=== PATIENT | female | born 1935 | race Caucasian/White ===

== ENCOUNTER 2018-11-29 12:59 | Inpatient (IN) | payer MEDICARE ==
[~2018-11-29] VITALS: Ht 162.6 cm; Wt 74.6 kg
[~2018-11-29 12:59] MED LIST: AMIT25TA PO; CEFP100T PO; CLON0.5T11 PO; CYAN-25 PO; GLIM4TAB2 PO; HYDR-2765 PO; LOVA20TA2 PO; METF10007 PO; PIOG45TA40 PO
--- NOTE | 2018-11-29 13:23 | PHYS DOC ---
Adult General Chief Complaint Chief Complaint: CHEST PAIN HPI HPI Patient is a 83 year old female was [facility] for chest pain started yesterday. Patient said the pain is on the left side radiating to her back. Patient recently had osteomyelitis in the toes in her right foot, had amputation last month. She has history of hypertension, neuropathy, diabetic. Patient also has history anemia. She denies any recent rectal bleeding, no vomiting blood. Review of Systems Review of Systems Constitutional: Denies fever or chills Eyes: Denies change in visual acuity, redness, or eye pain [] HENT: Denies nasal congestion or sore throat [] Respiratory: Denies cough or shortness of breath [] Cardiovascular:Positive for chest pain and shortness of air. GI: Denies abdominal pain, nausea, vomiting, bloody stools or diarrhea [] : Denies dysuria or hematuria [] Musculoskeletal: Denies back pain or joint pain [] Integument: Denies rash or skin lesions [] Neurologic: Denies headache, focal weakness or sensory changes. Positive for generalized weakness. Endocrine: Denies polyuria or polydipsia [] All other systems were reviewed and found to be within normal limits, except as documented in this note. Current Medications Current Medications Current Medications Medications (Trade) Dose Ordered Sig/Hever Start Time Stop Time Status Last Admin Dose Admin Albuterol/ Ipratropium (Duoneb) 3 ml RTQID 11/29/18 16:00 11/30/18 15:59 Aspirin (Children'S Aspirin) 324 mg 1X ONCE 11/29/18 13:30 11/29/18 13:31 DC Enoxaparin Sodium (Lovenox 80mg Syringe) 75 mg 1X ONCE 11/29/18 16:00 11/29/18 16:01 UNV Furosemide (Lasix) 60 mg 1X ONCE 11/29/18 15:45 11/29/18 15:46 DC Ketorolac Tromethamine (Toradol 30mg Vial) 30 mg 1X ONCE 11/29/18 15:30 11/29/18 15:31 UNV Morphine Sulfate (Morphine Sulfate) 2 mg PRN Q2HR PRN 11/29/18 15:45 11/30/18 15:44 Nitroglycerin (Nitrostat) 0.4 mg PRN Q5MIN PRN 11/29/18 15:45 11/30/18 15:44 Ondansetron HCl (Zofran) 4 mg PRN Q8HRS PRN 11/29/18 15:45 11/30/18 15:44 Allergies Allergies Allergies Coded Allergies Type Severity Reaction Last Updated Verified amoxicillin Allergy Intermediate Hives 10/15/18 Yes Physical Exam Physical Exam Constitutional: Well developed, well nourished, no acute distress, non-toxic appearance. [] HENT: Normocephalic, atraumatic, bilateral external ears normal, oropharynx moist, no oral exudates, nose normal. [] Eyes: PERRLA, EOMI, conjunctiva normal, no discharge. [] Neck: Normal range of motion, no tenderness, supple, no stridor. [] Cardiovascular:Heart rate regular rhythm, no murmur [] Lungs & Thorax: Bilateral breath sounds clear to auscultation [] Abdomen: Bowel sounds normal, soft, no tenderness, no masses, no pulsatile masses. [] Skin: Warm, dry, no erythema, no rash. [] Back: No tenderness, no CVA tenderness. [] Extremities: No tenderness, no cyanosis, no clubbing, ROM intact, BILATERAL LOWER EXTREMITIES EDEMA, PITTING, 3 PLUS. Neurologic: Alert and oriented X 3, normal motor function, normal sensory function, no focal deficits noted. [] Psychologic: Affect normal, judgement normal, mood normal. [] Current Patient Data Vital Signs Vital Signs Date Time Temp Pulse Resp B/P (MAP) Pulse Ox O2 Delivery O2 Flow Rate FiO2 11/29/18 13:16 97.8 102 20 132/74 (93) 94 Room Air 97.8 Lab Values Laboratory Tests Test 11/29/18 14:05 White Blood Count 10.8 x10^3/uL (4.0-11.0) Red Blood Count 3.39 x10^6/uL (3.50-5.40) L Hemoglobin 8.7 g/dL (12.0-15.5) L Hematocrit 28.5 % (36.0-47.0) L Mean Corpuscular Volume 84 fL (79-100) Mean Corpuscular Hemoglobin 26 pg (25-35) Mean Corpuscular Hemoglobin Concent 31 g/dL (31-37) Red Cell Distribution Width 21.0 % (11.5-14.5) H Platelet Count 285 x10^3/uL (140-400) Neutrophils (%) (Auto) 71 % (31-73) Lymphocytes (%) (Auto) 19 % (24-48) L Monocytes (%) (Auto) 10 % (0-9) H Eosinophils (%) (Auto) 0 % (0-3) Basophils (%) (Auto) 1 % (0-3) Neutrophils # (Auto) 7.6 x10^3uL (1.8-7.7) Lymphocytes # (Auto) 2.1 x10^3/uL (1.0-4.8) Monocytes # (Auto) 1.0 x10^3/uL (0.0-1.1) Eosinophils # (Auto) 0.0 x10^3/uL (0.0-0.7) Basophils # (Auto) 0.1 x10^3/uL (0.0-0.2) Prothrombin Time 17.5 SEC (11.7-14.0) H Prothrombin Time INR 1.5 (0.8-1.1) H PTT 34 SEC (24-38) D-Dimer (Elysia) 3.75 ug/mlFEU (0.00-0.50) H Sodium Level 135 mmol/L (136-145) L Potassium Level 4.0 mmol/L (3.5-5.1) Chloride Level 95 mmol/L (98-107) L Carbon Dioxide Level 27 mmol/L (21-32) Anion Gap 13 (6-14) Blood Urea Nitrogen 38 mg/dL (7-20) H Creatinine 1.6 mg/dL (0.6-1.0) H Estimated GFR (Cockcroft-Gault) 30.7 BUN/Creatinine Ratio 24 (6-20) H Glucose Level 150 mg/dL (70-99) H Calcium Level 9.2 mg/dL (8.5-10.1) Magnesium Level 1.4 mg/dL (1.8-2.4) L Total Bilirubin 0.6 mg/dL (0.2-1.0) Aspartate Amino Transferase (AST) 21 U/L (15-37) Alanine Aminotransferase (ALT) 16 U/L (14-59) Alkaline Phosphatase 73 U/L (46-116) Creatine Kinase 30 U/L (26-192) Creatine Kinase MB (Mass) 0.7 ng/mL (0.0-3.6) Creatine Kinase MB Relative Index % (0-4) Troponin I Quantitative 0.085 ng/mL (0.000-0.055) FU-Wlb-K-Type Natriuretic Peptide > 09060 pg/mL (0-449) H Total Protein 7.2 g/dL (6.4-8.2) Albumin 3.0 g/dL (3.4-5.0) L Albumin/Globulin Ratio 0.7 (1.0-1.7) L Lipase 33 U/L (73-393) L Laboratory Tests 11/29/18 14:05 Laboratory Tests 11/29/18 14:05 EKG EKG EKG was read by this physician at 1312, rate of 103 bpm, no STEMI, SINUS RHYTHM. Q WAVE IN INFERIOR LEADS. Radiology/Procedures Radiology/Procedures [][facility] [address] [place] [address] IMAGING REPORT Signed PATIENT: LORI RYDER ACCOUNT: [id number] : 1935 LOCATION: ER AGE: 83 SEX: F EXAM STATUS: PRE ER ORD. PHYSICIAN: IRWIN OLSON DO REASON: chest pain PROCEDURE: PORTABLE CHEST 1V Chest radiograph 11/29/2018 1:16 PM INDICATION: Chest pain COMPARISON: October 15, 2018 TECHNIQUE: Portable upright frontal view of the chest is provided. FINDINGS: The cardiomediastinal silhouette is similar in appearance. Small to moderate left pleural effusion with adjacent compressive atelectasis versus infiltrate. Small right pleural effusion. No pulmonary vascular congestion or pneumothorax. IMPRESSION: Small moderate left and small right pleural effusions with adjacent compressive atelectasis versus infiltrates. Electronically signed by: Bhargavi Chung MD (11/29/2018 1:48 PM) [id number] DICTATED and SIGNED BY: BHARGAVI CHUNG MD DATE: 11/29/18 1347 [facility] [address] [place] [address] IMAGING REPORT Signed PATIENT: LORI RYDER ACCOUNT: [id number] : 1935 LOCATION: ER AGE: 83 SEX: F EXAM STATUS: PRE ER ORD. PHYSICIAN: IRWIN OLSON DO REASON: legs swelling, recent right foot surgery PROCEDURE: VENOUS LOWER EXT BILATERAL CLINICAL HISTORY: B/L LEG SWELLINGS/P RT FOOT SURGERY COMPARISON: None available. TECHNIQUE: Ultrasound evaluation of both legs was performed from the groin to the upper calf with orozco scale, spectral and color doppler evaluation. FINDINGS: The common femoral vein, and femoral vein, including the saphenous-femoral junction are normal in appearance. Color and spectral Doppler evaluation demonstrates normal spontaneous flow, augmentation and phasicity. The popliteal vein and visualized calf veins also demonstrate normal compressibility and flow. The right greater saphenous vein has been removed. Mild lower extremity edema limits evaluation. IMPRESSION: No evidence of bilateral lower extremity DVT. Electronically signed by: Manuel Rebolledo MD (11/29/2018 2:03 PM) [id number] DICTATED and SIGNED BY: MANUEL REBOLLEDO MD DATE: 11/29/18 1401 Course & Med Decision Making Course & Med Decision Making Pertinent Labs and Imaging studies reviewed. (See chart for details) Patient's d-dimer is elevated, with recent surgery, chest pain, soa, likelihood of PE is high. CREATINE IS ELEVATED, WILL OBTAIN V/Q SCAN TO EVALUATE FOR PE. PATIENT'S TROPONIN IS ELEVATED. WILL ADMIT TO THE HOSPITAL. WILL GIVE HER FIRST DOSE OF LOVENOX IN THE ER. WILL CONSULT CARDIOLOGY WELL. AT THIS TIME, PATIENT DENIED ANY CHEST PAIN. Dragon Disclaimer Dragon Disclaimer This electronic medical record was generated, in whole or in part, using a voice recognition dictation system. Departure Departure Impression: Primary Impression: Chest pain Disposition: ADMITTED INPATIENT Admitting Physician: Alayna Solano Condition: STABLE Referrals: ALAYNA SOLANO MD (PCP) IRWIN OLSON DO Nov 29, 2018 13:23
[2018-11-29] MEDS ORDERED: ASPIRIN CHEWABLE 81 MG TABLET. PO ONE (13:30)
--- NOTE | 2018-11-29 13:53 | RAD ---
Chest radiograph 11/29/2018 1:16 PM INDICATION: Chest pain COMPARISON: October 15, 2018 TECHNIQUE: Portable upright frontal view of the chest is provided. FINDINGS: The cardiomediastinal silhouette is similar in appearance. Small to moderate left pleural effusion with adjacent compressive atelectasis versus infiltrate. Small right pleural effusion. No pulmonary vascular congestion or pneumothorax. IMPRESSION: Small moderate left and small right pleural effusions with adjacent compressive atelectasis versus infiltrates. Electronically signed by: Tess Reed MD (11/29/2018 1:48 PM) [id number]
--- NOTE | 2018-11-29 14:05 | EKG ---
[facility] [address] [place] [address] Test Date: 2018-11-29 Test Time: 13:10:58 Pat Name: LORI RYDER Department: Room: Gender: F Frame Repairer: : 1935 Requested By: IRWIN OLSON Order Number: [id number] Reading MD: Irvin Hernández Measurements Intervals [place] Rate: 103 P: 42 DE: 124 QRS: -5 QRSD: 84 T: 93 QT: 348 QTc: 458 Interpretive Statements SINUS TACHYCARDIA ATRIAL PREMATURE COMPLEX(ES) LEFTWARD AXIS LOW LIMB LEAD VOLTAGE QRS(T) CONTOUR ABNORMALITY CONSISTENT WITH INFERIOR INFARCT PROBABLY OLD ABNORMAL ECG Electronically Signed On 12-02-2018 10:24:37 [employer]END[employer] LET OFF HELPER by Irvin Hernández
--- NOTE | 2018-11-29 14:08 | RAD ---
CLINICAL HISTORY: B/L LEG SWELLINGS/P RT FOOT SURGERY COMPARISON: None available. TECHNIQUE: Ultrasound evaluation of both legs was performed from the groin to the upper calf with orozco scale, spectral and color doppler evaluation. FINDINGS: The common femoral vein, and femoral vein, including the saphenous-femoral junction are normal in appearance. Color and spectral Doppler evaluation demonstrates normal spontaneous flow, augmentation and phasicity. The popliteal vein and visualized calf veins also demonstrate normal compressibility and flow. The right greater saphenous vein has been removed. Mild lower extremity edema limits evaluation. IMPRESSION: No evidence of bilateral lower extremity DVT. Electronically signed by: Manuel Hong MD (11/29/2018 2:03 PM) [id number]
[2018-11-29 14:31] LABS: PROTHROMBIN TIME PATIENT 17.5 SEC (11.7-14.0)
[2018-11-29 14:32] LABS: BASO # 0.1 x10^3/uL (0.0-0.2); BASO % 1 % (0-3); EOS % 0 % (0-3); HEMATOCRIT 28.5 % (36.0-47.0); HEMOGLOBIN 8.7 g/dL (12.0-15.5); LYMPH # 2.1 x10^3/uL (1.0-4.8); LYMPH % 19 % (24-48); MEAN CORPUSCULAR HEMOGLOBIN 26 pg (25-35); MEAN CORPUSCULAR HGB CONC 31 g/dL (31-37); MEAN CORPUSCULAR VOLUME 84 fL (79-100); MONO % 10 % (0-9); NEUT # 7.6 x10^3uL (1.8-7.7); NEUT % 71 % (31-73); PLATELET COUNT 285 x10^3/uL (140-400); RED BLOOD COUNT 3.39 x10^6/uL (3.50-5.40); WHITE BLOOD COUNT 10.8 x10^3/uL (4.0-11.0)
[2018-11-29 14:34] LABS: CALCIUM 9.2 mg/dL (8.5-10.1); CREATININE 1.6 mg/dL (0.6-1.0); GFR 30.7
[2018-11-29 14:41] LABS: ALBUMIN/GLOBULIN RATIO 0.7 (1.0-1.7); MAGNESIUM 1.4 mg/dL (1.8-2.4); TOTAL BILIRUBIN 0.6 mg/dL (0.2-1.0); TOTAL PROTEIN 7.2 g/dL (6.4-8.2)
[2018-11-29 14:42] LABS: D-DIMER 3.75 ug/mlFEU (0.00-0.50)
[2018-11-29 14:43] LABS: CREATINE KINASE 30 U/L (26-192)
[2018-11-29] MEDS ORDERED: KETOROLAC 30 MG/ML VIAL. IV ONE (15:30)
[2018-11-29] MEDS ORDERED: FUROSEMIDE 40 MG/4 ML VIAL. IVP ONE (15:45)
[2018-11-29] MEDS ORDERED: NITROGLYCERIN SUBLINGUAL 0.4 MG BOTTLE OF 25. SL PRN (15:45)
[2018-11-29] MEDS ORDERED: MORPHINE SULFATE 4 MG/ML VIAL. IV PRN (15:45)
[2018-11-29] MEDS ORDERED: ONDANSETRON PF 4 MG/2 ML VIAL. IV PRN (15:45)
[2018-11-29] MEDS: IPRATRPIUM/ALBUTEROL 0.5/2.5MG 3 ML NEBU. NEB SCH ×2 (16:00→20:46)
[2018-11-29 17:12] LABS: ANISOCYTOSIS SLIGHT; OVALOCYTES OCC; PLT ESTIMATE ADEQUATE (ADEQUATE); POLYCHROMASIA SLIGHT
--- NOTE | 2018-11-29 17:39 | RAD ---
Indication: Chest pain for one day. Recent history of right foot amputation. Shortness of breath, chest pain. TECHNIQUE: Nuclear medicine VQ scan with 10.0 mCi of xenon-133 for ventilation scan and 6.0 mCi of technetium 99m MAA for perfusion scan. COMPARISON: Chest x-ray from same day FINDINGS: Appropriate wash-in and washout of xenon is seen in the ventilation phase. Homogeneous distribution is seen of the effusion agent without ventilation/perfusion mismatch. IMPRESSION: Low probability VQ scan. Electronically signed by: Cristobal Redding DO (11/29/2018 5:34 PM) [facility]
[2018-11-29 17:55] VITALS: BP 128/68
[2018-11-29] MEDS ORDERED: ACET500T33 PO (18:56)
[2018-11-29] MEDS ORDERED: LINA5TAB PO (18:56)
[2018-11-29] MEDS ORDERED: FURO-69 PO (18:56)
[2018-11-29 19:25] VITALS: BP 130/72
[2018-11-29] MEDS ORDERED: ACETAMINOPHEN 500 MG TABLET PO PRN (19:30)
[2018-11-29] MEDS: HYDROcodone/APAP 7.5/325MG 1 TAB TABLET PO PRN (20:07)
[2018-11-29] MEDS: clonazePAM 0.5 MG TABLET PO SCH (21:33)
[2018-11-29] MEDS: ATORVASTATIN CALCIUM 10 MG TABLET. PO SCH (21:33)
[2018-11-29 22:50] VITALS: BP 116/60
[2018-11-30 03:30] VITALS: BP 118/63
[2018-11-30 07:20] VITALS: BP 134/75
[2018-11-30] MEDS ORDERED: metFORMIN 500 MG TABLET PO SCH (08:00)
[2018-11-30] MEDS ORDERED: C.DIFF MED SCREEN BY RX. MC ONE (08:15)
[2018-11-30] MEDS: IPRATRPIUM/ALBUTEROL 0.5/2.5MG 3 ML NEBU. NEB SCH ×2 (08:28→12:07)
[2018-11-30 08:32] LABS: CALCIUM 8.8 mg/dL (8.5-10.1); CREATININE 1.6 mg/dL (0.6-1.0); GFR 30.7; MAGNESIUM 1.4 mg/dL (1.8-2.4); POTASSIUM 3.9 mmol/L (3.5-5.1)
[2018-11-30 08:45] LABS: CHOLESTEROL/HDL RATIO 2.1
--- NOTE | 2018-11-30 08:58 | NUR ---
SS following for discharge planning. SS reviewed pt chart. Pt was a resident from [facility] and [facility], ; fax [phone]. SS contacted [facility] to verify pt's previous placement. [facility] verified that pt was a skilled resident from there facility and will need new PT/OT evaluations and [facility] prior to returning.
[2018-11-30] MEDS ORDERED: FUROSEMIDE 20 MG TABLET PO SCH (09:00)
[2018-11-30] MEDS: CYANOCOBALAMIN (VITAMIN B-12) 1,000 MCG TABLET. PO SCH (09:07)
[2018-11-30] MEDS: LINAGLIPTIN 5 MG TABLET PO SCH (09:08)
--- NOTE | 2018-11-30 09:17 | PDOC ---
Provider Note Provider Note [id number] ALAYNA SOLANO MD Nov 30, 2018 09:17
--- NOTE | 2018-11-30 09:30 | PDOC2 ---
APRIL NAVA MH TEACHER 11/30/18 0930: CARDIAC CONSULT DATE OF CONSULT Date of Consult DATE: 11/30/18 TIME: 09:10 REASON FOR CONSULT Reason for Consult: chest pain, elevated troponin REFERRING PHYSICIAN Referring Physician: chuck SOURCE Source: Chart review, Patient HISTORY OF PRESENT ILLNESS HISTORY OF PRESENT ILLNESS This is an 83 yo female admitted for complains of chest pain. This is left chest radiating to back. She is significant for DM2 and PAD/osteomyelitis with recent right metatarsal amputation and open revascularization to RLE on 2017. She does not have hx of CAD or VTE. She started having chest pressure Thursday which lasted about 20 minutes. She has been having [facility] and since Thursday she has been having nausea intermittently but no vomiting. Yesterday again with [facility], feeling tired more than usual and also nausea. Also noted with [facility]. No diaphoresis or palpitations. No recent ischemic workup. No prior hx of VTe. No recent falls. Her legs have been edematous both lately. PAST MEDICAL HISTORY Cardiovascular: HTN, Hyperlipidemia, Other (Severe PAD) CENTRAL NERVOUS SYSTEM: Periperal neuropathy Heme/Onc: Anemia NOS Musculoskeletal: Osteoarthritis, Other (chornic pain) Infectious disease: Other (osteomyelitis) Endocrine: Diabetes (2), Osteoporosis Dermatology: Melanoma (with excision) PAST SURGICAL HISTORY Past Surgical History Right mid superficial femoral artery to proximal anterior tibial artery bypass using nonreversed great saphenous vein graft, Right transmetatarsal amputation. SOCIAL HISTORY Smoke: No ALCOHOL: none Drugs: None Lives: with Family CURRENT MEDICATIONS CURRENT MEDICATIONS Current Medications Medications (Trade) Dose Ordered Sig/Hever Route PRN Reason Start Time Stop Time Status Last Admin Dose Admin Albuterol/ Ipratropium (Duoneb) 3 ml RTQID NEB 11/29/18 16:00 11/30/18 15:59 11/30/18 08:28 Furosemide (Lasix) 60 mg 1X ONCE IVP 11/29/18 15:45 11/29/18 15:46 DC 11/29/18 15:56 Enoxaparin Sodium (Lovenox 80mg Syringe) 75 mg 1X ONCE SQ 11/29/18 16:00 11/29/18 16:01 DC 11/29/18 16:25 Clonazepam (KlonoPIN) 0.5 mg HS PO 11/29/18 21:00 11/29/18 21:33 Cyanocobalamin (Vitamin B-12) 1,000 mcg DAILY PO 11/30/18 09:00 11/30/18 09:07 Furosemide (Lasix) 20 mg DAILY PO 11/30/18 09:00 11/30/18 09:08 Acetaminophen/ Hydrocodone Bitart (Lortab 7.5/325) 1 tab PRN Q6HRS PRN PO PAIN MODERATE TO SEVERE 11/29/18 19:15 11/29/18 20:07 Linagliptin (Tradjenta) 5 mg DAILY PO 11/30/18 09:00 11/30/18 09:08 Atorvastatin Calcium (Lipitor) 5 mg QHS PO 11/29/18 21:00 11/29/18 21:33 Metformin HCl (Glucophage) 1,000 mg BIDWMEALS PO 11/30/18 08:00 11/30/18 09:08 ALLERGIES ALLERGIES: Coded Allergies: amoxicillin (Verified Allergy, Intermediate, Hives, 10/15/18) ROS Review of System 14 point ROS evaluated with pertinent positives noted per HPI PHYSICAL EXAM General: Alert, Oriented X3, Cooperative, No acute distress HEENT: Atraumatic, Mucous membr. moist/pink Lungs: Other (diminished, bibasilar crackles) Heart: Regular rate (Sinus tach mild), Other (2/6 systolic murmur to LLS border ) Abdomen: Soft, No tenderness Extremities: No cyanosis, Other (3-4+ to RLE and 3+ to LLE) Skin: No breakdown, No significant lesion, Other (RLE surgical incision healed ; left foot post recent amputation covered with dry kerlix) Neuro: Normal speech, Sensation intact Psych/Mental Status: Mental status NL, Mood NL MUSCULOSKELETAL: Osteoarthritic changes both hands VITALS VITALS Vital Signs Date Time Temp Pulse Resp B/P (MAP) Pulse Ox O2 Delivery O2 Flow Rate FiO2 11/30/18 08:29 96 Room Air 11/30/18 07:20 98.1 96 16 134/75 (94) 98.1 LABS Lab: Laboratory Tests Test 11/29/18 14:05 11/29/18 17:55 11/30/18 00:25 11/30/18 06:05 White Blood Count 10.8 x10^3/uL (4.0-11.0) Red Blood Count 3.39 x10^6/uL (3.50-5.40) Hemoglobin 8.7 g/dL (12.0-15.5) Hematocrit 28.5 % (36.0-47.0) Mean Corpuscular Volume 84 fL (79-100) Mean Corpuscular Hemoglobin 26 pg (25-35) Mean Corpuscular Hemoglobin Concent 31 g/dL (31-37) Red Cell Distribution Width 21.0 % (11.5-14.5) Platelet Count 285 x10^3/uL (140-400) Neutrophils (%) (Auto) 71 % (31-73) Lymphocytes (%) (Auto) 19 % (24-48) Monocytes (%) (Auto) 10 % (0-9) Eosinophils (%) (Auto) 0 % (0-3) Basophils (%) (Auto) 1 % (0-3) Neutrophils # (Auto) 7.6 x10^3uL (1.8-7.7) Lymphocytes # (Auto) 2.1 x10^3/uL (1.0-4.8) Monocytes # (Auto) 1.0 x10^3/uL (0.0-1.1) Eosinophils # (Auto) 0.0 x10^3/uL (0.0-0.7) Basophils # (Auto) 0.1 x10^3/uL (0.0-0.2) Platelet Estimate Adequate (ADEQUATE) Polychromasia Slight Anisocytosis Slight Ovalocytes Occ Prothrombin Time 17.5 SEC (11.7-14.0) Prothromb Time International Ratio 1.5 (0.8-1.1) Activated Partial Thromboplast Time 34 SEC (24-38) D-Dimer (Elysia) 3.75 ug/mlFEU (0.00-0.50) Sodium Level 135 mmol/L (136-145) 139 mmol/L (136-145) Potassium Level 4.0 mmol/L (3.5-5.1) 3.9 mmol/L (3.5-5.1) Chloride Level 95 mmol/L (98-107) 98 mmol/L (98-107) Carbon Dioxide Level 27 mmol/L (21-32) 29 mmol/L (21-32) Anion Gap 13 (6-14) 12 (6-14) Blood Urea Nitrogen 38 mg/dL (7-20) 40 mg/dL (7-20) Creatinine 1.6 mg/dL (0.6-1.0) 1.6 mg/dL (0.6-1.0) Estimated GFR (Cockcroft-Gault) 30.7 30.7 BUN/Creatinine Ratio 24 (6-20) Glucose Level 150 mg/dL (70-99) 156 mg/dL (70-99) Calcium Level 9.2 mg/dL (8.5-10.1) 8.8 mg/dL (8.5-10.1) Magnesium Level 1.4 mg/dL (1.8-2.4) 1.4 mg/dL (1.8-2.4) Total Bilirubin 0.6 mg/dL (0.2-1.0) Aspartate Amino Transf (AST/SGOT) 21 U/L (15-37) Alanine Aminotransferase (ALT/SGPT) 16 U/L (14-59) Alkaline Phosphatase 73 U/L (46-116) Creatine Kinase 30 U/L (26-192) Creatine Kinase MB (Mass) 0.7 ng/mL (0.0-3.6) Creatine Kinase MB Relative Index % (0-4) Troponin I Quantitative 0.085 ng/mL (0.000-0.055) 0.101 ng/mL (0.000-0.055) 0.084 ng/mL (0.000-0.055) 0.074 ng/mL (0.000-0.055) AL-Vlb-W-Type Natriuretic Peptide > 21404 pg/mL (0-449) Total Protein 7.2 g/dL (6.4-8.2) Albumin 3.0 g/dL (3.4-5.0) Albumin/Globulin Ratio 0.7 (1.0-1.7) Lipase 33 U/L (73-393) Triglycerides Level 65 mg/dL (0-150) Cholesterol Level 90 mg/dL (0-200) LDL Cholesterol, Calculated 34 mg/dL (0-100) VLDL Cholesterol, Calculated 13 mg/dL (0-40) Non-HDL Cholesterol Calculated 47 mg/dL (0-129) HDL Cholesterol 43 mg/dL (40-60) Cholesterol/HDL Ratio 2.1 Thyroid Stimulating Hormone (TSH) 2.142 uIU/mL (0.358-3.74) Test 11/30/18 07:28 Glucose (Fingerstick) 141 mg/dL (70-99) ASSESSMENT/PLAN ASSESSMENT/PLAN 1. NSTEMI; peaked at 0.1. EKG SR with poor QRS amplitude. 2. Acute CHF with possible diastolic/systolic dysfunction: 3. PAflutter: New onset. Could ischemic induced. 4. HTN: controlled 5. Severe PAD/osteomyelitis: recent right metatarsal amputation and fem-tib bypass. 6. HLP: lipids well controlled 7. DM2/DPN 8. KATERIN on CKD. suspect baseline stage 3. Prerenal. Cr at 1.6. Recommendations 1. TTE. TSH and lipids 2. Lasix therapy. 3. Pretest probability for CAD is high. Start on heparin drip. ASA Continue with statin 4. Start on BB if BP trend is adequate pending lasix therapy. 5. Potential LHC tomorrow. CARLOS CONTI MD 12/01/18 1309: CARDIAC CONSULT ASSESSMENT/PLAN ASSESSMENT/PLAN Patient seen and examined 11/30/18 (late entry). Agree with SUPERVISOR FISHING's assessment and plan. Continue diuresis for acute on chronic systolic heart failure 2-D echo showed LVEF 10-15% Plan for cardiac catheterization to rule out ischemic etiology Thank you for your consultation APRIL NAVA APRN Nov 30, 2018 09:30 CARLOS CONTI MD Dec 01, 2018 13:09
[2018-11-30] MEDS ORDERED: HEPARIN for IV BOLUS 10,000 UNIT/10 ML VIAL. IV PRN (09:45)
[2018-11-30] MEDS ORDERED: HEPARIN 25,000UTS/500ML PREMIX 500 ML IV PRN (09:45)
--- NOTE | 2018-11-30 09:57 | HP ---
ADMIT DATE: 11/29/2018 CHIEF COMPLAINT: Chest pain. HISTORY OF PRESENT ILLNESS: An 83-year-old white female with a history of type 2 diabetes and chronic disease anemia, had an amputation of her right distal foot and a vascular bypass to right leg done about one month ago per Dr. Jay. She has been recovering uneventfully at recent local correction without problems, but 2 days prior to admission, she developed some pressure-like pain in the mid chest that lasted 30-60 minutes. She did not get short of breath, sweaty or have any radiation of the pain. There was no heartburn, dysphagia or cough or hemoptysis. Pain resolved spontaneously, and she came to the ER the next day. Doppler studies of her legs were negative. D-dimer was high, but V/Q scan showed low probability of pulmonary embolism. Echocardiogram is pending at this time, and troponins have been only mildly elevated. She has never had coronary artery disease interventions to her knowledge. PAST MEDICAL HISTORY: Well documented in the old record. ALLERGIES: AMOXICILLIN. SOCIAL HISTORY: She is , lives by herself, is currently in a correction. Nondrinker, nonsmoker. FAMILY HISTORY: Unremarkable. REVIEW OF SYSTEMS: No other complaints. OBJECTIVE: ENT: Mild pallor, otherwise all within normal limits. NECK: No bruits, masses or thyroid enlargement. LUNGS: Decreased breath sounds in left chest, otherwise clear. No friction rub is heard. CARDIOVASCULAR: Regular rate. No irregular beat, murmur or rub. ABDOMEN: Soft, benign and nontender. EXTREMITIES: The wounds on the right lower extremity are healing well, as is the mid foot amputation. She has 1+ pretibial edema consistent with low albumin, but otherwise unremarkable. NEUROLOGIC: Physiologic and nonfocal. ASSESSMENT: 1. Nonspecific chest pain, no prior history of coronary artery disease, with high risk given her advanced age and diabetes. EKG unremarkable. Troponins were only minimally elevated. 2. Pleural effusions, left greater than right, perhaps secondary to low albumin and prolonged bed rest. 3. Recovering from vascular surgery and partial amputation of the right foot and right leg. 4. Anemia of chronic disease. 5. Prerenal azotemia, creatinine of 1.6 now and normal baseline 1.0. PLAN: Echo regarding her chest pain and follow clinically. We will hold diuretics given her prerenal azotemia at this point and hold metformin as well. ALAYNA SOLANO MD DR: YOSVANY/kasie JOB#: [id number] / [id number]
[2018-11-30 11:00] VITALS: BP 127/73
[2018-11-30] MEDS ORDERED: MAGNESIUM SULFATE 4GM 100 ML IV ONE (11:00)
--- NOTE | 2018-11-30 11:41 | CARD ---
MR#: [id number] Date of Study: 11/30/2018 Ordering Physician: APRIL NAVA, Referring Physician: Henri TOTH: Allison Hankins RDCS APPROVED REPORT EXAM: Two-dimensional and M-mode echocardiogram with Doppler and color Doppler. Other Information Quality : GoodHR: 107bpm Rhythm : Tachycardia INDICATION Chest Pain 2D DIMENSIONS RVDd2.6 (2.9-3.5cm)Left Atrium(2D)3.8 (1.6-4.0cm) IVSd0.8 (0.7-1.1cm)Aortic Root(2D)2.9 (2.0-3.7cm) LVDd5.0 (3.9-5.9cm)LVOT Diameter1.9 (1.8-2.4cm) PWd0.8 (0.7-1.1cm)LVDs4.8 (2.5-4.0cm) FS (%) 5.2 %SV14.0 ml LVEF(%)11.6 (>50%) Aortic Valve AoV Peak Fausto.152.7cm/sAoV VTI27.1cm AO Peak GR.9.3mmHgLVOT VTI 9.17cm AO Mean GR.6mmHgAVA (VMAX)1.00cm2 KAELYN (VTI)0.94cm2 Mitral Valve MV E Mlbgcuyt401.8cm/sMV E Peak Gr.76mmHg MV DECEL [id number] A Cjwxehmw74.7cm/s E/A Ratio1.2MV A Pelppszt45zk TDI Lateral E' P. V7.08cm/sE/Lateral E'15.6 Tricuspid Valve TR P. Rwzwkrky086ex/sRAP [id number] TR Peak Gr.78zkEmAYJI58khUn LEFT VENTRICLE The left ventricle is normal size. There is normal left ventricular wall thickness. The left ventricu lar systolic function is severely impaired. The Ejection Fraction is 10-15%. There is severe global h ypokinesis of the left ventricle. RIGHT VENTRICLE The right ventricle is mildly dilated. There is normal right ventricular wall thickness. Systolic fun ction is mildly to moderately reduced. ATRIA The left atrium size is normal. The right atrium is mildly dilated. The interatrial septum is intact with no evidence for an atrial septal defect or patent foramen ovale as noted on 2-D or Doppler imagi ng. AORTIC VALVE The aortic valve is calcified and displays decreased opening. The aortic valve is trileaflet. Doppler and Color Flow revealed trace aortic regurgitation. There is mild valvular aortic stenosis. MITRAL VALVE The mitral valve is thickened but opens well. There is no evidence of mitral valve prolapse. There is no mitral valve stenosis. Doppler and Color-flow revealed mild to moderate mitral regurgitation. TRICUSPID VALVE The tricuspid valve leaflets are thickened , but open well. Doppler and Color Flow revealed moderate to severe tricuspid regurgitation. There is moderate pulmonary hypertension. The PA pressure was edyta mated at 45 mmHg. There is no tricuspid valve prolapse or vegetation. There is no tricuspid valve mae nosis. PULMONIC VALVE Pulmonic valve not well visualized. GREAT VESSELS The aortic root is normal in size. The ascending aorta is normal in size. The IVC is dilated and abdoulaye apses <50% with inspiration. PERICARDIAL EFFUSION There is large left pleural effusion. There is no evidence of significant pericardial effusion. Critical Notification Critical Value: No <Conclusion> The left ventricular systolic function is severely impaired. The Ejection Fraction is 10-15%. There is mild valvular aortic stenosis. Mild to moderate mitral regurgitation. Moderate to severe tricuspid regurgitation. There is moderate pulmonary hypertension. The PA pressure was estimated at 45 mmHg. There is no evidence of significant pericardial effusion. Signed by : Irvin Hernández, Electronically Approved : 11/30/2018 11:39:04
[2018-11-30] MEDS: FUROSEMIDE 40 MG/4 ML VIAL. IVP SCH (11:57)
[2018-11-30] MEDS: METOPROLOL TART IMMED RELEASE 25 MG TABLET. PO SCH ×2 (11:58→21:30)
[2018-11-30] MEDS: ASPIRIN ENTERIC COATED 81 MG TABLET.DR. PO SCH (11:58)
[2018-11-30] MEDS: HYDROcodone/APAP 7.5/325MG 1 TAB TABLET PO PRN ×2 (11:59→22:31)
[2018-11-30 15:15] VITALS: BP 116/64
[2018-11-30] MEDS: ANTI-COAG MONITOR BY PHARMACY. MC PRN (16:52)
[2018-11-30 19:25] VITALS: BP 138/71
[2018-11-30] MEDS: clonazePAM 0.5 MG TABLET PO SCH (21:30)
[2018-11-30] MEDS: ATORVASTATIN CALCIUM 10 MG TABLET. PO SCH (21:30)
[2018-11-30 23:35] VITALS: BP 115/65
[2018-12-01 03:30] VITALS: BP 112/69
[2018-12-01 06:25] LABS: CALCIUM 8.9 mg/dL (8.5-10.1); CREATININE 1.7 mg/dL (0.6-1.0); GFR 28.6; MAGNESIUM 2.2 mg/dL (1.8-2.4)
[2018-12-01 07:40] VITALS: BP 118/64
[2018-12-01 07:44] LABS: HEMOGLOBIN 8.5 g/dL (12.0-15.5); RED BLOOD COUNT 3.32 x10^6/uL (3.50-5.40); RED CELL DISTRIBUTION WIDTH 21.2 % (11.5-14.5); WHITE BLOOD COUNT 11.7 x10^3/uL (4.0-11.0)
--- NOTE | 2018-12-01 08:11 | RAD ---
Chest radiograph 12/01/2018 7:38 AM INDICATION: CHF COMPARISON: November 29, 2018 TECHNIQUE: Portable upright frontal view of the chest is provided. FINDINGS: The cardiomediastinal silhouette is similar in appearance. There is a moderate left pleural effusion. There is adjacent compressive atelectasis versus infiltrate. Trace right pleural effusion appears similar. Similar mild pulmonary vascular congestion. No pneumothorax. IMPRESSION: No significant interval change since prior examination. Electronically signed by: Tess Reed MD (12/01/2018 8:06 AM) [facility]
[2018-12-01] MEDS: ANTI-COAG MONITOR BY PHARMACY. MC PRN (08:50)
--- NOTE | 2018-12-01 09:13 | PDOC ---
Provider Note Provider Note echo 10-15% ef, Lpleural effusion likely cardiogenic- will add aldactone qod re renal, diuresis- likely needs cath but renal at risk- will have to stop actos and metformin re renal/cv also, likely lantus now ALAYNA SOLAON MD Dec 01, 2018 09:13
[2018-12-01] MEDS: FUROSEMIDE 40 MG/4 ML VIAL. IVP SCH (11:02)
[2018-12-01 11:26] VITALS: BP 137/74
--- NOTE | 2018-12-01 11:33 | PDOC ---
APRIL NAVA SENIOR TAX MANAGER 12/01/18 1133: CARDIO Progress Notes Date and Time Date of Service 12/01/2018 Time of Evaluation 1115 Subjective Subjective: No Chest Pain, No shortness of breath, No Palpitations, Other ( transfers to [facility] without significan SOA. ) Vitals Vitals Vital Signs Date Time Temp Pulse Resp B/P (MAP) Pulse Ox O2 Delivery O2 Flow Rate FiO2 12/01/18 07:54 Room Air 12/01/18 07:40 97.6 89 18 118/64 (82) 96 97.6 Weight Weight [ ] Input and Output Intake and Output Intake and Output 12/01/18 07:01 Intake Total 1200 ml Output Total 450 ml Balance 750 ml Intake Oral 1100 ml IV Total 100 ml Output Urine Total 450 ml # Bowel Movements 1 Laboratory Labs Laboratory Tests Test 11/30/18 16:50 11/30/18 17:06 11/30/18 21:04 11/30/18 22:20 Heparin Anti-Xa Act, Unfractionated 0.51 IU/mL (0.30-0.70) 0.67 IU/mL (0.30-0.70) Glucose (Fingerstick) 208 mg/dL (70-99) 211 mg/dL (70-99) Test 12/01/18 05:00 12/01/18 07:16 White Blood Count 11.7 x10^3/uL (4.0-11.0) Red Blood Count 3.32 x10^6/uL (3.50-5.40) Hemoglobin 8.5 g/dL (12.0-15.5) Hematocrit 28.0 % (36.0-47.0) Mean Corpuscular Volume 85 fL (79-100) Mean Corpuscular Hemoglobin 26 pg (25-35) Mean Corpuscular Hemoglobin Concent 31 g/dL (31-37) Red Cell Distribution Width 21.2 % (11.5-14.5) Platelet Count 305 x10^3/uL (140-400) Heparin Anti-Xa Act, Unfractionated 0.34 IU/mL (0.30-0.70) Sodium Level 137 mmol/L (136-145) Potassium Level 4.0 mmol/L (3.5-5.1) Chloride Level 97 mmol/L (98-107) Carbon Dioxide Level 26 mmol/L (21-32) Anion Gap 14 (6-14) Blood Urea Nitrogen 43 mg/dL (7-20) Creatinine 1.7 mg/dL (0.6-1.0) Estimated GFR (Cockcroft-Gault) 28.6 Glucose Level 172 mg/dL (70-99) Calcium Level 8.9 mg/dL (8.5-10.1) Magnesium Level 2.2 mg/dL (1.8-2.4) Glucose (Fingerstick) 165 mg/dL (70-99) Physical Exam HEENT: Neck Supple W Full Motion Chest: Symmetric LUNGS: Other (basilar crackles) Heart: S1S2, RRR (SR) Abdomen: Soft N/T Extremities: No Calf Tenderness, Other (2-3+ bilateral LE pitting edema) Neurology: alert, oriented, follow commands Assessment Assessment 1. NSTEMI: peaked troponin at 0.1 2. Acute systolic CHF: compensated 3. Cardiomyopathy: EF at 15% NYHA 2-3 4. PAflutter: New onset. Could ischemic induced. None further overnight 5. HTN: controlled 6. Severe PAD/osteomyelitis: recent right metatarsal amputation and fem-tib bypass. 7. HLP: lipids well controlled 8. DM2/DPN 9. KATERIN on CKD. suspect baseline stage 3. Prerenal. Cr at 1.7. 9. 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 DC heparin. Continue ASA. Cr 1.7 will redraw. Discussed with pt in regards to risk of STEVIE but would like to proceed with LHC as an inpt. Will redraw Cr and if improvement is noted then will consider if not then will need renal optimization and potentially pursue LHC as an outpt. 2. Continue with lasix therapy. Plavix to be started soon 3. Monitor I & O, daily wt. discussed with staff. 4. Continue with metoprolol and statin. May hold of ARB or aldactone pending renal function. 5. MCT as an outpt CARLOS CONTI MD 12/01/18 1631: CARDIO Progress Notes Assessment Assessment Patient seen and examined. Agree with HADOOP JAVA DEVELOPER's assessment and plan. Acute on chronic systolic heart failure better compensated Since she has had recent surgical revascularization on lower extremity for PAD, it is reasonable to pursue left heart catheterization to rule out ischemic etiology for her cardiomyopathy as an outpatient We will also plan for outpatient event monitor to assess arrhythmia burden Continue current medical regimen APRIL NAVA APRN Dec 01, 2018 11:33 CARLOS CONTI MD Dec 01, 2018 16:31
[2018-12-01 12:04] LABS: CALCIUM 9.1 mg/dL (8.5-10.1); CREATININE 1.6 mg/dL (0.6-1.0); GFR 30.7
[2018-12-01] MEDS ORDERED: CLOPIDOGREL BISULFATE 75 MG TABLET PO ONE (13:30)
[2018-12-01] MEDS: SPIRONOLACTONE 25 MG TABLET PO SCH (13:47)
[2018-12-01] MEDS: ASPIRIN ENTERIC COATED 81 MG TABLET.DR. PO SCH (13:47)
[2018-12-01] MEDS: LINAGLIPTIN 5 MG TABLET PO SCH (13:47)
[2018-12-01] MEDS: METOPROLOL TART IMMED RELEASE 25 MG TABLET. PO SCH ×2 (13:48→20:57)
[2018-12-01] MEDS: CYANOCOBALAMIN (VITAMIN B-12) 1,000 MCG TABLET. PO SCH (13:48)
[2018-12-01 15:26] VITALS: BP 110/66
[2018-12-01] MEDS ORDERED: FUROSEMIDE 40 MG/4 ML VIAL. IVP ONE (16:00)
[2018-12-01 19:15] VITALS: BP 125/65
[2018-12-01] MEDS: ATORVASTATIN CALCIUM 10 MG TABLET. PO SCH (20:57)
[2018-12-01] MEDS: clonazePAM 0.5 MG TABLET PO SCH (20:57)
[2018-12-01] MEDS: INSULIN GLARGINE 300 UNITS/3 ML INSULN.PEN. SQ SCH (21:01)
[2018-12-01 22:11] LABS: HEMOGLOBIN A1C 6.4 % (4.8-5.6)
[2018-12-01 23:19] VITALS: BP 118/65
--- NOTE | 2018-12-01 23:22 | NUR ---
AT 2200 PT CALLED AND SAID SHE FEELS SOA. SATS WERE 95%. PLACED ON 2 LITERS NASAL CANNULA. OFFERED EMOTIONAL SUPPORT. STATES SHE IS NERVOUS ABOUT THE CATH TOMORROW. WAITED ALL DAY TODAY TO HAVE IT AND IT ENDED UP GETTING CANCELLED. SHE SAID. SAT WITH PT. AMBROCIO
--- NOTE | 2018-12-01 23:24 | NUR ---
PT FEELS LIKE SHE IS HAVING AN ANXIETY ATTACK SHE SAID. AFRAID SHE WONT WAKE UP IF SHE GOES TO SLEEP. PLACED AN O2 SAT PROBE ON HER FINGER AND TOLD HER WE HAVE MONITORS AT THE DESK AND PAGERS AND WE CAN MONITOR HER. GAVE SOME COMFORT. BUT SHE WANTS SOMETHING FOR ANXIETY. CALLED DR SOLANO AND EXPLAINED WHAT WAS GOING ON WITH HIS PT. AND HE ORDERED XANAX. [facility]
[2018-12-01] MEDS ORDERED: ALPRAZolam 0.5 MG TABLET PO ONE (23:30)
[2018-12-02 03:25] VITALS: BP 128/69
--- NOTE | 2018-12-02 05:00 | NUR ---
PT DESATED TO 59% QUICKLY. CHECKED ON HER SHE WASNT BREATHING. SHE DIDNT ANSWER TO HER NAME. SHOOK PT BY HER SHOULDERS AND SHE WOKE UP AND ANSWERED ME. SATS LORI TO 94% ON 2 LITERS. LAST NIGHT DURING HER ANXIETY EPISODE, PT STATED SHE WAS AFRAID TO GO TO SLEEP THAT SHE WOULDNT WAKE UP. I ASSURED HER THAT WE WATCH THE MONITOR AT THE DESK AND SHE HAS A PROBE ON HER FINGER TO MONITOR HER BREATHING. SAT WITH PT AFTER THIS COMMENT. AND SHE SAID SHE APPRECIATED IT. LCRN
[2018-12-02 07:00] VITALS: BP 118/66
[2018-12-02] MEDS: FUROSEMIDE 40 MG/4 ML VIAL. IVP SCH ×2 (09:00→17:24)
--- NOTE | 2018-12-02 09:08 | PDOC ---
Provider Note Provider Note vss, anxious, no new sxs- still edema and effusions so more diuresis- bmp same, cath later re severely low EF ALAYNA SOLANO MD Dec 02, 2018 09:08
[2018-12-02] MEDS: CYANOCOBALAMIN (VITAMIN B-12) 1,000 MCG TABLET. PO SCH (10:40)
[2018-12-02] MEDS: ASPIRIN ENTERIC COATED 81 MG TABLET.DR. PO SCH (10:40)
[2018-12-02] MEDS: LINAGLIPTIN 5 MG TABLET PO SCH (10:40)
[2018-12-02] MEDS: CLOPIDOGREL BISULFATE 75 MG TABLET PO SCH (10:40)
[2018-12-02] MEDS: METOPROLOL TART IMMED RELEASE 25 MG TABLET. PO SCH ×2 (10:43→22:07)
[2018-12-02 10:52] LABS: CALCIUM 9.5 mg/dL (8.5-10.1); CREATININE 1.9 mg/dL (0.6-1.0); GFR 25.2; MAGNESIUM 2.3 mg/dL (1.8-2.4); POTASSIUM 4.1 mmol/L (3.5-5.1)
[2018-12-02] MEDS ORDERED: LIDOCAINE 1% PF 2 ML VIAL. ONE (10:54)
[2018-12-02] MEDS ORDERED: IODIXANOL 320 MG/ML 100 ML VIAL. ONE (10:54)
[2018-12-02 11:00] VITALS: BP 130/67
--- NOTE | 2018-12-02 11:51 | PDOC ---
APRIL NAVA SERVICE TESTER 12/02/18 1151: CARDIO Progress Notes Date and Time Date of Service 12/02/2018 Time of Evaluation 0940 Subjective Subjective: No Chest Pain, No shortness of breath, No Palpitations Vitals Vitals Vital Signs Date Time Temp Pulse Resp B/P (MAP) Pulse Ox O2 Delivery O2 Flow Rate FiO2 12/02/18 10:43 85 130/67 12/02/18 08:00 Nasal Cannula 2.0 12/02/18 07:00 97.6 18 93 97.6 Weight Weight [ ] Input and Output Intake and Output Intake and Output 12/02/18 07:01 Intake Total 1059 ml Output Total 225 ml Balance 834 ml Intake Oral 660 ml Other 399 ml Output Urine Total 225 ml # Voids 1 # Bowel Movements 3 Laboratory Labs Laboratory Tests Test 12/01/18 16:45 12/01/18 20:49 12/02/18 09:44 12/02/18 10:15 Glucose (Fingerstick) 215 mg/dL (70-99) 201 mg/dL (70-99) 103 mg/dL (70-99) Sodium Level 136 mmol/L (136-145) Potassium Level 4.1 mmol/L (3.5-5.1) Chloride Level 95 mmol/L (98-107) Carbon Dioxide Level 28 mmol/L (21-32) Anion Gap 13 (6-14) Blood Urea Nitrogen 47 mg/dL (7-20) Creatinine 1.9 mg/dL (0.6-1.0) Estimated GFR (Cockcroft-Gault) 25.2 Glucose Level 89 mg/dL (70-99) Calcium Level 9.5 mg/dL (8.5-10.1) Magnesium Level 2.3 mg/dL (1.8-2.4) Physical Exam HEENT: Neck Supple W Full Motion Chest: Symmetric LUNGS: Other (basilar crackles) Heart: S1S2, RRR (SR) Abdomen: Soft N/T Extremities: No Calf Tenderness, Other (3+ bilateral LE pitting edema) Neurology: alert, oriented, follow commands Assessment Assessment 1. NSTEMI: peaked troponin at 0.1 2. Acute systolic CHF: compensated 3. Cardiomyopathy: EF at 15% NYHA 2-3 4. PAflutter: New onset. Could be ischemic induced. Remains in SR. 5. HTN: controlled 6. Severe PAD/osteomyelitis: recent right metatarsal amputation and fem-tib bypass. 7. HLP: lipids well controlled 8. DM2/DPN 9. KATERIN on CKD. suspect baseline stage 3. Prerenal. Cr up to 1.9 9. 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 Anemia: likely on chronic Recommendations 1. ECASA 81 mg, plavix. 2. Continue with lasix therapy. Continue with aldactone. Check UA 3. Monitor I & O no accurate, daily wt., will obtain via standing scale. Discussed with staff. 4. Continue with metoprolol and statin. May need to hold aldactone if Cr continues to trend up. Will consider for inotrope as well. 5. MCT as an outpt not afib/flutter burden. 6. Remains CP free, and respiratory crockett compensated. Given her recent vascular surgery with good tolerance will pursue left heart catheterization to rule out ischemic etiology for her cardiomyopathy as an outpatient. Pt has an appt on Thursday with vascular. 7. follow up in CHF clinic in 1-2 weeks 8. May consider for lifevest. CARLOS CONTI MD 12/03/18 1139: CARDIO Progress Notes Assessment Assessment Patient seen and examined 12/02/18. Agree with INSPECTOR EYEGLASS's assessment and plan. Acute on chronic systolic heart failure better compensated Plan for outpatient event monitor to assess arrhythmia burden and Cardiac catheterization to rule out ischemic etiology for her cardiomyopathy APRIL NAVA APRN Dec 02, 2018 11:51 CARLOS CONTI MD Dec 03, 2018 11:39
[2018-12-02] MEDS: ALPRAZolam 0.5 MG TABLET PO PRN (12:17)
[2018-12-02 15:00] VITALS: BP 116/65
--- NOTE | 2018-12-02 15:31 | NUR ---
Wound Care: Consult to eval amputation incision. Incision appears to be healing as expected and there are no wounds present. Per Kellie FIAR, pt has follow up with surgeon on Thursday. Recommend consulting surgeon if pt has not discharged from hospital by that time. Signing off at this time.
[2018-12-02] MEDS: HYDROcodone/APAP 7.5/325MG 1 TAB TABLET PO PRN (18:44)
[2018-12-02 19:44] VITALS: BP 123/71
[2018-12-02] MEDS: ATORVASTATIN CALCIUM 10 MG TABLET. PO SCH (22:07)
[2018-12-02] MEDS: clonazePAM 0.5 MG TABLET PO SCH (22:07)
[2018-12-02] MEDS: INSULIN GLARGINE 300 UNITS/3 ML INSULN.PEN. SQ SCH (22:14)
[2018-12-02 23:18] VITALS: BP 110/64
[2018-12-03] MEDS: HYDROcodone/APAP 7.5/325MG 1 TAB TABLET PO PRN (03:10)
[2018-12-03 03:17] VITALS: BP 130/64
[2018-12-03 07:25] VITALS: BP 118/65
[2018-12-03] MEDS ORDERED: CLOPIDOGREL BISULFATE 75 MG TABLET PO SCH (08:00)
--- NOTE | 2018-12-03 08:08 | PDOC ---
Provider Note Provider Note vss, exam same, still red bs L chest re effusion- lab pending- cont lasix diuresis re CM, repeat cxr re effusion- ? tap but etiology likely cardiogenic- will follow gfr as slowly worsening w/ diuresis- no acei/arb re same ALAYNA SOLANO MD Dec 03, 2018 08:08
[2018-12-03] MEDS: CLOPIDOGREL BISULFATE 75 MG TABLET PO SCH (09:34)
[2018-12-03] MEDS: LINAGLIPTIN 5 MG TABLET PO SCH (09:34)
[2018-12-03] MEDS: ASPIRIN ENTERIC COATED 81 MG TABLET.DR. PO SCH (09:34)
[2018-12-03] MEDS: CYANOCOBALAMIN (VITAMIN B-12) 1,000 MCG TABLET. PO SCH (09:34)
[2018-12-03] MEDS: SPIRONOLACTONE 25 MG TABLET PO SCH (09:35)
[2018-12-03] MEDS: METOPROLOL TART IMMED RELEASE 25 MG TABLET. PO SCH ×2 (09:35→20:57)
[2018-12-03] MEDS: FUROSEMIDE 40 MG/4 ML VIAL. IVP SCH ×2 (09:36→18:36)
--- NOTE | 2018-12-03 09:45 | RAD ---
EXAM: AP View of the chest DATE: 12/03/2018 8:36 AM INDICATION: pleural effusion bilateral COMPARISON: 12/01/2018, 11/29/2018 FINDINGS/ IMPRESSION: Cardiomediastinal silhouette is stable. Small left and trace right pleural effusions are also stable accounting for differences in technique. Associated left greater than right lung base airspace opacities, favor atelectasis given the associated pleural effusion although associated consolidation is not excluded and grossly stable. No pneumothorax. Electronically signed by: Manuel Hong MD (12/03/2018 9:41 AM) [facility]
[2018-12-03 11:20] VITALS: BP 118/58
[2018-12-03 11:55] LABS: HEMATOCRIT 31.5 % (36.0-47.0); HEMOGLOBIN 9.3 g/dL (12.0-15.5); RED BLOOD COUNT 3.73 x10^6/uL (3.50-5.40); RED CELL DISTRIBUTION WIDTH 21.5 % (11.5-14.5); WHITE BLOOD COUNT 14.2 x10^3/uL (4.0-11.0)
[2018-12-03 11:58] LABS: CALCIUM 9.1 mg/dL (8.5-10.1); CREATININE 2.2 mg/dL (0.6-1.0); GFR 21.3; MAGNESIUM 2.2 mg/dL (1.8-2.4); POTASSIUM 4.1 mmol/L (3.5-5.1)
[2018-12-03] MEDS: ALPRAZolam 0.5 MG TABLET PO PRN (13:18)
--- NOTE | 2018-12-03 13:35 | PDOC ---
APRIL NAVA ARBORER 12/03/18 1335: CARDIO Progress Notes Date and Time Date of Service 12/03/2018 Time of Evaluation 1310 Subjective Subjective: No Chest Pain, No shortness of breath, No Palpitations Vitals Vitals Vital Signs Date Time Temp Pulse Resp B/P (MAP) Pulse Ox O2 Delivery O2 Flow Rate FiO2 12/03/18 11:20 97.7 108 20 118/58 (78) 98 Room Air 97.7 12/03/18 07:35 2.0 Weight Weight [ ] Input and Output Intake and Output Intake and Output 12/03/18 07:01 Intake Total 620 ml Output Total 600 ml Balance 20 ml Intake Oral 620 ml Output Urine Total 600 ml Laboratory Labs Laboratory Tests Test 12/02/18 21:03 12/03/18 07:32 12/03/18 07:53 12/03/18 11:35 Glucose (Fingerstick) 130 mg/dL (70-99) 47 mg/dL (70-99) 63 mg/dL (70-99) White Blood Count 14.2 x10^3/uL (4.0-11.0) Red Blood Count 3.73 x10^6/uL (3.50-5.40) Hemoglobin 9.3 g/dL (12.0-15.5) Hematocrit 31.5 % (36.0-47.0) Mean Corpuscular Volume 84 fL (79-100) Mean Corpuscular Hemoglobin 25 pg (25-35) Mean Corpuscular Hemoglobin Concent 30 g/dL (31-37) Red Cell Distribution Width 21.5 % (11.5-14.5) Platelet Count 287 x10^3/uL (140-400) Sodium Level 133 mmol/L (136-145) Potassium Level 4.1 mmol/L (3.5-5.1) Chloride Level 93 mmol/L (98-107) Carbon Dioxide Level 24 mmol/L (21-32) Anion Gap 16 (6-14) Blood Urea Nitrogen 55 mg/dL (7-20) Creatinine 2.2 mg/dL (0.6-1.0) Estimated GFR (Cockcroft-Gault) 21.3 Glucose Level 109 mg/dL (70-99) Calcium Level 9.1 mg/dL (8.5-10.1) Magnesium Level 2.2 mg/dL (1.8-2.4) Test 12/03/18 11:41 Glucose (Fingerstick) 95 mg/dL (70-99) Physical Exam HEENT: Neck Supple W Full Motion Chest: Symmetric LUNGS: Other (basilar crackles) Heart: S1S2, RRR (SR) Abdomen: Soft N/T Extremities: No Calf Tenderness, Other (3+ bilateral LE pitting edema) Neurology: alert, oriented, follow commands Assessment Assessment 1. NSTEMI: peaked troponin at 0.1 2. Acute systolic CHF: appears compensated 3. Cardiomyopathy: EF at 15% NYHA 2-3 4. PAflutter: New onset. Brief NSVT otherwise maintaining SR. 5. HTN: controlled 6. Severe PAD/osteomyelitis: recent right metatarsal amputation and fem-tib bypass. 7. HLP: lipids well controlled 8. DM2/DPN 9. KATERIN on CKD. suspect baseline stage 3. prerenal Cr worse. 9. 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 Anemia: likely on chronic Recommendations 1. ECASA 81 mg, plavix. Continue metoprolol at higher dose. 2. Poor UOP despite lasix therapy. May need Milrinone. Consult nephrology for optimization. DC aldactone for now. 3. MCT as an outpt not afib/flutter burden. 4. Remains CP free, and respiratory crockett compensated. Given her recent vascular surgery with good tolerance will pursue left heart catheterization to rule out ischemic etiology for her cardiomyopathy as an outpatient. Pt has an appt on Thursday with vascular. 5. May consider for lifevest. CARLOS CONTI MD 12/03/18 1628: CARDIO Progress Notes Assessment Assessment Patient seen and examined. Agree with STEERER's assessment and plan. Agree with holding diuretics and consult nephrology for acute on chronic renal insufficiency Plan for ischemic evaluation and event monitor as an outpatient APRIL NAVA APRN Dec 03, 2018 13:35 CARLOS CONTI MD Dec 03, 2018 16:28
--- NOTE | 2018-12-03 13:59 | PDOC2 ---
CONSULT Date of Consult Date of Consult DATE: 12/03/18 TIME: 13:46 Reason for Consult Reason for Consult: Erinn Source Source: Chart review, Patient History of Present Illness Reason for Visit: Pt is 83 yo female admitted with complains of chest pain Lt, radiating to back. Hx of DM2 and PAD/osteomyelitis with recent right metatarsal amputation and open revascularization to RLE on 10/21/2018. She started having chest pressure Thursday which lasted about 20 minutes. She has been having [facility] and since Thursday she has been having nausea intermittently but no vomiting. Hospitalized on 11/30 with baseline Cr of 1.4-1.6 in October , No prior labs She has been on Aldactone and getting IV Lasix 40 BID as per cardiology . As per RN decrease in UOP She denies any acute complaints currently. Denies any symptoms of UTI. She is not aware of CKD or any Cardiac Hx in the past, she follows with PCP Denies any NSAID's or OTC meds/Supplements Past Medical History Cardiovascular: HTN, Hyperlipidemia, Other (Severe PAD) CENTRAL NERVOUS SYSTEM: Periperal neuropathy Heme/Onc: Anemia NOS Musculoskeletal: Osteoarthritis, Other (chornic pain) Infectious disease: Other (osteomyelitis) Endocrine: Diabetes (2), Osteoporosis Dermatology: Melanoma (with excision) Social History No ALCOHOL: none Drugs: None Lives: with Family Current Problem List Problem List Problems Medical Problems: (1) Chest pain Status: Acute Current Medications Current Medications Current Medications Aspirin (Children'S Aspirin) 324 mg 1X ONCE PO ; Start 11/29/18 at 13:30; Stop 11/29/18 at 13:31; Status DC Enoxaparin Sodium (Lovenox 80mg Syringe) 80 mg 1X ONCE SQ ; Start 11/29/18 at 15:30; Stop 11/29/18 at 15:30; Status DC Ketorolac Tromethamine (Toradol 30mg Vial) 30 mg 1X ONCE IV ; Start 11/29/18 at 15:30; Stop 11/29/18 at 15:31; Status UNV Ondansetron HCl (Zofran) 4 mg PRN Q8HRS PRN IV NAUSEA/VOMITING; Start 11/29/18 at 15:45; Stop 11/30/18 at 15:44; Status DC Morphine Sulfate (Morphine Sulfate) 2 mg PRN Q2HR PRN IV PAIN; Start 11/29/18 at 15:45; Stop 11/30/18 at 15:44; Status DC Nitroglycerin (Nitrostat) 0.4 mg PRN Q5MIN PRN SL CHEST PAIN; Start 11/29/18 at 15:45; Stop 11/30/18 at 15:44; Status DC Albuterol/ Ipratropium (Duoneb) 3 ml RTQID NEB Last administered on 11/30/18at 12:07; Start 11/29/18 at 16:00; Stop 11/30/18 at 15:59; Status DC Furosemide (Lasix) 60 mg 1X ONCE IVP Last administered on 11/29/18at 15:56; Start 11/29/18 at 15:45; Stop 11/29/18 at 15:46; Status DC Enoxaparin Sodium (Lovenox 80mg Syringe) 75 mg 1X ONCE SQ Last administered on 11/29/18at 16:25; Start 11/29/18 at 16:00; Stop 11/29/18 at 16:01; Status DC Clonazepam (KlonoPIN) 0.5 mg HS PO Last administered on 12/02/18at 22:07; Start 11/29/18 at 21:00 Cyanocobalamin (Vitamin B-12) 1,000 mcg DAILY PO Last administered on 12/03/18at 09:34; Start 11/30/18 at 09:00 Furosemide (Lasix) 20 mg DAILY PO Last administered on 11/30/18at 09:08; Start 11/30/18 at 09:00; Stop 11/30/18 at 09:13; Status DC Acetaminophen/ Hydrocodone Bitart (Lortab 7.5/325) 1 tab PRN Q6HRS PRN PO PAIN MODERATE TO SEVERE Last administered on 12/03/18at 03:10; Start 11/29/18 at 19:15 Linagliptin (Tradjenta) 5 mg DAILY PO Last administered on 12/03/18at 09:34; Start 11/30/18 at 09:00 Acetaminophen (Tylenol) 1,000 mg PRN Q8HRS PRN PO MILD PAIN / TEMP; Start 11/29 at 19:30 Atorvastatin Calcium (Lipitor) 5 mg QHS PO Last administered on 12/02/18at 22:07 ; Start 11/29/18 at 21:00 Metformin HCl (Glucophage) 1,000 mg BIDWMEALS PO Last administered on 09:08; Start 11/30/18 at 08:00; Stop 11/30/18 at 09:13; Status DC Pharmacy Consult (C.diff Med Screen By Rx) 1 each 1X ONCE MC ; Start 11/30/18 at 08:15; Stop 11/30/18 at 08:16; Status UNV Furosemide (Lasix) 40 mg DAILY IVP Last administered on 12/01/18at 11:02; Start 11/30/18 at 11:00; Stop 12/02/18 at 09:09; Status DC Metoprolol Tartrate (Lopressor) 12.5 mg BID PO Last administered on 12/02/18at 22:07; Start 11/30/18 at 11:00; Stop 12/03/18 at 08:09; Status DC Aspirin (Ecotrin) 81 mg DAILYWBKFT PO Last administered on 12/03/18 09:34; Start 11/30/18 at 11:00 Heparin Sodium/ Dextrose 500 ml @ 0 mls/hr CONT PRN IV SEE I/O RECORD Last administered on 11/30/18at 10:09; Start 11/30/18 at 09:45; Stop 12/02/18 at 09:31 ; Status DC Heparin Sodium (Porcine) (Heparin Sodium) 1,850 unit PRN Q6HRS PRN IV FOR UFH LEVEL LESS THAN 0.2 Last administered on 11/30/18at 10:13; Start 11/30/18 at 09: 45; Stop 12/02/18 at 09:31; Status DC Magnesium Sulfate/ Dextrose 100 ml @ 25 mls/hr 1X ONCE IV Last administered on 11/30/18at 12:06; Start 11/30/18 at 11:00; Stop 11/30/18 at 14:59; Status DC Info (Anti-Coagulation Monitoring By Pharmacy) 1 each PRN DAILY PRN MC SEE COMMENTS Last administered on 12/01/18at 08:50; Start 11/30/18 at 10:00; Stop at 09:31; Status DC Spironolactone (Aldactone) 25 mg QODAY PO Last administered on 12/03/18 09:35; Start 12/01/18 at 10:00; Stop 12/03/18 at 13:32; Status DC Insulin Glargine (Lantus) 20 units QHS SQ Last administered on 12/02/18at 22:14 ; Start 12/01/18 at 21:00; Stop 12/03/18 at 08:06; Status DC Furosemide (Lasix) 40 mg 1X ONCE IVP Last administered on 12/01/18at 17:42; Start 12/01/18 at 16:00; Stop 12/01/18 at 16:01; Status DC Clopidogrel Bisulfate (Plavix) 75 mg DAILYWBKFT PO Last administered on at 09:34; Start 12/02/18 at 08:00 Clopidogrel Bisulfate (Plavix) 75 mg 1X ONCE PO Last administered on at 13:48; Start 12/01/18 at 13:30; Stop 12/01/18 at 13:31; Status DC Alprazolam (Xanax) 0.5 mg 1X ONCE PO Last administered on 12/01/18at 23:41; Start 12/01/18 at 23:30; Stop 12/01/18 at 23:31; Status DC Alprazolam (Xanax) 0.5 mg PRN TID PRN PO ANXIETY / AGITATION Last administered on 12/03/18at 13:18; Start 12/01/18 at 23:30 Furosemide (Lasix) 40 mg [id number] IVP Last administered on 12/03/18at 09:36; Start 12/02/18 at 18:00 Iodixanol (Visipaque 320) 100 ml STK-MED ONCE .ROUTE ; Start 12/02/18 at 10:54; Stop 12/02/18 at 10:56; Status DC Lidocaine HCl (Xylocaine-Mpf 1% 2ml Vial) 2 ml STK-MED ONCE .ROUTE ; Start 12/02 at 10:54; Stop 12/02/18 at 10:56; Status DC Heparin Sodium/ Sodium Chloride 500 ml @ As Directed STK-MED ONCE .ROUTE ; Start 12/02/18 at 10:54; Stop 12/02/18 at 10:56; Status DC Clopidogrel Bisulfate (Plavix) 75 mg DAILYWBKFT PO ; Start 12/03/18 at 08:00; Status UNV Insulin Glargine (Lantus) 15 units QHS SQ ; Start 12/03/18 at 21:00 Metoprolol Tartrate (Lopressor) 25 mg BID PO Last administered on 12/03/18at 09: 35; Start 12/03/18 at 09:00 Active Scripts Active Reported Tylenol Extra Strength (Acetaminophen) 500 Mg Tablet 1,000 Mg PO PRN Q8HRS PRN Tradjenta (Linagliptin) 5 Mg Tablet 5 Mg PO DAILY Lasix (Furosemide) 20 Mg Tablet 20 Mg PO DAILY Vitamin B-12 (Cyanocobalamin (Vitamin B-12)) 1,000 Mcg Tablet 1 Tab PO DAILY Metformin Hcl 1,000 Mg Tablet 1,000 Mg PO BIDWMEALS Lovastatin 20 Mg Tablet 1 Tab PO DAILYWSUP Clonazepam 0.5 Mg Tablet 1 Tab PO HS Hydrocodone-Apap 7.5-325 (Hydrocodone Bit/Acetaminophen) 1 Tab Tablet 1 Tab PO PRN Q6HRS PRN Allergies Allergies: Coded Allergies: amoxicillin (Verified Allergy, Intermediate, Hives, 10/15/18) ROS Review of System As per HPI Physical Exam Physical Exam General: , No acute distress HEENT: O2 by NC, OM dry Neck Supple Lungs: diminished, bibasilar crackles Heart: Regular rate systolic murmur Abdomen: Soft, No tenderness Extremities:, edema 3-4+ to RLE and 3+ to LLE) Skin: RLE surgical incision healed; left foot post recent amputation Neuro: grossly normal No chen Vital Signs Vital Signs Date Time Temp Pulse Resp B/P (MAP) Pulse Ox O2 Delivery O2 Flow Rate FiO2 12/03/18 11:20 97.7 108 20 118/58 (78) 98 Room Air 97.7 12/03/18 07:35 2.0 Assessment & Plan ERINN - Cardiorenal On Diuretics, Aldactone held Baseline Renal function unknown , may have CKD 3 Check UA, renal US E-Lytes and acid base stable Agree with holding Aldactone, Hold pm dose of Lasix ? CKD 3- baseline in Dec post procedure 1.3-1.6 No Past hx as per patient NSTEMI/ Acute systolic CHF: appears compensated Cardiomyopathy: EF at 15% NYHA 2-3 PA flutter: New onset. HTN: controlled Severe PAD/osteomyelitis: recent right metatarsal amputation and fem-tib bypass. 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 Anemia: likely chronic Discussed A/P with Pt and RN Labs Labs Laboratory Tests Test 12/01/18 16:45 12/01/18 20:49 12/02/18 09:44 12/02/18 10:15 Glucose (Fingerstick) 215 mg/dL (70-99) 201 mg/dL (70-99) 103 mg/dL (70-99) Sodium Level 136 mmol/L (136-145) Potassium Level 4.1 mmol/L (3.5-5.1) Chloride Level 95 mmol/L (98-107) Carbon Dioxide Level 28 mmol/L (21-32) Anion Gap 13 (6-14) Blood Urea Nitrogen 47 mg/dL (7-20) Creatinine 1.9 mg/dL (0.6-1.0) Estimated GFR (Cockcroft-Gault) 25.2 Glucose Level 89 mg/dL (70-99) Calcium Level 9.5 mg/dL (8.5-10.1) Magnesium Level 2.3 mg/dL (1.8-2.4) Test 12/02/18 21:03 12/03/18 07:32 12/03/18 07:53 12/03/18 11:35 Glucose (Fingerstick) 130 mg/dL (70-99) 47 mg/dL (70-99) 63 mg/dL (70-99) White Blood Count 14.2 x10^3/uL (4.0-11.0) Red Blood Count 3.73 x10^6/uL (3.50-5.40) Hemoglobin 9.3 g/dL (12.0-15.5) Hematocrit 31.5 % (36.0-47.0) Mean Corpuscular Volume 84 fL (79-100) Mean Corpuscular Hemoglobin 25 pg (25-35) Mean Corpuscular Hemoglobin Concent 30 g/dL (31-37) Red Cell Distribution Width 21.5 % (11.5-14.5) Platelet Count 287 x10^3/uL (140-400) Sodium Level 133 mmol/L (136-145) Potassium Level 4.1 mmol/L (3.5-5.1) Chloride Level 93 mmol/L (98-107) Carbon Dioxide Level 24 mmol/L (21-32) Anion Gap 16 (6-14) Blood Urea Nitrogen 55 mg/dL (7-20) Creatinine 2.2 mg/dL (0.6-1.0) Estimated GFR (Cockcroft-Gault) 21.3 Glucose Level 109 mg/dL (70-99) Calcium Level 9.1 mg/dL (8.5-10.1) Magnesium Level 2.2 mg/dL (1.8-2.4) Test 12/03/18 11:41 Glucose (Fingerstick) 95 mg/dL (70-99) Laboratory Tests Test 12/02/18 21:03 12/03/18 07:32 12/03/18 07:53 12/03/18 11:35 Glucose (Fingerstick) 130 mg/dL (70-99) 47 mg/dL (70-99) 63 mg/dL (70-99) White Blood Count 14.2 x10^3/uL (4.0-11.0) Red Blood Count 3.73 x10^6/uL (3.50-5.40) Hemoglobin 9.3 g/dL (12.0-15.5) Hematocrit 31.5 % (36.0-47.0) Mean Corpuscular Volume 84 fL (79-100) Mean Corpuscular Hemoglobin 25 pg (25-35) Mean Corpuscular Hemoglobin Concent 30 g/dL (31-37) Red Cell Distribution Width 21.5 % (11.5-14.5) Platelet Count 287 x10^3/uL (140-400) Sodium Level 133 mmol/L (136-145) Potassium Level 4.1 mmol/L (3.5-5.1) Chloride Level 93 mmol/L (98-107) Carbon Dioxide Level 24 mmol/L (21-32) Anion Gap 16 (6-14) Blood Urea Nitrogen 55 mg/dL (7-20) Creatinine 2.2 mg/dL (0.6-1.0) Estimated GFR (Cockcroft-Gault) 21.3 Glucose Level 109 mg/dL (70-99) Calcium Level 9.1 mg/dL (8.5-10.1) Magnesium Level 2.2 mg/dL (1.8-2.4) Test 12/03/18 11:41 Glucose (Fingerstick) 95 mg/dL (70-99) Review All relevant outside records, renal labs, imaging studies, telemetry/EKG's were reviewed. Images Images CxR-- Cardiomediastinal silhouette is stable. Small left and trace right pleural effusions are also stable accounting for differences in technique. Associated left greater than right lung base airspace opacities, favor atelectasis given the associated pleural effusion although associated consolidation is not excluded and grossly stable. No pneumothorax. JEN BENITES MD Dec 03, 2018 13:59
[2018-12-03 15:00] VITALS: BP 118/54
[2018-12-03] MEDS ORDERED: DEXTROSE 50% 25 GM / 50ML DISP.SYRIN. IV ONE (18:30)
--- NOTE | 2018-12-03 19:07 | RAD ---
Indication: Acute kidney injury and chronic kidney disease. TECHNIQUE: Ultrasound renal COMPARISON: None FINDINGS: Right kidney measures 8.5 x 4.7 x 4.3 cm (longitudinal, AP, transverse) without hydronephrosis. Left kidney is suboptimally visualized but grossly measures 8.2 x 5.0 x 5.2 cm without apparent hydronephrosis. Prevoid bladder volume of 52 cc. Bilateral ureteral jets are seen. Post void bladder volume not obtained as patient was unable to void. Impression: Suboptimal exam due to poor is elevation of kidneys. No apparent hydronephrosis. Electronically signed by: Cristobal Redding DO (12/03/2018 7:02 PM) [facility]
[2018-12-03] MEDS ORDERED: DEXTROSE 50% 25 GM / 50ML DISP.SYRIN. IV PRN (19:15)
[2018-12-03 19:17] VITALS: BP 116/61
[2018-12-03] MEDS: ATORVASTATIN CALCIUM 10 MG TABLET. PO SCH (20:57)
[2018-12-03] MEDS: clonazePAM 0.5 MG TABLET PO SCH (20:57)
[2018-12-03] MEDS ORDERED: INSULIN GLARGINE 300 UNITS/3 ML INSULN.PEN. SQ SCH (21:00)
[2018-12-03 22:59] VITALS: BP 121/69
[2018-12-04 03:32] VITALS: BP 109/66
[2018-12-04 04:45] LABS: CALCIUM 8.5 mg/dL (8.5-10.1); CREATININE 2.1 mg/dL (0.6-1.0); GFR 22.4; POTASSIUM 3.9 mmol/L (3.5-5.1)
[2018-12-04] MEDS: FUROSEMIDE 40 MG/4 ML VIAL. IVP SCH ×2 (05:39→17:15)
[2018-12-04 06:50] VITALS: BP 104/60
[2018-12-04] MEDS: METOPROLOL TART IMMED RELEASE 25 MG TABLET. PO SCH ×2 (09:00→21:00)
[2018-12-04] MEDS: ASPIRIN ENTERIC COATED 81 MG TABLET.DR. PO SCH (09:12)
[2018-12-04] MEDS: CLOPIDOGREL BISULFATE 75 MG TABLET PO SCH (09:12)
[2018-12-04] MEDS: CYANOCOBALAMIN (VITAMIN B-12) 1,000 MCG TABLET. PO SCH (09:14)
--- NOTE | 2018-12-04 11:26 | PDOC ---
PROGRESS NOTES Subjective Subjective Patient denied any chest pain or dyspnea. Objective Objective Vital Signs Date Time Temp Pulse Resp B/P (MAP) Pulse Ox O2 Delivery O2 Flow Rate FiO2 12/04/18 09:00 72 104/60 12/04/18 08:00 Room Air 3.5 12/04/18 06:50 97.7 14 96 97.7 Intake and Output 12/04/18 07:01 Intake Total 1080 ml Output Total 300 ml Balance 780 ml Intake Oral 1080 ml Output Urine Total 300 ml # Voids 1 Physical Exam Abdomen: Soft, No tenderness Heart: Regular rate (Sinus tach mild), Other (2/6 systolic murmur to LLS border ) Extremities: No cyanosis, Other (2-3+ pitting) General: Alert, Cooperative, No acute distress HEENT: Atraumatic, Mucous membr. moist/pink Lungs: Other (diminished, bibasilar crackles) Neuro: Normal speech, Sensation intact Psych/Mental Status: Mental status NL, Mood NL Skin: No breakdown, No significant lesion, Other (RLE surgical incision healed ; left foot post recent amputation covered with dry kerlix) Assessment Assessment 1. NSTEMI: Most probably demand ischemia. Plan for cardiac catheterization to rule out ischemic etiology, once active issues resolve. She is presently chest pain-free. 2. Acute on systolic CHF: appears slightly decompensated with 2-3+ pitting edema. Diuretics have been held secondary to acute on chronic renal insufficiency. Patient might benefit from inotropic support and diuresis. We will discuss this with nephrology team. 3. Cardiomyopathy: EF at 15%. We will consider LifeVest upon discharge. 4. PAflutter: Telemetry showed few brief episodes of A. fib/flutter. Plan for event monitor as an outpatient. 5. HTN: controlled 6. Severe PAD/osteomyelitis: recent right metatarsal amputation and fem-tib bypass. 7. HLP: lipids well controlled 8. DM2/DPN: Per IM Plan Plan of Care Problems Medical Problems: (1) Chest pain Status: Acute Comment Review of Relevant I have reviewed the following items charli (where applicable) has been applied. Labs Laboratory Tests Test 12/03/18 11:35 12/03/18 11:41 12/03/18 16:56 12/03/18 17:29 White Blood Count 14.2 x10^3/uL (4.0-11.0) Red Blood Count 3.73 x10^6/uL (3.50-5.40) Hemoglobin 9.3 g/dL (12.0-15.5) Hematocrit 31.5 % (36.0-47.0) Mean Corpuscular Volume 84 fL (79-100) Mean Corpuscular Hemoglobin 25 pg (25-35) Mean Corpuscular Hemoglobin Concent 30 g/dL (31-37) Red Cell Distribution Width 21.5 % (11.5-14.5) Platelet Count 287 x10^3/uL (140-400) Sodium Level 133 mmol/L (136-145) Potassium Level 4.1 mmol/L (3.5-5.1) Chloride Level 93 mmol/L (98-107) Carbon Dioxide Level 24 mmol/L (21-32) Anion Gap 16 (6-14) Blood Urea Nitrogen 55 mg/dL (7-20) Creatinine 2.2 mg/dL (0.6-1.0) Estimated GFR (Cockcroft-Gault) 21.3 Glucose Level 109 mg/dL (70-99) Calcium Level 9.1 mg/dL (8.5-10.1) Magnesium Level 2.2 mg/dL (1.8-2.4) Glucose (Fingerstick) 95 mg/dL (70-99) 62 mg/dL (70-99) 60 mg/dL (70-99) Test 12/03/18 18:14 12/03/18 19:02 12/03/18 21:17 12/04/18 04:00 Glucose (Fingerstick) 58 mg/dL (70-99) 148 mg/dL (70-99) 119 mg/dL (70-99) Sodium Level 132 mmol/L (136-145) Potassium Level 3.9 mmol/L (3.5-5.1) Chloride Level 94 mmol/L (98-107) Carbon Dioxide Level 25 mmol/L (21-32) Anion Gap 13 (6-14) Blood Urea Nitrogen 60 mg/dL (7-20) Creatinine 2.1 mg/dL (0.6-1.0) Estimated GFR (Cockcroft-Gault) 22.4 Glucose Level 104 mg/dL (70-99) Calcium Level 8.5 mg/dL (8.5-10.1) Test 12/04/18 07:26 Glucose (Fingerstick) 108 mg/dL (70-99) Medications Current Medications Dextrose (Dextrose 50%-Water Syringe) 25 gm 1X ONCE IV Last administered on 12/03/18at 18:36; Start 12/03/18 at 18:30; Stop 12/03/18 at 18:31; Status DC Dextrose (Dextrose 50%-Water Syringe) 25 gm PRN AFTMEAL PRN IV SEE COMMENTS; Start 12/03/18 at 19:15 Insulin Glargine (Lantus) 15 units QHS SQ ; Start 12/03/18 at 21:00; Stop at 21:00; Status DC Vitals/I & O Vital Sign - Last 24 Hours 12/03/18 12/03/18 12/03/18 12/03/18 15:00 19:17 20:00 20:57 Temp 96.2 98.4 96.2 98.4 Pulse 76 79 79 Resp 16 16 B/P (MAP) 118/54 (75) 116/61 (79) 116/61 Pulse Ox 100 96 O2 Delivery Nasal Cannula Room Air Room Air O2 Flow Rate 2.0 12/03/18 12/04/18 12/04/18 12/04/18 22:59 03:32 06:50 08:00 Temp 98.0 98.0 97.7 98.0 98.0 97.7 Pulse 75 73 72 Resp 16 16 14 B/P (MAP) 121/69 (86) 109/66 (80) 104/60 (75) Pulse Ox 96 99 96 O2 Delivery Nasal Cannula Nasal Cannula Room Air Room Air O2 Flow Rate 3.0 3.5 3.5 12/04/18 09:00 Pulse 72 B/P (MAP) 104/60 Intake and Output 12/03/18 12/03/18 12/04/18 15:01 23:01 07:01 Intake Total 480 ml 400 ml 200 ml Output Total 100 ml 200 ml Balance 380 ml 400 ml 0 ml CARLOS CONTI MD Dec 04, 2018 11:26
[2018-12-04 11:30] VITALS: BP 110/57
--- NOTE | 2018-12-04 11:38 | PDOC ---
SUBJECTIVE Subjective Doing ok this AM. No concerns. OBJECTIVE Objective Reviewed. Vital Signs Vital Signs Date Time Temp Pulse Resp B/P (MAP) Pulse Ox O2 Delivery O2 Flow Rate FiO2 12/04/18 09:00 72 104/60 12/04/18 08:00 Room Air 3.5 12/04/18 06:50 97.7 72 14 104/60 (75) 96 Room Air 97.7 12/04/18 03:32 98.0 73 16 109/66 (80) 99 Nasal Cannula 3.5 98.0 12/03/18 22:59 98.0 75 16 121/69 (86) 96 Nasal Cannula 3.0 98.0 12/03/18 20:57 79 116/61 12/03/18 20:00 Room Air 12/03/18 19:17 98.4 79 16 116/61 (79) 96 Room Air 98.4 12/03/18 15:00 96.2 76 16 118/54 (75) 100 Nasal Cannula 2.0 96.2 I & O Intake and Output 12/04/18 07:01 Intake Total 1080 ml Output Total 300 ml Balance 780 ml Intake Oral 1080 ml Output Urine Total 300 ml # Voids 1 PHYSICAL EXAM Physical Exam Alert, oriented RRR Few crackles in bases bilaterally Abd soft, NT/ND R foot post op bandage is C/D/I Good pulses in b/l LEs 1+ edema in b/l LEs ASSESSMENT/PLAN Assessment/Plan NSTEMI Acute systolic CHF Cardiomyopathy, EF 15% Paroxysmal A flutter: New onset HTN PAD, s/p recent bypass HLD Type 2 DM KATERIN on CKD, cardiorenal 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 Anemia Cardiology plans outpt cath Nephro consulted for cardiorenal Likely will be able to dc back to [place] on Thursday COMMENT Lab Laboratory Tests Test 12/03/18 11:35 12/03/18 11:41 12/03/18 16:56 12/03/18 17:29 White Blood Count 14.2 x10^3/uL (4.0-11.0) Red Blood Count 3.73 x10^6/uL (3.50-5.40) Hemoglobin 9.3 g/dL (12.0-15.5) Hematocrit 31.5 % (36.0-47.0) Mean Corpuscular Volume 84 fL (79-100) Mean Corpuscular Hemoglobin 25 pg (25-35) Mean Corpuscular Hemoglobin Concent 30 g/dL (31-37) Red Cell Distribution Width 21.5 % (11.5-14.5) Platelet Count 287 x10^3/uL (140-400) Sodium Level 133 mmol/L (136-145) Potassium Level 4.1 mmol/L (3.5-5.1) Chloride Level 93 mmol/L (98-107) Carbon Dioxide Level 24 mmol/L (21-32) Anion Gap 16 (6-14) Blood Urea Nitrogen 55 mg/dL (7-20) Creatinine 2.2 mg/dL (0.6-1.0) Estimated GFR (Cockcroft-Gault) 21.3 Glucose Level 109 mg/dL (70-99) Calcium Level 9.1 mg/dL (8.5-10.1) Magnesium Level 2.2 mg/dL (1.8-2.4) Glucose (Fingerstick) 95 mg/dL (70-99) 62 mg/dL (70-99) 60 mg/dL (70-99) Test 12/03/18 18:14 12/03/18 19:02 12/03/18 21:17 12/04/18 04:00 Glucose (Fingerstick) 58 mg/dL (70-99) 148 mg/dL (70-99) 119 mg/dL (70-99) Sodium Level 132 mmol/L (136-145) Potassium Level 3.9 mmol/L (3.5-5.1) Chloride Level 94 mmol/L (98-107) Carbon Dioxide Level 25 mmol/L (21-32) Anion Gap 13 (6-14) Blood Urea Nitrogen 60 mg/dL (7-20) Creatinine 2.1 mg/dL (0.6-1.0) Estimated GFR (Cockcroft-Gault) 22.4 Glucose Level 104 mg/dL (70-99) Calcium Level 8.5 mg/dL (8.5-10.1) Test 12/04/18 07:26 Glucose (Fingerstick) 108 mg/dL (70-99) RONNIE HER MD Dec 04, 2018 11:38
--- NOTE | 2018-12-04 14:43 | PDOC ---
PROGRESS NOTES Subjective Subjective SEEN IN FOLLOW UP OF CKD4 Objective Objective Vital Signs Date Time Temp Pulse Resp B/P (MAP) Pulse Ox O2 Delivery O2 Flow Rate FiO2 12/04/18 11:30 97.9 72 16 110/57 (74) 96 Room Air 97.9 12/04/18 08:00 3.5 Intake and Output 12/04/18 07:01 Intake Total 1080 ml Output Total 300 ml Balance 780 ml Intake Oral 1080 ml Output Urine Total 300 ml # Voids 1 Physical Exam Abdomen: Normal bowel sounds, Soft, No tenderness, No hepatosplenomegaly, No masses Heart: Regular rate, Normal S1, Normal S2, No murmurs, Gallops Extremities: No clubbing, No cyanosis, No edema (BLE EDEMA), Normal pulses, No tenderness/swelling General: Alert, Oriented X3, Cooperative, No acute distress Lungs: Clear to auscultation, Normal air movement Assessment Assessment Problems Medical Problems: (1) Chest pain Status: Acute Plan Plan of Care SHE IS SOB AND ANXIOUS. CONT DIURESIS. TREND RENAL FUNCTION Comment Review of Relevant I have reviewed the following items charli (where applicable) has been applied. Labs Laboratory Tests Test 12/02/18 21:03 12/03/18 07:32 12/03/18 07:53 12/03/18 11:35 Glucose (Fingerstick) 130 mg/dL (70-99) 47 mg/dL (70-99) 63 mg/dL (70-99) White Blood Count 14.2 x10^3/uL (4.0-11.0) Red Blood Count 3.73 x10^6/uL (3.50-5.40) Hemoglobin 9.3 g/dL (12.0-15.5) Hematocrit 31.5 % (36.0-47.0) Mean Corpuscular Volume 84 fL (79-100) Mean Corpuscular Hemoglobin 25 pg (25-35) Mean Corpuscular Hemoglobin Concent 30 g/dL (31-37) Red Cell Distribution Width 21.5 % (11.5-14.5) Platelet Count 287 x10^3/uL (140-400) Sodium Level 133 mmol/L (136-145) Potassium Level 4.1 mmol/L (3.5-5.1) Chloride Level 93 mmol/L (98-107) Carbon Dioxide Level 24 mmol/L (21-32) Anion Gap 16 (6-14) Blood Urea Nitrogen 55 mg/dL (7-20) Creatinine 2.2 mg/dL (0.6-1.0) Estimated GFR (Cockcroft-Gault) 21.3 Glucose Level 109 mg/dL (70-99) Calcium Level 9.1 mg/dL (8.5-10.1) Magnesium Level 2.2 mg/dL (1.8-2.4) Test 12/03/18 11:41 12/03/18 16:56 12/03/18 17:29 12/03/18 18:14 Glucose (Fingerstick) 95 mg/dL (70-99) 62 mg/dL (70-99) 60 mg/dL (70-99) 58 mg/dL (70-99) Test 12/03/18 19:02 12/03/18 21:17 12/04/18 04:00 12/04/18 07:26 Glucose (Fingerstick) 148 mg/dL (70-99) 119 mg/dL (70-99) 108 mg/dL (70-99) Sodium Level 132 mmol/L (136-145) Potassium Level 3.9 mmol/L (3.5-5.1) Chloride Level 94 mmol/L (98-107) Carbon Dioxide Level 25 mmol/L (21-32) Anion Gap 13 (6-14) Blood Urea Nitrogen 60 mg/dL (7-20) Creatinine 2.1 mg/dL (0.6-1.0) Estimated GFR (Cockcroft-Gault) 22.4 Glucose Level 104 mg/dL (70-99) Calcium Level 8.5 mg/dL (8.5-10.1) Test 12/04/18 11:33 Glucose (Fingerstick) 137 mg/dL (70-99) Laboratory Tests Test 12/03/18 16:56 12/03/18 17:29 12/03/18 18:14 12/03/18 19:02 Glucose (Fingerstick) 62 mg/dL (70-99) 60 mg/dL (70-99) 58 mg/dL (70-99) 148 mg/dL (70-99) Test 12/03/18 21:17 12/04/18 04:00 12/04/18 07:26 12/04/18 11:33 Glucose (Fingerstick) 119 mg/dL (70-99) 108 mg/dL (70-99) 137 mg/dL (70-99) Sodium Level 132 mmol/L (136-145) Potassium Level 3.9 mmol/L (3.5-5.1) Chloride Level 94 mmol/L (98-107) Carbon Dioxide Level 25 mmol/L (21-32) Anion Gap 13 (6-14) Blood Urea Nitrogen 60 mg/dL (7-20) Creatinine 2.1 mg/dL (0.6-1.0) Estimated GFR (Cockcroft-Gault) 22.4 Glucose Level 104 mg/dL (70-99) Calcium Level 8.5 mg/dL (8.5-10.1) Medications Current Medications Aspirin (Children'S Aspirin) 324 mg 1X ONCE PO ; Start 11/29/18 at 13:30; Stop 11/29/18 at 13:31; Status DC Enoxaparin Sodium (Lovenox 80mg Syringe) 80 mg 1X ONCE SQ ; Start 11/29/18 at 15:30; Stop 11/29/18 at 15:30; Status DC Ketorolac Tromethamine (Toradol 30mg Vial) 30 mg 1X ONCE IV ; Start 11/29/18 at 15:30; Stop 11/29/18 at 15:31; Status UNV Ondansetron HCl (Zofran) 4 mg PRN Q8HRS PRN IV NAUSEA/VOMITING; Start 11/29/18 at 15:45; Stop 11/30/18 at 15:44; Status DC Morphine Sulfate (Morphine Sulfate) 2 mg PRN Q2HR PRN IV PAIN; Start 11/29/18 at 15:45; Stop 11/30/18 at 15:44; Status DC Nitroglycerin (Nitrostat) 0.4 mg PRN Q5MIN PRN SL CHEST PAIN; Start 11/29/18 at 15:45; Stop 11/30/18 at 15:44; Status DC Albuterol/ Ipratropium (Duoneb) 3 ml RTQID NEB Last administered on 11/30/18at 12:07; Start 11/29/18 at 16:00; Stop 11/30/18 at 15:59; Status DC Furosemide (Lasix) 60 mg 1X ONCE IVP Last administered on 11/29/18at 15:56; Start 11/29/18 at 15:45; Stop 11/29/18 at 15:46; Status DC Enoxaparin Sodium (Lovenox 80mg Syringe) 75 mg 1X ONCE SQ Last administered on 11/29/18at 16:25; Start 11/29/18 at 16:00; Stop 11/29/18 at 16:01; Status DC Clonazepam (KlonoPIN) 0.5 mg HS PO Last administered on 12/03/18 20:57; Start 11/29/18 at 21:00 Cyanocobalamin (Vitamin B-12) 1,000 mcg DAILY PO Last administered on 12/04/18 09:14; Start 11/30/18 at 09:00 Furosemide (Lasix) 20 mg DAILY PO Last administered on 11/30/18 09:08; Start 11/30/18 at 09:00; Stop 11/30/18 at 09:13; Status DC Acetaminophen/ Hydrocodone Bitart (Lortab 7.5/325) 1 tab PRN Q6HRS PRN PO PAIN MODERATE TO SEVERE Last administered on 12/03/18at 03:10; Start 11/29/18 at 19:15 Linagliptin (Tradjenta) 5 mg DAILY PO Last administered on 12/03/18 09:34; Start 11/30/18 at 09:00; Stop 12/03/18 at 18:25; Status DC Acetaminophen (Tylenol) 1,000 mg PRN Q8HRS PRN PO MILD PAIN / TEMP; Start 11/29 at 19:30 Atorvastatin Calcium (Lipitor) 5 mg QHS PO Last administered on 12/03/18 20:57 ; Start 11/29/18 at 21:00 Metformin HCl (Glucophage) 1,000 mg BIDWMEALS PO Last administered on 09:08; Start 11/30/18 at 08:00; Stop 11/30/18 at 09:13; Status DC Pharmacy Consult (C.diff Med Screen By Rx) 1 each 1X ONCE MC ; Start 11/30/18 at 08:15; Stop 11/30/18 at 08:16; Status UNV Furosemide (Lasix) 40 mg DAILY IVP Last administered on 12/01/18at 11:02; Start 11/30/18 at 11:00; Stop 12/02/18 at 09:09; Status DC Metoprolol Tartrate (Lopressor) 12.5 mg BID PO Last administered on 12/02/18at 22:07; Start 11/30/18 at 11:00; Stop 12/03/18 at 08:09; Status DC Aspirin (Ecotrin) 81 mg DAILYWBKFT PO Last administered on 12/04/18at 09:12; Start 11/30/18 at 11:00 Heparin Sodium/ Dextrose 500 ml @ 0 mls/hr CONT PRN IV SEE I/O RECORD Last administered on 11/30/18at 10:09; Start 11/30/18 at 09:45; Stop 12/02/18 at 09:31 ; Status DC Heparin Sodium (Porcine) (Heparin Sodium) 1,850 unit PRN Q6HRS PRN IV FOR UFH LEVEL LESS THAN 0.2 Last administered on 11/30/18at 10:13; Start 11/30/18 at 09: 45; Stop 12/02/18 at 09:31; Status DC Magnesium Sulfate/ Dextrose 100 ml @ 25 mls/hr 1X ONCE IV Last administered on 11/30/18at 12:06; Start 11/30/18 at 11:00; Stop 11/30/18 at 14:59; Status DC Info (Anti-Coagulation Monitoring By Pharmacy) 1 each PRN DAILY PRN MC SEE COMMENTS Last administered on 12/01/18at 08:50; Start 11/30/18 at 10:00; Stop at 09:31; Status DC Spironolactone (Aldactone) 25 mg QODAY PO Last administered on 12/03/18at 09:35; Start 12/01/18 at 10:00; Stop 12/03/18 at 13:32; Status DC Insulin Glargine (Lantus) 20 units QHS SQ Last administered on 12/02/18at 22:14 ; Start 12/01/18 at 21:00; Stop 12/03/18 at 08:06; Status DC Furosemide (Lasix) 40 mg 1X ONCE IVP Last administered on 12/01/18at 17:42; Start 12/01/18 at 16:00; Stop 12/01/18 at 16:01; Status DC Clopidogrel Bisulfate (Plavix) 75 mg DAILYWBKFT PO Last administered on at 09:12; Start 12/02/18 at 08:00 Clopidogrel Bisulfate (Plavix) 75 mg 1X ONCE PO Last administered on at 13:48; Start 12/01/18 at 13:30; Stop 12/01/18 at 13:31; Status DC Alprazolam (Xanax) 0.5 mg 1X ONCE PO Last administered on 12/01/18at 23:41; Start 12/01/18 at 23:30; Stop 12/01/18 at 23:31; Status DC Alprazolam (Xanax) 0.5 mg PRN TID PRN PO ANXIETY / AGITATION Last administered on 12/03/18at 13:18; Start 12/01/18 at 23:30 Furosemide (Lasix) 40 mg BID76 IVP Last administered on 12/04/18at 05:39; Start 12/02/18 at 18:00 Iodixanol (Visipaque 320) 100 ml STK-MED ONCE .ROUTE ; Start 12/02/18 at 10:54; Stop 12/02/18 at 10:56; Status DC Lidocaine HCl (Xylocaine-Mpf 1% 2ml Vial) 2 ml STK-MED ONCE .ROUTE ; Start 12/02 at 10:54; Stop 12/02/18 at 10:56; Status DC Heparin Sodium/ Sodium Chloride 500 ml @ As Directed STK-MED ONCE .ROUTE ; Start 12/02/18 at 10:54; Stop 12/02/18 at 10:56; Status DC Clopidogrel Bisulfate (Plavix) 75 mg DAILYWBKFT PO ; Start 12/03/18 at 08:00; Status UNV Insulin Glargine (Lantus) 15 units QHS SQ ; Start 12/03/18 at 21:00; Stop at 21:00; Status DC Metoprolol Tartrate (Lopressor) 25 mg BID PO Last administered on 12/03/18at 20: 57; Start 12/03/18 at 09:00 Dextrose (Dextrose 50%-Water Syringe) 25 gm 1X ONCE IV Last administered on 12/03/18at 18:36; Start 12/03/18 at 18:30; Stop 12/03/18 at 18:31; Status DC Dextrose (Dextrose 50%-Water Syringe) 25 gm PRN AFTMEAL PRN IV SEE COMMENTS; Start 12/03/18 at 19:15 Active Scripts Active Reported Tylenol Extra Strength (Acetaminophen) 500 Mg Tablet 1,000 Mg PO PRN Q8HRS PRN Tradjenta (Linagliptin) 5 Mg Tablet 5 Mg PO DAILY Lasix (Furosemide) 20 Mg Tablet 20 Mg PO DAILY Vitamin B-12 (Cyanocobalamin (Vitamin B-12)) 1,000 Mcg Tablet 1 Tab PO DAILY Metformin Hcl 1,000 Mg Tablet 1,000 Mg PO BIDWMEALS Lovastatin 20 Mg Tablet 1 Tab PO DAILYWSUP Clonazepam 0.5 Mg Tablet 1 Tab PO HS Hydrocodone-Apap 7.5-325 (Hydrocodone Bit/Acetaminophen) 1 Tab Tablet 1 Tab PO PRN Q6HRS PRN Vitals/I & O Vital Sign - Last 24 Hours 12/03/18 12/03/18 12/03/18 12/03/18 15:00 19:17 20:00 20:57 Temp 96.2 98.4 96.2 98.4 Pulse 76 79 79 Resp 16 16 B/P (MAP) 118/54 (75) 116/61 (79) 116/61 Pulse Ox 100 96 O2 Delivery Nasal Cannula Room Air Room Air O2 Flow Rate 2.0 12/03/18 12/04/18 12/04/18 12/04/18 22:59 03:32 06:50 08:00 Temp 98.0 98.0 97.7 98.0 98.0 97.7 Pulse 75 73 72 Resp 16 16 14 B/P (MAP) 121/69 (86) 109/66 (80) 104/60 (75) Pulse Ox 96 99 96 O2 Delivery Nasal Cannula Nasal Cannula Room Air Room Air O2 Flow Rate 3.0 3.5 3.5 12/04/18 12/04/18 09:00 11:30 Temp 97.9 97.9 Pulse 72 72 Resp 16 B/P (MAP) 104/60 110/57 (74) Pulse Ox 96 O2 Delivery Room Air Intake and Output 12/03/18 12/03/18 12/04/18 15:01 23:01 07:01 Intake Total 480 ml 400 ml 200 ml Output Total 100 ml 200 ml Balance 380 ml 400 ml 0 ml AISLINN COLLADO MD Dec 04, 2018 14:43
[2018-12-04] MEDS: ALPRAZolam 0.5 MG TABLET PO PRN (15:00)
[2018-12-04 15:25] VITALS: BP 135/68
[2018-12-04 16:39] LABS: BILIRUBIN,URINE NEGATIVE (NEG); CLARITY,URINE CLEAR; COLOR,URINE YELLOW; NITRITE,URINE NEGATIVE (NEG); PROTEIN,URINE NEGATIVE (NEG-TRACE)
[2018-12-04 17:21] LABS: HYALINE CASTS, URINE MANY /HPF; SQUAMOUS EPITHELIAL CELL,UR MOD /LPF; YEAST,URINE PRESENT /HPF
[2018-12-04 17:22] LABS: BACTERIA,URINE FEW /HPF (0-FEW); RBC,URINE OCC /HPF (0-2); WBC,URINE 20-40 /HPF (0-4)
[2018-12-04 19:20] VITALS: BP 114/59
[2018-12-04] MEDS: clonazePAM 0.5 MG TABLET PO SCH (21:00)
[2018-12-04] MEDS: ATORVASTATIN CALCIUM 10 MG TABLET. PO SCH (21:00)
[2018-12-04 23:20] VITALS: BP 118/59
[2018-12-05] MEDS: ALPRAZolam 0.5 MG TABLET PO PRN (01:02)
[2018-12-05] MEDS: HYDROcodone/APAP 7.5/325MG 1 TAB TABLET PO PRN (01:06)
[2018-12-05 03:20] VITALS: BP 110/59
[2018-12-05 04:04] LABS: BASO # 0.1 x10^3/uL (0.0-0.2); BASO % 1 % (0-3); EOS % 1 % (0-3); HEMATOCRIT 26.4 % (36.0-47.0); HEMOGLOBIN 8.2 g/dL (12.0-15.5); LYMPH # 1.6 x10^3/uL (1.0-4.8); LYMPH % 16 % (24-48); MEAN CORPUSCULAR HEMOGLOBIN 26 pg (25-35); MEAN CORPUSCULAR HGB CONC 31 g/dL (31-37); MEAN CORPUSCULAR VOLUME 83 fL (79-100); MONO # 0.8 x10^3/uL (0.0-1.1); MONO % 8 % (0-9); NEUT # 7.8 x10^3uL (1.8-7.7); NEUT % 75 % (31-73); PLATELET COUNT 176 x10^3/uL (140-400); RED BLOOD COUNT 3.18 x10^6/uL (3.50-5.40); RED CELL DISTRIBUTION WIDTH 20.8 % (11.5-14.5); WHITE BLOOD COUNT 10.4 x10^3/uL (4.0-11.0)
[2018-12-05 04:16] LABS: CALCIUM 8.5 mg/dL (8.5-10.1); CREATININE 2.1 mg/dL (0.6-1.0); GFR 22.4; POTASSIUM 4.1 mmol/L (3.5-5.1)
[2018-12-05] MEDS: FUROSEMIDE 40 MG/4 ML VIAL. IVP SCH ×2 (06:36→18:31)
[2018-12-05 07:29] VITALS: BP 139/60
[2018-12-05] MEDS: CYANOCOBALAMIN (VITAMIN B-12) 1,000 MCG TABLET. PO SCH (09:20)
[2018-12-05] MEDS: METOPROLOL TART IMMED RELEASE 25 MG TABLET. PO SCH ×2 (09:20→21:17)
[2018-12-05] MEDS: CLOPIDOGREL BISULFATE 75 MG TABLET PO SCH (09:20)
[2018-12-05] MEDS: ASPIRIN ENTERIC COATED 81 MG TABLET.DR. PO SCH (09:20)
--- NOTE | 2018-12-05 09:45 | PDOC ---
PROGRESS NOTES Subjective Subjective Patient denied any chest pain or shortness of breath Objective Objective Vital Signs Date Time Temp Pulse Resp B/P (MAP) Pulse Ox O2 Delivery O2 Flow Rate FiO2 12/05/18 09:20 80 139/60 12/05/18 07:29 97.8 18 100 Nasal Cannula 2.0 97.8 Intake and Output 12/05/18 07:01 Intake Total 720 ml Output Total 250 ml Balance 470 ml Intake Oral 720 ml Output Urine Total 250 ml # Voids 1 # Bowel Movements 2 Physical Exam Abdomen: Normal bowel sounds, Soft, No tenderness, No hepatosplenomegaly, No masses Heart: Regular rate, Normal S1, Normal S2, No murmurs, Gallops Extremities: No clubbing, No cyanosis, No edema (BLE EDEMA), Normal pulses, No tenderness/swelling General: Alert, Oriented X3, Cooperative, No acute distress HEENT: Atraumatic, Mucous membr. moist/pink Lungs: Clear to auscultation, Normal air movement Neuro: Normal speech, Sensation intact Psych/Mental Status: Mental status NL, Mood NL Skin: No breakdown, No significant lesion, Other (RLE surgical incision healed ; left foot post recent amputation covered with dry kerlix) Assessment Assessment 1. NSTEMI: Most probably demand ischemia. Plan for cardiac catheterization to rule out ischemic etiology, once active issues resolve - could be done as an outpatient. She is presently chest pain-free. 2. Acute on systolic CHF: appears slightly decompensated with 2-3+ pitting edema. Diuretics have been held secondary to acute on chronic renal insufficiency. Nephrology following 3. Cardiomyopathy: EF at 15%. We will consider LifeVest upon discharge. 4. PAflutter: Telemetry showed few brief episodes of A. fib/flutter. Plan for event monitor as an outpatient. 5. HTN: controlled 6. Severe PAD/osteomyelitis: recent right metatarsal amputation and fem-tib bypass. 7. HLP: lipids well controlled 8. DM2/DPN: Per IM Plan Plan of Care Problems Medical Problems: (1) Chest pain Status: Acute Comment Review of Relevant I have reviewed the following items charli (where applicable) has been applied. Labs Laboratory Tests Test 12/04/18 11:33 12/04/18 15:55 12/04/18 17:01 12/04/18 20:25 Glucose (Fingerstick) 137 mg/dL (70-99) 203 mg/dL (70-99) 299 mg/dL (70-99) Urine Collection Type Unknown Urine Color Yellow Urine Clarity Clear Urine pH 5.0 Urine Specific [place] 1.015 Urine Protein Negative mg/dL (NEG-TRACE) Urine Glucose (UA) Negative mg/dL (NEG) Urine Ketones (Stick) Negative mg/dL (NEG) Urine Blood Negative (NEG) Urine Nitrite Negative (NEG) Urine Bilirubin Negative (NEG) Urine Urobilinogen Dipstick 1.0 mg/dL (0.2 mg/dL) Urine Leukocyte Esterase Small (NEG) Urine RBC Occ /HPF (0-2) Urine WBC 20-40 /HPF (0-4) Urine Squamous Epithelial Cells Mod /LPF Urine Renal Epithelial Cells Few /LPF Urine Bacteria Few /HPF (0-FEW) Urine Hyaline Casts Many /HPF Urine Mucus Mod /LPF Urine Yeast Present /HPF Test 12/05/18 03:55 12/05/18 07:32 White Blood Count 10.4 x10^3/uL (4.0-11.0) Red Blood Count 3.18 x10^6/uL (3.50-5.40) Hemoglobin 8.2 g/dL (12.0-15.5) Hematocrit 26.4 % (36.0-47.0) Mean Corpuscular Volume 83 fL (79-100) Mean Corpuscular Hemoglobin 26 pg (25-35) Mean Corpuscular Hemoglobin Concent 31 g/dL (31-37) Red Cell Distribution Width 20.8 % (11.5-14.5) Platelet Count 176 x10^3/uL (140-400) Neutrophils (%) (Auto) 75 % (31-73) Lymphocytes (%) (Auto) 16 % (24-48) Monocytes (%) (Auto) 8 % (0-9) Eosinophils (%) (Auto) 1 % (0-3) Basophils (%) (Auto) 1 % (0-3) Neutrophils # (Auto) 7.8 x10^3uL (1.8-7.7) Lymphocytes # (Auto) 1.6 x10^3/uL (1.0-4.8) Monocytes # (Auto) 0.8 x10^3/uL (0.0-1.1) Eosinophils # (Auto) 0.0 x10^3/uL (0.0-0.7) Basophils # (Auto) 0.1 x10^3/uL (0.0-0.2) Sodium Level 134 mmol/L (136-145) Potassium Level 4.1 mmol/L (3.5-5.1) Chloride Level 94 mmol/L (98-107) Carbon Dioxide Level 27 mmol/L (21-32) Anion Gap 13 (6-14) Blood Urea Nitrogen 64 mg/dL (7-20) Creatinine 2.1 mg/dL (0.6-1.0) Estimated GFR (Cockcroft-Gault) 22.4 Glucose Level 224 mg/dL (70-99) Calcium Level 8.5 mg/dL (8.5-10.1) Glucose (Fingerstick) 208 mg/dL (70-99) Vitals/I & O Vital Sign - Last 24 Hours 12/04/18 12/04/18 12/04/18 12/04/18 11:30 15:25 19:20 19:25 Temp 97.9 98.0 98.5 97.9 98.0 98.5 Pulse 72 74 77 Resp 16 16 17 B/P (MAP) 110/57 (74) 135/68 (90) 114/59 (77) Pulse Ox 96 100 99 O2 Delivery Room Air Room Air Nasal Cannula Room Air O2 Flow Rate 2.0 2.0 12/04/18 12/04/18 12/05/18 12/05/18 21:00 23:20 03:20 07:29 Temp 97.8 97.6 97.8 97.8 97.6 97.8 Pulse 77 75 68 80 Resp 17 18 18 B/P (MAP) 114/59 118/59 (78) 110/59 (76) 139/60 (86) Pulse Ox 99 100 100 O2 Delivery Nasal Cannula Nasal Cannula Nasal Cannula O2 Flow Rate 2.0 2.0 2.0 12/05/18 09:20 Pulse 80 B/P (MAP) 139/60 Intake and Output 12/04/18 12/04/18 12/05/18 15:01 23:01 07:01 Intake Total 120 ml 400 ml 200 ml Output Total 200 ml 50 ml Balance 120 ml 200 ml 150 ml CARLOS CONTI MD Dec 05, 2018 09:45
--- NOTE | 2018-12-05 09:53 | PDOC ---
SUBJECTIVE Subjective Resting this AM. No new concerns. OBJECTIVE Objective Reviewed. Vital Signs Vital Signs Date Time Temp Pulse Resp B/P (MAP) Pulse Ox O2 Delivery O2 Flow Rate FiO2 12/05/18 09:20 80 139/60 12/05/18 07:29 97.8 80 18 139/60 (86) 100 Nasal Cannula 2.0 97.8 12/05/18 03:20 97.6 68 18 110/59 (76) 100 Nasal Cannula 2.0 97.6 12/04/18 23:20 97.8 75 17 118/59 (78) 99 Nasal Cannula 2.0 97.8 12/04/18 21:00 77 114/59 12/04/18 19:25 Room Air 2.0 12/04/18 19:20 98.5 77 17 114/59 (77) 99 Nasal Cannula 2.0 98.5 12/04/18 15:25 98.0 74 16 135/68 (90) 100 Room Air 98.0 12/04/18 11:30 97.9 72 16 110/57 (74) 96 Room Air 97.9 I & O Intake and Output 12/05/18 07:01 Intake Total 720 ml Output Total 250 ml Balance 470 ml Intake Oral 720 ml Output Urine Total 250 ml # Voids 1 # Bowel Movements 2 PHYSICAL EXAM Physical Exam Alert, oriented RRR Few crackles in bases bilaterally Abd soft, NT/ND R foot post op bandage is C/D/I Good pulses in b/l LEs 2-3+ edema in b/l LEs ASSESSMENT/PLAN Assessment/Plan NSTEMI Acute systolic CHF Cardiomyopathy, EF 15% Paroxysmal A flutter: New onset HTN PAD, s/p recent bypass HLD Type 2 DM KATERIN on CKD, cardiorenal 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 Anemia Cardiology plans outpt cath, event monitor Nephro consulted for cardiorenal Diuresis, monitor renal function COMMENT Lab Laboratory Tests Test 12/04/18 11:33 12/04/18 15:55 12/04/18 17:01 12/04/18 20:25 Glucose (Fingerstick) 137 mg/dL (70-99) 203 mg/dL (70-99) 299 mg/dL (70-99) Urine Collection Type Unknown Urine Color Yellow Urine Clarity Clear Urine pH 5.0 Urine Specific [place] 1.015 Urine Protein Negative mg/dL (NEG-TRACE) Urine Glucose (UA) Negative mg/dL (NEG) Urine Ketones (Stick) Negative mg/dL (NEG) Urine Blood Negative (NEG) Urine Nitrite Negative (NEG) Urine Bilirubin Negative (NEG) Urine Urobilinogen Dipstick 1.0 mg/dL (0.2 mg/dL) Urine Leukocyte Esterase Small (NEG) Urine RBC Occ /HPF (0-2) Urine WBC 20-40 /HPF (0-4) Urine Squamous Epithelial Cells Mod /LPF Urine Renal Epithelial Cells Few /LPF Urine Bacteria Few /HPF (0-FEW) Urine Hyaline Casts Many /HPF Urine Mucus Mod /LPF Urine Yeast Present /HPF Test 12/05/18 03:55 12/05/18 07:32 White Blood Count 10.4 x10^3/uL (4.0-11.0) Red Blood Count 3.18 x10^6/uL (3.50-5.40) Hemoglobin 8.2 g/dL (12.0-15.5) Hematocrit 26.4 % (36.0-47.0) Mean Corpuscular Volume 83 fL (79-100) Mean Corpuscular Hemoglobin 26 pg (25-35) Mean Corpuscular Hemoglobin Concent 31 g/dL (31-37) Red Cell Distribution Width 20.8 % (11.5-14.5) Platelet Count 176 x10^3/uL (140-400) Neutrophils (%) (Auto) 75 % (31-73) Lymphocytes (%) (Auto) 16 % (24-48) Monocytes (%) (Auto) 8 % (0-9) Eosinophils (%) (Auto) 1 % (0-3) Basophils (%) (Auto) 1 % (0-3) Neutrophils # (Auto) 7.8 x10^3uL (1.8-7.7) Lymphocytes # (Auto) 1.6 x10^3/uL (1.0-4.8) Monocytes # (Auto) 0.8 x10^3/uL (0.0-1.1) Eosinophils # (Auto) 0.0 x10^3/uL (0.0-0.7) Basophils # (Auto) 0.1 x10^3/uL (0.0-0.2) Sodium Level 134 mmol/L (136-145) Potassium Level 4.1 mmol/L (3.5-5.1) Chloride Level 94 mmol/L (98-107) Carbon Dioxide Level 27 mmol/L (21-32) Anion Gap 13 (6-14) Blood Urea Nitrogen 64 mg/dL (7-20) Creatinine 2.1 mg/dL (0.6-1.0) Estimated GFR (Cockcroft-Gault) 22.4 Glucose Level 224 mg/dL (70-99) Calcium Level 8.5 mg/dL (8.5-10.1) Glucose (Fingerstick) 208 mg/dL (70-99) RONNIE HER MD Dec 05, 2018 09:53
[2018-12-05 10:47] VITALS: BP 98/53
[2018-12-05 14:39] VITALS: BP 112/62
[2018-12-05 19:20] VITALS: BP 125/61
[2018-12-05] MEDS: clonazePAM 0.5 MG TABLET PO SCH (21:02)
[2018-12-05] MEDS: ATORVASTATIN CALCIUM 10 MG TABLET. PO SCH (21:02)
[2018-12-05 23:43] VITALS: BP 126/82
[2018-12-06 03:41] LABS: CALCIUM 8.5 mg/dL (8.5-10.1); GFR 23.7; POTASSIUM 3.8 mmol/L (3.5-5.1)
[2018-12-06 03:46] VITALS: BP 112/64
[2018-12-06] MEDS: FUROSEMIDE 40 MG/4 ML VIAL. IVP SCH ×2 (06:53→17:17)
[2018-12-06 07:39] VITALS: BP 134/68
[2018-12-06] MEDS: ASPIRIN ENTERIC COATED 81 MG TABLET.DR. PO SCH (08:32)
[2018-12-06] MEDS: CYANOCOBALAMIN (VITAMIN B-12) 1,000 MCG TABLET. PO SCH (08:33)
[2018-12-06] MEDS: CLOPIDOGREL BISULFATE 75 MG TABLET PO SCH (08:33)
[2018-12-06] MEDS: METOPROLOL TART IMMED RELEASE 25 MG TABLET. PO SCH (08:34)
--- NOTE | 2018-12-06 08:36 | PDOC ---
SUBJECTIVE Subjective Doing ok this AM. Feels depressed about her multiple medical problems. OBJECTIVE Objective Reviewed. Vital Signs Vital Signs Date Time Temp Pulse Resp B/P (MAP) Pulse Ox O2 Delivery O2 Flow Rate FiO2 12/06/18 08:34 76 134/68 12/06/18 07:39 98.2 76 18 134/68 (90) 95 Nasal Cannula 2.0 98.2 12/06/18 03:46 97.8 70 18 112/64 (80) 98 Nasal Cannula 2.0 97.8 12/05/18 23:43 97.7 77 19 126/82 (97) 100 Nasal Cannula 2.0 97.7 12/05/18 21:17 78 125/61 12/05/18 19:25 Nasal Cannula 2.0 12/05/18 19:20 98.3 78 18 125/61 (82) 100 Nasal Cannula 2.0 98.3 12/05/18 14:39 97.7 69 18 112/62 (79) 98 Nasal Cannula 2.0 97.7 12/05/18 10:47 97.5 68 18 98/53 (68) 97 Nasal Cannula 2.0 97.5 12/05/18 09:20 80 139/60 I & O Intake and Output 12/06/18 07:01 Intake Total 600 ml Output Total 800 ml Balance -200 ml Intake Oral 600 ml Output Urine Total 800 ml PHYSICAL EXAM Physical Exam Alert, oriented RRR CTAB Abd soft, NT/ND R foot post op bandage is C/D/I Good pulses in b/l LEs 2+ edema in b/l LEs, improved from yesterday ASSESSMENT/PLAN Assessment/Plan NSTEMI Acute systolic CHF Cardiomyopathy, EF 15% Paroxysmal A flutter: New onset, in NSR currently HTN PAD, s/p recent bypass HLD Type 2 DM KATERIN on CKD, cardiorenal 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 Anemia Cardiology plans outpt cath, event monitor Nephro consulted for cardiorenal Diuresis, monitor renal function BS increasing, resumed Lantus at 5U given previous hypoglycemia Stitches out today Discussed code status, pt is undecided at this time COMMENT Lab Laboratory Tests Test 12/05/18 11:53 12/05/18 17:05 12/05/18 21:09 12/06/18 02:40 Glucose (Fingerstick) 213 mg/dL (70-99) 220 mg/dL (70-99) 287 mg/dL (70-99) Sodium Level 136 mmol/L (136-145) Potassium Level 3.8 mmol/L (3.5-5.1) Chloride Level 94 mmol/L (98-107) Carbon Dioxide Level 29 mmol/L (21-32) Anion Gap 13 (6-14) Blood Urea Nitrogen 67 mg/dL (7-20) Creatinine 2.0 mg/dL (0.6-1.0) Estimated GFR (Cockcroft-Gault) 23.7 Glucose Level 246 mg/dL (70-99) Calcium Level 8.5 mg/dL (8.5-10.1) Test 12/06/18 07:26 Glucose (Fingerstick) 252 mg/dL (70-99) RONNIE HER MD Dec 06, 2018 08:36
[2018-12-06 10:57] VITALS: BP 113/54
--- NOTE | 2018-12-06 11:39 | PDOC ---
Provider Note Provider Note Pt seen and examined in her hospital bed She is s/p right fem-AT bypass by Dr Jay We have been asked to see her for her bypass incisions /wounds All of the right leg wounds are c/d/i and healing well, no erythema no tenderness, no drainage, etc -- all closed with no dehiscence Her right trans-met incision is healing well all apollo and sutures were removed She has a palpable pulse in the distal bypass graft and a palpable distal AT / DP pulse at the ankle She is doing well from a vascular surgery standpoint She needs office follow up for wound checks Recommend a forefoot wedge to offload the trans-met Call us if needed. FRENCH KERR MD Dec 06, 2018 11:39
--- NOTE | 2018-12-06 11:46 | NUR ---
SS following up with discharge planning. SS phoned and faxed clinical updates to [facility], ; fax [phone]. SS will continue to follow for discharge planning.
--- NOTE | 2018-12-06 12:01 | PDOC ---
SUBJECTIVE ROS States not feeling well overall, feeling tired Good uop , No symptoms of UTI OBJECTIVE Vital Signs Vital Signs Date Time Temp Pulse Resp B/P (MAP) Pulse Ox O2 Delivery O2 Flow Rate FiO2 12/06/18 10:57 97.7 75 18 113/54 (73) 96 Nasal Cannula 2.0 97.7 I & 0 Intake and Output 12/06/18 07:01 Intake Total 600 ml Output Total 800 ml Balance -200 ml Intake Oral 600 ml Output Urine Total 800 ml PHYSICAL EXAM Physical Exam General: , No acute distress HEENT: O2 by NC, OM dry Neck Supple Lungs: diminished, bibasilar crackles Heart: Regular rate systolic murmur Abdomen: Soft, No tenderness Extremities:, edema 3-4+ to RLE and 3+ to LLE) Skin: RLE surgical incision healed; left foot post recent amputation Neuro: grossly normal No chen Vital Signs DIAGNOSIS/ASSESSMENT Assessment & Plan KATERIN - Cardiorenal On Diuretics, Aldactone held Baseline Renal function unknown , stable renal function renal US reported as unremarkable , UA no e/o nephritis E-Lytes and acid base stable ? CKD 3- baseline in Dec post procedure 1.3-1.6 No Past hx as per patient UA - WBC+, nitrite negative NSTEMI/ Acute systolic CHF: appears compensated Cardiology managing Diuretics Recommend switching to PO Lasix Cardiomyopathy: EF at 15% NYHA 2-3 PA flutter: New onset. HTN: controlled Severe PAD/osteomyelitis: recent right metatarsal amputation and fem-tib bypass. 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 Anemia: likely chronic Discussed A/P with Pt and RN COMMENT/RELEVANT DATA Meds Current Medications Medications (Trade) Dose Ordered Sig/Hever Start Time Stop Time Status Last Admin Dose Admin Acetaminophen (Tylenol) 1,000 mg PRN Q8HRS PRN 11/29/18 19:30 Acetaminophen/ Hydrocodone Bitart (Lortab 7.5/325) 1 tab PRN Q6HRS PRN 11/29/18 19:15 12/05/18 01:06 1 TAB Albuterol/ Ipratropium (Duoneb) 3 ml RTQID 11/29/18 16:00 11/30/18 15:59 DC 11/30/18 12:07 3 ML Alprazolam (Xanax) 0.5 mg PRN TID PRN 12/01/18 23:30 12/05/18 01:02 0.5 MG Aspirin (Children'S Aspirin) 324 mg 1X ONCE 11/29/18 13:30 11/29/18 13:31 DC Aspirin (Ecotrin) 81 mg DAILYWBKFT 11/30/18 11:00 12/06/18 08:32 81 MG Atorvastatin Calcium (Lipitor) 5 mg QHS 11/29/18 21:00 12/05/18 21:02 5 MG Clonazepam (KlonoPIN) 0.5 mg HS 11/29/18 21:00 12/05/18 21:02 0.5 MG Clopidogrel Bisulfate (Plavix) 75 mg DAILYWBKFT 12/03/18 08:00 UNV Cyanocobalamin (Vitamin B-12) 1,000 mcg DAILY 11/30/18 09:00 12/06/18 08:33 1,000 MCG Dextrose (Dextrose 50%-Water Syringe) 25 gm PRN AFTMEAL PRN 12/03/18 19:15 Enoxaparin Sodium (Lovenox 80mg Syringe) 75 mg 1X ONCE 11/29/18 16:00 11/29/18 16:01 DC 11/29/18 16:25 75 MG Furosemide (Lasix) 40 mg BID76 12/02/18 18:00 12/06/18 06:53 40 MG Heparin Sodium (Porcine) (Heparin Sodium) 1,850 unit PRN Q6HRS PRN 11/30/18 09:45 12/02/18 09:31 DC 11/30/18 10:13 1,850 UNIT Heparin Sodium/ Dextrose 500 ml @ 0 mls/hr CONT PRN 11/30/18 09:45 12/02/18 09:31 DC 11/30/18 10:09 17.5 MLS/HR Heparin Sodium/ Sodium Chloride 500 ml @ As Directed STK-MED ONCE 12/02/18 10:54 12/02/18 10:56 DC Info (Anti-Coagulation Monitoring By Pharmacy) 1 each PRN DAILY PRN 11/30/18 10:00 12/02/18 09:31 DC 12/01/18 08:50 1 EACH Insulin Glargine (Lantus) 5 units QHS 12/06/18 21:00 Insulin Human Lispro (HumaLOG) 3 units TIDAC 12/06/18 11:30 Iodixanol (Visipaque 320) 100 ml STK-MED ONCE 12/02/18 10:54 12/02/18 10:56 DC Ketorolac Tromethamine (Toradol 30mg Vial) 30 mg 1X ONCE 11/29/18 15:30 11/29/18 15:31 UNV Lidocaine HCl (Xylocaine-Mpf 1% 2ml Vial) 2 ml STK-MED ONCE 12/02/18 10:54 12/02/18 10:56 DC Linagliptin (Tradjenta) 5 mg DAILY 11/30/18 09:00 12/03/18 18:25 DC 12/03/18 09:34 5 MG Magnesium Sulfate/ Dextrose 100 ml @ 25 mls/hr 1X ONCE 11/30/18 11:00 11/30/18 14:59 DC 11/30/18 12:06 25 MLS/HR Metformin HCl (Glucophage) 1,000 mg BIDWMEALS 11/30/18 08:00 11/30/18 09:13 DC 11/30/18 09:08 1,000 MG Metoprolol Tartrate (Lopressor) 25 mg BID 12/03/18 09:00 12/06/18 08:34 25 MG Morphine Sulfate (Morphine Sulfate) 2 mg PRN Q2HR PRN 11/29/18 15:45 11/30/18 15:44 DC Nitroglycerin (Nitrostat) 0.4 mg PRN Q5MIN PRN 11/29/18 15:45 11/30/18 15:44 DC Ondansetron HCl (Zofran) 4 mg PRN Q8HRS PRN 11/29/18 15:45 11/30/18 15:44 DC Pharmacy Consult (C.diff Med Screen By Rx) 1 each 1X ONCE 11/30/18 08:15 11/30/18 08:16 UNV Spironolactone (Aldactone) 25 mg QODAY 12/01/18 10:00 12/03/18 13:32 DC 12/03/18 09:35 25 MG Lab Laboratory Tests Test 12/05/18 11:53 12/05/18 17:05 12/05/18 21:09 12/06/18 02:40 Glucose (Fingerstick) 213 mg/dL (70-99) 220 mg/dL (70-99) 287 mg/dL (70-99) Sodium Level 136 mmol/L (136-145) Potassium Level 3.8 mmol/L (3.5-5.1) Chloride Level 94 mmol/L (98-107) Carbon Dioxide Level 29 mmol/L (21-32) Anion Gap 13 (6-14) Blood Urea Nitrogen 67 mg/dL (7-20) Creatinine 2.0 mg/dL (0.6-1.0) Estimated GFR (Cockcroft-Gault) 23.7 Glucose Level 246 mg/dL (70-99) Calcium Level 8.5 mg/dL (8.5-10.1) Test 12/06/18 07:26 12/06/18 10:40 Glucose (Fingerstick) 252 mg/dL (70-99) 316 mg/dL (70-99) Results All relevant outside records, renal labs, imaging studies, telemetry/EKG's were reviewed. JEN BENITES MD Dec 06, 2018 12:01
[2018-12-06] MEDS: HYDROcodone/APAP 7.5/325MG 1 TAB TABLET PO PRN (12:17)
[2018-12-06] MEDS: INSULIN LISPRO 300 UNITS/3 ML INSULN.PEN. SQ SCH ×2 (12:25→17:24)
--- NOTE | 2018-12-06 14:50 | PDOC ---
APRIL NAVA ENGLISH FACULTY MEMBER 12/06/18 1450: CARDIO Progress Notes Date and Time Date of Service 12/06/2018 Time of Evaluation 1310 Subjective Subjective: No Chest Pain, No shortness of breath, No Palpitations Vitals Vitals Vital Signs Date Time Temp Pulse Resp B/P (MAP) Pulse Ox O2 Delivery O2 Flow Rate FiO2 12/06/18 13:30 Nasal Cannula 3.0 12/06/18 10:57 97.7 75 18 113/54 (73) 96 97.7 Weight Weight [ ] Input and Output Intake and Output Intake and Output 12/06/18 07:01 Intake Total 600 ml Output Total 800 ml Balance -200 ml Intake Oral 600 ml Output Urine Total 800 ml Laboratory Labs Laboratory Tests Test 12/05/18 17:05 12/05/18 21:09 12/06/18 02:40 12/06/18 07:26 Glucose (Fingerstick) 220 mg/dL (70-99) 287 mg/dL (70-99) 252 mg/dL (70-99) Sodium Level 136 mmol/L (136-145) Potassium Level 3.8 mmol/L (3.5-5.1) Chloride Level 94 mmol/L (98-107) Carbon Dioxide Level 29 mmol/L (21-32) Anion Gap 13 (6-14) Blood Urea Nitrogen 67 mg/dL (7-20) Creatinine 2.0 mg/dL (0.6-1.0) Estimated GFR (Cockcroft-Gault) 23.7 Glucose Level 246 mg/dL (70-99) Calcium Level 8.5 mg/dL (8.5-10.1) Test 12/06/18 10:40 Glucose (Fingerstick) 316 mg/dL (70-99) Physical Exam HEENT: Neck Supple W Full Motion Chest: Symmetric LUNGS: Other (basilar crackles) Heart: S1S2, RRR (SR) Abdomen: Soft N/T Extremities: No Calf Tenderness, Other (2-3+ bilateral LE pitting edema, the same) Neurology: alert, oriented, follow commands Assessment Assessment 1. NSTEMI: peaked troponin at 0.1 2. Acute systolic CHF: Leg edema same but otherwise compensated 3. Cardiomyopathy: EF at 15% NYHA 2-3 4. PAflutter: Maintaining SR 5. HTN: controlled 6. Severe PAD/osteomyelitis: recent right metatarsal amputation and fem-tib bypass. Stable per vascular 7. HLP: lipids well controlled 8. DM2/DPN 9. KATERIN on CKD. suspect baseline stage 3. Nephrology following. BUN/Cr same 9. 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 Anemia: likely on chronic Recommendations 1. ECASA 81 mg, plavix. Change to toprol XL. 2. UOP remains minimal. Inotrope is still a consideration pending input from nephrology otherwise continue on lasix therapy. 3. MCT as an outpt not afib/flutter burden. 4. Remains CP free, and respiratory crockett compensated. Given her recent vascular surgery with good tolerance will pursue left heart catheterization to rule out ischemic etiology for her cardiomyopathy as an outpatient. 5. May consider for lifevest unless pt goes to rehab/SNU to which other facilities does not allow this. . CARLOS CONTI MD 12/06/18 1543: CARDIO Progress Notes Assessment Assessment Patient seen and examined. Agree with SALES AND PRODUCTION MANAGER's assessment and plan. Plan for cardiac catheterization and event monitor as an outpatient Nephrology following for acute on chronic renal insufficiency APRIL NAVA APRN Dec 06, 2018 14:50 CARLOS CONTI MD Dec 06, 2018 15:43
[2018-12-06 15:04] VITALS: BP 108/55
[2018-12-06 19:56] VITALS: BP 125/68
[2018-12-06] MEDS ORDERED: INSULIN GLARGINE 300 UNITS/3 ML INSULN.PEN. SQ SCH (21:00)
[2018-12-06] MEDS: ATORVASTATIN CALCIUM 10 MG TABLET. PO SCH (21:01)
[2018-12-06] MEDS: clonazePAM 0.5 MG TABLET PO SCH (21:01)
[2018-12-06 22:51] VITALS: BP 136/61
[2018-12-07 02:07] VITALS: BP 124/59
[2018-12-07 05:47] LABS: CALCIUM 8.7 mg/dL (8.5-10.1); CREATININE 1.4 mg/dL (0.6-1.0); GFR 35.8; POTASSIUM 3.2 mmol/L (3.5-5.1)
[2018-12-07 07:00] VITALS: BP 128/61
[2018-12-07] MEDS: FUROSEMIDE 40 MG/4 ML VIAL. IVP SCH (07:05)
--- NOTE | 2018-12-07 08:25 | PDOC ---
SUBJECTIVE Subjective Doing well this AM. Cr improved at 1.4 this AM. Wishes to dc back to [facility] today if possible. OBJECTIVE Objective Reviewed. Vital Signs Vital Signs Date Time Temp Pulse Resp B/P (MAP) Pulse Ox O2 Delivery O2 Flow Rate FiO2 12/07/18 07:00 97.9 76 17 128/61 (83) 97 Nasal Cannula 2.0 97.9 12/07/18 02:07 97.3 73 18 124/59 (80) 99 Nasal Cannula 2.0 97.3 12/06/18 22:51 97.4 72 20 136/61 (86) 99 Nasal Cannula 2.0 97.4 12/06/18 20:00 Nasal Cannula 4.0 12/06/18 19:56 97.3 74 18 125/68 (87) 95 Nasal Cannula 2.0 97.3 12/06/18 15:04 97.9 75 18 108/55 (72) 95 Nasal Cannula 2.0 97.9 12/06/18 13:30 Nasal Cannula 3.0 12/06/18 12:17 Nasal Cannula 3.0 12/06/18 10:57 97.7 75 18 113/54 (73) 96 Nasal Cannula 2.0 97.7 12/06/18 08:34 76 134/68 I & O Intake and Output 12/07/18 07:01 Intake Total 350 ml Output Total 1900 ml Balance -1550 ml Intake Oral 350 ml Output Urine Total 1900 ml # Voids 1 PHYSICAL EXAM Physical Exam Alert, oriented RRR CTAB Abd soft, NT/ND R foot post op bandage is C/D/I Good pulses in b/l LEs 2+ edema in b/l LEs, improved from yesterday ASSESSMENT/PLAN Assessment/Plan NSTEMI Acute systolic CHF Cardiomyopathy, EF 15% Paroxysmal A flutter: New onset, in NSR currently HTN PAD, s/p recent bypass HLD Type 2 DM KATERIN on CKD, cardiorenal 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 COMMENT Lab Laboratory Tests Test 12/06/18 10:40 12/06/18 14:37 12/06/18 16:31 12/07/18 05:00 Glucose (Fingerstick) 316 mg/dL (70-99) 344 mg/dL (70-99) 301 mg/dL (70-99) Sodium Level 139 mmol/L (136-145) Potassium Level 3.2 mmol/L (3.5-5.1) Chloride Level 100 mmol/L (98-107) Carbon Dioxide Level 31 mmol/L (21-32) Anion Gap 8 (6-14) Blood Urea Nitrogen 62 mg/dL (7-20) Creatinine 1.4 mg/dL (0.6-1.0) Estimated GFR (Cockcroft-Gault) 35.8 Glucose Level 201 mg/dL (70-99) Calcium Level 8.7 mg/dL (8.5-10.1) Test 12/07/18 07:27 Glucose (Fingerstick) 173 mg/dL (70-99) RONNIE HER MD Dec 07, 2018 08:25
[2018-12-07] MEDS ORDERED: POTASSIUM CHLORIDE 20 MEQ TABLET.ER. PO ONE (08:30)
[2018-12-07] MEDS: CYANOCOBALAMIN (VITAMIN B-12) 1,000 MCG TABLET. PO SCH (08:48)
[2018-12-07] MEDS: CLOPIDOGREL BISULFATE 75 MG TABLET PO SCH (08:48)
[2018-12-07] MEDS: ASPIRIN ENTERIC COATED 81 MG TABLET.DR. PO SCH (08:48)
[2018-12-07] MEDS: METOPROLOL SUCC 24HR ER 50 MG TAB.ER.24H. PO SCH (08:56)
[2018-12-07] MEDS ORDERED: ASPI-612 PO (09:31)
[2018-12-07] MEDS ORDERED: CLOP75TA PO (09:31)
[2018-12-07] MEDS ORDERED: INSU100I13 SQ (09:31)
[2018-12-07] MEDS ORDERED: METO50TA4 PO (09:31)
[2018-12-07] MEDS ORDERED: ATOR10TA60 PO (09:31)
[2018-12-07] MEDS ORDERED: INSU100I11 SQ (09:31)
--- NOTE | 2018-12-07 09:31 | DISCH ---
DISCHARGE DISCHARGE INFORMATION: FINAL DIAGNOSIS Problems Medical Problems: (1) Chest pain Status: Acute CONDITION ON DISCHARGE: Stable CODE STATUS: Code Status: Full [facility]: SNF STAY <30 DAYS: Yes POST DISCHARGE ORDERS: ACTIVITY ORDERS: Activity as tolerated, Progressive ambulation WEIGHT BEARING STATUS: Partial weight bearing CHECKS AFTER DISCHARGE: CHECKS AFTER DISCHARGE: Check blood press - daily TREATMENT/EQUIPMENT ORDERS: ADAPTIVE EQUIPMENT NEEDED: None Physical Therapy For: Evalulation/Treatment Occupational Therapy For: Evaluation/Treatment DISCHARGE MEDICATIONS: Home Meds Reported Medications Acetaminophen (TYLENOL EXTRA STRENGTH) 500 Mg Tablet, 1000 MG PO PRN Q8HRS PRN for PAIN, TAB 11/29/18 Linagliptin (TRADJENTA) 5 Mg Tablet, 5 MG PO DAILY for TYPE 2 DIABETES, TAB 11/29/18 Furosemide (LASIX) 20 Mg Tablet, 20 MG PO DAILY for CHF, TAB 11/29/18 Cyanocobalamin (Vitamin B-12) (VITAMIN B-12) 1,000 Mcg Tablet, 1 TAB PO DAILY for b12 def, #30 TAB 2 Refills 10/15/18 Metformin Hcl (METFORMIN HCL) 1,000 Mg Tablet, 1000 MG PO BIDWMEALS for BG, TAB 10/15/18 Lovastatin (LOVASTATIN) 20 Mg Tablet, 1 TAB PO DAILYWSUP for high cholesterol, # 30 TAB 5 Refills 10/15/18 Clonazepam (CLONAZEPAM) 0.5 Mg Tablet, 1 TAB PO HS for sleep, #30 TAB 10/15/18 Hydrocodone Bit/Acetaminophen (HYDROCODONE-APAP 7.5-325 ) 1 Tab Tablet, 1 TAB PO PRN Q6HRS PRN for PAIN, TAB 0 Refills 10/15/18 RONNIE HER MD Dec 07, 2018 09:31
--- NOTE | 2018-12-07 10:11 | PDOC ---
SUBJECTIVE ROS Stable OBJECTIVE Vital Signs Vital Signs Date Time Temp Pulse Resp B/P (MAP) Pulse Ox O2 Delivery O2 Flow Rate FiO2 12/07/18 08:56 85 12/07/18 07:00 97.9 17 128/61 (83) 97 Nasal Cannula 2.0 97.9 I & 0 Intake and Output 12/07/18 07:01 Intake Total 350 ml Output Total 1900 ml Balance -1550 ml Intake Oral 350 ml Output Urine Total 1900 ml # Voids 1 PHYSICAL EXAM Physical Exam General: , No acute distress HEENT: O2 by NC, OM dry Neck Supple Lungs: diminished, bibasilar crackles Heart: Regular rate systolic murmur Abdomen: Soft, No tenderness Extremities:, edema 3-4+ to RLE and 3+ to LLE) Skin: RLE surgical incision healed; left foot post recent amputation Neuro: grossly normal No chen DIAGNOSIS/ASSESSMENT Assessment & Plan KATERIN - Cardiorenal On Diuretics, Aldactone held Baseline Renal function unknown , renal function improving renal US reported as unremarkable , UA no e/o nephritis E-Lytes and acid base stable Hypokalemia- Mild Replaced ? CKD 3- baseline in Dec post procedure 1.3-1.6 No Past hx as per patient UA - WBC+, nitrite negative NSTEMI/ Acute systolic CHF: appears compensated Cardiology managing Diuretics Recommend switching to PO Lasix Cardiomyopathy: EF at 15% NYHA 2-3 PA flutter: New onset. HTN: controlled Severe PAD/osteomyelitis: recent right metatarsal amputation and fem-tib bypass. 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 Anemia: likely chronic Recommend follow up with our office after Dc COMMENT/RELEVANT DATA Meds Current Medications Medications (Trade) Dose Ordered Sig/Hever Start Time Stop Time Status Last Admin Dose Admin Acetaminophen (Tylenol) 1,000 mg PRN Q8HRS PRN 11/29/18 19:30 Acetaminophen/ Hydrocodone Bitart (Lortab 7.5/325) 1 tab PRN Q6HRS PRN 11/29/18 19:15 12/06/18 12:17 1 TAB Albuterol/ Ipratropium (Duoneb) 3 ml RTQID 11/29/18 16:00 11/30/18 15:59 DC 11/30/18 12:07 3 ML Alprazolam (Xanax) 0.5 mg PRN TID PRN 12/01/18 23:30 12/05/18 01:02 0.5 MG Aspirin (Children'S Aspirin) 324 mg 1X ONCE 11/29/18 13:30 11/29/18 13:31 DC Aspirin (Ecotrin) 81 mg DAILYWBKFT 11/30/18 11:00 12/07/18 08:48 81 MG Atorvastatin Calcium (Lipitor) 5 mg QHS 11/29/18 21:00 12/06/18 21:01 5 MG Clonazepam (KlonoPIN) 0.5 mg HS 11/29/18 21:00 12/06/18 21:01 0.5 MG Clopidogrel Bisulfate (Plavix) 75 mg DAILYWBKFT 12/03/18 08:00 UNV Cyanocobalamin (Vitamin B-12) 1,000 mcg DAILY 11/30/18 09:00 12/07/18 08:48 1,000 MCG Dextrose (Dextrose 50%-Water Syringe) 25 gm PRN AFTMEAL PRN 12/03/18 19:15 Enoxaparin Sodium (Lovenox 80mg Syringe) 75 mg 1X ONCE 11/29/18 16:00 11/29/18 16:01 DC 11/29/18 16:25 75 MG Furosemide (Lasix) 40 mg BID76 12/02/18 18:00 12/07/18 07:05 40 MG Heparin Sodium (Porcine) (Heparin Sodium) 1,850 unit PRN Q6HRS PRN 11/30/18 09:45 12/02/18 09:31 DC 11/30/18 10:13 1,850 UNIT Heparin Sodium/ Dextrose 500 ml @ 0 mls/hr CONT PRN 11/30/18 09:45 12/02/18 09:31 DC 11/30/18 10:09 17.5 MLS/HR Heparin Sodium/ Sodium Chloride 500 ml @ As Directed STK-MED ONCE 12/02/18 10:54 12/02/18 10:56 DC Info (Anti-Coagulation Monitoring By Pharmacy) 1 each PRN DAILY PRN 11/30/18 10:00 12/02/18 09:31 DC 12/01/18 08:50 1 EACH Insulin Glargine (Lantus) 10 units QHS 12/07/18 21:00 Insulin Human Lispro (HumaLOG) 5 units TIDAC 12/07/18 11:30 Iodixanol (Visipaque 320) 100 ml STK-MED ONCE 12/02/18 10:54 12/02/18 10:56 DC Ketorolac Tromethamine (Toradol 30mg Vial) 30 mg 1X ONCE 11/29/18 15:30 11/29/18 15:31 UNV Lidocaine HCl (Xylocaine-Mpf 1% 2ml Vial) 2 ml STK-MED ONCE 12/02/18 10:54 12/02/18 10:56 DC Linagliptin (Tradjenta) 5 mg DAILY 11/30/18 09:00 12/03/18 18:25 DC 12/03/18 09:34 5 MG Magnesium Sulfate/ Dextrose 100 ml @ 25 mls/hr 1X ONCE 11/30/18 11:00 11/30/18 14:59 DC 11/30/18 12:06 25 MLS/HR Metformin HCl (Glucophage) 1,000 mg BIDWMEALS 11/30/18 08:00 11/30/18 09:13 DC 11/30/18 09:08 1,000 MG Metoprolol Succinate (Toprol Xl) 50 mg DAILY 12/07/18 09:00 12/07/18 08:56 50 MG Metoprolol Tartrate (Lopressor) 25 mg BID 12/03/18 09:00 12/06/18 14:47 DC 12/06/18 08:34 25 MG Morphine Sulfate (Morphine Sulfate) 2 mg PRN Q2HR PRN 11/29/18 15:45 11/30/18 15:44 DC Nitroglycerin (Nitrostat) 0.4 mg PRN Q5MIN PRN 11/29/18 15:45 11/30/18 15:44 DC Ondansetron HCl (Zofran) 4 mg PRN Q8HRS PRN 11/29/18 15:45 11/30/18 15:44 DC Pharmacy Consult (C.diff Med Screen By Rx) 1 each 1X ONCE 11/30/18 08:15 11/30/18 08:16 UNV Potassium Chloride (Klor-Con) 40 meq 1X ONCE 12/07/18 08:30 12/07/18 08:31 DC 12/07/18 08:49 40 MEQ Spironolactone (Aldactone) 25 mg QODAY 12/01/18 10:00 12/03/18 13:32 DC 12/03/18 09:35 25 MG Lab Laboratory Tests Test 12/06/18 10:40 12/06/18 14:37 12/06/18 16:31 12/07/18 05:00 Glucose (Fingerstick) 316 mg/dL (70-99) 344 mg/dL (70-99) 301 mg/dL (70-99) Sodium Level 139 mmol/L (136-145) Potassium Level 3.2 mmol/L (3.5-5.1) Chloride Level 100 mmol/L (98-107) Carbon Dioxide Level 31 mmol/L (21-32) Anion Gap 8 (6-14) Blood Urea Nitrogen 62 mg/dL (7-20) Creatinine 1.4 mg/dL (0.6-1.0) Estimated GFR (Cockcroft-Gault) 35.8 Glucose Level 201 mg/dL (70-99) Calcium Level 8.7 mg/dL (8.5-10.1) Test 12/07/18 07:27 Glucose (Fingerstick) 173 mg/dL (70-99) Results All relevant outside records, renal labs, imaging studies, telemetry/EKG's were reviewed. JEN BENITES MD Dec 07, 2018 10:11
[2018-12-07 11:00] VITALS: BP 116/46
--- NOTE | 2018-12-07 11:36 | NUR ---
SS following up with discharge planning. Discharge orders received. SS phoned and faxed discharge orders to [facility], ; fax [phone]. SS awaiting insurance authorization and transport time from [facility].
[2018-12-07] MEDS: INSULIN LISPRO 300 UNITS/3 ML INSULN.PEN. SQ SCH ×2 (12:15→17:51)
--- NOTE | 2018-12-07 14:53 | PDOC ---
PROGRESS NOTES Subjective Subjective Patient feeling better. She denied any dyspnea or chest pain. Objective Objective Vital Signs Date Time Temp Pulse Resp B/P (MAP) Pulse Ox O2 Delivery O2 Flow Rate FiO2 12/07/18 11:00 97.9 71 17 116/46 (69) 96 Nasal Cannula 2.0 97.9 Intake and Output 12/07/18 07:01 Intake Total 350 ml Output Total 1900 ml Balance -1550 ml Intake Oral 350 ml Output Urine Total 1900 ml # Voids 1 Physical Exam Abdomen: Normal bowel sounds, Soft, No tenderness, No masses Heart: Regular rate, No murmurs, Gallops Extremities: Other (2+ pitting edema) General: Alert, Oriented X3, Cooperative, No acute distress HEENT: Atraumatic, Mucous membr. moist/pink Lungs: Clear to auscultation, Normal air movement Neuro: Normal speech Psych/Mental Status: Mental status NL, Mood NL Skin: Other (RLE surgical incision healed; left foot post recent amputation covered with dry kerlix) Assessment Assessment 1. NSTEMI: peaked troponin at 0.1. Most probably demand ischemia. She is presently chest pain-free. Continue current medical regimen 2. Acute on systolic CHF: Better compensated. Change Lasix to by mouth. 3. Cardiomyopathy: EF at 15% : Plan for cardiac catheterization as an outpatient 4. PAflutter: Maintaining SR. we will obtain event monitor as an outpatient to assess arrhythmia burden 5. HTN: controlled 6. Severe PAD/osteomyelitis: recent right metatarsal amputation and fem-tib bypass. Stable per vascular 7. HLP: lipids well controlled 8. DM2/DPN 9. KATERIN on CKD. suspect baseline stage 3. Nephrology following. Plan Plan of Care Problems Medical Problems: (1) Chest pain Status: Acute Comment Review of Relevant I have reviewed the following items charli (where applicable) has been applied. Labs Laboratory Tests Test 12/06/18 16:31 12/07/18 05:00 12/07/18 07:27 12/07/18 11:33 Glucose (Fingerstick) 301 mg/dL (70-99) 173 mg/dL (70-99) 223 mg/dL (70-99) Sodium Level 139 mmol/L (136-145) Potassium Level 3.2 mmol/L (3.5-5.1) Chloride Level 100 mmol/L (98-107) Carbon Dioxide Level 31 mmol/L (21-32) Anion Gap 8 (6-14) Blood Urea Nitrogen 62 mg/dL (7-20) Creatinine 1.4 mg/dL (0.6-1.0) Estimated GFR (Cockcroft-Gault) 35.8 Glucose Level 201 mg/dL (70-99) Calcium Level 8.7 mg/dL (8.5-10.1) Medications Current Medications Insulin Glargine (Lantus) 5 units QHS SQ Last administered on 12/06/18at 21:08; Start 12/06/18 at 21:00; Stop 12/07/18 at 08:22; Status DC Insulin Glargine (Lantus) 10 units QHS SQ ; Start 12/07/18 at 21:00 Insulin Human Lispro (HumaLOG) 5 units TIDAC SQ Last administered on 12/07/18at 12:15; Start 12/07/18 at 11:30 Metoprolol Succinate (Toprol Xl) 50 mg DAILY PO Last administered on 12/07/18at 08:56; Start 12/07/18 at 09:00 Potassium Chloride (Klor-Con) 40 meq 1X ONCE PO Last administered on 12/07/18at 08:49; Start 12/07/18 at 08:30; Stop 12/07/18 at 08:31; Status DC Vitals/I & O Vital Sign - Last 24 Hours 12/06/18 12/06/18 12/06/18 12/06/18 15:04 19:56 20:00 22:51 Temp 97.9 97.3 97.4 97.9 97.3 97.4 Pulse 75 74 72 Resp 18 18 20 B/P (MAP) 108/55 (72) 125/68 (87) 136/61 (86) Pulse Ox 95 95 99 O2 Delivery Nasal Cannula Nasal Cannula Nasal Cannula Nasal Cannula O2 Flow Rate 2.0 2.0 4.0 2.0 12/07/18 12/07/18 12/07/18 12/07/18 02:07 07:00 08:00 08:56 Temp 97.3 97.9 97.3 97.9 Pulse 73 76 85 Resp 18 17 B/P (MAP) 124/59 (80) 128/61 (83) Pulse Ox 99 97 O2 Delivery Nasal Cannula Nasal Cannula Nasal Cannula O2 Flow Rate 2.0 2.0 2.0 12/07/18 11:00 Temp 97.9 97.9 Pulse 71 Resp 17 B/P (MAP) 116/46 (69) Pulse Ox 96 O2 Delivery Nasal Cannula O2 Flow Rate 2.0 Intake and Output 12/06/18 12/06/18 12/07/18 15:01 23:01 07:01 Intake Total 350 ml Output Total 500 ml 1400 ml Balance -500 ml 350 ml -1400 ml CARLOS CONTI MD Dec 07, 2018 14:52
[2018-12-07 15:00] VITALS: BP 128/59
[2018-12-07] MEDS ORDERED: POTA20TA82 PO (15:19)
[2018-12-07] MEDS ORDERED: FURO-68 PO (15:20)
[2018-12-07] MEDS: FUROSEMIDE 40 MG TABLET. PO SCH (17:39)
[2018-12-07 18:07] VITALS: BP 116/59
[2018-12-07] MEDS ORDERED: INSULIN GLARGINE 300 UNITS/3 ML INSULN.PEN. SQ SCH (21:00)
[2018-12-07] MEDS: ATORVASTATIN CALCIUM 10 MG TABLET. PO SCH (21:20)
[2018-12-07] MEDS: clonazePAM 0.5 MG TABLET PO SCH (21:20)
[2018-12-07] MEDS: HYDROcodone/APAP 7.5/325MG 1 TAB TABLET PO PRN (21:21)
[2018-12-07 23:00] VITALS: BP 149/55
[2018-12-08 03:00] VITALS: BP 109/54
[2018-12-08 07:17] VITALS: BP 166/52
[2018-12-08] MEDS: INSULIN LISPRO 300 UNITS/3 ML INSULN.PEN. SQ SCH ×2 (07:30→12:32)
[2018-12-08] MEDS ORDERED: POTASSIUM CHLORIDE 20 MEQ TABLET.ER. PO SCH (08:00)
--- NOTE | 2018-12-08 08:27 | PDOC3 ---
Discharge Summary Date of Admission: Nov 30, 2018 Date of Discharge: Dec 08, 2018 Admitting Diagnosis comment: NSTEMI Acute systolic CHF Cardiomyopathy, EF 15% HTN PAD, s/p recent bypass HLD Type 2 DM KATERIN on CKD, cardiorenal Anemia FINAL DIAGNOSIS NSTEMI Acute systolic CHF Cardiomyopathy, EF 15% Paroxysmal A flutter: New onset, in NSR currently HTN PAD, s/p recent bypass HLD Type 2 DM KATERIN on CKD, cardiorenal 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 Anemia Brief Hospital Course Ms. Foote is an 83 yo female with a history of type 2 diabetes and chronic disease anemia, recently had an amputation of her right distal foot and a vascular bypass to right leg done about one month ago per Dr. Jay. She has been recovering uneventfully at recent local long term without problems, but 2 days prior to admission, she developed some pressure-like pain in the mid chest that lasted 30-60 minutes. She did not get short of breath, sweaty or have any radiation of the pain. Pain resolved spontaneously, and she came to the ER the next day. Doppler studies of her legs were negative. D-dimer was high, but V/Q scan showed low probability of pulmonary embolism. Echocardiogram showed systolic congestive heart failure with EF 10-15%. Troponins were mildly elevated and she was classified as an NSTEMI. Given her decompensated heart failure, she was treated with diuresis as she had developed cardiorenal syndrome. She improved slowly and renal function also improved to Cr 1.4 on day prior to discharge (peaked at 2.2). She will continue Lasix 40mg BID. Cardiology plans to see patient on 12/15/18 for cardiac catheterization and plan to do an outpatient it security specialist as she had brief periods of A flutter during hospitalization as well. Due to new diagnosis of heart failure, her oral diabetes drugs were stopped and she was changed to insulin, but she had a mild hypoglycemic event and insulin was stopped. Once blood sugars increased again, insulin was resumed and slowly increased to the current doses that she will continue at discharge (Lantus 10U and Novolog 5U TIDAC). She feels better and is agreeable to plan to discharge back to [facility] with follow up with Cardiology for cath on 12/15/18. Echo: The left ventricular systolic function is severely impaired. The Ejection Fraction is 10-15%. There is mild valvular aortic stenosis. Mild to moderate mitral regurgitation. Moderate to severe tricuspid regurgitation. There is moderate pulmonary hypertension. The PA pressure was estimated at 45 mmHg. There is no evidence of significant pericardial effusion. CONDITION AT DISCHARGE: Improved Discharge Medications Current Medications Aspirin (Children'S Aspirin) 324 mg 1X ONCE PO ; Start 11/29/18 at 13:30; Stop 11/29/18 at 13:31; Status DC Enoxaparin Sodium (Lovenox 80mg Syringe) 80 mg 1X ONCE SQ ; Start 11/29/18 at 15:30; Stop 11/29/18 at 15:30; Status DC Ketorolac Tromethamine (Toradol 30mg Vial) 30 mg 1X ONCE IV ; Start 11/29/18 at 15:30; Stop 11/29/18 at 15:31; Status UNV Ondansetron HCl (Zofran) 4 mg PRN Q8HRS PRN IV NAUSEA/VOMITING; Start 11/29/18 at 15:45; Stop 11/30/18 at 15:44; Status DC Morphine Sulfate (Morphine Sulfate) 2 mg PRN Q2HR PRN IV PAIN; Start 11/29/18 at 15:45; Stop 11/30/18 at 15:44; Status DC Nitroglycerin (Nitrostat) 0.4 mg PRN Q5MIN PRN SL CHEST PAIN; Start 11/29/18 at 15:45; Stop 11/30/18 at 15:44; Status DC Albuterol/ Ipratropium (Duoneb) 3 ml RTQID NEB Last administered on 11/30/18at 12:07; Start 11/29/18 at 16:00; Stop 11/30/18 at 15:59; Status DC Furosemide (Lasix) 60 mg 1X ONCE IVP Last administered on 11/29/18at 15:56; Start 11/29/18 at 15:45; Stop 11/29/18 at 15:46; Status DC Enoxaparin Sodium (Lovenox 80mg Syringe) 75 mg 1X ONCE SQ Last administered on 11/29/18at 16:25; Start 11/29/18 at 16:00; Stop 11/29/18 at 16:01; Status DC Clonazepam (KlonoPIN) 0.5 mg HS PO Last administered on 12/07/18at 21:20; Start 11/29/18 at 21:00 Cyanocobalamin (Vitamin B-12) 1,000 mcg DAILY PO Last administered on 12/07/18 08:48; Start 11/30/18 at 09:00 Furosemide (Lasix) 20 mg DAILY PO Last administered on 11/30/18 09:08; Start 11/30/18 at 09:00; Stop 11/30/18 at 09:13; Status DC Acetaminophen/ Hydrocodone Bitart (Lortab 7.5/325) 1 tab PRN Q6HRS PRN PO PAIN MODERATE TO SEVERE Last administered on 12/07/18 21:21; Start 11/29/18 at 19:15 Linagliptin (Tradjenta) 5 mg DAILY PO Last administered on 12/03/18 09:34; Start 11/30/18 at 09:00; Stop 12/03/18 at 18:25; Status DC Acetaminophen (Tylenol) 1,000 mg PRN Q8HRS PRN PO MILD PAIN / TEMP; Start 11/29 at 19:30 Atorvastatin Calcium (Lipitor) 5 mg QHS PO Last administered on 12/07/18 21:20 ; Start 11/29/18 at 21:00 Metformin HCl (Glucophage) 1,000 mg BIDWMEALS PO Last administered on 09:08; Start 11/30/18 at 08:00; Stop 11/30/18 at 09:13; Status DC Pharmacy Consult (C.diff Med Screen By Rx) 1 each 1X ONCE MC ; Start 11/30/18 at 08:15; Stop 11/30/18 at 08:16; Status UNV Furosemide (Lasix) 40 mg DAILY IVP Last administered on 12/01/18at 11:02; Start 11/30/18 at 11:00; Stop 12/02/18 at 09:09; Status DC Metoprolol Tartrate (Lopressor) 12.5 mg BID PO Last administered on 12/02/18 22:07; Start 11/30/18 at 11:00; Stop 12/03/18 at 08:09; Status DC Aspirin (Ecotrin) 81 mg DAILYWBKFT PO Last administered on 12/07/18 08:48; Start 11/30/18 at 11:00 Heparin Sodium/ Dextrose 500 ml @ 0 mls/hr CONT PRN IV SEE I/O RECORD Last administered on 11/30/18at 10:09; Start 11/30/18 at 09:45; Stop 12/02/18 at 09:31 ; Status DC Heparin Sodium (Porcine) (Heparin Sodium) 1,850 unit PRN Q6HRS PRN IV FOR UFH LEVEL LESS THAN 0.2 Last administered on 11/30/18at 10:13; Start 11/30/18 at 09: 45; Stop 12/02/18 at 09:31; Status DC Magnesium Sulfate/ Dextrose 100 ml @ 25 mls/hr 1X ONCE IV Last administered on 11/30/18at 12:06; Start 11/30/18 at 11:00; Stop 11/30/18 at 14:59; Status DC Info (Anti-Coagulation Monitoring By Pharmacy) 1 each PRN DAILY PRN MC SEE COMMENTS Last administered on 12/01/18at 08:50; Start 11/30/18 at 10:00; Stop at 09:31; Status DC Spironolactone (Aldactone) 25 mg QODAY PO Last administered on 12/03/18at 09:35; Start 12/01/18 at 10:00; Stop 12/03/18 at 13:32; Status DC Insulin Glargine (Lantus) 20 units QHS SQ Last administered on 12/02/18at 22:14 ; Start 12/01/18 at 21:00; Stop 12/03/18 at 08:06; Status DC Furosemide (Lasix) 40 mg 1X ONCE IVP Last administered on 12/01/18at 17:42; Start 12/01/18 at 16:00; Stop 12/01/18 at 16:01; Status DC Clopidogrel Bisulfate (Plavix) 75 mg DAILYWBKFT PO Last administered on at 08:48; Start 12/02/18 at 08:00 Clopidogrel Bisulfate (Plavix) 75 mg 1X ONCE PO Last administered on at 13:48; Start 12/01/18 at 13:30; Stop 12/01/18 at 13:31; Status DC Alprazolam (Xanax) 0.5 mg 1X ONCE PO Last administered on 12/01/18at 23:41; Start 12/01/18 at 23:30; Stop 12/01/18 at 23:31; Status DC Alprazolam (Xanax) 0.5 mg PRN TID PRN PO ANXIETY / AGITATION Last administered on 12/05/18at 01:02; Start 12/01/18 at 23:30 Furosemide (Lasix) 40 mg BID76 IVP Last administered on 12/07/18at 07:05; Start 12/02/18 at 18:00; Stop 12/07/18 at 14:54; Status DC Iodixanol (Visipaque 320) 100 ml STK-MED ONCE .ROUTE ; Start 12/02/18 at 10:54; Stop 12/02/18 at 10:56; Status DC Lidocaine HCl (Xylocaine-Mpf 1% 2ml Vial) 2 ml STK-MED ONCE .ROUTE ; Start 12/02 at 10:54; Stop 12/02/18 at 10:56; Status DC Heparin Sodium/ Sodium Chloride 500 ml @ As Directed STK-MED ONCE .ROUTE ; Start 12/02/18 at 10:54; Stop 12/02/18 at 10:56; Status DC Clopidogrel Bisulfate (Plavix) 75 mg DAILYWBKFT PO ; Start 12/03/18 at 08:00; Status UNV Insulin Glargine (Lantus) 15 units QHS SQ ; Start 12/03/18 at 21:00; Stop at 21:00; Status DC Metoprolol Tartrate (Lopressor) 25 mg BID PO Last administered on 12/06/18at 08: 34; Start 12/03/18 at 09:00; Stop 12/06/18 at 14:47; Status DC Dextrose (Dextrose 50%-Water Syringe) 25 gm 1X ONCE IV Last administered on 12/03/18at 18:36; Start 12/03/18 at 18:30; Stop 12/03/18 at 18:31; Status DC Dextrose (Dextrose 50%-Water Syringe) 25 gm PRN AFTMEAL PRN IV SEE COMMENTS; Start 12/03/18 at 19:15 Insulin Glargine (Lantus) 5 units QHS SQ Last administered on 12/06/18at 21:08; Start 12/06/18 at 21:00; Stop 12/07/18 at 08:22; Status DC Insulin Human Lispro (HumaLOG) 3 units TIDAC SQ Last administered on 12/06/18at 17:24; Start 12/06/18 at 11:30; Stop 12/07/18 at 08:22; Status DC Metoprolol Succinate (Toprol Xl) 50 mg DAILY PO Last administered on 12/07/18at 08:56; Start 12/07/18 at 09:00 Insulin Glargine (Lantus) 10 units QHS SQ Last administered on 12/07/18at 21:17; Start 12/07/18 at 21:00 Insulin Human Lispro (HumaLOG) 5 units TIDAC SQ Last administered on 12/07/18at 17:51; Start 12/07/18 at 11:30 Potassium Chloride (Klor-Con) 40 meq 1X ONCE PO Last administered on 12/07/18at 08:49; Start 12/07/18 at 08:30; Stop 12/07/18 at 08:31; Status DC Furosemide (Lasix) 40 mg DAILY PO ; Start 12/08/18 at 09:00; Stop 12/08/18 at 09: 00; Status DC Furosemide (Lasix) 40 mg BID94 PO ; Start 12/07/18 at 16:00 Potassium Chloride (Klor-Con) 20 meq DAILYWBKFT PO ; Start 12/08/18 at 08:00 Active Scripts Active Reported Lasix (Furosemide) 40 Mg Tablet 40 Mg PO BID Potassium Chloride 20 Meq Tablet.er 20 Meq PO DAILY Tylenol Extra Strength (Acetaminophen) 500 Mg Tablet 1,000 Mg PO PRN Q8HRS PRN Tradjenta (Linagliptin) 5 Mg Tablet 5 Mg PO DAILY Lasix (Furosemide) 20 Mg Tablet 20 Mg PO DAILY Vitamin B-12 (Cyanocobalamin (Vitamin B-12)) 1,000 Mcg Tablet 1 Tab PO DAILY Metformin Hcl 1,000 Mg Tablet 1,000 Mg PO BIDWMEALS Lovastatin 20 Mg Tablet 1 Tab PO DAILYWSUP Clonazepam 0.5 Mg Tablet 1 Tab PO HS Hydrocodone-Apap 7.5-325 (Hydrocodone Bit/Acetaminophen) 1 Tab Tablet 1 Tab PO PRN Q6HRS PRN Vital Signs Vital Signs Date Time Temp Pulse Resp B/P (MAP) Pulse Ox O2 Delivery O2 Flow Rate FiO2 12/08/18 07:17 97.5 82 18 166/52 (90) 97 Nasal Cannula 2.0 97.5 Labs Laboratory Tests Test 12/06/18 10:40 12/06/18 14:37 12/06/18 16:31 12/07/18 05:00 Glucose (Fingerstick) 316 mg/dL (70-99) 344 mg/dL (70-99) 301 mg/dL (70-99) Sodium Level 139 mmol/L (136-145) Potassium Level 3.2 mmol/L (3.5-5.1) Chloride Level 100 mmol/L (98-107) Carbon Dioxide Level 31 mmol/L (21-32) Anion Gap 8 (6-14) Blood Urea Nitrogen 62 mg/dL (7-20) Creatinine 1.4 mg/dL (0.6-1.0) Estimated GFR (Cockcroft-Gault) 35.8 Glucose Level 201 mg/dL (70-99) Calcium Level 8.7 mg/dL (8.5-10.1) Test 12/07/18 07:27 12/07/18 11:33 12/07/18 17:03 12/07/18 21:12 Glucose (Fingerstick) 173 mg/dL (70-99) 223 mg/dL (70-99) 169 mg/dL (70-99) 206 mg/dL (70-99) Test 12/08/18 07:02 Glucose (Fingerstick) 70 mg/dL (70-99) Laboratory Tests Test 12/07/18 11:33 12/07/18 17:03 12/07/18 21:12 12/08/18 07:02 Glucose (Fingerstick) 223 mg/dL (70-99) 169 mg/dL (70-99) 206 mg/dL (70-99) 70 mg/dL (70-99) Allergies Allergies Coded Allergies Type Severity Reaction Last Updated Verified amoxicillin Allergy Intermediate Hives 10/15/18 Yes Disposition/Orders: D/C to Another Facility ([facility] ) RONNIE HER MD Dec 08, 2018 08:26
[2018-12-08] MEDS: CLOPIDOGREL BISULFATE 75 MG TABLET PO SCH (08:32)
[2018-12-08] MEDS: CYANOCOBALAMIN (VITAMIN B-12) 1,000 MCG TABLET. PO SCH (08:32)
[2018-12-08] MEDS: ASPIRIN ENTERIC COATED 81 MG TABLET.DR. PO SCH (08:32)
[2018-12-08] MEDS: METOPROLOL SUCC 24HR ER 50 MG TAB.ER.24H. PO SCH (08:32)
[2018-12-08] MEDS: FUROSEMIDE 40 MG TABLET. PO SCH (08:32)
[2018-12-08] MEDS ORDERED: FUROSEMIDE 40 MG TABLET. PO SCH (09:00)
[2018-12-08 11:25] VITALS: BP 116/51
[2018-12-08 11:55] LABS: CALCIUM 8.8 mg/dL (8.5-10.1); CREATININE 1.4 mg/dL (0.6-1.0); GFR 35.8; POTASSIUM 3.6 mmol/L (3.5-5.1)
--- NOTE | 2018-12-08 12:53 | PDOC ---
SUBJECTIVE ROS Stable OBJECTIVE Vital Signs Vital Signs Date Time Temp Pulse Resp B/P (MAP) Pulse Ox O2 Delivery O2 Flow Rate FiO2 12/08/18 11:25 97.5 81 18 116/51 (72) 94 Nasal Cannula 2.0 97.5 I & 0 Intake and Output 12/08/18 07:01 Output Total 2500 ml Balance -2500 ml Output Urine Total 2500 ml PHYSICAL EXAM Physical Exam General: , No acute distress HEENT: O2 by NC, OM dry Neck Supple Lungs: diminished, bibasilar crackles Heart: Regular rate systolic murmur Abdomen: Soft, No tenderness Extremities:, edema 3-4+ to RLE and 3+ to LLE) Skin: RLE surgical incision healed; left foot post recent amputation Neuro: grossly normal No chen DIAGNOSIS/ASSESSMENT Assessment & Plan KATERIN - Cardiorenal On Diuretics, Aldactone held Baseline Renal function unknown , renal function improved and stable renal US reported as unremarkable , UA no e/o nephritis E-Lytes and acid base stable Hypokalemia- Mild Replaced ? CKD 3- baseline in Dec post procedure 1.3-1.6 No Past hx as per patient NSTEMI/ Acute systolic CHF: appears compensated Cardiology managing Diuretics On PO Lasix Cardiomyopathy: EF at 15% NYHA 2-3 PA flutter: New onset. HTN: controlled Severe PAD/osteomyelitis: recent right metatarsal amputation and fem-tib bypass. 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 Anemia: likely chronic Recommend follow up with our office after Dc COMMENT/RELEVANT DATA Meds Current Medications Medications (Trade) Dose Ordered Sig/Hever Start Time Stop Time Status Last Admin Dose Admin Acetaminophen (Tylenol) 1,000 mg PRN Q8HRS PRN 11/29/18 19:30 Acetaminophen/ Hydrocodone Bitart (Lortab 7.5/325) 1 tab PRN Q6HRS PRN 11/29/18 19:15 12/07/18 21:21 1 TAB Albuterol/ Ipratropium (Duoneb) 3 ml RTQID 11/29/18 16:00 11/30/18 15:59 DC 11/30/18 12:07 3 ML Alprazolam (Xanax) 0.5 mg PRN TID PRN 12/01/18 23:30 12/05/18 01:02 0.5 MG Aspirin (Children'S Aspirin) 324 mg 1X ONCE 11/29/18 13:30 11/29/18 13:31 DC Aspirin (Ecotrin) 81 mg DAILYWBKFT 11/30/18 11:00 12/08/18 08:32 81 MG Atorvastatin Calcium (Lipitor) 5 mg QHS 11/29/18 21:00 12/07/18 21:20 5 MG Clonazepam (KlonoPIN) 0.5 mg HS 11/29/18 21:00 12/07/18 21:20 0.5 MG Clopidogrel Bisulfate (Plavix) 75 mg DAILYWBKFT 12/03/18 08:00 UNV Cyanocobalamin (Vitamin B-12) 1,000 mcg DAILY 11/30/18 09:00 12/08/18 08:32 1,000 MCG Dextrose (Dextrose 50%-Water Syringe) 25 gm PRN AFTMEAL PRN 12/03/18 19:15 Enoxaparin Sodium (Lovenox 80mg Syringe) 75 mg 1X ONCE 11/29/18 16:00 11/29/18 16:01 DC 11/29/18 16:25 75 MG Furosemide (Lasix) 40 mg BID94 12/07/18 16:00 12/08/18 08:32 40 MG Heparin Sodium (Porcine) (Heparin Sodium) 1,850 unit PRN Q6HRS PRN 11/30/18 09:45 12/02/18 09:31 DC 11/30/18 10:13 1,850 UNIT Heparin Sodium/ Dextrose 500 ml @ 0 mls/hr CONT PRN 11/30/18 09:45 12/02/18 09:31 DC 11/30/18 10:09 17.5 MLS/HR Heparin Sodium/ Sodium Chloride 500 ml @ As Directed STK-MED ONCE 12/02/18 10:54 12/02/18 10:56 DC Info (Anti-Coagulation Monitoring By Pharmacy) 1 each PRN DAILY PRN 11/30/18 10:00 12/02/18 09:31 DC 12/01/18 08:50 1 EACH Insulin Glargine (Lantus) 10 units QHS 12/07/18 21:00 12/07/18 21:17 10 UNITS Insulin Human Lispro (HumaLOG) 5 units TIDAC 12/07/18 11:30 12/08/18 12:32 5 UNITS Iodixanol (Visipaque 320) 100 ml STK-MED ONCE 12/02/18 10:54 12/02/18 10:56 DC Ketorolac Tromethamine (Toradol 30mg Vial) 30 mg 1X ONCE 11/29/18 15:30 11/29/18 15:31 UNV Lidocaine HCl (Xylocaine-Mpf 1% 2ml Vial) 2 ml STK-MED ONCE 12/02/18 10:54 12/02/18 10:56 DC Linagliptin (Tradjenta) 5 mg DAILY 11/30/18 09:00 12/03/18 18:25 DC 12/03/18 09:34 5 MG Magnesium Sulfate/ Dextrose 100 ml @ 25 mls/hr 1X ONCE 11/30/18 11:00 11/30/18 14:59 DC 11/30/18 12:06 25 MLS/HR Metformin HCl (Glucophage) 1,000 mg BIDWMEALS 11/30/18 08:00 11/30/18 09:13 DC 11/30/18 09:08 1,000 MG Metoprolol Succinate (Toprol Xl) 50 mg DAILY 12/07/18 09:00 12/08/18 08:32 50 MG Metoprolol Tartrate (Lopressor) 25 mg BID 12/03/18 09:00 12/06/18 14:47 DC 12/06/18 08:34 25 MG Morphine Sulfate (Morphine Sulfate) 2 mg PRN Q2HR PRN 11/29/18 15:45 11/30/18 15:44 DC Nitroglycerin (Nitrostat) 0.4 mg PRN Q5MIN PRN 11/29/18 15:45 11/30/18 15:44 DC Ondansetron HCl (Zofran) 4 mg PRN Q8HRS PRN 11/29/18 15:45 11/30/18 15:44 DC Pharmacy Consult (C.diff Med Screen By Rx) 1 each 1X ONCE 11/30/18 08:15 11/30/18 08:16 UNV Potassium Chloride (Klor-Con) 20 meq DAILYWBKFT 12/08/18 08:00 12/08/18 08:35 20 MEQ Spironolactone (Aldactone) 25 mg QODAY 12/01/18 10:00 12/03/18 13:32 DC 12/03/18 09:35 25 MG Lab Laboratory Tests Test 12/07/18 17:03 12/07/18 21:12 12/08/18 07:02 12/08/18 11:04 Glucose (Fingerstick) 169 mg/dL (70-99) 206 mg/dL (70-99) 70 mg/dL (70-99) 165 mg/dL (70-99) Test 12/08/18 11:20 Sodium Level 139 mmol/L (136-145) Potassium Level 3.6 mmol/L (3.5-5.1) Chloride Level 100 mmol/L (98-107) Carbon Dioxide Level 35 mmol/L (21-32) Anion Gap 4 (6-14) Blood Urea Nitrogen 45 mg/dL (7-20) Creatinine 1.4 mg/dL (0.6-1.0) Estimated GFR (Cockcroft-Gault) 35.8 Glucose Level 175 mg/dL (70-99) Calcium Level 8.8 mg/dL (8.5-10.1) Results All relevant outside records, renal labs, imaging studies, telemetry/EKG's were reviewed. JEN BENITES MD Dec 08, 2018 12:53
--- NOTE | 2018-12-08 13:21 | NUR ---
SS following up with discharge planning. Insurance authorization received. Pt choice and rights forms signed by pt and placed in chart. Pt will discharge today and go to [facility], ; fax [phone], at 1430. [facility] to provide transport. Pt, pt's RN, and pt's family notified.
--- NOTE | 2018-12-08 15:24 | NUR ---
Discharge: Report called to [facility] spoke with Jo at 1343. Copy of chart sent with the patient. All belongings with patient. Patient assisted off of unit via wheelchair accompanied by transport approximately [phone]
[2019-03-04] MEDS ORDERED: CYAN-25 PO (17:15)
== END 2018-12-08 14:45 | disposition home or self-care (01) | DRG 280 ==
LOC: ER 12:59 → 2 NORTH 15:28
PROVIDERS: ADMIT Family Medicine; ATTEND Family Medicine
DX: I21.4 Non-ST elevation (NSTEMI) myocardial infarction (principal); I50.21 Acute systolic (congestive) heart failure; I13.0 Hypertensive heart and chronic kidney disease with heart failure and stage 1 through stage 4 chronic kidney disease, or unspecified chronic kidney disease; N17.9 Acute kidney failure, unspecified; I47.2 Ventricular tachycardia; I48.92 Unspecified atrial flutter; N18.4 Chronic kidney disease, stage 4 (severe); I42.9 Cardiomyopathy, unspecified; D63.8 Anemia in other chronic diseases classified elsewhere; E11.22 Type 2 diabetes mellitus with diabetic chronic kidney disease; E11.40 Type 2 diabetes mellitus with diabetic neuropathy, unspecified; M19.90 Unspecified osteoarthritis, unspecified site; E11.649 Type 2 diabetes mellitus with hypoglycemia without coma; E78.5 Hyperlipidemia, unspecified; E11.51 Type 2 diabetes mellitus with diabetic peripheral angiopathy without gangrene; I08.3 Combined rheumatic disorders of mitral, aortic and tricuspid valves; I27.20 Pulmonary hypertension, unspecified; I48.91 Unspecified atrial fibrillation; M81.0 Age-related osteoporosis without current pathological fracture; Z85.820 Personal history of malignant melanoma of skin; Z79.899 Other long term (current) drug therapy; Z88.8 Allergy status to other drugs, medicaments and biological substances; Z79.4 Long term (current) use of insulin; Z89.431 Acquired absence of right foot
CPT/HCPCS: 36415; 71045; 76770; 78582; 80048; 80053; 80061; 81001; 82550; 82553; 82962; 83036; 83690; 83735; 83880; 84443; 84484; 85025; 85027; 85379; 85520; 85610; 85730; 87641; 93005; 93306; 93970; 94640; 94760; 96372; 96374; A9540; A9558; J1644; J1650; J1815; J1940; J3475; J7042; J7620; 97110; 97116; 97530; 97535; 99285-25; G0378

== ENCOUNTER 2019-01-11 07:39 | Inpatient (IN) | payer MEDICARE ==
[~2019-01-11] VITALS: Ht 162.6 cm; Wt 70.9 kg
[~2019-01-11 07:39] MED LIST changes: +ACET500T33 PO; +ASPI-612 PO; +ATOR10TA60 PO; +CLOP75TA PO; -CYAN-25 PO; +CYAN10005 PO; +FURO-68 PO; +FURO-69 PO; +INSU100I11 SQ; +INSU100I13 SQ; +LINA5TAB PO; +METO50TA4 PO; +POTA20TA82 PO
[2019-01-11] MEDS ORDERED: IV NORMAL SALINE 1000ML BAG 1,000 ML IV SCH (07:52)
[2019-01-11] MEDS ORDERED: IV NORMAL SALINE 500ML BAG 500 ML IV ONE (08:00)
--- NOTE | 2019-01-11 08:03 | PHYS DOC ---
Past Medical History Past Medical History: Cancer, CHF, Diabetes-Type II, Hypertension, Kidney Infection Past Surgical History: No Surgical History Alcohol Use: None Drug Use: None Adult General Chief Complaint Chief Complaint: HYPERGLYCEMIA HPI HPI Patient is an 83 -year-old female who presents to the emergency department for evaluation. The patient had routine blood work drawn yesterday by her PCP, who was called today that her sugar was over 700. Patient does have a history of diabetes, was recently switched to insulin. She reports compliance with her blood sugar regimen, which includes 7 units of insulin by meals, and apparently 10 units of long-acting insulin at night. The patient herself has no complaints at this time. She states that a few days ago, her blood sugar was somewhat higher than normal, when checked by her home health aide, who contacted the patient's physician was told to give her 20 units of insulin at that time, but otherwise the patient reports compliance with her insulin regimen. She has no complaints, denies any shortness of breath, dizziness or lightheadedness, nausea , vomiting, or urinary symptoms. She has not had any fevers or chills. There are no alleviating or exacerbating factors to her condition. Review of the patient's records from her recent hospitalizations reveal that she does have a history of congestive heart failure. Review of Systems Review of Systems Constitutional: Denies fever or chills [] Eyes: Denies change in visual acuity, redness, or eye pain [] HENT: Denies nasal congestion or sore throat [] Respiratory: Denies cough or shortness of breath [] Cardiovascular: The patient denies any shortness of breath, chest pain, palpitations, or orthopnea [] GI: Denies abdominal pain, nausea, vomiting, bloody stools or diarrhea [] : Denies dysuria or hematuria [] Musculoskeletal: Denies back pain or joint pain [] Integument: Denies rash or skin lesions [] Neurologic: Denies headache, focal weakness or sensory changes [] Endocrine: Admits to polyuria[] All other systems were reviewed and found to be within normal limits, except as documented in this note. Current Medications Current Medications Current Medications Medications (Trade) Dose Ordered Sig/Hever Start Time Stop Time Status Last Admin Dose Admin Sodium Chloride 500 ml @ 500 mls/hr 1X ONCE 01/11/19 08:00 01/11/19 08:59 DC 01/11/19 08:13 500 MLS/HR Allergies Allergies Allergies Coded Allergies Type Severity Reaction Last Updated Verified amoxicillin Allergy Intermediate Hives 10/15/18 Yes Physical Exam Physical Exam PHYSICAL EXAM: CONSTITUTIONAL: Well developed, well nourished HEAD: normocephalic, atraumatic EENT: PERRL, EOMI. Conjunctivae normal color, sclerae non-icteric; moderately dry mucous membranes. NECK: Supple, non-tender; no meningismus. LUNGS: Lungs CTA, breathing even and unlabored. Normal air movement. HEART: Regular rate and rhythm, no murmur CHEST: No deformity; non-tender ABDOMEN: The abdomen is soft, and non-tender, no masses or bruits. EXTREM: Normal ROM; no deformity, no calf tenderness. There is 2+ pitting pedal edema to the lower extremities bilaterally. There has been a transmetatarsal amputation on the right foot. There are weak popliteal pulses bilaterally. SKIN: No rash; no diaphoresis NEURO: Alert; normal speech and cognition; CN's grossly intact; strength grossly intact without focal deficit. BACK: No CVA TTP. Current Patient Data Vital Signs Vital Signs Date Time Temp Pulse Resp B/P (MAP) Pulse Ox O2 Delivery O2 Flow Rate FiO2 01/11/19 09:17 71 16 124/60 (81) 99 Room Air 01/11/19 07:53 99.1 99.1 Lab Values Laboratory Tests Test 01/11/19 07:48 01/11/19 08:25 Glucose (Fingerstick) 511 mg/dL (70-99) *H White Blood Count 9.4 x10^3/uL (4.0-11.0) Red Blood Count 3.78 x10^6/uL (3.50-5.40) Hemoglobin 9.3 g/dL (12.0-15.5) L Hematocrit 30.4 % (36.0-47.0) L Mean Corpuscular Volume 81 fL (79-100) Mean Corpuscular Hemoglobin 25 pg (25-35) Mean Corpuscular Hemoglobin Concent 31 g/dL (31-37) Red Cell Distribution Width 20.8 % (11.5-14.5) H Platelet Count 163 x10^3/uL (140-400) Neutrophils (%) (Auto) 81 % (31-73) H Lymphocytes (%) (Auto) 10 % (24-48) L Monocytes (%) (Auto) 7 % (0-9) Eosinophils (%) (Auto) 2 % (0-3) Basophils (%) (Auto) 1 % (0-3) Neutrophils # (Auto) 7.7 x10^3uL (1.8-7.7) Lymphocytes # (Auto) 0.9 x10^3/uL (1.0-4.8) L Monocytes # (Auto) 0.6 x10^3/uL (0.0-1.1) Eosinophils # (Auto) 0.1 x10^3/uL (0.0-0.7) Basophils # (Auto) 0.0 x10^3/uL (0.0-0.2) Platelet Estimate Adequate (ADEQUATE) Hypochromasia Mod Poikilocytosis Slight Anisocytosis Mod Ovalocytes Few Schistocytes Few Sodium Level 136 mmol/L (136-145) Potassium Level 3.4 mmol/L (3.5-5.1) L Chloride Level 93 mmol/L (98-107) L Carbon Dioxide Level 34 mmol/L (21-32) H Anion Gap 9 (6-14) Blood Urea Nitrogen 34 mg/dL (7-20) H Creatinine 1.5 mg/dL (0.6-1.0) H Estimated GFR (Cockcroft-Gault) 33.1 Glucose Level 519 mg/dL (70-99) *H Calcium Level 9.2 mg/dL (8.5-10.1) Magnesium Level 2.0 mg/dL (1.8-2.4) WS-[id number]-C-Type Natriuretic Peptide 93554 pg/mL (0-449) H Acetone Level Neg (NEG) Laboratory Tests 01/11/19 08:25 Laboratory Tests 01/11/19 08:25 EKG EKG [Normal sinus rhythm a rate of 74 beats for minute, normal axis, normal intervals, nonspecific ST/T changes.] Radiology/Procedures Radiology/Procedures [] Course & Med Decision Making Course & Med Decision Making Pertinent Labs and Imaging studies reviewed. (See chart for details) [Patient's condition remained stable. Due to her glycemic instability, as well as history of CHF and inability to tolerate large fluid boluses, I will admit the patient for glycemic control] Dragon Disclaimer Dragon Disclaimer This electronic medical record was generated, in whole or in part, using a voice recognition dictation system. Departure Departure Impression: Primary Impression: Hyperglycemia Disposition: ADMITTED INPATIENT Admitting Physician: Riki Fernandes Condition: STABLE Referrals: RIKI FERNANDES MD (PCP) RIKI ALANIZ MD Jan 11, 2019 08:03
[2019-01-11 08:34] LABS: BASO % 1 % (0-3); EOS # 0.1 x10^3/uL (0.0-0.7); EOS % 2 % (0-3); HEMATOCRIT 30.4 % (36.0-47.0); HEMOGLOBIN 9.3 g/dL (12.0-15.5); LYMPH # 0.9 x10^3/uL (1.0-4.8); LYMPH % 10 % (24-48); MEAN CORPUSCULAR HEMOGLOBIN 25 pg (25-35); MEAN CORPUSCULAR HGB CONC 31 g/dL (31-37); MEAN CORPUSCULAR VOLUME 81 fL (79-100); MONO # 0.6 x10^3/uL (0.0-1.1); MONO % 7 % (0-9); NEUT # 7.7 x10^3uL (1.8-7.7); NEUT % 81 % (31-73); PLATELET COUNT 163 x10^3/uL (140-400); RED BLOOD COUNT 3.78 x10^6/uL (3.50-5.40); RED CELL DISTRIBUTION WIDTH 20.8 % (11.5-14.5); WHITE BLOOD COUNT 9.4 x10^3/uL (4.0-11.0)
[2019-01-11 08:50] LABS: CALCIUM 9.2 mg/dL (8.5-10.1); CREATININE 1.5 mg/dL (0.6-1.0); GFR 33.1; POTASSIUM 3.4 mmol/L (3.5-5.1)
--- NOTE | 2019-01-11 09:11 | EKG ---
[facility] [address] [place] [address] Test Date: 2019-01-11 Test Time: 07:47:00 Pat Name: ALEXSANDER RYDER Department: Room: Gender: F [employer] Head: : 1935 Requested By: ALAYNA ALANIZ Order Number: [id number] Reading MD: Liborio Eisenberg MD Measurements Intervals [place] Rate: 74 P: 32 [place]: 162 QRS: -20 QRSD: 92 T: 120 QT: 438 QTc: 487 Interpretive Statements SR PROBABLE INFERIOR INFARCT LOW LIMB LEAD VOLTAGE NON-SPECIFIC ST/T CHANGES Electronically Signed On 01-20-2019 9:25:49 CDT by Liborio Eisenberg MD
[2019-01-11 09:22] LABS: ANISOCYTOSIS MOD; HYPOCHROMIA MOD; PLT ESTIMATE ADEQUATE (ADEQUATE); POIKILOCYTOSIS SLIGHT
[2019-01-11 09:23] LABS: OVALOCYTES FEW; SCHISTOCYTES FEW
[2019-01-11 09:46] LABS: BILIRUBIN,URINE NEGATIVE (NEG); CLARITY,URINE CLEAR; COLOR,URINE YELLOW; NITRITE,URINE NEGATIVE (NEG); PH,URINE 7.5; PROTEIN,URINE NEGATIVE (NEG-TRACE); UROBILINOGEN,URINE 0.2 mg/dL (0.2 mg/dL)
[2019-01-11 10:02] LABS: BACTERIA,URINE MODERATE /HPF (0-FEW); RBC,URINE OCC /HPF (0-2); SQUAMOUS EPITHELIAL CELL,UR MOD /LPF
[2019-01-11] MEDS ORDERED: INSULIN,REGULAR 150 UNIT DRIP 150 ML IV ONE (10:15)
[2019-01-11] MEDS ORDERED: HYDROcodone/APAP 5/325MG 1 TAB TABLET PO ONE (11:30)
[2019-01-11] MEDS ORDERED: FOLI1TAB16 PO (13:50)
[2019-01-11] MEDS ORDERED: TRAZ-118 PO (13:50)
[2019-01-11] MEDS ORDERED: HYDR-2765 PO (13:50)
[2019-01-11 14:00] VITALS: BP 113/51
[2019-01-11 15:00] VITALS: BP 94/46
--- NOTE | 2019-01-11 17:18 | NUR ---
Patient was brought up to room on insulin drip at rate of 9.1, glucostabilizer in use. At 1445 BS was down to 113, Dr. Fernandes paged with no response, at 1545 BS was 73, Dr. Fernandes paged with no response, Beatriz FAIR and I stopped the drip to wait to hear from . At 1645 BS was 88, Dr. Fernandes paged again, still waiting on response.
[2019-01-11] MEDS ORDERED: DEXTROSE 50% 25 GM / 50ML DISP.SYRIN. IV PRN (18:00)
[2019-01-11 19:30] VITALS: BP 118/51
[2019-01-11] MEDS ORDERED: HYDROcodone/APAP 5/325MG 1 TAB TABLET PO PRN (20:30)
[2019-01-11] MEDS ORDERED: INSULIN GLARGINE 300 UNITS/3 ML INSULN.PEN. SQ SCH ×2 (21:00)
[2019-01-11] MEDS: HYDROcodone/APAP 7.5/325MG 1 TAB TABLET PO PRN (21:50)
[2019-01-11] MEDS: ATORVASTATIN CALCIUM 10 MG TABLET. PO SCH (22:18)
[2019-01-11] MEDS: clonazePAM 0.5 MG TABLET PO SCH (22:18)
[2019-01-11] MEDS: traZODone 50 MG TABLET. PO SCH (22:18)
[2019-01-11 23:55] VITALS: BP 133/78
[2019-01-12 03:45] VITALS: BP 118/53
[2019-01-12 07:00] VITALS: BP 118/54
[2019-01-12] MEDS ORDERED: INSULIN LISPRO 300 UNITS/3 ML INSULN.PEN. SQ SCH (07:30)
[2019-01-12] MEDS: POTASSIUM CHLORIDE 20 MEQ TABLET.ER. PO SCH (08:00)
[2019-01-12] MEDS: FOLIC ACID 1 MG TABLET. PO SCH (08:14)
[2019-01-12] MEDS: CYANOCOBALAMIN (VITAMIN B-12) 1,000 MCG TABLET. PO SCH (08:14)
[2019-01-12] MEDS: METOPROLOL SUCC 24HR ER 50 MG TAB.ER.24H. PO SCH (08:17)
[2019-01-12] MEDS: FUROSEMIDE 40 MG TABLET. PO SCH ×2 (08:17→13:55)
[2019-01-12] MEDS: CLOPIDOGREL BISULFATE 75 MG TABLET PO SCH (08:17)
[2019-01-12] MEDS: INSULIN LISPRO 300 UNITS/3 ML INSULN.PEN. SQ SCH ×3 (08:33→16:55)
--- NOTE | 2019-01-12 08:44 | PDOC ---
Provider Note Provider Note [id number] ALAYNA SOLANO MD Jan 12, 2019 08:44
[2019-01-12] MEDS ORDERED: LINAGLIPTIN 5 MG TABLET PO SCH (09:00)
[2019-01-12] MEDS: HYDROcodone/APAP 7.5/325MG 1 TAB TABLET PO PRN ×2 (09:55→19:40)
--- NOTE | 2019-01-12 09:57 | HP ---
ADMIT DATE: 01/11/2019 CHIEF COMPLAINT: High blood sugar. HISTORY OF PRESENT ILLNESS: An 83-year-old recently diagnosed with severe cardiomyopathy, was scheduled to have a cardiac catheterization soon, but does have an appointment with a dental nurse on 01/12. She came in from home with very high blood sugar despite taking her doses of insulin. She has been on insulin for about 6 weeks. She had some renal dysfunction and had to get off metformin and Actos. Insulin drip dropped her sugars very nicely with only about 15 units of Humalog over 4 hours, and her blood sugars are good this morning and she feels well. She states she has been compliant with her Lantus and her NovoLog at home. PAST MEDICAL HISTORY: Well documented in the old record. MEDICATIONS: Multiple: Her cardiac output is about 10% ejection fraction per her last echo. SOCIAL HISTORY: , nonsmoker, nondrinker. FAMILY HISTORY: Unremarkable. REVIEW OF SYSTEMS: She had a transmetatarsal amputation about 2 months ago for severe ischemic induced infection, but has been recovering well from that and had vascular surgery to the right leg as well. OBJECTIVE: ENT: Mild pallor, otherwise unremarkable. NECK: No masses, nodes or bruits. No JVD. LUNGS: Clear. CARDIOVASCULAR: Regular rate. No irregular beat or murmur. ABDOMEN: Benign. EXTREMITIES: No pedal edema or leg edema. Ankles unremarkable. Nail beds are pale. NEUROLOGIC: Physiologic. ASSESSMENT: 1. Severe hyperglycemia despite insulin use. Regular doses of insulin here have brought her down nicely. 2. Severe cardiomyopathy, raising the question of underlying coronary artery disease. 3. Chronic kidney disease 3, stable with meds. 4. Chronic nonmalignant pain disorder. PLAN: Cardiac consultation for catheterization. Continue current insulin regimen at this time. We will discontinue Tradjenta as no benefit beyond the insulin. ALAYNA SOLANO MD DR: YOSVANY/kasie JOB#: [id number] / [id number]
--- NOTE | 2019-01-12 10:52 | NUR ---
Called Dr. Hernández office to update them the pt was admitted. Pt stated her appt today was for a heart cath. Per cardiology office appt was a routine follow up appt.
[2019-01-12 11:00] VITALS: BP 115/73
[2019-01-12] MEDS: IV 1/2 NORMAL SALINE 1,000 ML IV SCH (11:49)
--- NOTE | 2019-01-12 14:01 | NUR ---
SW following for discharge planning. Discussed with RN, pt is from home alone. SW awaiting PT/OT recommendations for discharge planning. SW will continue to follow.
[2019-01-12 15:00] VITALS: BP 131/49
--- NOTE | 2019-01-12 15:48 | NUR ---
SW following. RN advised pt is current with Matilde [facility]AS and will need resumption of care orders.
[2019-01-12 19:00] VITALS: BP 112/47
[2019-01-12] MEDS: ATORVASTATIN CALCIUM 10 MG TABLET. PO SCH (20:54)
[2019-01-12] MEDS: clonazePAM 0.5 MG TABLET PO SCH (20:54)
[2019-01-12] MEDS: traZODone 50 MG TABLET. PO SCH (20:54)
[2019-01-12] MEDS ORDERED: INSULIN GLARGINE 300 UNITS/3 ML INSULN.PEN. SQ SCH (21:00)
[2019-01-12 23:00] VITALS: BP 119/57
[2019-01-13] VITALS (7 sets, daily range): BP systolic 99–138; BP diastolic 39–95
[2019-01-13] MEDS: HYDROcodone/APAP 7.5/325MG 1 TAB TABLET PO PRN ×2 (03:32→13:38)
[2019-01-13] MEDS: IV 1/2 NORMAL SALINE 1,000 ML IV SCH (05:17)
[2019-01-13] MEDS: POTASSIUM CHLORIDE 20 MEQ TABLET.ER. PO SCH ×2 (08:00→08:49)
--- NOTE | 2019-01-13 08:44 | PDOC ---
Provider Note Provider Note vss, glucose better, no new sxs- cv cons na yet re cath timing- will dc iv, bmp , follow re their recommendations ALAYNA SOLANO MD Jan 13, 2019 08:44
[2019-01-13] MEDS: CYANOCOBALAMIN (VITAMIN B-12) 1,000 MCG TABLET. PO SCH (08:45)
[2019-01-13] MEDS: FOLIC ACID 1 MG TABLET. PO SCH (08:47)
[2019-01-13] MEDS: CLOPIDOGREL BISULFATE 75 MG TABLET PO SCH (08:47)
[2019-01-13] MEDS: FUROSEMIDE 40 MG TABLET. PO SCH (08:50)
[2019-01-13] MEDS: METOPROLOL SUCC 24HR ER 50 MG TAB.ER.24H. PO SCH (08:50)
[2019-01-13] MEDS: INSULIN LISPRO 300 UNITS/3 ML INSULN.PEN. SQ SCH ×3 (09:00→17:23)
[2019-01-13 09:59] LABS: CALCIUM 8.2 mg/dL (8.5-10.1); CREATININE 1.3 mg/dL (0.6-1.0); POTASSIUM 3.2 mmol/L (3.5-5.1)
[2019-01-13] MEDS ORDERED: LISINOPRIL 10 MG TABLET PO ONE (13:45)
[2019-01-13] MEDS ORDERED: POTASSIUM CHLORIDE 20 MEQ TABLET.ER. PO ONE (13:45)
--- NOTE | 2019-01-13 13:50 | PDOC2 ---
APRIL NAVA DIVERSIFIED CROPS FARMWORKER 01/13/19 1350: CARDIAC CONSULT DATE OF CONSULT Date of Consult DATE: 01/13/19 TIME: 13:33 REASON FOR CONSULT Reason for Consult: Cath? REFERRING PHYSICIAN Referring Physician: Dom SOURCE Source: Chart review, Patient HISTORY OF PRESENT ILLNESS HISTORY OF PRESENT ILLNESS This is a pleasant 83 yo female admitted for complains of high BG. Reported that her BG meter got broken about 2.5 weeks ago. She has been taking her insulin as indicated. Thursday she was checked by home helath and noted her BG in the 500s and was told to come to ED. Her BG at one point was noted in the 700s as well. As an inpt she has not had any cardiac symptoms. No chest pain or SOA. She was seen recently with severe cardiomyopathy and NSTEMI but LHC deferred at that point due to her renal dysfunction plus asymptomatic cardiac crockett at that time .This was then noted to be done as an outpt after further optimization of her renal function. Currently her CHF is compensated but still has GORDON. Currently no CP. PAST MEDICAL HISTORY Past Medical History Cardiovascular: HTN, Hyperlipidemia, Other (Severe PAD) CENTRAL NERVOUS SYSTEM: Peripheral neuropathy Heme/Onc: Anemia NOS Musculoskeletal: Osteoarthritis, Other (chornic pain) Infectious disease: Other (osteomyelitis) Endocrine: Diabetes (2), Osteoporosis Dermatology: Melanoma (with excision) SOCIAL HISTORY Smoke: No ALCOHOL: none Drugs: None Lives: with Family PAST SURGICAL HISTORY Past Surgical History Right mid superficial femoral artery to proximal anterior tibial artery bypass using nonreversed great saphenous vein graft, Right transmetatarsal amputation. FAMILY HISTORY Family History noncontributory to CV SOCIAL HISTORY Smoke: No ALCOHOL: none Lives: with Family CURRENT MEDICATIONS CURRENT MEDICATIONS Current Medications Medications (Trade) Dose Ordered Sig/Hever Route PRN Reason Start Time Stop Time Status Last Admin Dose Admin Insulin Glargine (Lantus) 12 units QHS SQ 01/12/19 21:00 01/13/19 08:28 DC 01/12/19 20:58 Furosemide (Lasix) 40 mg DAILY08 PO 01/13/19 09:00 01/13/19 08:50 Potassium Chloride (Klor-Con) 20 meq DAILY08 PO 01/13/19 09:00 01/13/19 08:49 ALLERGIES ALLERGIES: Coded Allergies: amoxicillin (Verified Allergy, Intermediate, Hives, 10/15/18) ROS Review of System 14 point ROS evaluated with pertinent positives noted per HPI PHYSICAL EXAM General: Alert, Oriented X3, Cooperative, No acute distress HEENT: Atraumatic, Mucous membr. moist/pink Lungs: Clear to auscultation, Normal air movement, Other (diminished bases) Heart: Regular rate, Normal S1, Normal S2, Other (holosystolic murmur to apex 4 /6) Abdomen: Soft, No tenderness Extremities: No cyanosis, Other (3+ bilateral LE pitting edema) Neuro: Normal speech, Sensation intact Psych/Mental Status: Mental status NL, Mood NL MUSCULOSKELETAL: Osteoarthritic changes both hands VITALS VITALS Vital Signs Date Time Temp Pulse Resp B/P (MAP) Pulse Ox O2 Delivery O2 Flow Rate FiO2 01/13/19 11:00 97.5 100 18 138/95 (109) 93 Room Air 97.5 LABS Lab: Laboratory Tests Test 01/12/19 16:50 01/12/19 20:53 01/13/19 07:17 01/13/19 09:15 Glucose (Fingerstick) 267 mg/dL (70-99) 262 mg/dL (70-99) 137 mg/dL (70-99) Sodium Level 138 mmol/L (136-145) Potassium Level 3.2 mmol/L (3.5-5.1) Chloride Level 98 mmol/L (98-107) Carbon Dioxide Level 32 mmol/L (21-32) Anion Gap 8 (6-14) Blood Urea Nitrogen 28 mg/dL (7-20) Creatinine 1.3 mg/dL (0.6-1.0) Estimated GFR (Cockcroft-Gault) 39.0 Glucose Level 238 mg/dL (70-99) Calcium Level 8.2 mg/dL (8.5-10.1) Test 01/13/19 11:45 Glucose (Fingerstick) 198 mg/dL (70-99) ECHOCARDIOGRAM ECHOCARDIOGRAM <Conclusion> The left ventricular systolic function is severely impaired. The Ejection Fraction is 10-15%. There is mild valvular aortic stenosis. Mild to moderate mitral regurgitation. Moderate to severe tricuspid regurgitation. There is moderate pulmonary hypertension. The PA pressure was estimated at 45 mmHg. There is no evidence of significant pericardial effusion. DATE: 11/30/18 1139 ASSESSMENT/PLAN ASSESSMENT/PLAN 1. Hyperglycemia: initially noted at 700s, BG better 2. Chronic systolic CHF with severe CM: EF at 15% NYHA 2-3 compensated 3. PAflutter: SR 4. HTN: controlled 5. Severe PAD/osteomyelitis: recent right metatarsal amputation and fem-tib bypass 6. HLP: lipids well controlled 7. DM2/DPN 8. CKD3: Cr 1.3 appears to be within her baseline 9. 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 Anemia of chronic disease: Hgb at 9.3 11. UTI? Recommendations 1. ECASA 81 mg. Continue toprol XL. Continue with lasix therapy and secondary prevention measures 2. Refused lifevest and MCT as an outpt 3. No prior LHC. with recently noted severe CM and with better optimized renal function will proceed with LHC in AM to note any significantly contributing CAD. Risks and benefits discussed and agreeable to proceed. CARLOS CONTI MD 01/14/19 0928: CARDIAC CONSULT ASSESSMENT/PLAN ASSESSMENT/PLAN Patient seen and examined 01/13/19. Agree with FUR JOINER's assessment and plan. Chronic systolic heart failure clinically well compensated Paroxysmal atrial flutter maintaining sinus rhythm Continue current management for hyperglycemia per primary team Plan for cardiac catheterization to evaluate her cardiomyopathy Thank you for your consultation APRIL NAVA APRN Jan 13, 2019 13:50 CARLOS CONTI MD Jan 14, 2019 09:28
--- NOTE | 2019-01-13 15:33 | NUR ---
SW following. Discussed with RN. Spoke with MARV Bowden from [facility]. MARV Bowden to speak with patient and will fax records, orders and set up home health with [facility].
[2019-01-13] MEDS: clonazePAM 0.5 MG TABLET PO SCH (21:05)
[2019-01-13] MEDS: ATORVASTATIN CALCIUM 10 MG TABLET. PO SCH (21:05)
[2019-01-13] MEDS: INSULIN GLARGINE 300 UNITS/3 ML INSULN.PEN. SQ SCH (21:07)
[2019-01-13] MEDS: traZODone 50 MG TABLET. PO SCH (23:47)
[2019-01-14] VITALS (18 sets, daily range): BP systolic 88–136; BP diastolic 47–62
[2019-01-14] MEDS: HYDROcodone/APAP 7.5/325MG 1 TAB TABLET PO PRN ×2 (02:47→15:11)
--- NOTE | 2019-01-14 03:49 | NUR ---
Pt moaning at bedside, complaining of SOA. 02 sat 98% RA. Pt state feeling nervous. RN will contact MD to advise.
[2019-01-14] MEDS ORDERED: ALPRAZolam 0.25 MG TABLET PO ONE (04:30)
[2019-01-14] MEDS: INSULIN LISPRO 300 UNITS/3 ML INSULN.PEN. SQ SCH ×3 (07:30→16:30)
[2019-01-14] MEDS: METOPROLOL SUCC 24HR ER 50 MG TAB.ER.24H. PO SCH (07:43)
[2019-01-14] MEDS: FOLIC ACID 1 MG TABLET. PO SCH (07:47)
[2019-01-14] MEDS: CYANOCOBALAMIN (VITAMIN B-12) 1,000 MCG TABLET. PO SCH (07:47)
[2019-01-14] MEDS: CLOPIDOGREL BISULFATE 75 MG TABLET PO SCH (07:47)
[2019-01-14] MEDS: POTASSIUM CHLORIDE 20 MEQ TABLET.ER. PO SCH ×3 (07:47→17:39)
[2019-01-14] MEDS ORDERED: IODIXANOL 320 MG/ML 100 ML VIAL. ONE ×2 (07:50→10:05)
[2019-01-14] MEDS ORDERED: LIDOCAINE 1% PF 2 ML VIAL. ONE (07:50)
--- NOTE | 2019-01-14 08:31 | PDOC ---
Provider Note Provider Note renal better, glucose god, K+ 3.2- fopr cath today, follow K+ ALAYNA SOLANO MD Jan 14, 2019 08:31
[2019-01-14 08:42] LABS: CALCIUM 8.1 mg/dL (8.5-10.1); CREATININE 1.4 mg/dL (0.6-1.0); GFR 35.8; MAGNESIUM 1.9 mg/dL (1.8-2.4); POTASSIUM 3.3 mmol/L (3.5-5.1)
[2019-01-14] MEDS ORDERED: LISINOPRIL 10 MG TABLET PO SCH (09:00)
[2019-01-14] MEDS ORDERED: VERAPAMIL 5 MG/2 ML VIAL. ONE (09:22)
[2019-01-14] MEDS ORDERED: NITROGLYCERIN 200 MCG/2 ML SYRINGE FOR CATH/VASC LAB. ONE (09:22)
[2019-01-14] MEDS ORDERED: IODIXANOL 320 MG/ML 100 ML VIAL. IART ONE (09:30)
[2019-01-14] MEDS ORDERED: CONTRAST GIVEN. MC PRN (09:30)
[2019-01-14] MEDS ORDERED: LIDOCAINE 1% PF 2 ML VIAL. INJ ONE (09:30)
[2019-01-14] MEDS ORDERED: fentaNYL PF VIAL 100 MCG/2 ML VIAL IV ONE (09:30)
[2019-01-14] MEDS ORDERED: MIDAZOLAM HCL/PF 2 MG/2 ML VIAL. IV ONE (09:30)
[2019-01-14] MEDS ORDERED: NITROGLYCERIN 200 MCG/2 ML SYRINGE FOR CATH/VASC LAB. IART ONE (09:30)
[2019-01-14] MEDS ORDERED: HEPARIN for IV BOLUS 10,000 UNIT/10 ML VIAL. IART ONE (09:30)
[2019-01-14] MEDS ORDERED: VERAPAMIL 5 MG/2 ML VIAL. IART ONE (09:30)
[2019-01-14] MEDS ORDERED: BIVALIRUDIN 250 MG VIAL. IV ONE ×2 (10:06→10:15)
--- NOTE | 2019-01-14 10:10 | NUR ---
SW following. Discussed with RN, pt having a heart cath today. SW will continue to follow for any discharge planning needs.
[2019-01-14] MEDS ORDERED: ASPIRIN 325 MG TABLET PO ONE (10:45)
[2019-01-14] MEDS ORDERED: ASPIRIN 325 MG TABLET ONE (10:52)
--- NOTE | 2019-01-14 11:04 | PDOC ---
MODERATE SEDATION ASSESSMENT RISKS/ALTERNATIVES Risks/Alternatives Risks and alternatives of this type of sedation and procedure discussed with: RISK/ALTERNATIVES: Patient H & P ON CHART H & P H & P on chart and reviewed for co-morbid conditions and appropriate labs. H&P ON CHART: Yes STATUS PREG STATUS ASSESSED: N/A MEDS/ALLERGIES REVIEWED Meds/Allergies Reviewed Medications and Allergies including time and route of recently administered narcotics and sedatives. MEDS/ALLERGIES REVIEWED: Yes ASA RATING ASA RATING: II AIRWAY ASSESSMENT Airway Assessment Airway patency, oral function limitations, presence of caps, crowns, dentures, partials, and ability to extend neck assessed. AIRWAY ASSESSMENT: Yes MALLAMPATI SCORE MALLAMPATI SCORE: II PRE-SEDATION ASSESSMENT PRE-SEDATION ASSESSMENT: Yes CARLOS CONTI MD Jan 14, 2019 11:04
[2019-01-14] MEDS ORDERED: NITROGLYCERIN SUBLINGUAL 0.4 MG BOTTLE OF 25. SL PRN (11:15)
[2019-01-14] MEDS ORDERED: ACETAMINOPHEN 325 MG TABLET. PO PRN (11:15)
--- NOTE | 2019-01-14 11:20 | CARD ---
MR#: [id number] Date of Study: 01/14/2019 Ordering Physician: APRIL NAVA, Referring Physician: ALAYNA SOLANO Tech: RT Collette (Carlos) BREE APPROVED REPORT Technologist: RT Collette (R) BREE Nurse: Sylvia Corona RN Procedure(s) performed: 1. Left heart catheterization, selective coronary angiography and left ventr iculography via right transradial approach 2. Successful complex PCI/drug eluting stent placement to the right coronary artery Moderate sedation: 60 mins INDICATION The indication(s) include : Cardiomyopathy, chronic systolic heart failure. CS Clinical Frailty Scale CS Clinical Frailty Scale: Mildly Frail Heart Failure Heart Failure: Yes If Yes, Newly Diagnosed: No If Yes, HF Type: Systolic If Yes, NYHA Class: Class II PROCEDURE NARRATIVE After explaining the risks, benefits and alternative options, informed consent was obtained from madhav ent. Patient was brought to the cardiac Business Development Recruiter and right wrist was prepped and draped in the usual fashion after confirming a positive modified Guillaume's test. Arterial access was obtained in the righ t radial artery and a 6 Bahamian sheath was inserted. 6 Bahamian Lon catheter was used to perform sonam ective angiography of the left and right coronary arteries. The same catheter was used to perform lef t ventriculography. Patient tolerated the procedure well. The following findings were noted. FINDINGS 1. Hemodynamics: Left ventricular end-diastolic pressure of 19 mmHg. No pullback gradient across th e aortic valve. 2. Left ventriculography: Severe left ventricle systolic dysfunction with ejection fraction estimate d at 10-15%. No significant mitral regurgitation seen. 3. Coronary angiography: a. The left main coronary artery arose from the left sinus of Valsalva, gave rise to the left anteri or descending and left circumflex arteries and did not show any significant stenosis. b. The left anterior descending artery showed 60% stenosis in the proximal segment of a medium calib er diagonal branch. c. The left circumflex artery showed 70% stenosis in the midsegment. d. The right coronary artery was a large and dominant vessel arising from the right sinus of Valsalv a that showed 95% heavily calcified stenosis involving the proximal segment. INTERVENTION The right coronary artery was engaged with a 6 Bahamian JR4 guide catheter and the critical lesion in t he proximal segment was crossed with a 0.014 inch Womply Pro water guidewire. Initial attempts to adva nce a 3.0 balloon across the lesion were unsuccessful due to heavy calcification. Hence this was sequ entially dilated initially with 1.5 x 8 mm mini trek balloon followed by 2.0 x 12 mm mini trek balloo n and 3.0 x 15 mm trek balloon. Subsequently, this was treated with a 3.5 x 15 mm Xience Alpine drug- eluting stent. Follow-up angiography showed resolution of the stenosis to 0% with ERICA-3 distal flow. Patient tolerated the procedure well. Hemostasis was achieved using TR band. There were no immediate complications. Conclusion 1. 95% critical and heavily calcified stenosis involving proximal segment of large caliber right cor onary artery. Also seen were 70% stenosis involving the midsegment of left circumflex artery and 60% stenosis involving the diagonal branch. 2. Successful PCI/drug eluting stent placement to the right coronary artery. 3. Severe left ventricle systolic dysfunction with ejection fraction estimated at 10-15%. Recommendations 1. Aspirin 325 mg daily for one month followed by 81 mg daily 2. Plavix 75 mg daily for preferably one year 3. Cardio vascular risk factor modification 4. Consider PCI to LCx if patient still symptomatic 5. Repeat 2-D echo in 3 months to evaluate the need for AICD implantation Signed by : Irvin Hernández, Electronically Approved : 01/14/2019 11:19:39
[2019-01-14] MEDS: FUROSEMIDE 40 MG TABLET. PO SCH (12:42)
[2019-01-14] MEDS: ASPIRIN ENTERIC COATED 325 MG TABLET.DR. PO SCH (12:45)
[2019-01-14] MEDS ORDERED: POTASSIUM CHLORIDE 20 MEQ TABLET.ER. PO ONE (15:00)
[2019-01-14] MEDS: clonazePAM 0.5 MG TABLET PO SCH (20:46)
[2019-01-14] MEDS: traZODone 50 MG TABLET. PO SCH (20:46)
[2019-01-14] MEDS: ATORVASTATIN CALCIUM 10 MG TABLET. PO SCH (20:46)
[2019-01-14] MEDS: INSULIN GLARGINE 300 UNITS/3 ML INSULN.PEN. SQ SCH (20:53)
[2019-01-15 03:59] VITALS: BP 117/58
[2019-01-15] MEDS: HYDROcodone/APAP 7.5/325MG 1 TAB TABLET PO PRN ×2 (05:03→18:21)
[2019-01-15 07:00] VITALS: BP 104/53
[2019-01-15] MEDS: INSULIN LISPRO 300 UNITS/3 ML INSULN.PEN. SQ SCH ×3 (07:30→17:45)
[2019-01-15] MEDS: FUROSEMIDE 40 MG TABLET. PO SCH (08:00)
[2019-01-15] MEDS: CYANOCOBALAMIN (VITAMIN B-12) 1,000 MCG TABLET. PO SCH (09:01)
[2019-01-15] MEDS: CLOPIDOGREL BISULFATE 75 MG TABLET PO SCH (09:02)
[2019-01-15] MEDS: POTASSIUM CHLORIDE 20 MEQ TABLET.ER. PO SCH (09:05)
[2019-01-15] MEDS: ASPIRIN ENTERIC COATED 325 MG TABLET.DR. PO SCH (09:06)
[2019-01-15] MEDS: FOLIC ACID 1 MG TABLET. PO SCH (09:06)
[2019-01-15 11:00] VITALS: BP 105/51
--- NOTE | 2019-01-15 12:21 | PDOC ---
Provider Note Provider Note feels ok after rca stent- bp low w/ metop/lisin so will hold lisin- K+ 4.7 from 3.3- glucose good, rest same ALAYNA SOLANO MD Jan 15, 2019 12:21
[2019-01-15 15:00] VITALS: BP 113/54
[2019-01-15 19:20] VITALS: BP 108/42
[2019-01-15] MEDS: clonazePAM 0.5 MG TABLET PO SCH (21:01)
[2019-01-15] MEDS: traZODone 50 MG TABLET. PO SCH (21:01)
[2019-01-15] MEDS: ATORVASTATIN CALCIUM 10 MG TABLET. PO SCH (21:02)
[2019-01-15] MEDS: METOPROLOL TART IMMED RELEASE 25 MG TABLET. PO SCH (21:02)
[2019-01-15] MEDS: INSULIN GLARGINE 300 UNITS/3 ML INSULN.PEN. SQ SCH (21:06)
[2019-01-15 23:41] VITALS: BP 112/83
[2019-01-16 03:42] VITALS: BP 112/56
[2019-01-16 07:00] VITALS: BP 126/60
[2019-01-16] MEDS: INSULIN LISPRO 300 UNITS/3 ML INSULN.PEN. SQ SCH ×3 (07:30→18:09)
[2019-01-16] MEDS: POTASSIUM CHLORIDE 20 MEQ TABLET.ER. PO SCH (08:55)
[2019-01-16] MEDS: CYANOCOBALAMIN (VITAMIN B-12) 1,000 MCG TABLET. PO SCH (08:55)
[2019-01-16] MEDS: ASPIRIN ENTERIC COATED 325 MG TABLET.DR. PO SCH (08:55)
[2019-01-16] MEDS: CLOPIDOGREL BISULFATE 75 MG TABLET PO SCH (08:55)
[2019-01-16] MEDS: FUROSEMIDE 40 MG TABLET. PO SCH (08:55)
[2019-01-16] MEDS: FOLIC ACID 1 MG TABLET. PO SCH (08:55)
[2019-01-16] MEDS: METOPROLOL TART IMMED RELEASE 25 MG TABLET. PO SCH (08:56)
--- NOTE | 2019-01-16 10:36 | DISCH ---
ALAYNA SOLANO MD 01/16/19 1036: DISCHARGE INSTRUCTIONS Condition on Discharge Condition on Discharge: Stable Activity After Discharge Activity Instructions for Disc: Activity as tolerated Lifting Instructions after Dis: No heavy lifting Exercise Instruction after Dis: Progress as tolerated Driving Instructions after Dis: Do not drive Weight Bearing Status after Di: Partial weight bearing Diet after Discharge Diet after Discharge: Cardiac, No Added Sugar, Diabetic No Calorie Level Swallowing Supervision: None needed Checks after Discharge Checks after discharge: Check blood press - daily Follow-Up Follow up with: dr goodrich 1 week Treatment/Equipment after DC Adaptive Equipment Issued: None RONNIE HER MD 01/17/19 0812: DISCHARGE INSTRUCTIONS Community/Resources/Services Services at Discharge: Home Health Care Services, PT EVALUATE & TREAT, OT Evaluate & Treat ALAYNA SOLANO MD Jan 16, 2019 10:36 RONNIE HER MD Jan 17, 2019 08:12
--- NOTE | 2019-01-16 10:43 | PDOC ---
Provider Note Provider Note sleeping deeply, bp better- glucose lowish so will reduce lant/humalog- will add low dose lisinopril re poor ef, did not tolerate 10 mg- likely home in am on current meds ALAYNA SOLANO MD Jan 16, 2019 10:43
[2019-01-16 11:00] VITALS: BP 100/46
[2019-01-16] MEDS: LISINOPRIL 5 MG TABLET. PO SCH (12:45)
[2019-01-16] MEDS: HYDROcodone/APAP 7.5/325MG 1 TAB TABLET PO PRN (13:20)
[2019-01-16 15:00] VITALS: BP 127/59
[2019-01-16] MEDS: METOPROLOL SUCC 24HR ER 50 MG TAB.ER.24H. PO SCH (18:05)
[2019-01-16 19:25] VITALS: BP 109/50
[2019-01-16] MEDS: traZODone 50 MG TABLET. PO SCH (20:40)
[2019-01-16] MEDS: clonazePAM 0.5 MG TABLET PO SCH (20:40)
[2019-01-16] MEDS: ATORVASTATIN CALCIUM 10 MG TABLET. PO SCH (20:40)
[2019-01-16] MEDS ORDERED: INSULIN GLARGINE 300 UNITS/3 ML INSULN.PEN. SQ SCH (21:00)
[2019-01-16 22:56] VITALS: BP 120/56
[2019-01-17 02:39] VITALS: BP 123/58
[2019-01-17] MEDS: HYDROcodone/APAP 7.5/325MG 1 TAB TABLET PO PRN (04:34)
[2019-01-17 07:00] VITALS: BP 119/49
[2019-01-17] MEDS ORDERED: LISI-338 PO (08:10)
[2019-01-17] MEDS ORDERED: INSU100I11 SQ (08:10)
[2019-01-17] MEDS ORDERED: ASPI325T11 PO (08:10)
[2019-01-17] MEDS ORDERED: INSU100I13 SQ (08:10)
[2019-01-17] MEDS: POTASSIUM CHLORIDE 20 MEQ TABLET.ER. PO SCH (08:52)
[2019-01-17] MEDS: FOLIC ACID 1 MG TABLET. PO SCH (08:52)
[2019-01-17] MEDS: ASPIRIN ENTERIC COATED 325 MG TABLET.DR. PO SCH (08:53)
[2019-01-17] MEDS: LISINOPRIL 5 MG TABLET. PO SCH (08:53)
[2019-01-17] MEDS: METOPROLOL SUCC 24HR ER 50 MG TAB.ER.24H. PO SCH (08:53)
[2019-01-17] MEDS: FUROSEMIDE 40 MG TABLET. PO SCH (08:54)
[2019-01-17] MEDS: CLOPIDOGREL BISULFATE 75 MG TABLET PO SCH (08:54)
[2019-01-17] MEDS: CYANOCOBALAMIN (VITAMIN B-12) 1,000 MCG TABLET. PO SCH (08:54)
[2019-01-17] MEDS: INSULIN LISPRO 300 UNITS/3 ML INSULN.PEN. SQ SCH ×2 (09:05→12:32)
--- NOTE | 2019-01-17 09:10 | PDOC ---
SUBJECTIVE Subjective Cough for the last 1-2 days. Per nursing had possible aspiration prior to initiation of cough. Is otherwise feeling well. OBJECTIVE Objective Reviewed. Vital Signs Vital Signs Date Time Temp Pulse Resp B/P (MAP) Pulse Ox O2 Delivery O2 Flow Rate FiO2 01/17/19 08:53 96 01/17/19 08:53 95 01/17/19 07:00 98.4 87 20 119/49 (72) 94 Room Air 98.4 01/17/19 02:39 98.4 85 20 123/58 (79) 95 Room Air 98.4 01/16/19 22:56 87 120/56 (77) 01/16/19 20:00 Room Air 2.0 01/16/19 19:25 97.9 94 22 109/50 (69) 93 Room Air 97.9 01/16/19 18:05 80 127/59 01/16/19 15:00 98.0 80 18 127/59 (81) 94 Room Air 98.0 01/16/19 14:30 Room Air 01/16/19 13:20 Room Air 01/16/19 12:45 83 126/60 01/16/19 11:00 98.2 75 18 100/46 (64) 92 Room Air 98.2 I & O Intake and Output 01/17/19 07:00 Intake Total 1040 ml Output Total 800 ml Balance 240 ml Intake Oral 1040 ml Output Urine Total 800 ml PHYSICAL EXAM Physical Exam Alert, oriented RRR Few wheezes in R base, otherwise CTAB Good pulses in b/l LEs 1-2+ edema in b/l LEs ASSESSMENT/PLAN Assessment/Plan CAD s/p stent to RCA Chronic systolic CHF Cardiomyopathy, EF 10-15% Paroxysmal A flutter HTN PAD, s/p recent bypass HLD Type 2 DM CKD 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 Anemia Cough CXR, labs to eval possible aspiration Await final PT/OT recs If all ok, possible dc to home with home health later today COMMENT Lab Laboratory Tests Test 01/16/19 11:27 01/16/19 17:06 01/16/19 20:39 01/17/19 07:13 Glucose (Fingerstick) 168 mg/dL (70-99) 145 mg/dL (70-99) 235 mg/dL (70-99) 177 mg/dL (70-99) RONNIE HER MD 18, 2019 09:10
[2019-01-17] MEDS: BENZOCAINE/MENTHOL LOZENGE. PO PRN ×2 (09:42→15:53)
[2019-01-17] MEDS: BENZONATATE 100 MG CAPSULE. PO PRN ×2 (09:42→15:53)
[2019-01-17 09:51] LABS: BASO # 0.1 x10^3/uL (0.0-0.2); BASO % 1 % (0-3); EOS # 0.1 x10^3/uL (0.0-0.7); EOS % 2 % (0-3); HEMATOCRIT 27.4 % (36.0-47.0); HEMOGLOBIN 8.4 g/dL (12.0-15.5); LYMPH # 0.7 x10^3/uL (1.0-4.8); LYMPH % 9 % (24-48); MEAN CORPUSCULAR HEMOGLOBIN 25 pg (25-35); MEAN CORPUSCULAR HGB CONC 31 g/dL (31-37); MEAN CORPUSCULAR VOLUME 81 fL (79-100); MONO # 0.5 x10^3/uL (0.0-1.1); MONO % 7 % (0-9); NEUT # 6.3 x10^3uL (1.8-7.7); NEUT % 82 % (31-73); PLATELET COUNT 172 x10^3/uL (140-400); RED CELL DISTRIBUTION WIDTH 21.2 % (11.5-14.5); WHITE BLOOD COUNT 7.7 x10^3/uL (4.0-11.0)
[2019-01-17 10:24] LABS: CALCIUM 8.8 mg/dL (8.5-10.1); CREATININE 1.4 mg/dL (0.6-1.0); GFR 35.8; POTASSIUM 4.3 mmol/L (3.5-5.1)
[2019-01-17 10:39] VITALS: BP 108/39
--- NOTE | 2019-01-17 11:54 | NUR ---
SS following up with discharge planning. Pt is currently on room air. PT recommended home healthcare. Pt was previously on services with [facility], ; fax [phone]. SS will continue to follow for discharge planning.
--- NOTE | 2019-01-17 12:09 | PDOC ---
CARDIO Progress Notes Date and Time Date of Service 01/17/2019 Time of Evaluation 1150 Subjective Subjective: No Chest Pain, No shortness of breath, No Palpitations Vitals Vitals Vital Signs Date Time Temp Pulse Resp B/P (MAP) Pulse Ox O2 Delivery O2 Flow Rate FiO2 01/17/19 10:39 98.0 83 20 108/39 (62) 95 Room Air 98.0 01/16/19 20:00 2.0 Weight Weight [ ] Input and Output Intake and Output Intake and Output 01/17/19 06:59 Intake Total 1040 ml Output Total 800 ml Balance 240 ml Intake Oral 1040 ml Output Urine Total 800 ml Laboratory Labs Laboratory Tests Test 01/16/19 17:06 01/16/19 20:39 01/17/19 07:13 01/17/19 09:25 Glucose (Fingerstick) 145 mg/dL (70-99) 235 mg/dL (70-99) 177 mg/dL (70-99) White Blood Count 7.7 x10^3/uL (4.0-11.0) Red Blood Count 3.40 x10^6/uL (3.50-5.40) Hemoglobin 8.4 g/dL (12.0-15.5) Hematocrit 27.4 % (36.0-47.0) Mean Corpuscular Volume 81 fL (79-100) Mean Corpuscular Hemoglobin 25 pg (25-35) Mean Corpuscular Hemoglobin Concent 31 g/dL (31-37) Red Cell Distribution Width 21.2 % (11.5-14.5) Platelet Count 172 x10^3/uL (140-400) Neutrophils (%) (Auto) 82 % (31-73) Lymphocytes (%) (Auto) 9 % (24-48) Monocytes (%) (Auto) 7 % (0-9) Eosinophils (%) (Auto) 2 % (0-3) Basophils (%) (Auto) 1 % (0-3) Neutrophils # (Auto) 6.3 x10^3uL (1.8-7.7) Lymphocytes # (Auto) 0.7 x10^3/uL (1.0-4.8) Monocytes # (Auto) 0.5 x10^3/uL (0.0-1.1) Eosinophils # (Auto) 0.1 x10^3/uL (0.0-0.7) Basophils # (Auto) 0.1 x10^3/uL (0.0-0.2) Sodium Level 136 mmol/L (136-145) Potassium Level 4.3 mmol/L (3.5-5.1) Chloride Level 98 mmol/L (98-107) Carbon Dioxide Level 30 mmol/L (21-32) Anion Gap 8 (6-14) Blood Urea Nitrogen 31 mg/dL (7-20) Creatinine 1.4 mg/dL (0.6-1.0) Estimated GFR (Cockcroft-Gault) 35.8 Glucose Level 216 mg/dL (70-99) Calcium Level 8.8 mg/dL (8.5-10.1) Test 01/17/19 11:27 Glucose (Fingerstick) 207 mg/dL (70-99) Microbiology Micro Microbiology 01/11/19 Urine Culture - Final, Complete 01/11/19 Urine Culture Result 1 (JACQUE) - Final, Complete Physical Exam HEENT: Neck Supple W Full Motion Chest: Symmetric LUNGS: Clear to Auscultation Heart: S1S2, RRR (SR) Abdomen: Soft N/T Extremities: No Calf Tenderness, Other (2-3+ bilateral LE pitting edema) Neurology: alert, oriented, follow commands Assessment Assessment 1. Severe ICM: S/P PCI/ÁNGEL to RCA 2. CAD; if remains to have symptoms then will consider PCI to LCx,. 3. Chronic systolic CHF: EF at 15% NYHA 2-3 compensated 4. PAflutter: maintaining SR. No evidence of AIFB/flutter, likely ischemic induced. 5. HTN: controlled 6. Severe PAD/osteomyelitis: recent right metatarsal amputation and fem-tib bypass 7. HLP: lipids well controlled 8. DM2/DPN 9. CKD3: Cr 1.3 appears to be within her baseline 10. 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 ASA/plavix. Continue with lasix therapy and secondary prevention measures 2. Refused lifevest and MCT as an outpt. AICD consideration in 3 months time if EF remains low. 3. Poor candidate for chronic anticoagulation with high risk falls, bleed. ASA for stroke prevention. 4. CHF clinic appointment on January [address] Hernández on May 1 at 2: 15PM. 5. Daily wt, 2L FR, CHF education with staff. 6. Encouraged cardiac rehab APRIL NAVA APRN Jan 17, 2019 12:09
[2019-01-17 14:39] VITALS: BP 113/46
--- NOTE | 2019-01-17 14:40 | RAD ---
CHEST PA LATERAL CLINICAL INDICATION: COUGH, WEAKNESS COMPARISON: 12/03/2018 FINDINGS: Heart is normal in size. Lungs are hyperinflated. Slight interval improvement in previously seen consolidation in the left lung base. There is persistent silhouetting of the left hemidiaphragm. No pneumothorax. Small left pleural effusion. Visualized bony thorax is within normal limits. IMPRESSION: Small left pleural effusion with left basilar consolidation which may be secondary to atelectasis, aspiration or pneumonia. Electronically signed by: Cristobal Redding DO (01/17/2019 2:37 PM) [facility]
--- NOTE | 2019-01-17 16:23 | NUR ---
SW following pt. NOE phoned and faxed orders to [facility]. Pt will transport via [facility] between [phone]. RN notified.
[2019-01-17] MEDS ORDERED: BENZ100C PO (16:24)
--- NOTE | 2019-01-17 18:28 | NUR ---
Discharge: Teaching verbal and written. Patient verbalized understanding. Discharge instructions also given to son Benjamin over the phone [phone]. Son verbalized understanding. All belongings with patient. Prescriptions sent to [facility] per Dr. Brothers. patient assisted off of unit at 1650 via wheelchair/transport.
[2019-01-17] MEDS ORDERED: ATORVASTATIN CALCIUM 10 MG TABLET. PO SCH (21:00)
--- NOTE | 2019-01-21 22:06 | PDOC3 ---
Discharge Summary Date of Admission: Jan 12, 2019 Date of Discharge: Jan 17, 2019 Follow-Up: Other ([address] Fernandes or Dr. 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 She was discharged in Nov 2018 with plan for Cardiac cath in 12/21 to eval for ischemic cardiomyopathy, but the appt was pushed back to December. She presented to the ED for severe hyperglycemia (500s). She was admitted for management of hyperglycemia (which improved quickly with only 15U of humalog and purther evaluation by Cardiology. A cath was performed and showed 95% stenosis of RCA, 70% stenosis involving the midsegment of left circumflex artery and 60% stenosis involving the diagonal branch. A stent was placed in the RCA. Plan for possible PCI to left circumflex if she continues to be symptomatic. She was started on Plavix and ASA 325mg ( which will decrease to 81mg daily after 30 days). Cardiology will plan to repeat echo in 3 months to determine if an AICD is needed. She declined a lifevest. Regarding her medications, her Tradjenta was stopped, Lantus was increased to 18U QHS and Novolog 4U TIDAC. She was also started on Lisinopril 5mg daily. She will follow up with Cardiology as directed and with Dr. Fernandes or myself within the next week for follow up. CONDITION AT DISCHARGE: Improved, Stable Discharge Medications Active Scripts Active Aspirin Ec (Aspirin) 325 Mg Tablet. 325 Mg PO DAILYWBKFT 30 Days Take Aspirin 325mg daily x 30 days then decrease to 81mg daily Lisinopril 5 Mg Tablet 2.5 Mg PO DAILY 30 Days Humalog (Insulin Lispro) 100 Unit/1 Ml Insuln.pen 4 Units SQ TIDAC 30 Days Lantus Solostar (Insulin Glargine,Hum.rec.anlog) 100 Unit/1 Ml Insuln.pen 18 Units SQ QHS 30 Days Toprol Xl (Metoprolol Succinate) 50 Mg Tab.er.24h 50 Mg PO DAILY 30 Days Atorvastatin Calcium 10 Mg Tablet 5 Mg PO QHS 30 Days Clopidogrel (Clopidogrel Bisulfate) 75 Mg Tablet 75 Mg PO DAILYWBKFT 30 Days Reported Tessalon Perle (Benzonatate) 100 Mg Capsule 100 Mg PO TID PRN Hydrocodone-Apap 7.5-325 (Hydrocodone Bit/Acetaminophen) 1 Tab Tablet 1 Tab PO PRN Q6HRS PRN Folic Acid 1 Mg Tablet 1 Tab PO DAILY Trazodone Hcl 50 Mg Tablet 0.5 Tab PO QHS Lasix (Furosemide) 40 Mg Tablet 40 Mg PO BID Potassium Chloride 20 Meq Tablet.er 20 Meq PO DAILY Tylenol Extra Strength (Acetaminophen) 500 Mg Tablet 1,000 Mg PO PRN Q8HRS PRN Vitamin B-12 (Cyanocobalamin (Vitamin B-12)) 1,000 Mcg Tablet 1 Tab PO DAILY Clonazepam 0.5 Mg Tablet 1 Tab PO HS Allergies Allergies Coded Allergies Type Severity Reaction Last Updated Verified amoxicillin Allergy Intermediate Hives 10/15/18 Yes Disposition/Orders: D/C to Home w/ RONNIE CASTILLO MD Jan 21, 2019 22:06
== END 2019-01-17 16:55 | disposition home health service (06) | DRG 246 ==
LOC: ER 07:39 → 4 NORTH 10:00 → 2 SOUTH 01-14 10:46
PROVIDERS: ADMIT Family Medicine; ATTEND Family Medicine
PROC: 027034Z Dilation of Coronary Artery, One Artery with Drug-eluting Intraluminal Device, Percutaneous Approach (ICD-10-PCS; principal; 2019-01-14)
PROC: 4A023N7 Measurement of Cardiac Sampling and Pressure, Left Heart, Percutaneous Approach (ICD-10-PCS; 2019-01-14)
PROC: B2111ZZ Fluoroscopy of Multiple Coronary Arteries using Low Osmolar Contrast (ICD-10-PCS; 2019-01-14)
PROC: B2151ZZ Fluoroscopy of Left Heart using Low Osmolar Contrast (ICD-10-PCS; 2019-01-14)
DX: I25.10 Atherosclerotic heart disease of native coronary artery without angina pectoris (principal); E11.00 Type 2 diabetes mellitus with hyperosmolarity without nonketotic hyperglycemic-hyperosmolar coma (NKHHC); I50.22 Chronic systolic (congestive) heart failure; I48.92 Unspecified atrial flutter; I13.0 Hypertensive heart and chronic kidney disease with heart failure and stage 1 through stage 4 chronic kidney disease, or unspecified chronic kidney disease; I42.9 Cardiomyopathy, unspecified; E11.65 Type 2 diabetes mellitus with hyperglycemia; E11.51 Type 2 diabetes mellitus with diabetic peripheral angiopathy without gangrene; E11.42 Type 2 diabetes mellitus with diabetic polyneuropathy; E11.22 Type 2 diabetes mellitus with diabetic chronic kidney disease; N18.3 Chronic kidney disease, stage 3 (moderate); D63.8 Anemia in other chronic diseases classified elsewhere; E78.5 Hyperlipidemia, unspecified; G89.29 Other chronic pain; I07.1 Rheumatic tricuspid insufficiency; M19.90 Unspecified osteoarthritis, unspecified site; I25.5 Ischemic cardiomyopathy; I27.20 Pulmonary hypertension, unspecified; I48.0 Paroxysmal atrial fibrillation; M81.0 Age-related osteoporosis without current pathological fracture; I25.2 Old myocardial infarction; Z79.4 Long term (current) use of insulin; Z85.820 Personal history of malignant melanoma of skin; Z95.5 Presence of coronary angioplasty implant and graft; Z79.899 Other long term (current) drug therapy; Z79.01 Long term (current) use of anticoagulants; Z88.0 Allergy status to penicillin; Z89.431 Acquired absence of right foot
CPT/HCPCS: 36415; 71046; 80048; 81001; 82010; 82962; 83735; 83880; 84132; 85025; 87086; 92928; 93005; 93458; 96361; 96365; 99152; 99153; C1713; C1725; C1769; C1887; C1892; J0583; J1644; J1815; J2250; J3010; J3490; J7030; J7040; J7042; Q9967; 97116; 97535; 99285-25

== ENCOUNTER 2019-02-25 12:33 | Inpatient (IN) | payer MEDICARE ==
[2019-02-25] VITALS (14 sets, daily range): BP systolic 71–150; BP diastolic 37–80
[~2019-02-25] VITALS: Ht 162.6 cm; Wt 58.1 kg
[~2019-02-25 12:33] MED LIST changes: +ASPI325T11 PO; +BENZ100C PO; +FOLI1TAB16 PO; +LISI-338 PO; +TRAZ-118 PO
[2019-02-25] MEDS ORDERED: VANCOMYCIN PER PHARMACY MC PRN (12:45)
[2019-02-25] MEDS ORDERED: IV NORMAL SALINE 500ML BAG 500 ML IV ONE ×2 (12:45→14:30)
[2019-02-25 12:51] LABS: BASE EXCESS COOX -13 mmol/L (-3-3); HCO3 COOX 15 mmol/L (21-28); METHEMOGLOBIN 0.4 % (0.0-1.9); OXYHEMOGLOBIN 98.3 %; PCO2 COOX 45 mmHg (35-46); PO2 COOX 240 mmHg (65-108); SAT O2 COOX 99 % (92-99)
[2019-02-25 12:51] LABS: BASO % 0 % (0-3); EOS % 0 % (0-3); HEMATOCRIT 35.7 % (36.0-47.0); LYMPH # 1.5 x10^3/uL (1.0-4.8); LYMPH % 12 % (24-48); MEAN CORPUSCULAR HEMOGLOBIN 25 pg (25-35); MEAN CORPUSCULAR HGB CONC 31 g/dL (31-37); MEAN CORPUSCULAR VOLUME 83 fL (79-100); MONO # 0.5 x10^3/uL (0.0-1.1); MONO % 4 % (0-9); NEUT # 11.4 x10^3uL (1.8-7.7); NEUT % 84 % (31-73); PLATELET COUNT 297 x10^3/uL (140-400); RED BLOOD COUNT 4.31 x10^6/uL (3.50-5.40); RED CELL DISTRIBUTION WIDTH 21.8 % (11.5-14.5); WHITE BLOOD COUNT 13.5 x10^3/uL (4.0-11.0)
[2019-02-25] MEDS ORDERED: SODIUM BICARB ADULT 8.4% 50 MEQ/50 ML DISP.SYRIN. IV ONE ×2 (13:00→13:45)
[2019-02-25 13:08] LABS: ALBUMIN 3.6 g/dL (3.4-5.0); CALCIUM 10.2 mg/dL (8.5-10.1); CREATININE 1.8 mg/dL (0.6-1.0); DIRECT BILIRUBIN 0.2 mg/dL (0.0-0.2); GFR 26.8; TOTAL BILIRUBIN 0.3 mg/dL (0.2-1.0); TOTAL PROTEIN 8.2 g/dL (6.4-8.2)
[2019-02-25 13:10] LABS: POTASSIUM 6.6 mmol/L (3.5-5.1)
--- NOTE | 2019-02-25 13:12 | PHYS DOC ---
Past Medical History Past Medical History: Cancer, CHF, Diabetes-Type II, Hypertension, Kidney Infection Additional Past Medical Histor: neuropathy Past Surgical History: Other Additional Past Surgical Histo: right foot toe amputation, fem pop bypass, melanoma removal Alcohol Use: None Drug Use: None Adult General Chief Complaint Chief Complaint: HYPOGLYCEMIA HPI HPI 83-year-old female presenting to the emergency department today with decreased mental status found today by home health care nurse who reports that she found her in her bed lethargic and tired. EMS was called at that time and noticed the blood sugar to be significantly decreased. They attempted for IVs and were unsuccessful. They then gave intramuscular glucagon and brought her in for evaluation. Unknown last known normal. Pt was hypoxic by ems but came up with a nonrebreather. I was able to obtain a past medical history and surgical history from reviewing the chart. Social history also retrieved from the electronic medical record. Past medical history: Type 2 diabetes cardiomyopathy chronic kidney disease stage III, hypertension hyperlipidemia peripheral arterial disease anemia osteoarthritis him a history of ostial myelitis, history of melanoma and CHF. Past surgical history: History of right superficial femoral artery bypass along with a right metatarsal amputation and a melanoma excision and removal. Social history denies smoking or etoh per chart. ROS not able to be obtained because the patient does not respond to questions. Ed course: 83-year-old female presenting with altered mental status and hypoglycemia. On arrival her blood sugar was around 30. IV was initiated and dextrose was given immediately. She was also found to be hypothermic and started on a bear hugger for rewarming. Broad-spectrum antibiotics were initiated along with a small bolus of fluids as she does have a history of CHF. Judicious fluids were utilized because of the patient's CHF. Volume reexamination was performed at approximately 2:30 PM. We will add another 500 mL of fluid at this time. EKG was attempted to be obtained however because of the patient's severe tremulousness he was unable to be interpreted, all artifact. Chest x-ray ordered along with head CT and blood work. ABG ordered as well. ABG reviewed by myself shows normal oxygen saturations. Patient's bicarbonate is low at 15. PH is low at 7.148. Patient was more alert after IV glucose given. Patient still was having a hard time expressing words. Patient is outside of the TPA window and has hypoglycemia. Patient was last known well at approximately 6 PM last night according to the son-in-law who came later in the ED course. I have placed a consult for neurology in the special projects coordinator to evaluate the patient. In the interim we will give the patient an aspirin. The patient's changes in mental status seemed to be more likely from metabolic causes, ie sepsis, hypothermia, hypoglycemia. I spoke with Dr. celestin who agrees with plan. Current Medications Current Medications Current Medications Medications (Trade) Dose Ordered Sig/Hever Start Time Stop Time Status Last Admin Dose Admin Albuterol Sulfate (Ventolin Neb Soln) 10 mg 1X ONCE 02/25/19 13:45 02/25/19 14:03 DC 02/25/19 14:01 10 MG Calcium Gluconate (Calcium Gluconate) 1,000 mg 1X ONCE 02/25/19 13:45 02/25/19 14:03 DC Levofloxacin/ Dextrose 150 ml @ 100 mls/hr 1X ONCE 02/25/19 12:45 02/25/19 14:14 DC 02/25/19 13:30 100 MLS/HR Morphine Sulfate (Morphine Sulfate) 2 mg PRN Q2HR PRN 02/25/19 13:45 02/26/19 13:44 Ondansetron HCl (Zofran) 4 mg PRN Q8HRS PRN 02/25/19 13:45 02/26/19 13:44 Sodium Bicarbonate (Sodium Bicarb Adult 8.4% Syr) 50 meq 1X ONCE 02/25/19 13:45 02/25/19 14:03 DC Sodium Chloride 500 ml @ 500 mls/hr 1X ONCE 02/25/19 12:45 02/25/19 13:44 DC 02/25/19 13:30 500 MLS/HR Vancomycin HCl (Vanco Per Pharmacy) 1 each PRN DAILY PRN 02/25/19 12:45 UNV Vancomycin HCl 1.25 gm/Sodium Chloride 250 ml @ 166.667 mls/hr 1X ONCE 02/25/19 14:00 02/25/19 15:29 Allergies Allergies Allergies Coded Allergies Type Severity Reaction Last Updated Verified amoxicillin Allergy Intermediate Hives 10/15/18 Yes Physical Exam Physical Exam Constitutional: pt is lethargic and does not answer questions. She opens eyes spontaneously. HENT: Normocephalic, atraumatic, bilateral external ears normal, oropharynx moist, no oral exudates, nose normal. [] Eyes: PERRLA, EOMI, conjunctiva normal, no discharge. [] Neck: Normal range of motion, no tenderness, supple, no stridor. [] Cardiovascular: tachycardic heart rate w/ regular rhythm Lungs & Thorax: Bilateral breath sounds clear to auscultation [] Abdomen: Bowel sounds normal, soft, no tenderness, no masses, no pulsatile masses. [] Skin: cool to touch, dry, no erythema, no rash. [] Back: No tenderness, no CVA tenderness. [] Extremities: No tenderness, ROM intact, no edema. [] Neurologic: Mental status: responsive to verbal stimuli Cranial nerves: Extraocular movements intact, eyebrows marvin bilaterally, smile symmetric, uvula elevation nl, shoulder shrug intact bilaterally, tongue protrusion normal DTRs: 2+ Sensation: equal and normal in all extremities Strength: Patient obeys commands. She is able to move her arms bilaterally and wiggle her toes bilaterally. Psychologic: Affect normal, judgement normal, mood normal. [] Current Patient Data Vital Signs Vital Signs Date Time Temp Pulse Resp B/P (MAP) Pulse Ox O2 Delivery O2 Flow Rate FiO2 02/25/19 14:02 98 02/25/19 13:30 96 18 113/75 (88) Venturi Mask 02/25/19 12:45 15.0 02/25/19 12:33 86.8 86.8 Lab Values Laboratory Tests Test 02/25/19 12:34 02/25/19 12:35 02/25/19 12:44 02/25/19 12:45 Glucose (Fingerstick) 31 mg/dL (70-99) *L 148 mg/dL (70-99) H White Blood Count 13.5 x10^3/uL (4.0-11.0) H Red Blood Count 4.31 x10^6/uL (3.50-5.40) Hemoglobin 11.0 g/dL (12.0-15.5) L Hematocrit 35.7 % (36.0-47.0) L Mean Corpuscular Volume 83 fL (79-100) Mean Corpuscular Hemoglobin 25 pg (25-35) Mean Corpuscular Hemoglobin Concent 31 g/dL (31-37) Red Cell Distribution Width 21.8 % (11.5-14.5) H Platelet Count 297 x10^3/uL (140-400) Neutrophils (%) (Auto) 84 % (31-73) H Lymphocytes (%) (Auto) 12 % (24-48) L Monocytes (%) (Auto) 4 % (0-9) Eosinophils (%) (Auto) 0 % (0-3) Basophils (%) (Auto) 0 % (0-3) Neutrophils # (Auto) 11.4 x10^3uL (1.8-7.7) H Lymphocytes # (Auto) 1.5 x10^3/uL (1.0-4.8) Monocytes # (Auto) 0.5 x10^3/uL (0.0-1.1) Eosinophils # (Auto) 0.0 x10^3/uL (0.0-0.7) Basophils # (Auto) 0.0 x10^3/uL (0.0-0.2) Platelet Estimate Adequate (ADEQUATE) Anisocytosis Mod Ovalocytes Mod Schistocytes Occ Sodium Level 136 mmol/L (136-145) Potassium Level 6.6 mmol/L (3.5-5.1) *H Chloride Level 100 mmol/L (98-107) Carbon Dioxide Level 20 mmol/L (21-32) L Anion Gap 16 (6-14) H Blood Urea Nitrogen 110 mg/dL (7-20) H Creatinine 1.8 mg/dL (0.6-1.0) H Estimated GFR (Cockcroft-Gault) 26.8 Glucose Level 94 mg/dL (70-99) Lactic Acid Level 7.6 mmol/L (0.4-2.0) *H Calcium Level 10.2 mg/dL (8.5-10.1) H Total Bilirubin 0.3 mg/dL (0.2-1.0) Direct Bilirubin 0.2 mg/dL (0.0-0.2) Aspartate Amino Transferase (AST) 59 U/L (15-37) H Alanine Aminotransferase (ALT) 65 U/L (14-59) H Alkaline Phosphatase 101 U/L (46-116) Creatine Kinase 78 U/L (26-192) Troponin I Quantitative 0.149 ng/mL (0.000-0.055) TM-Wdr-N-Type Natriuretic Peptide 8034 pg/mL (0-449) H Total Protein 8.2 g/dL (6.4-8.2) Albumin 3.6 g/dL (3.4-5.0) Lipase 918 U/L (73-393) H O2 Saturation 99 % (92-99) Arterial Blood pH 7.15 (7.35-7.45) *L Arterial Blood pCO2 at Patient Temp 45 mmHg (35-46) Arterial Blood pO2 at Patient Temp 240 mmHg (65-108) H Arterial Blood HCO3 15 mmol/L (21-28) L Arterial Blood Base Excess -13 mmol/L (-3-3) L Oxyhemoglobin 98.3 % Methemoglobin 0.4 % (0.0-1.9) Carbon Monoxide, Quantitative 0.3 % (0.0-1.9) FiO2 50% venti Test 02/25/19 13:48 Urine Collection Type U cath Urine Color Yellow Urine Clarity Clear Urine pH 5.0 Urine Specific [place] 1.020 Urine Protein Negative mg/dL (NEG-TRACE) Urine Glucose (UA) 100 mg/dL (NEG) Urine Ketones (Stick) Negative mg/dL (NEG) Urine Blood Negative (NEG) Urine Nitrite Negative (NEG) Urine Bilirubin Negative (NEG) Urine Urobilinogen Dipstick 0.2 mg/dL (0.2 mg/dL) Urine Leukocyte Esterase Negative (NEG) Urine RBC 0 /HPF (0-2) Urine WBC 0 /HPF (0-4) Urine Squamous Epithelial Cells Few /LPF Urine Transitional Epithelial Cells Few /LPF Urine Amorphous Sediment Present /HPF Urine Bacteria 0 /HPF (0-FEW) Urine Hyaline Casts Many /HPF Urine Mucus Mod /LPF Laboratory Tests 02/25/19 12:35 Laboratory Tests 02/25/19 12:35 EKG EKG [] Radiology/Procedures Radiology/Procedures [] Course & Med Decision Making Course & Med Decision Making Pertinent Labs and Imaging studies reviewed. (See chart for details) [] Dragon Disclaimer Dragon Disclaimer This electronic medical record was generated, in whole or in part, using a voice recognition dictation system. Departure Departure Impression: Primary Impression: Hypokalemia Additional Impressions: Metabolic acidosis Hypoglycemia Severe sepsis Leukocytosis Elevated troponin Disposition: ADMITTED INPATIENT Admitting Physician: Alayna Fernandes Condition: CRITICAL Referrals: ALAYAN FERNANDES MD (PCP) Critical Care Time Critical care time spent was 55 minutes exclusive of procedures. Time was spent evaluating the patient, ordering the administration of medications, reevaluating the patient, discussing with the admitting provider and documenting. Problem Qualifiers PEDRO CLEARY MD Feb 25, 2019 13:12
--- NOTE | 2019-02-25 13:38 | RAD ---
PQRS Compliance Statement: One or more of the following individualized dose reduction techniques were utilized for this examination: 1. Automated exposure control 2. Adjustment of the mA and/or kV according to patient size 3. Use of iterative reconstruction technique CT HEAD WITHOUT CONTRAST History: FOUND DOWN WITH AMS LOW BG Comparison: None. Technique: Axial images are obtained of the head from the skull base through the vertex without IV contrast. Findings: No mass-effect, midline shift, extra-axial fluid collection, hemorrhage, or obvious acute infarction is identified. Basilar cisterns are patent. There is a hyperdense right frontal lobe lateral extra-axial mass measuring 10 x 4 mm as seen on image 14. The ventricles and sulci are prominent, consistent with age-related cerebral atrophy. There is mild supratentorial white matter hypoattenuation. This is a nonspecific finding but is commonly due to chronic small vessel ischemic disease. Bone windows demonstrate no acute calvarial abnormality. Mucosal thickening right sphenoid and bilateral ethmoid sinuses. There is no air-fluid level.. Mastoid air cells are well aerated. IMPRESSION: 1. No acute intracranial abnormality. 2. Small lateral right frontal lobe hyperdense extra-axial mass is probably a meningioma. Electronically signed by: Kush Hutchison MD (02/25/2019 1:35 PM) [id number]
--- NOTE | 2019-02-25 13:40 | RAD ---
CHEST AP ONLY Clinical Indication: hypothermia Comparison: Two-view chest January 17, 2019. Findings: Atherosclerotic aortic arch. Cardiac size upper limits of normal. Lungs are clear. There is no pneumothorax. No pleural effusion is appreciated. No acute bone abnormality. IMPRESSION: No acute cardiopulmonary process. Electronically signed by: Kush Hutchison MD (02/25/2019 1:37 PM) [id number]
[2019-02-25 13:45] LABS: ANISOCYTOSIS MOD; OVALOCYTES MOD; PLT ESTIMATE ADEQUATE (ADEQUATE); SCHISTOCYTES OCC
[2019-02-25] MEDS ORDERED: CALCIUM GLUCONATE 1,000 MG/10 ML VIAL. IVP ONE (13:45)
[2019-02-25] MEDS ORDERED: ALBUTEROL SULFATE 2.5 MG/3 ML NEBU. CONT NEB ONE (13:45)
[2019-02-25] MEDS ORDERED: MORPHINE SULFATE 2 MG/ML VIAL. IV PRN (13:45)
[2019-02-25] MEDS ORDERED: ONDANSETRON PF 4 MG/2 ML VIAL. IV PRN (13:45)
[2019-02-25 13:55] LABS: BILIRUBIN,URINE NEGATIVE (NEG); CLARITY,URINE CLEAR; COLOR,URINE YELLOW; NITRITE,URINE NEGATIVE (NEG); PROTEIN,URINE NEGATIVE (NEG-TRACE); UROBILINOGEN,URINE 0.2 mg/dL (0.2 mg/dL)
[2019-02-25] MEDS ORDERED: VANCOMYCIN 1.25 GM in IV NORMAL SALINE 250ML 250 ML IV ONE (14:00)
[2019-02-25 14:04] LABS: AMORPHOUS SEDIMENT,UR PRESENT /HPF; HYALINE CASTS, URINE MANY /HPF; SQUAMOUS EPITHELIAL CELL,UR FEW /LPF
[2019-02-25 14:05] LABS: BACTERIA,URINE 0 /HPF (0-FEW); RBC,URINE 0 /HPF (0-2); WBC,URINE 0 /HPF (0-4)
--- NOTE | 2019-02-25 14:14 | EKG ---
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
[2019-02-25] MEDS ORDERED: ASPIRIN CHEWABLE 81 MG TABLET. PO ONE (14:30)
--- NOTE | 2019-02-25 14:42 | NUR ---
Pharmacy Vancomycin Dosing Note S:Consulted to monitor and dose vancomycin started 02/25/19. O:ALEXSANDER RYDER is a 83 year old F with Sepsis Height: 5 feet, 4 inches Weight: 55.8 kg [place] Body Weight: 54.70 Adjusted Body Weight: 55.14 Dosing Weight: Actual Other Antibiotics: - LABS: Last BUN: 110 Last Creatinine: 1.8 Creatinine Clearance: 20 mL/min Last WBC: 13.5 Last Procalcitonin: Tmax (past 24 hours): 86.8 (L) Last dose given 02/25/19 at 1421 Vancomycin Dosing: Loading Dose: 1250 mg x1 Dosing Weight: Actual Target Trough: 15-20 A: Based on: weight and renal function P: 1. Begin Vancomycin 500 mg IV q24h 2. Follow up Trough level on 02/27/19 at 1400 3. Pharmacy will continue to monitor, follow and adjust therapy as needed. Martha Frost RPH, 02/25/19 [id number]
[2019-02-25] MEDS ORDERED: ASPIRIN RECTAL 300 MG SUPP. PR ONE (14:45)
--- NOTE | 2019-02-25 16:54 | PDOC2 ---
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 Salazar SOURCE Source: Chart review HISTORY OF PRESENT ILLNESS HISTORY OF PRESENT ILLNESS This is an 83 yo female, with a history significant for severe cardiomyopathy, CAD s/p PCI/ÁNGEL to the RCA, HTN, HLP, PAD, and diabetes, who presented secondary to altered mental status and hypoglycemia. Patient lives at home alone. Was found to be non-responsive by home health nurse. EMS was called. Was hypoxic and noted with critically low blood glucose upon their arrival.Was treated with glucagon and placed on non-rebreather. Upon arrival to the ED, blood sugar was near 30 and was hypothermic. Sarina Hugger blanket was place for re-warming. Was last know to be well around 6pm last night. Patient seen in ICU. Is presently alert, but non-verbal at this time. PAST MEDICAL HISTORY Cardiovascular: CAD, CHF, HTN, IL, Hyperlipidemia, Other (PAD) Heme/Onc: Anemia NOS Musculoskeletal: Osteoarthritis Renal/: Chronic renal insuff Endocrine: Diabetes, Osteoporosis PAST SURGICAL HISTORY Past Surgical History Right mid superficial femoral artery to proximal anterior tibial artery bypass using nonreversed great saphenous vein graft, Right transmetatarsal amputation, PCI/stent to RCA FAMILY HISTORY Family History: Other (noncontributory) SOCIAL HISTORY Smoke: No ALCOHOL: none Drugs: None Lives: Alone CURRENT MEDICATIONS CURRENT MEDICATIONS Current Medications Medications (Trade) Dose Ordered Sig/Hever Route PRN Reason Start Time Stop Time Status Last Admin Dose Admin Sodium Chloride 500 ml @ 500 mls/hr 1X ONCE IV 02/25/19 12:45 02/25/19 13:44 DC 02/25/19 13:30 Levofloxacin/ Dextrose 150 ml @ 100 mls/hr 1X ONCE IV 02/25/19 12:45 02/25/19 14:14 DC 02/25/19 13:30 Sodium Bicarbonate (Sodium Bicarb Adult 8.4% Syr) 50 meq 1X ONCE IV 02/25/19 13:00 02/25/19 13:01 DC 02/25/19 13:29 Vancomycin HCl (Vanco Per Pharmacy) 1 each PRN DAILY PRN MC SEE COMMENTS 02/25/19 12:45 02/25/19 14:38 Vancomycin HCl 1.25 gm/Sodium Chloride 250 ml @ 166.667 mls/hr 1X ONCE IV 02/25/19 14:00 02/25/19 15:29 DC 02/25/19 14:21 Calcium Gluconate (Calcium Gluconate) 1,000 mg 1X ONCE IVP 02/25/19 13:45 02/25/19 14:03 DC 02/25/19 14:20 Albuterol Sulfate (Ventolin Neb Soln) 10 mg 1X ONCE CONT NEB 02/25/19 13:45 02/25/19 14:03 DC 02/25/19 14:01 Sodium Chloride 500 ml @ 500 mls/hr 1X ONCE IV 02/25/19 14:30 02/25/19 15:29 DC 02/25/19 14:59 ALLERGIES ALLERGIES: Coded Allergies: amoxicillin (Verified Allergy, Intermediate, Hives, 10/15/18) ROS Review of System unobtainable PHYSICAL EXAM PHYSICAL EXAM General: Alert, non-verbal, No acute distress HEENT: Atraumatic, Mucous membr. moist/pink Lungs: Other (diminished, CTA) Heart: Regular rate (SR), Other (2/6 systolic murmur to LLS border) Abdomen: Soft, No tenderness Extremities: No cyanosis, Other trace LE edema ) Skin: No breakdown, No significant lesion, Other (RLE surgical incision healed; left foot post metatarsal amputation) Neuro: nonverbal Psych/Mental Status: unable to assess MUSCULOSKELETAL: Osteoarthritic changes both hands VITALS VITALS Vital Signs Date Time Temp Pulse Resp B/P (MAP) Pulse Ox O2 Delivery O2 Flow Rate FiO2 02/25/19 15:00 90 16 103/52 (69) 100 02/25/19 14:30 Room Air 02/25/19 12:45 15.0 02/25/19 12:33 86.8 86.8 LABS Lab: Laboratory Tests Test 02/25/19 12:34 02/25/19 12:35 02/25/19 12:44 02/25/19 12:45 Glucose (Fingerstick) 31 mg/dL (70-99) 148 mg/dL (70-99) White Blood Count 13.5 x10^3/uL (4.0-11.0) Red Blood Count 4.31 x10^6/uL (3.50-5.40) Hemoglobin 11.0 g/dL (12.0-15.5) Hematocrit 35.7 % (36.0-47.0) Mean Corpuscular Volume 83 fL (79-100) Mean Corpuscular Hemoglobin 25 pg (25-35) Mean Corpuscular Hemoglobin Concent 31 g/dL (31-37) Red Cell Distribution Width 21.8 % (11.5-14.5) Platelet Count 297 x10^3/uL (140-400) Neutrophils (%) (Auto) 84 % (31-73) Lymphocytes (%) (Auto) 12 % (24-48) Monocytes (%) (Auto) 4 % (0-9) Eosinophils (%) (Auto) 0 % (0-3) Basophils (%) (Auto) 0 % (0-3) Neutrophils # (Auto) 11.4 x10^3uL (1.8-7.7) Lymphocytes # (Auto) 1.5 x10^3/uL (1.0-4.8) Monocytes # (Auto) 0.5 x10^3/uL (0.0-1.1) Eosinophils # (Auto) 0.0 x10^3/uL (0.0-0.7) Basophils # (Auto) 0.0 x10^3/uL (0.0-0.2) Platelet Estimate Adequate (ADEQUATE) Anisocytosis Mod Ovalocytes Mod Schistocytes Occ Sodium Level 136 mmol/L (136-145) Potassium Level 6.6 mmol/L (3.5-5.1) Chloride Level 100 mmol/L (98-107) Carbon Dioxide Level 20 mmol/L (21-32) Anion Gap 16 (6-14) Blood Urea Nitrogen 110 mg/dL (7-20) Creatinine 1.8 mg/dL (0.6-1.0) Estimated GFR (Cockcroft-Gault) 26.8 Glucose Level 94 mg/dL (70-99) Lactic Acid Level 7.6 mmol/L (0.4-2.0) Calcium Level 10.2 mg/dL (8.5-10.1) Total Bilirubin 0.3 mg/dL (0.2-1.0) Direct Bilirubin 0.2 mg/dL (0.0-0.2) Aspartate Amino Transf (AST/SGOT) 59 U/L (15-37) Alanine Aminotransferase (ALT/SGPT) 65 U/L (14-59) Alkaline Phosphatase 101 U/L (46-116) Creatine Kinase 78 U/L (26-192) Troponin I Quantitative 0.149 ng/mL (0.000-0.055) US-Yof-U-Type Natriuretic Peptide 8034 pg/mL (0-449) Total Protein 8.2 g/dL (6.4-8.2) Albumin 3.6 g/dL (3.4-5.0) Lipase 918 U/L (73-393) O2 Saturation 99 % (92-99) Arterial Blood pH 7.15 (7.35-7.45) Arterial Blood pCO2 at Patient Temp 45 mmHg (35-46) Arterial Blood pO2 at Patient Temp 240 mmHg (65-108) Arterial Blood HCO3 15 mmol/L (21-28) Arterial Blood Base Excess -13 mmol/L (-3-3) Oxyhemoglobin 98.3 % Methemoglobin 0.4 % (0.0-1.9) Carbon Monoxide, Quantitative 0.3 % (0.0-1.9) FiO2 50% venti Test 02/25/19 13:48 02/25/19 14:35 02/25/19 15:39 Urine Collection Type U cath Urine Color Yellow Urine Clarity Clear Urine pH 5.0 Urine Specific [place] 1.020 Urine Protein Negative mg/dL (NEG-TRACE) Urine Glucose (UA) 100 mg/dL (NEG) Urine Ketones (Stick) Negative mg/dL (NEG) Urine Blood Negative (NEG) Urine Nitrite Negative (NEG) Urine Bilirubin Negative (NEG) Urine Urobilinogen Dipstick 0.2 mg/dL (0.2 mg/dL) Urine Leukocyte Esterase Negative (NEG) Urine RBC 0 /HPF (0-2) Urine WBC 0 /HPF (0-4) Urine Squamous Epithelial Cells Few /LPF Urine Transitional Epithelial Cells Few /LPF Urine Amorphous Sediment Present /HPF Urine Bacteria 0 /HPF (0-FEW) Urine Hyaline Casts Many /HPF Urine Mucus Mod /LPF Glucose (Fingerstick) 243 mg/dL (70-99) 212 mg/dL (70-99) ECHOCARDIOGRAM ECHOCARDIOGRAM <Conclusion> The left ventricular systolic function is severely impaired. The Ejection Fraction is 10-15%. There is mild valvular aortic stenosis. Mild to moderate mitral regurgitation. Moderate to severe tricuspid regurgitation. There is moderate pulmonary hypertension. The PA pressure was estimated at 45 mmHg. There is no evidence of significant pericardial effusion. DATE: 11/30/18 1139 HEART CATH HEART CATH Conclusion 1. 95% critical and heavily calcified stenosis involving proximal segment of large caliber right coronary artery. Also seen were 70% stenosis involving the midsegment of left circumflex artery and 60% stenosis involving the diagonal branch. 2. Successful PCI/drug eluting stent placement to the right coronary artery. 3. Severe left ventricle systolic dysfunction with ejection fraction estimated at 10-15%. Recommendations 1. Aspirin 325 mg daily for one month followed by 81 mg daily 2. Plavix 75 mg daily for preferably one year 3. Cardio vascular risk factor modification 4. Consider PCI to LCx if patient still symptomatic 5. Repeat 2-D echo in 3 months to evaluate the need for AICD implantation DATE: 01/14/19 1119 ASSESSMENT/PLAN ASSESSMENT/PLAN 1. Metabolic encephalopathy, severe hypoglycemia. CT head without acute findings 2. Leukocytosis, Lactic acidosis 3. Mild troponin elevation; initial 0.149. most probably type II, demand ischemia in the setting of renal disease and culprits above 4. Acute respiratory failure 5. CAD s/p PCI/ÁNGEL to RCA. 12/2018 as noted above. LCx with 70% midsegment stenosis and 60% stenosis involving the diagonal branch. 6. Chronic systolic HF; compensated 7. ICM; LVEF 10-15% 8. KATERIN on CKD 9. Hyperkalemia 10. Hypertension; BP marginal 11. Hyperlipidemia; lipids controlled 12. PAD s/p fem-tib bypass 13. PAflutter 14. Diabetes, II with hypoglycemia upon arrival 15. 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 Recommendations Trend troponin ASA per rectal Resume Plavix when able to take PO as patient is s/p recent PCI/ÁNGEL as noted above. Pressor support as warranted Hold lasix with KATERIN. Caution IVF with severe CMP If patient remains NPO and BP better, use metoprolol IV for rate control Supportive care CARLOS CONTI MD 02/26/19 1044: CARDIAC CONSULT ASSESSMENT/PLAN ASSESSMENT/PLAN Patient seen and examined 02/25/19. Agree with INSPECTOR RUBBER STAMP DIE's assessment and plan. Slight troponin elevation probably demand ischemia. CAD s/p recent PCI/ÁNGEL to RCA, clinically stable. Chronic systolic heart failure well compensated. Continue current management for metabolic encephalopathy per IM Thank you for your consultation OBDULIO DAWN APRN Feb 25, 2019 16:53 CARLOS CONTI MD Feb 26, 2019 10:44
[2019-02-25] MEDS ORDERED: NOREPINEPHRIN 8MG/250ML PREMIX 250 ML IV PRN (17:15)
[2019-02-25 17:21] LABS: HEMATOCRIT 26.4 % (36.0-47.0); HEMOGLOBIN 8.2 g/dL (12.0-15.5); RED BLOOD COUNT 3.23 x10^6/uL (3.50-5.40); RED CELL DISTRIBUTION WIDTH 21.7 % (11.5-14.5); WHITE BLOOD COUNT 10.1 x10^3/uL (4.0-11.0)
[2019-02-25 17:30] LABS: CALCIUM 8.8 mg/dL (8.5-10.1); CREATININE 1.4 mg/dL (0.6-1.0); GFR 35.8; POTASSIUM 4.9 mmol/L (3.5-5.1)
[2019-02-25] MEDS ORDERED: SODIUM BICARBONATE VIAL 75 MEQ in IV 1/2 NORMAL SALINE 1,000 ML IV SCH (17:30)
[2019-02-25 17:37] LABS: MAGNESIUM 1.9 mg/dL (1.8-2.4)
--- NOTE | 2019-02-25 18:29 | PDOC ---
Date and Time Called for IV access. Multiple attempts by others and no peripheral veins. Hypotensive on Levophed. Sterile prep, 1% lidocaine, chlorasept prep,sonography technician with mask,gown,gloves,large drape. RIJ, wire,3 lumen. Sutured at 15cm. Biopatch and dressing. All three draw well, flushed. Her central venous pressure is ZERO in mild trendelenberg. Suggest IV fluids bolus CXR ordered. Current Medications Current Medications Sodium Chloride 500 ml @ 500 mls/hr 1X ONCE IV Last administered on 02/25/19at 13:30; Start 02/25/19 at 12:45; Stop 02/25/19 at 13:44; Status DC Levofloxacin/ Dextrose 150 ml @ 100 mls/hr 1X ONCE IV Last administered on 02/25/19at 13:30; Start 02/25/19 at 12:45; Stop 02/25/19 at 14:14; Status DC Sodium Bicarbonate (Sodium Bicarb Adult 8.4% Syr) 50 meq 1X ONCE IV Last administered on 02/25/19at 13:29; Start 02/25/19 at 13:00; Stop 02/25/19 at 13:01; Status DC Vancomycin HCl (Vanco Per Pharmacy) 1 each PRN DAILY PRN MC SEE COMMENTS Last administered on 02/25/19at 14:38; Start 02/25/19 at 12:45 Vancomycin HCl 1.25 gm/Sodium Chloride 250 ml @ 166.667 mls/hr 1X ONCE IV Last administered on 02/25/19at 14:21; Start 02/25/19 at 14:00; Stop 02/25/19 at 15:29; Status DC Ondansetron HCl (Zofran) 4 mg PRN Q8HRS PRN IV NAUSEA/VOMITING; Start 02/25/19 at 13:45; Stop 02/26/19 at 13:44 Morphine Sulfate (Morphine Sulfate) 2 mg PRN Q2HR PRN IV PAIN; Start 02/25/19 at 13:45; Stop 02/26/19 at 13:44 Sodium Bicarbonate (Sodium Bicarb Adult 8.4% Syr) 50 meq 1X ONCE IV ; Start 02/25/19 at 13:45; Stop 02/25/19 at 14:03; Status DC Calcium Gluconate (Calcium Gluconate) 1,000 mg 1X ONCE IVP Last administered on 02/25/19at 14:20; Start 02/25/19 at 13:45; Stop 02/25/19 at 14:03; Status DC Albuterol Sulfate (Ventolin Neb Soln) 10 mg 1X ONCE CONT NEB Last administered on 02/25/19at 14:01; Start 02/25/19 at 13:45; Stop 02/25/19 at 14:03; Status DC Aspirin (Children'S Aspirin) 324 mg 1X ONCE PO ; Start 02/25/19 at 14:30; Stop 02/25/19 at 14:31; Status DC Sodium Chloride 500 ml @ 500 mls/hr 1X ONCE IV Last administered on 02/25/19at 14:59; Start 02/25/19 at 14:30; Stop 02/25/19 at 15:29; Status DC Aspirin (Aspirin) 300 mg 1X ONCE [place] ; Start 02/25/19 at 14:45; Stop 02/25/19 at 14:46; Status DC Vancomycin HCl 500 mg/Sodium Chloride 100 ml @ 100 mls/hr Q24H IV ; Start 02/26/19 at 14:30 Vancomycin HCl (Vancomycin Trough Level) 1 each 1X ONCE MC ; Start 02/27/19 at 14:00; Stop 02/27/19 at 14:01 Sodium Bicarbonate 75 meq/Sodium Chloride 1,075 ml @ 75 mls/hr [id number] IV ; Start 02/25/19 at 17:30 Aspirin (Aspirin) 300 mg DAILY [place] ; Start 02/26/19 at 09:00 Norepinephrine Bitartrate 250 ml @ 1.875 mls/ hr CONT PRN IV SEE I/O RECORD; Start 02/25/19 at 17:15 Active Scripts Active Aspirin Ec (Aspirin) 325 Mg Tablet. 325 Mg PO [id number] 30 Days Take Aspirin 325mg daily x 30 days then decrease to 81mg daily Lisinopril 5 Mg Tablet 2.5 Mg PO DAILY 30 Days Humalog (Insulin Lispro) 100 Unit/1 Ml Insuln.pen 4 Units SQ TIDAC 30 Days Lantus Solostar (Insulin Glargine,Hum.rec.anlog) 100 Unit/1 Ml Insuln.pen 18 Units SQ QHS 30 Days Toprol Xl (Metoprolol Succinate) 50 Mg Tab.er.24h 50 Mg PO DAILY 30 Days Atorvastatin Calcium 10 Mg Tablet 5 Mg PO QHS 30 Days Clopidogrel (Clopidogrel Bisulfate) 75 Mg Tablet 75 Mg PO DAILYWBKFT 30 Days Reported Tessalon Perle (Benzonatate) 100 Mg Capsule 100 Mg PO TID PRN Hydrocodone-Apap 7.5-325 (Hydrocodone Bit/Acetaminophen) 1 Tab Tablet 1 Tab PO PRN Q6HRS PRN Folic Acid 1 Mg Tablet 1 Tab PO DAILY Trazodone Hcl 50 Mg Tablet 0.5 Tab PO QHS Lasix (Furosemide) 40 Mg Tablet 40 Mg PO BID Potassium Chloride 20 Meq Tablet.er 20 Meq PO DAILY Tylenol Extra Strength (Acetaminophen) 500 Mg Tablet 1,000 Mg PO PRN Q8HRS PRN Vitamin B-12 (Cyanocobalamin (Vitamin B-12)) 1,000 Mcg Tablet 1 Tab PO DAILY Clonazepam 0.5 Mg Tablet 1 Tab PO HS Pertinent Labs/Test Laboratory Tests Test 02/25/19 12:34 02/25/19 12:35 02/25/19 12:44 02/25/19 12:45 Glucose (Fingerstick) 31 mg/dL (70-99) 148 mg/dL (70-99) White Blood Count 13.5 x10^3/uL (4.0-11.0) Red Blood Count 4.31 x10^6/uL (3.50-5.40) Hemoglobin 11.0 g/dL (12.0-15.5) Hematocrit 35.7 % (36.0-47.0) Mean Corpuscular Volume 83 fL (79-100) Mean Corpuscular Hemoglobin 25 pg (25-35) Mean Corpuscular Hemoglobin Concent 31 g/dL (31-37) Red Cell Distribution Width 21.8 % (11.5-14.5) Platelet Count 297 x10^3/uL (140-400) Neutrophils (%) (Auto) 84 % (31-73) Lymphocytes (%) (Auto) 12 % (24-48) Monocytes (%) (Auto) 4 % (0-9) Eosinophils (%) (Auto) 0 % (0-3) Basophils (%) (Auto) 0 % (0-3) Neutrophils # (Auto) 11.4 x10^3uL (1.8-7.7) Lymphocytes # (Auto) 1.5 x10^3/uL (1.0-4.8) Monocytes # (Auto) 0.5 x10^3/uL (0.0-1.1) Eosinophils # (Auto) 0.0 x10^3/uL (0.0-0.7) Basophils # (Auto) 0.0 x10^3/uL (0.0-0.2) Platelet Estimate Adequate (ADEQUATE) Anisocytosis Mod Ovalocytes Mod Schistocytes Occ Sodium Level 136 mmol/L (136-145) Potassium Level 6.6 mmol/L (3.5-5.1) Chloride Level 100 mmol/L (98-107) Carbon Dioxide Level 20 mmol/L (21-32) Anion Gap 16 (6-14) Blood Urea Nitrogen 110 mg/dL (7-20) Creatinine 1.8 mg/dL (0.6-1.0) Estimated GFR (Cockcroft-Gault) 26.8 Glucose Level 94 mg/dL (70-99) Lactic Acid Level 7.6 mmol/L (0.4-2.0) Calcium Level 10.2 mg/dL (8.5-10.1) Total Bilirubin 0.3 mg/dL (0.2-1.0) Direct Bilirubin 0.2 mg/dL (0.0-0.2) Aspartate Amino Transf (AST/SGOT) 59 U/L (15-37) Alanine Aminotransferase (ALT/SGPT) 65 U/L (14-59) Alkaline Phosphatase 101 U/L (46-116) Creatine Kinase 78 U/L (26-192) Troponin I Quantitative 0.149 ng/mL (0.000-0.055) YR-Koh-N-Type Natriuretic Peptide 8034 pg/mL (0-449) Total Protein 8.2 g/dL (6.4-8.2) Albumin 3.6 g/dL (3.4-5.0) Lipase 918 U/L (73-393) O2 Saturation 99 % (92-99) Arterial Blood pH 7.15 (7.35-7.45) Arterial Blood pCO2 at Patient Temp 45 mmHg (35-46) Arterial Blood pO2 at Patient Temp 240 mmHg (65-108) Arterial Blood HCO3 15 mmol/L (21-28) Arterial Blood Base Excess -13 mmol/L (-3-3) Oxyhemoglobin 98.3 % Methemoglobin 0.4 % (0.0-1.9) Carbon Monoxide, Quantitative 0.3 % (0.0-1.9) FiO2 50% venti Test 02/25/19 13:48 02/25/19 14:35 02/25/19 15:39 02/25/19 17:05 Urine Collection Type U cath Urine Color Yellow Urine Clarity Clear Urine pH 5.0 Urine Specific [place] 1.020 Urine Protein Negative mg/dL (NEG-TRACE) Urine Glucose (UA) 100 mg/dL (NEG) Urine Ketones (Stick) Negative mg/dL (NEG) Urine Blood Negative (NEG) Urine Nitrite Negative (NEG) Urine Bilirubin Negative (NEG) Urine Urobilinogen Dipstick 0.2 mg/dL (0.2 mg/dL) Urine Leukocyte Esterase Negative (NEG) Urine RBC 0 /HPF (0-2) Urine WBC 0 /HPF (0-4) Urine Squamous Epithelial Cells Few /LPF Urine Transitional Epithelial Cells Few /LPF Urine Amorphous Sediment Present /HPF Urine Bacteria 0 /HPF (0-FEW) Urine Hyaline Casts Many /HPF Urine Mucus Mod /LPF Glucose (Fingerstick) 243 mg/dL (70-99) 212 mg/dL (70-99) White Blood Count 10.1 x10^3/uL (4.0-11.0) Red Blood Count 3.23 x10^6/uL (3.50-5.40) Hemoglobin 8.2 g/dL (12.0-15.5) Hematocrit 26.4 % (36.0-47.0) Mean Corpuscular Volume 82 fL (79-100) Mean Corpuscular Hemoglobin 25 pg (25-35) Mean Corpuscular Hemoglobin Concent 31 g/dL (31-37) Red Cell Distribution Width 21.7 % (11.5-14.5) Platelet Count 201 x10^3/uL (140-400) Sodium Level 136 mmol/L (136-145) Potassium Level 4.9 mmol/L (3.5-5.1) Chloride Level 103 mmol/L (98-107) Carbon Dioxide Level 23 mmol/L (21-32) Anion Gap 10 (6-14) Blood Urea Nitrogen 100 mg/dL (7-20) Creatinine 1.4 mg/dL (0.6-1.0) Estimated GFR (Cockcroft-Gault) 35.8 Glucose Level 179 mg/dL (70-99) Lactic Acid Level 2.4 mmol/L (0.4-2.0) Calcium Level 8.8 mg/dL (8.5-10.1) Magnesium Level 1.9 mg/dL (1.8-2.4) Creatine Kinase 149 U/L (26-192) Troponin I Quantitative 0.114 ng/mL (0.000-0.055) Laboratory Tests Test 02/25/19 12:34 02/25/19 12:35 02/25/19 12:44 02/25/19 12:45 Glucose (Fingerstick) 31 mg/dL (70-99) 148 mg/dL (70-99) White Blood Count 13.5 x10^3/uL (4.0-11.0) Red Blood Count 4.31 x10^6/uL (3.50-5.40) Hemoglobin 11.0 g/dL (12.0-15.5) Hematocrit 35.7 % (36.0-47.0) Mean Corpuscular Volume 83 fL (79-100) Mean Corpuscular Hemoglobin 25 pg (25-35) Mean Corpuscular Hemoglobin Concent 31 g/dL (31-37) Red Cell Distribution Width 21.8 % (11.5-14.5) Platelet Count 297 x10^3/uL (140-400) Neutrophils (%) (Auto) 84 % (31-73) Lymphocytes (%) (Auto) 12 % (24-48) Monocytes (%) (Auto) 4 % (0-9) Eosinophils (%) (Auto) 0 % (0-3) Basophils (%) (Auto) 0 % (0-3) Neutrophils # (Auto) 11.4 x10^3uL (1.8-7.7) Lymphocytes # (Auto) 1.5 x10^3/uL (1.0-4.8) Monocytes # (Auto) 0.5 x10^3/uL (0.0-1.1) Eosinophils # (Auto) 0.0 x10^3/uL (0.0-0.7) Basophils # (Auto) 0.0 x10^3/uL (0.0-0.2) Platelet Estimate Adequate (ADEQUATE) Anisocytosis Mod Ovalocytes Mod Schistocytes Occ Sodium Level 136 mmol/L (136-145) Potassium Level 6.6 mmol/L (3.5-5.1) Chloride Level 100 mmol/L (98-107) Carbon Dioxide Level 20 mmol/L (21-32) Anion Gap 16 (6-14) Blood Urea Nitrogen 110 mg/dL (7-20) Creatinine 1.8 mg/dL (0.6-1.0) Estimated GFR (Cockcroft-Gault) 26.8 Glucose Level 94 mg/dL (70-99) Lactic Acid Level 7.6 mmol/L (0.4-2.0) Calcium Level 10.2 mg/dL (8.5-10.1) Total Bilirubin 0.3 mg/dL (0.2-1.0) Direct Bilirubin 0.2 mg/dL (0.0-0.2) Aspartate Amino Transf (AST/SGOT) 59 U/L (15-37) Alanine Aminotransferase (ALT/SGPT) 65 U/L (14-59) Alkaline Phosphatase 101 U/L (46-116) Creatine Kinase 78 U/L (26-192) Troponin I Quantitative 0.149 ng/mL (0.000-0.055) PU-Vsv-E-Type Natriuretic Peptide 8034 pg/mL (0-449) Total Protein 8.2 g/dL (6.4-8.2) Albumin 3.6 g/dL (3.4-5.0) Lipase 918 U/L (73-393) O2 Saturation 99 % (92-99) Arterial Blood pH 7.15 (7.35-7.45) Arterial Blood pCO2 at Patient Temp 45 mmHg (35-46) Arterial Blood pO2 at Patient Temp 240 mmHg (65-108) Arterial Blood HCO3 15 mmol/L (21-28) Arterial Blood Base Excess -13 mmol/L (-3-3) Oxyhemoglobin 98.3 % Methemoglobin 0.4 % (0.0-1.9) Carbon Monoxide, Quantitative 0.3 % (0.0-1.9) FiO2 50% venti Test 02/25/19 13:48 02/25/19 14:35 02/25/19 15:39 02/25/19 17:05 Urine Collection Type U cath Urine Color Yellow Urine Clarity Clear Urine pH 5.0 Urine Specific [place] 1.020 Urine Protein Negative mg/dL (NEG-TRACE) Urine Glucose (UA) 100 mg/dL (NEG) Urine Ketones (Stick) Negative mg/dL (NEG) Urine Blood Negative (NEG) Urine Nitrite Negative (NEG) Urine Bilirubin Negative (NEG) Urine Urobilinogen Dipstick 0.2 mg/dL (0.2 mg/dL) Urine Leukocyte Esterase Negative (NEG) Urine RBC 0 /HPF (0-2) Urine WBC 0 /HPF (0-4) Urine Squamous Epithelial Cells Few /LPF Urine Transitional Epithelial Cells Few /LPF Urine Amorphous Sediment Present /HPF Urine Bacteria 0 /HPF (0-FEW) Urine Hyaline Casts Many /HPF Urine Mucus Mod /LPF Glucose (Fingerstick) 243 mg/dL (70-99) 212 mg/dL (70-99) White Blood Count 10.1 x10^3/uL (4.0-11.0) Red Blood Count 3.23 x10^6/uL (3.50-5.40) Hemoglobin 8.2 g/dL (12.0-15.5) Hematocrit 26.4 % (36.0-47.0) Mean Corpuscular Volume 82 fL (79-100) Mean Corpuscular Hemoglobin 25 pg (25-35) Mean Corpuscular Hemoglobin Concent 31 g/dL (31-37) Red Cell Distribution Width 21.7 % (11.5-14.5) Platelet Count 201 x10^3/uL (140-400) Sodium Level 136 mmol/L (136-145) Potassium Level 4.9 mmol/L (3.5-5.1) Chloride Level 103 mmol/L (98-107) Carbon Dioxide Level 23 mmol/L (21-32) Anion Gap 10 (6-14) Blood Urea Nitrogen 100 mg/dL (7-20) Creatinine 1.4 mg/dL (0.6-1.0) Estimated GFR (Cockcroft-Gault) 35.8 Glucose Level 179 mg/dL (70-99) Lactic Acid Level 2.4 mmol/L (0.4-2.0) Calcium Level 8.8 mg/dL (8.5-10.1) Magnesium Level 1.9 mg/dL (1.8-2.4) Creatine Kinase 149 U/L (26-192) Troponin I Quantitative 0.114 ng/mL (0.000-0.055) LAST VITALS Vital Signs Date Time Temp Pulse Resp B/P (MAP) Pulse Ox O2 Delivery O2 Flow Rate FiO2 02/25/19 16:00 Room Air 02/25/19 15:00 90 16 103/52 (69) 100 02/25/19 12:45 15.0 02/25/19 12:33 86.8 86.8 BROOKE BALLARD MD Feb 25, 2019 18:29
[2019-02-25] MEDS ORDERED: VITS A & D/LANOLIN TOPICAL OINTMENT 56GM TUBE. TP PRN (19:00)
--- NOTE | 2019-02-25 20:02 | NUR ---
Late entry: Consults to Mckayla Masters,Edgar,Kourtney phoned with call back all. Pertinent information called
[2019-02-25] MEDS ORDERED: DEXTROSE 50% 25 GM / 50ML DISP.SYRIN. IV ONE (22:52)
[2019-02-26] VITALS (23 sets, daily range): BP systolic 94–160; BP diastolic 40–78
--- NOTE | 2019-02-26 00:01 | RAD ---
PORTABLE CHEST 1V Clinical History: ICU PATIENT. PICC LINE PLACEMENT. Technique: AP view of the chest was obtained at 02/25/2019 6:27 PM. Comparison: November 29, 2018. Findings: The heart is moderately enlarged. The pulmonary vessels appear normal. There is a right jugular line with its tip in the high SVC. The pulmonary vasculature is normal. The lungs and pleural margins are clear. There is vague patchy opacity in the left lung base. Impression: 1. Moderate, cardiomegaly. 2. Right jugular line adequately positioned. No pneumothorax. 3. Left basal infiltrate likely discoid atelectasis. Electronically signed by: Bo Godwin III, MD (02/25/2019 11:58 PM) [facility]
[2019-02-26] MEDS: DEXTROSE 50% 25 GM / 50ML DISP.SYRIN. IV PRN ×6 (01:01→12:07)
[2019-02-26] MEDS ORDERED: DEXTROSE IV SCH (07:30)
[2019-02-26] MEDS ORDERED: SODIUM BICARBONATE IV SCH (07:30)
[2019-02-26] MEDS ORDERED: NACL IV SCH (07:30)
[2019-02-26 08:14] LABS: CALCIUM 9.3 mg/dL (8.5-10.1); CREATININE 1.2 mg/dL (0.6-1.0); GFR 42.8; POTASSIUM 4.2 mmol/L (3.5-5.1)
[2019-02-26 08:30] LABS: CHOLESTEROL/HDL RATIO 2.5
[2019-02-26] MEDS ORDERED: ASPIRIN RECTAL 300 MG SUPP. PR SCH (09:00)
[2019-02-26] MEDS ORDERED: HYDROcodone/APAP 7.5/325MG 1 TAB TABLET PO PRN (10:15)
[2019-02-26] MEDS: CYANOCOBALAMIN (VITAMIN B-12) 1,000 MCG TABLET. PO SCH (10:26)
[2019-02-26] MEDS: CLOPIDOGREL BISULFATE 75 MG TABLET PO SCH (10:26)
[2019-02-26] MEDS: METOPROLOL SUCC 24HR ER 50 MG TAB.ER.24H. PO SCH (10:26)
[2019-02-26] MEDS ORDERED: DEXTROSE 50% 25 GM / 50ML DISP.SYRIN. IV PRN (10:30)
--- NOTE | 2019-02-26 10:32 | PDOC ---
Infectious Disease Note Vital Sign Vital Signs Vital Signs Date Time Temp Pulse Resp B/P (MAP) Pulse Ox O2 Delivery O2 Flow Rate FiO2 02/26/19 09:00 100 24 120/60 (80) 100 Room Air 02/26/19 08:00 98.8 98.8 02/25/19 12:45 15.0 Labs Lab Laboratory Tests Test 02/25/19 12:34 02/25/19 12:35 02/25/19 12:44 02/25/19 12:45 Glucose (Fingerstick) 31 mg/dL (70-99) 148 mg/dL (70-99) White Blood Count 13.5 x10^3/uL (4.0-11.0) Red Blood Count 4.31 x10^6/uL (3.50-5.40) Hemoglobin 11.0 g/dL (12.0-15.5) Hematocrit 35.7 % (36.0-47.0) Mean Corpuscular Volume 83 fL (79-100) Mean Corpuscular Hemoglobin 25 pg (25-35) Mean Corpuscular Hemoglobin Concent 31 g/dL (31-37) Red Cell Distribution Width 21.8 % (11.5-14.5) Platelet Count 297 x10^3/uL (140-400) Neutrophils (%) (Auto) 84 % (31-73) Lymphocytes (%) (Auto) 12 % (24-48) Monocytes (%) (Auto) 4 % (0-9) Eosinophils (%) (Auto) 0 % (0-3) Basophils (%) (Auto) 0 % (0-3) Neutrophils # (Auto) 11.4 x10^3uL (1.8-7.7) Lymphocytes # (Auto) 1.5 x10^3/uL (1.0-4.8) Monocytes # (Auto) 0.5 x10^3/uL (0.0-1.1) Eosinophils # (Auto) 0.0 x10^3/uL (0.0-0.7) Basophils # (Auto) 0.0 x10^3/uL (0.0-0.2) Platelet Estimate Adequate (ADEQUATE) Anisocytosis Mod Ovalocytes Mod Schistocytes Occ Sodium Level 136 mmol/L (136-145) Potassium Level 6.6 mmol/L (3.5-5.1) Chloride Level 100 mmol/L (98-107) Carbon Dioxide Level 20 mmol/L (21-32) Anion Gap 16 (6-14) Blood Urea Nitrogen 110 mg/dL (7-20) Creatinine 1.8 mg/dL (0.6-1.0) Estimated GFR (Cockcroft-Gault) 26.8 Glucose Level 94 mg/dL (70-99) Lactic Acid Level 7.6 mmol/L (0.4-2.0) Calcium Level 10.2 mg/dL (8.5-10.1) Total Bilirubin 0.3 mg/dL (0.2-1.0) Direct Bilirubin 0.2 mg/dL (0.0-0.2) Aspartate Amino Transf (AST/SGOT) 59 U/L (15-37) Alanine Aminotransferase (ALT/SGPT) 65 U/L (14-59) Alkaline Phosphatase 101 U/L (46-116) Creatine Kinase 78 U/L (26-192) Troponin I Quantitative 0.149 ng/mL (0.000-0.055) TU-Ipc-B-Type Natriuretic Peptide 8034 pg/mL (0-449) Total Protein 8.2 g/dL (6.4-8.2) Albumin 3.6 g/dL (3.4-5.0) Lipase 918 U/L (73-393) O2 Saturation 99 % (92-99) Arterial Blood pH 7.15 (7.35-7.45) Arterial Blood pCO2 at Patient Temp 45 mmHg (35-46) Arterial Blood pO2 at Patient Temp 240 mmHg (65-108) Arterial Blood HCO3 15 mmol/L (21-28) Arterial Blood Base Excess -13 mmol/L (-3-3) Oxyhemoglobin 98.3 % Methemoglobin 0.4 % (0.0-1.9) Carbon Monoxide, Quantitative 0.3 % (0.0-1.9) FiO2 50% venti Test 02/25/19 13:48 02/25/19 14:35 02/25/19 15:39 02/25/19 17:05 Urine Collection Type U cath Urine Color Yellow Urine Clarity Clear Urine pH 5.0 Urine Specific [place] 1.020 Urine Protein Negative mg/dL (NEG-TRACE) Urine Glucose (UA) 100 mg/dL (NEG) Urine Ketones (Stick) Negative mg/dL (NEG) Urine Blood Negative (NEG) Urine Nitrite Negative (NEG) Urine Bilirubin Negative (NEG) Urine Urobilinogen Dipstick 0.2 mg/dL (0.2 mg/dL) Urine Leukocyte Esterase Negative (NEG) Urine RBC 0 /HPF (0-2) Urine WBC 0 /HPF (0-4) Urine Squamous Epithelial Cells Few /LPF Urine Transitional Epithelial Cells Few /LPF Urine Amorphous Sediment Present /HPF Urine Bacteria 0 /HPF (0-FEW) Urine Hyaline Casts Many /HPF Urine Mucus Mod /LPF Glucose (Fingerstick) 243 mg/dL (70-99) 212 mg/dL (70-99) White Blood Count 10.1 x10^3/uL (4.0-11.0) Red Blood Count 3.23 x10^6/uL (3.50-5.40) Hemoglobin 8.2 g/dL (12.0-15.5) Hematocrit 26.4 % (36.0-47.0) Mean Corpuscular Volume 82 fL (79-100) Mean Corpuscular Hemoglobin 25 pg (25-35) Mean Corpuscular Hemoglobin Concent 31 g/dL (31-37) Red Cell Distribution Width 21.7 % (11.5-14.5) Platelet Count 201 x10^3/uL (140-400) Sodium Level 136 mmol/L (136-145) Potassium Level 4.9 mmol/L (3.5-5.1) Chloride Level 103 mmol/L (98-107) Carbon Dioxide Level 23 mmol/L (21-32) Anion Gap 10 (6-14) Blood Urea Nitrogen 100 mg/dL (7-20) Creatinine 1.4 mg/dL (0.6-1.0) Estimated GFR (Cockcroft-Gault) 35.8 Glucose Level 179 mg/dL (70-99) Lactic Acid Level 2.4 mmol/L (0.4-2.0) Calcium Level 8.8 mg/dL (8.5-10.1) Magnesium Level 1.9 mg/dL (1.8-2.4) Creatine Kinase 149 U/L (26-192) Troponin I Quantitative 0.114 ng/mL (0.000-0.055) Test 02/25/19 22:52 02/25/19 23:03 02/26/19 00:57 02/26/19 01:15 Glucose (Fingerstick) 12 mg/dL (70-99) 202 mg/dL (70-99) 59 mg/dL (70-99) 230 mg/dL (70-99) Test 02/26/19 02:45 02/26/19 03:27 02/26/19 03:45 02/26/19 05:11 Glucose (Fingerstick) 95 mg/dL (70-99) 65 mg/dL (70-99) 217 mg/dL (70-99) 108 mg/dL (70-99) Test 02/26/19 06:14 02/26/19 06:28 02/26/19 07:45 02/26/19 07:46 Glucose (Fingerstick) 69 mg/dL (70-99) 162 mg/dL (70-99) 68 mg/dL (70-99) Sodium Level 144 mmol/L (136-145) Potassium Level 4.2 mmol/L (3.5-5.1) Chloride Level 108 mmol/L (98-107) Carbon Dioxide Level 28 mmol/L (21-32) Anion Gap 8 (6-14) Blood Urea Nitrogen 65 mg/dL (7-20) Creatinine 1.2 mg/dL (0.6-1.0) Estimated GFR (Cockcroft-Gault) 42.8 Glucose Level 79 mg/dL (70-99) Calcium Level 9.3 mg/dL (8.5-10.1) Troponin I Quantitative 0.109 ng/mL (0.000-0.055) Triglycerides Level 59 mg/dL (0-150) Cholesterol Level 103 mg/dL (0-200) LDL Cholesterol, Calculated 49 mg/dL (0-100) VLDL Cholesterol, Calculated 12 mg/dL (0-40) Non-HDL Cholesterol Calculated 61 mg/dL (0-129) HDL Cholesterol 42 mg/dL (40-60) Cholesterol/HDL Ratio 2.5 Test 02/26/19 08:09 02/26/19 09:08 Glucose (Fingerstick) 107 mg/dL (70-99) 53 mg/dL (70-99) Micro BLOOD CULTURE Final GRAM POSITIVE COCCI IN CLUSTERS SEEN IN 2 OF 4 BOTTLES; 2 SETS WERE DRAWN; RESULTS WERE CALLED TO TOM PATTERSON IN ICU AT 0905; 02/26/19 BY MATILDE. THE BLOOD CULTURES HAVE BEEN SENT TO [facility] FOR FURTHER WORKUP. Objective Assessment Sepsis with GPC bacteremia (2 of 4 bottles) POA Lactic acidosis Hypothermia, Sarina hugger now off Leukocytosis PCN/amoxicillin allergy with hives. Acute hypoxic respiratory failure, now off nonrebreather Elevated lipase Diabetes with hypoglycemia KATERIN on CKD, improved Metabolic encephalopathy (found down) ICM LVEF 10-15% h/o MSSA/group B strep infection Plan Plan of Care Vancomycin Monitor renal function closely Awaiting GPC ID/susceptibilities Supportive care D/w nursing Thank you [id number] Attending Co-Sign The patient was seen and interviewed as well as examined at the bedside. The chart was reviewed. The case was discussed. Agree with the plan of care. GARLAND REED APRN Feb 26, 2019 10:32 ANTHONY MAURICE MD Feb 26, 2019 13:50
--- NOTE | 2019-02-26 10:36 | PDOC ---
Provider Note Provider Note [id number] ALAYNA SOLANO MD Feb 26, 2019 10:36
--- NOTE | 2019-02-26 10:44 | PDOC ---
Provider Note Provider Note D/W SON TAMIKO BY PHONE, GIVEN FU;LL UPDATE, all questions answered ALAYNA SOLANO MD Feb 26, 2019 10:44
--- NOTE | 2019-02-26 11:06 | CONS ---
DATE OF CONSULTATION: 02/26/2019 REQUESTING PHYSICIAN: Dr. Fernandes. REASON FOR CONSULTATION: Positive blood cultures. HISTORY OF PRESENT ILLNESS: This patient is an 83-year-old female with a PMH, ischemic cardiomyopathy, coronary artery disease, diabetes and chronic kidney disease, who was brought to the ER via EMS after she was found down at home by her home health care nurse. She was hypoglycemic, status post glucagon injection and hypoxic, needing a nonrebreather. She was also hypothermic for which she was put on a Sarina Hugger. She had elevated white blood cell count of 13,500 and lactic acid level 7.6. Urinalysis was unremarkable for infection. Chest x-ray showed no acute cardiopulmonary process. She was started empirically on vancomycin and levofloxacin. Blood cultures have now returned positive for gram-positive cocci in 2/4 bottles. Hence, ID consult. The patient is awake, but noncommunicative. She is now normotensive and off the Sarina Hugger. She is satting above 95% on room air. No vomiting or diarrhea reported. 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 PAST SURGICAL HISTORY: Right leg bypass and transmetatarsal amputation in 10/2018. FAMILY HISTORY: Noncontributory. SOCIAL HISTORY: The patient lives at home. Nonsmoker. ALLERGIES: AMOXICILLIN CAUSING HIVES. MEDICATIONS: Vancomycin, one-time dose of levofloxacin on 02/25/2018, DuoNeb, aspirin, calcium gluconate, morphine, ondansetron, sodium bicarbonate, dextrose, off norepinephrine. REVIEW OF SYSTEMS: Unobtainable as the patient is nonverbal. PHYSICAL EXAMINATION: VITAL SIGNS: Temperature 98.8, blood pressure 120/60, heart rate 100, respiratory rate 24, pulse oximetry is 100% on room air. BMI 20. GENERAL: The patient is propped up in bed, awake, appears comfortable. HEENT: Pupils equally round, reactive. Normal conjunctivae. Oral cavity, pharynx dry. LUNGS: Clear to auscultation. HEART: S1 and S2 regular. ABDOMEN: Nondistended, soft, no grimace or guarding to palpation. Bowel sounds present. GENITOURINARY: [place] Fuente in place. EXTREMITIES: No gross edema or cyanosis. Right TMA completely healed. No cyanosis. SKIN: Warm without rash. NEUROLOGIC: Awake, but does not respond to questions or follow commands. LINES: RIJ (02/25) without signs of any complications. LABORATORY STUDIES: Today's WBC 10.1 from 13.5 on admission, hemoglobin 8.2, platelets 201,000. Creatinine 1.2 from 1.8 on admission, BUN 65, sodium 144, potassium 4.2, glucose 79. Lactic acid 2.4 from 7.6. Creatine kinase 149. Troponin 0.114. Albumin 3.6. BNP 8034. Lipase 918. Urinalysis unremarkable for infection. Blood cultures from 02/25/2019 showed gram-positive cocci in clusters in 2/4 bottles. ID/susceptibilities pending. Chest x-ray showed moderate cardiomegaly. Left basal infiltrate, likely discoid atelectasis. Head CT showed no acute intracranial abnormality; small lateral right frontal lobe hyperdense extraaxial mass is probably a meningioma. IMPRESSION: 1. Sepsis with Gram-positive cocci bacteremia, present on admission. 2. Lactic acidosis, improved. 3. Hypothermia, now normotensive and off Sarina Hugger. 4. Leukocytosis. 5. PENICILLIN/AMOXICILLIN ALLERGY WITH HIVES. 6. Acute hypoxic respiratory failure, better now, off supplemental oxygen. 7. Elevated lipase. 8. Diabetes with hypoglycemia. 9. Acute kidney injury on chronic kidney disease, improved. 10. Metabolic encephalopathy. 11. Ischemic cardiomyopathy. 12. History of methicillin-sensitive Staphylococcus aureus and group B strep infection. PLAN: Continue the vancomycin. Monitor renal function closely. Awaiting GPC identification and susceptibilities. Supportive care. Thank you, Dr. Fernandes, for asking us to participate in this patient's care. Should you have further questions or concerns, please call. ANTHONY MAURICE MD DR: VIVEK/kasie JOB#: [id number] / [id number]
--- NOTE | 2019-02-26 11:08 | PDOC ---
PROGRESS NOTES Subjective Subjective Comfortable without any new complaints Objective Objective Vital Signs Date Time Temp Pulse Resp B/P (MAP) Pulse Ox O2 Delivery O2 Flow Rate FiO2 02/26/19 10:00 98.8 101 24 143/52 (82) 99 Room Air 98.8 02/25/19 12:45 15.0 Intake and Output 02/26/19 06:59 Intake Total 1920 ml Output Total 2325 ml Balance -405 ml Intake IV Total 1920 ml Output Urine Total 2325 ml Physical Exam Abdomen: Soft, No tenderness Heart: Regular rate, Other (ESM aortic) Extremities: Other (trace edema) General: No acute distress HEENT: Atraumatic Lungs: Clear to auscultation Assessment Assessment 1. Metabolic encephalopathy, severe hypoglycemia. CT head without acute findings. Treat per IM 2. Mild troponin elevation; initial 0.149. most probably type II, demand ischemia. 3. CAD s/p PCI/ÁNGEL to RCA. 12/2018 with residual LCx with 70% midsegment stenosis and 60% stenosis involving the diagonal branch. Clinically stable. Continue current medications including Plavix 4. Chronic systolic HF; LVEF 10-15%, compensated. Continue current medical regimen 5. PAD s/p fem-tib bypass, stable 6. PAflutter: SR 7. Diabetes, II with hypoglycemia upon arrival: per primary team Plan Plan of Care Problems Medical Problems: (1) Elevated troponin Status: Acute (2) Hypoglycemia Status: Acute (3) Hypokalemia Status: Acute (4) Leukocytosis Status: Acute (5) Metabolic acidosis Status: Acute (6) Severe sepsis Status: Acute Comment Review of Relevant I have reviewed the following items charli (where applicable) has been applied. Labs Laboratory Tests Test 02/25/19 12:34 02/25/19 12:35 02/25/19 12:44 02/25/19 12:45 Glucose (Fingerstick) 31 mg/dL (70-99) 148 mg/dL (70-99) White Blood Count 13.5 x10^3/uL (4.0-11.0) Red Blood Count 4.31 x10^6/uL (3.50-5.40) Hemoglobin 11.0 g/dL (12.0-15.5) Hematocrit 35.7 % (36.0-47.0) Mean Corpuscular Volume 83 fL (79-100) Mean Corpuscular Hemoglobin 25 pg (25-35) Mean Corpuscular Hemoglobin Concent 31 g/dL (31-37) Red Cell Distribution Width 21.8 % (11.5-14.5) Platelet Count 297 x10^3/uL (140-400) Neutrophils (%) (Auto) 84 % (31-73) Lymphocytes (%) (Auto) 12 % (24-48) Monocytes (%) (Auto) 4 % (0-9) Eosinophils (%) (Auto) 0 % (0-3) Basophils (%) (Auto) 0 % (0-3) Neutrophils # (Auto) 11.4 x10^3uL (1.8-7.7) Lymphocytes # (Auto) 1.5 x10^3/uL (1.0-4.8) Monocytes # (Auto) 0.5 x10^3/uL (0.0-1.1) Eosinophils # (Auto) 0.0 x10^3/uL (0.0-0.7) Basophils # (Auto) 0.0 x10^3/uL (0.0-0.2) Platelet Estimate Adequate (ADEQUATE) Anisocytosis Mod Ovalocytes Mod Schistocytes Occ Sodium Level 136 mmol/L (136-145) Potassium Level 6.6 mmol/L (3.5-5.1) Chloride Level 100 mmol/L (98-107) Carbon Dioxide Level 20 mmol/L (21-32) Anion Gap 16 (6-14) Blood Urea Nitrogen 110 mg/dL (7-20) Creatinine 1.8 mg/dL (0.6-1.0) Estimated GFR (Cockcroft-Gault) 26.8 Glucose Level 94 mg/dL (70-99) Lactic Acid Level 7.6 mmol/L (0.4-2.0) Calcium Level 10.2 mg/dL (8.5-10.1) Total Bilirubin 0.3 mg/dL (0.2-1.0) Direct Bilirubin 0.2 mg/dL (0.0-0.2) Aspartate Amino Transf (AST/SGOT) 59 U/L (15-37) Alanine Aminotransferase (ALT/SGPT) 65 U/L (14-59) Alkaline Phosphatase 101 U/L (46-116) Creatine Kinase 78 U/L (26-192) Troponin I Quantitative 0.149 ng/mL (0.000-0.055) YV-Wwm-M-Type Natriuretic Peptide 8034 pg/mL (0-449) Total Protein 8.2 g/dL (6.4-8.2) Albumin 3.6 g/dL (3.4-5.0) Lipase 918 U/L (73-393) O2 Saturation 99 % (92-99) Arterial Blood pH 7.15 (7.35-7.45) Arterial Blood pCO2 at Patient Temp 45 mmHg (35-46) Arterial Blood pO2 at Patient Temp 240 mmHg (65-108) Arterial Blood HCO3 15 mmol/L (21-28) Arterial Blood Base Excess -13 mmol/L (-3-3) Oxyhemoglobin 98.3 % Methemoglobin 0.4 % (0.0-1.9) Carbon Monoxide, Quantitative 0.3 % (0.0-1.9) FiO2 50% venti Test 02/25/19 13:48 02/25/19 14:35 02/25/19 15:39 02/25/19 17:05 Urine Collection Type U cath Urine Color Yellow Urine Clarity Clear Urine pH 5.0 Urine Specific [place] 1.020 Urine Protein Negative mg/dL (NEG-TRACE) Urine Glucose (UA) 100 mg/dL (NEG) Urine Ketones (Stick) Negative mg/dL (NEG) Urine Blood Negative (NEG) Urine Nitrite Negative (NEG) Urine Bilirubin Negative (NEG) Urine Urobilinogen Dipstick 0.2 mg/dL (0.2 mg/dL) Urine Leukocyte Esterase Negative (NEG) Urine RBC 0 /HPF (0-2) Urine WBC 0 /HPF (0-4) Urine Squamous Epithelial Cells Few /LPF Urine Transitional Epithelial Cells Few /LPF Urine Amorphous Sediment Present /HPF Urine Bacteria 0 /HPF (0-FEW) Urine Hyaline Casts Many /HPF Urine Mucus Mod /LPF Glucose (Fingerstick) 243 mg/dL (70-99) 212 mg/dL (70-99) White Blood Count 10.1 x10^3/uL (4.0-11.0) Red Blood Count 3.23 x10^6/uL (3.50-5.40) Hemoglobin 8.2 g/dL (12.0-15.5) Hematocrit 26.4 % (36.0-47.0) Mean Corpuscular Volume 82 fL (79-100) Mean Corpuscular Hemoglobin 25 pg (25-35) Mean Corpuscular Hemoglobin Concent 31 g/dL (31-37) Red Cell Distribution Width 21.7 % (11.5-14.5) Platelet Count 201 x10^3/uL (140-400) Sodium Level 136 mmol/L (136-145) Potassium Level 4.9 mmol/L (3.5-5.1) Chloride Level 103 mmol/L (98-107) Carbon Dioxide Level 23 mmol/L (21-32) Anion Gap 10 (6-14) Blood Urea Nitrogen 100 mg/dL (7-20) Creatinine 1.4 mg/dL (0.6-1.0) Estimated GFR (Cockcroft-Gault) 35.8 Glucose Level 179 mg/dL (70-99) Lactic Acid Level 2.4 mmol/L (0.4-2.0) Calcium Level 8.8 mg/dL (8.5-10.1) Magnesium Level 1.9 mg/dL (1.8-2.4) Creatine Kinase 149 U/L (26-192) Troponin I Quantitative 0.114 ng/mL (0.000-0.055) Test 02/25/19 22:52 02/25/19 23:03 02/26/19 00:57 02/26/19 01:15 Glucose (Fingerstick) 12 mg/dL (70-99) 202 mg/dL (70-99) 59 mg/dL (70-99) 230 mg/dL (70-99) Test 02/26/19 02:45 02/26/19 03:27 02/26/19 03:45 02/26/19 05:11 Glucose (Fingerstick) 95 mg/dL (70-99) 65 mg/dL (70-99) 217 mg/dL (70-99) 108 mg/dL (70-99) Test 02/26/19 06:14 02/26/19 06:28 02/26/19 07:45 02/26/19 07:46 Glucose (Fingerstick) 69 mg/dL (70-99) 162 mg/dL (70-99) 68 mg/dL (70-99) Sodium Level 144 mmol/L (136-145) Potassium Level 4.2 mmol/L (3.5-5.1) Chloride Level 108 mmol/L (98-107) Carbon Dioxide Level 28 mmol/L (21-32) Anion Gap 8 (6-14) Blood Urea Nitrogen 65 mg/dL (7-20) Creatinine 1.2 mg/dL (0.6-1.0) Estimated GFR (Cockcroft-Gault) 42.8 Glucose Level 79 mg/dL (70-99) Calcium Level 9.3 mg/dL (8.5-10.1) Troponin I Quantitative 0.109 ng/mL (0.000-0.055) Triglycerides Level 59 mg/dL (0-150) Cholesterol Level 103 mg/dL (0-200) LDL Cholesterol, Calculated 49 mg/dL (0-100) VLDL Cholesterol, Calculated 12 mg/dL (0-40) Non-HDL Cholesterol Calculated 61 mg/dL (0-129) HDL Cholesterol 42 mg/dL (40-60) Cholesterol/HDL Ratio 2.5 Test 02/26/19 08:09 02/26/19 09:08 02/26/19 10:01 Glucose (Fingerstick) 107 mg/dL (70-99) 53 mg/dL (70-99) 118 mg/dL (70-99) Microbiology 02/25/19 Blood Culture - Final, Complete Medications Current Medications Acetaminophen/ Hydrocodone Bitart (Lortab 7.5/325) 1 tab PRN Q6HRS PRN PO PAIN; Start 02/26/19 at 10:15 Albuterol Sulfate (Ventolin Neb Soln) 10 mg 1X ONCE CONT NEB Last administered on 02/25/19at 14:01; Start 02/25/19 at 13:45; Stop 02/25/19 at 14:03; Status DC Aspirin (Aspirin) 300 mg 1X ONCE MS ; Start 02/25/19 at 14:45; Stop 02/25/19 at 14:46; Status DC Aspirin (Aspirin) 300 mg DAILY MS Last administered on 02/26/19at 09:11; Start 02/26/19 at 09:00; Stop 02/26/19 at 10:19; Status DC Aspirin (Children'S Aspirin) 324 mg 1X ONCE PO ; Start 02/25/19 at 14:30; Stop 02/25/19 at 14:31; Status DC Aspirin (Ecotrin) 325 mg DAILYWBKFT PO ; Start 02/27/19 at 08:00 Calcium Gluconate (Calcium Gluconate) 1,000 mg 1X ONCE IVP Last administered on 02/25/19at 14:20; Start 02/25/19 at 13:45; Stop 02/25/19 at 14:03; Status DC Clonazepam (KlonoPIN) 0.5 mg HS PO ; Start 02/26/19 at 21:00; Stop 02/26/19 at 21:00; Status DC Clopidogrel Bisulfate (Plavix) 75 mg DAILYWBKFT PO ; Start 02/26/19 at 11:00 Cyanocobalamin (Vitamin B-12) 1,000 mcg DAILY PO ; Start 02/26/19 at 11:00 Daptomycin 320 mg/ Sodium Chloride 50 ml @ 100 mls/hr QODAY IV ; Start 02/26/19 at 12:00 Dextrose (Dextrose 50%-Water Syringe) 12.5 gm PRN Q15MIN PRN IV SEE COMMENTS Last administered on 02/26/19at 09:11; Start 02/25/19 at 23:45 Dextrose (Dextrose 50%-Water Syringe) 12.5 gm PRN Q15MIN PRN IV SEE COMMENTS; Start 02/26/19 at 10:30 Dextrose (Dextrose 50%-Water Syringe) 25 gm STK-MED ONCE IV ; Start 02/25/19 at 22:52; Stop 02/25/19 at 22:53; Status DC Insulin Human Lispro (HumaLOG) 0-9 UNITS TIDWMEALS SQ ; Start 02/26/19 at 12:00 Levofloxacin/ Dextrose 150 ml @ 100 mls/hr 1X ONCE IV Last administered on 02/25/19at 13:30; Start 02/25/19 at 12:45; Stop 02/25/19 at 14:14; Status DC Metoprolol Succinate (Toprol Xl) 50 mg DAILY PO ; Start 02/26/19 at 11:00 Morphine Sulfate (Morphine Sulfate) 2 mg PRN Q2HR PRN IV PAIN; Start 02/25/19 at 13:45; Stop 02/26/19 at 13:44 Norepinephrine Bitartrate 250 ml @ 1.875 mls/ hr CONT PRN IV SEE I/O RECORD; Start 02/25/19 at 17:15 Ondansetron HCl (Zofran) 4 mg PRN Q8HRS PRN IV NAUSEA/VOMITING; Start 02/25/19 at 13:45; Stop 02/26/19 at 13:44 Sodium Bicarbonate 75 meq/Dextrose/ Sodium Chloride 1,075 ml @ 60 mls/hr [id number] IV Last administered on 02/26/19at 07:41; Start 02/26/19 at 07:30 Sodium Bicarbonate 75 meq/Sodium Chloride 1,075 ml @ 60 mls/hr [id number] IV Last administered on 02/25/19at 22:56; Start 02/25/19 at 17:30; Stop 02/26/19 at 07:20; Status DC Sodium Bicarbonate (Sodium Bicarb Adult 8.4% Syr) 50 meq 1X ONCE IV Last administered on 02/25/19at 13:29; Start 02/25/19 at 13:00; Stop 02/25/19 at 13:01; Status DC Sodium Bicarbonate (Sodium Bicarb Adult 8.4% Syr) 50 meq 1X ONCE IV ; Start 02/25/19 at 13:45; Stop 02/25/19 at 14:03; Status DC Sodium Chloride 500 ml @ 500 mls/hr 1X ONCE IV Last administered on 02/25/19at 13:30; Start 02/25/19 at 12:45; Stop 02/25/19 at 13:44; Status DC Sodium Chloride 500 ml @ 500 mls/hr 1X ONCE IV Last administered on 02/25/19at 14:59; Start 02/25/19 at 14:30; Stop 02/25/19 at 15:29; Status DC Trazodone HCl (Desyrel) 25 mg QHS PO ; Start 02/26/19 at 21:00 Vancomycin HCl (Vanco Per Pharmacy) 1 each PRN DAILY PRN MC SEE COMMENTS Last administered on 02/25/19at 14:38; Start 02/25/19 at 12:45; Stop 02/26/19 at 10:16; Status DC Vancomycin HCl (Vancomycin Trough Level) 1 each 1X ONCE MC ; Start 02/27/19 at 14:00; Stop 02/27/19 at 14:00; Status DC Vancomycin HCl 1.25 gm/Sodium Chloride 250 ml @ 166.667 mls/hr 1X ONCE IV Last administered on 02/25/19at 14:21; Start 02/25/19 at 14:00; Stop 02/25/19 at 15:29; Status DC Vancomycin HCl 500 mg/Sodium Chloride 100 ml @ 100 mls/hr Q24H IV ; Start 02/26/19 at 14:30; Stop 02/26/19 at 14:30; Status DC Vitamin A/Vitamin D (Vitamin A & D Ointment) 1 spenser PRN Q1HR PRN TP SKIN PROTECTION; Start 02/25/19 at 19:00 Vitals/I & O Vital Sign - Last 24 Hours 02/25/19 02/25/19 02/25/19 02/25/19 12:33 12:45 13:00 13:30 Temp 86.8 86.8 Pulse 87 86 96 Resp 20 18 18 B/P (MAP) 131/90 (104) 171/74 (106) 113/75 (88) Pulse Ox 100 95 91 100 O2 Delivery NonRebreather Mask Venturi Mask Venturi Mask Venturi Mask O2 Flow Rate 15.0 15.0 02/25/19 02/25/19 02/25/19 02/25/19 13:45 14:00 14:02 14:30 Pulse 108 100 88 Resp 20 20 20 B/P (MAP) 91/54 (66) 92/51 (65) 95/52 (66) Pulse Ox 100 100 98 100 O2 Delivery Venturi Mask Venturi Mask Room Air 02/25/19 02/25/19 02/25/19 02/25/19 15:00 15:30 15:45 16:00 Temp 93.6 94.6 95.0 93.6 94.6 95.0 Pulse 90 88 90 92 Resp 16 16 11 17 B/P (MAP) 103/52 (69) 74/51 (59) 74/61 (65) 73/42 (52) Pulse Ox 100 100 100 100 O2 Delivery Room Air Room Air Room Air 02/25/19 02/25/19 02/25/19 02/25/19 16:00 16:15 16:30 17:00 Temp 95.0 95.7 95.7 95.0 95.7 95.7 Pulse 90 90 90 Resp 15 14 18 B/P (MAP) 83/45 (58) 78/41 (53) 75/40 (52) Pulse Ox 100 100 100 O2 Delivery Room Air Room Air Room Air Room Air 02/25/19 02/25/19 02/25/19 02/25/19 17:30 18:00 18:30 19:00 Temp 96.4 97.5 97.5 99.0 96.4 97.5 97.5 99.0 Pulse 92 88 92 100 Resp 14 15 18 20 B/P (MAP) 71/37 (48) 71/40 (50) 80/64 (69) 83/62 (69) Pulse Ox 100 100 99 100 O2 Delivery Room Air Room Air Room Air Room Air 02/25/19 02/25/19 02/25/19 02/25/19 20:00 20:00 21:00 22:00 Temp 99.3 98.2 99.3 98.2 Pulse 100 98 106 Resp 16 18 18 B/P (MAP) 95/47 (63) 90/66 (74) 139/62 (87) Pulse Ox 100 99 99 O2 Delivery Room Air Room Air Room Air Room Air 02/25/19 02/25/19 02/26/19 02/26/19 23:00 23:59 01:00 02:00 Temp 95.7 97.1 97.8 95.7 97.1 97.8 Pulse 104 96 97 Resp 18 18 20 B/P (MAP) 150/80 (103) 94/46 (62) 115/40 (65) Pulse Ox 99 100 100 O2 Delivery Room Air Room Air Room Air Room Air 02/26/19 02/26/19 02/26/19 02/26/19 03:00 04:00 04:00 05:00 Temp 98.2 98.2 98.7 98.2 98.2 98.7 Pulse 98 100 102 Resp 20 20 22 B/P (MAP) 108/56 (73) 114/52 (72) 110/52 (71) Pulse Ox 99 100 100 O2 Delivery Room Air Room Air Room Air Room Air 02/26/19 02/26/19 02/26/19 02/26/19 06:00 07:00 08:00 08:00 Temp 98.9 99.1 98.8 98.9 99.1 98.8 Pulse 101 103 99 Resp 20 24 23 B/P (MAP) 97/49 (65) 127/59 (81) 103/46 (65) Pulse Ox 99 99 99 O2 Delivery Room Air Room Air Room Air Room Air 02/26/19 02/26/19 09:00 10:00 Temp 98.8 98.8 Pulse 100 101 Resp 24 24 B/P (MAP) 120/60 (80) 143/52 (82) Pulse Ox 100 99 O2 Delivery Room Air Room Air Intake and Output 02/25/19 02/25/19 02/26/19 14:59 22:59 06:59 Intake Total 500 ml 782 ml 638 ml Output Total 1505 ml 820 ml Balance 500 ml -723 ml -182 ml CARLOS CONTI MD Feb 26, 2019 11:08
--- NOTE | 2019-02-26 11:09 | PDOC2 ---
CONSULT Date of Consult Date of Consult DATE: 02/26/19 TIME: 11:08 Reason for Consult Reason for Consult: Acute kidney injury Referring Physician Referring Physician: Dr. Salazar from the ER Identification/Chief Complaint Chief Complaint Altered mental status Source Source: Chart review History of Present Illness Reason for Visit: Gita is an 83-year-old female who was brought to [place] ER with decreased mental status after she was found by her home health care nurse. She was noted to be poorly responsive and EMS was called. EMS noted significant hypoglycemia results of these are not available to me from the notes. She was treated with glucagon and brought in here for evaluation. She was noted to have a creatinine of 1.8 at presentation visit already come down to 1.4 by the evening. We were asked by the ER physician to help manage potassium and renal failure. Potassium was noted to be 6.6. Which has since corrected to 4.2 currently. On arrival here his fingerstick sugars were 31. Known to have a history of CHF. Lipase was noted to be 918. I'm unable to get much in terms of history from the patient. Temporizing measures for her high potassium was ordered and IV fluids with dextrose are being administered currently for hypoglycemia. I have reviewed the ER records. She is noted to have mild elevation of her LFTs also. A seizure was suspected hence CPK was checked and was 149. Lactic acid was elevated at 7.6 but is now corrected. With IV fluids her BUN/creatinine are also better at 65 and 1.2. Urine output is brisk at this time. Past Medical History Cardiovascular: CAD, CHF, HTN, [place], Hyperlipidemia, Other (PAD) CENTRAL NERVOUS SYSTEM: Periperal neuropathy Heme/Onc: Anemia NOS Musculoskeletal: Osteoarthritis Infectious disease: Other Renal/: Chronic renal insuff Endocrine: Diabetes, Osteoporosis Family History Family History: Other (noncontributory) Social History No ALCOHOL: none Drugs: None Lives: Alone Current Problem List Problem List Problems Medical Problems: (1) Elevated troponin Status: Acute (2) Hypoglycemia Status: Acute (3) Hypokalemia Status: Acute (4) Leukocytosis Status: Acute (5) Metabolic acidosis Status: Acute (6) Severe sepsis Status: Acute Current Medications Current Medications Current Medications Sodium Chloride 500 ml @ 500 mls/hr 1X ONCE IV Last administered on 02/25/19at 13:30; Start 02/25/19 at 12:45; Stop 02/25/19 at 13:44; Status DC Levofloxacin/ Dextrose 150 ml @ 100 mls/hr 1X ONCE IV Last administered on 02/25/19at 13:30; Start 02/25/19 at 12:45; Stop 02/25/19 at 14:14; Status DC Sodium Bicarbonate (Sodium Bicarb Adult 8.4% Syr) 50 meq 1X ONCE IV Last administered on 02/25/19at 13:29; Start 02/25/19 at 13:00; Stop 02/25/19 at 13:01; Status DC Vancomycin HCl (Vanco Per Pharmacy) 1 each PRN DAILY PRN MC SEE COMMENTS Last administered on 02/25/19at 14:38; Start 02/25/19 at 12:45; Stop 02/26/19 at 10:16; Status DC Vancomycin HCl 1.25 gm/Sodium Chloride 250 ml @ 166.667 mls/hr 1X ONCE IV Last administered on 02/25/19at 14:21; Start 02/25/19 at 14:00; Stop 02/25/19 at 15:29; Status DC Ondansetron HCl (Zofran) 4 mg PRN Q8HRS PRN IV NAUSEA/VOMITING; Start 02/25/19 at 13:45; Stop 02/26/19 at 13:44 Morphine Sulfate (Morphine Sulfate) 2 mg PRN Q2HR PRN IV PAIN; Start 02/25/19 at 13:45; Stop 02/26/19 at 13:44 Sodium Bicarbonate (Sodium Bicarb Adult 8.4% Syr) 50 meq 1X ONCE IV ; Start 02/25/19 at 13:45; Stop 02/25/19 at 14:03; Status DC Calcium Gluconate (Calcium Gluconate) 1,000 mg 1X ONCE IVP Last administered on 02/25/19at 14:20; Start 02/25/19 at 13:45; Stop 02/25/19 at 14:03; Status DC Albuterol Sulfate (Ventolin Neb Soln) 10 mg 1X ONCE CONT NEB Last administered on 02/25/19at 14:01; Start 02/25/19 at 13:45; Stop 02/25/19 at 14:03; Status DC Aspirin (Children'S Aspirin) 324 mg 1X ONCE PO ; Start 02/25/19 at 14:30; Stop 02/25/19 at 14:31; Status DC Sodium Chloride 500 ml @ 500 mls/hr 1X ONCE IV Last administered on 02/25/19at 14:59; Start 02/25/19 at 14:30; Stop 02/25/19 at 15:29; Status DC Aspirin (Aspirin) 300 mg 1X ONCE MN ; Start 02/25/19 at 14:45; Stop 02/25/19 at 14:46; Status DC Vancomycin HCl 500 mg/Sodium Chloride 100 ml @ 100 mls/hr Q24H IV ; Start 02/26/19 at 14:30; Stop 02/26/19 at 14:30; Status DC Vancomycin HCl (Vancomycin Trough Level) 1 each 1X ONCE MC ; Start 02/27/19 at 14:00; Stop 02/27/19 at 14:00; Status DC Sodium Bicarbonate 75 meq/Sodium Chloride 1,075 ml @ 60 mls/hr [id number] IV Last administered on 02/25/19at 22:56; Start 02/25/19 at 17:30; Stop 02/26/19 at 07:20; Status DC Aspirin (Aspirin) 300 mg DAILY MN Last administered on 02/26/19at 09:11; Start 02/26/19 at 09:00; Stop 02/26/19 at 10:19; Status DC Norepinephrine Bitartrate 250 ml @ 1.875 mls/ hr CONT PRN IV SEE I/O RECORD; Start 02/25/19 at 17:15 Vitamin A/Vitamin D (Vitamin A & D Ointment) 1 spenser PRN Q1HR PRN TP SKIN PROTECTION; Start 02/25/19 at 19:00 Dextrose (Dextrose 50%-Water Syringe) 25 gm STK-MED ONCE IV ; Start 02/25/19 at 22:52; Stop 02/25/19 at 22:53; Status DC Dextrose (Dextrose 50%-Water Syringe) 12.5 gm PRN Q15MIN PRN IV SEE COMMENTS Last administered on 02/26/19at 09:11; Start 02/25/19 at 23:45 Sodium Bicarbonate 75 meq/Dextrose/ Sodium Chloride 1,075 ml @ 60 mls/hr [id number] IV Last administered on 02/26/19at 07:41; Start 02/26/19 at 07:30 Aspirin (Ecotrin) 325 mg DAILYWBKFT PO ; Start 02/27/19 at 08:00 Clonazepam (KlonoPIN) 0.5 mg HS PO ; Start 02/26/19 at 21:00; Stop 02/26/19 at 21:00; Status DC Clopidogrel Bisulfate (Plavix) 75 mg DAILYWBKFT PO ; Start 02/26/19 at 11:00 Cyanocobalamin (Vitamin B-12) 1,000 mcg DAILY PO ; Start 02/26/19 at 11:00 Acetaminophen/ Hydrocodone Bitart (Lortab 7.5/325) 1 tab PRN Q6HRS PRN PO PAIN; Start 02/26/19 at 10:15 Metoprolol Succinate (Toprol Xl) 50 mg DAILY PO ; Start 02/26/19 at 11:00 Trazodone HCl (Desyrel) 25 mg QHS PO ; Start 02/26/19 at 21:00 Daptomycin 320 mg/ Sodium Chloride 50 ml @ 100 mls/hr QODAY IV ; Start 02/26/19 at 12:00 Insulin Human Lispro (HumaLOG) 0-9 UNITS TIDWMEALS SQ ; Start 02/26/19 at 12:00 Dextrose (Dextrose 50%-Water Syringe) 12.5 gm PRN Q15MIN PRN IV SEE COMMENTS; Start 02/26/19 at 10:30 Active Scripts Active Aspirin Ec (Aspirin) 325 Mg Tablet.dr 325 Mg PO DAILYWBKFT 30 Days Take Aspirin 325mg daily x 30 days then decrease to 81mg daily Lisinopril 5 Mg Tablet 2.5 Mg PO DAILY 30 Days Humalog (Insulin Lispro) 100 Unit/1 Ml Insuln.pen 4 Units SQ TIDAC 30 Days Lantus Solostar (Insulin Glargine,Hum.rec.anlog) 100 Unit/1 Ml Insuln.pen 18 Units SQ QHS 30 Days Toprol Xl (Metoprolol Succinate) 50 Mg Tab.er.24h 50 Mg PO DAILY 30 Days Atorvastatin Calcium 10 Mg Tablet 5 Mg PO QHS 30 Days Clopidogrel (Clopidogrel Bisulfate) 75 Mg Tablet 75 Mg PO DAILYWBKFT 30 Days Reported Tessalon Perle (Benzonatate) 100 Mg Capsule 100 Mg PO TID PRN Hydrocodone-Apap 7.5-325 (Hydrocodone Bit/Acetaminophen) 1 Tab Tablet 1 Tab PO PRN Q6HRS PRN Folic Acid 1 Mg Tablet 1 Tab PO DAILY Trazodone Hcl 50 Mg Tablet 0.5 Tab PO QHS Lasix (Furosemide) 40 Mg Tablet 40 Mg PO BID Potassium Chloride 20 Meq Tablet.er 20 Meq PO DAILY Tylenol Extra Strength (Acetaminophen) 500 Mg Tablet 1,000 Mg PO PRN Q8HRS PRN Vitamin B-12 (Cyanocobalamin (Vitamin B-12)) 1,000 Mcg Tablet 1 Tab PO DAILY Clonazepam 0.5 Mg Tablet 1 Tab PO HS Allergies Allergies: Coded Allergies: amoxicillin (Verified Allergy, Intermediate, Hives, 10/15/18) ROS Review of System I am not Able to obtain from the patient due to her nonverbal state Physical Exam Physical Exam General Appearance: [ ] Awake not Alert Oriented x 0 since pt is non- verbal In no visible Distress Eyes: Sclera is anicteric Conjunctiva Normal EN: No EN Drainage Mucous Memb. Dryish Neck: no JVD min JVP Supple no Thyromegaly CVS: S1 S2 soft Murmur No Gallop No Rub no Edema Resp: no Rales no Rhonchi no Acc. Muscle use GI: BAS +ve NO Bruit Non Tender Non Distended : no CVA tenderness; min Suprapubic Tenderness SKIN: no visble petechiael Rashes Breast Exam deferred Mu.Sk: Adequate passive ROM min age appropriate Muscle Atrophy Heme: Unable to palpate Obvious LAD no palp Splenomegaly NEURO: Good Strength and Tone no asterixis Psych: ? Depressed no Active hallucination Vital Signs Vital Signs Date Time Temp Pulse Resp B/P (MAP) Pulse Ox O2 Delivery O2 Flow Rate FiO2 02/26/19 10:00 98.8 101 24 143/52 (82) 99 Room Air 98.8 02/25/19 12:45 15.0 Assessment & Plan Acute renal failure at time of presentation: Presumably volume depleted and associated with vasomotor nephropathy, hypotension at presentation. CPKs normal hence doubt seizure per se despite hypoglycemia. She has responded well to IV fluids currently. Her vascular volume depletion: Appears to have resolved with IV fluids as ordered. Will need to be cautious with IV fluids given history of CHF Hyperkalemia at time of presentation: Appears to have resolved currently. Etiology of the same is unclear except for the fact the patient was on potassium supplementation at home. Hypotension at presentation: Appears to have resolved currently Current BP meds reviewed. See orders for changes. Severe azotemia presentation: Appears to be improving with IV fluids. Underlying chronic kidney disease due to diabetic hypertensive nephrosclerosis cannot be ruled out. I will be available if needed. Please call with questions concerns Labs Labs Laboratory Tests Test 02/25/19 12:34 02/25/19 12:35 02/25/19 12:44 02/25/19 12:45 Glucose (Fingerstick) 31 mg/dL (70-99) 148 mg/dL (70-99) White Blood Count 13.5 x10^3/uL (4.0-11.0) Red Blood Count 4.31 x10^6/uL (3.50-5.40) Hemoglobin 11.0 g/dL (12.0-15.5) Hematocrit 35.7 % (36.0-47.0) Mean Corpuscular Volume 83 fL (79-100) Mean Corpuscular Hemoglobin 25 pg (25-35) Mean Corpuscular Hemoglobin Concent 31 g/dL (31-37) Red Cell Distribution Width 21.8 % (11.5-14.5) Platelet Count 297 x10^3/uL (140-400) Neutrophils (%) (Auto) 84 % (31-73) Lymphocytes (%) (Auto) 12 % (24-48) Monocytes (%) (Auto) 4 % (0-9) Eosinophils (%) (Auto) 0 % (0-3) Basophils (%) (Auto) 0 % (0-3) Neutrophils # (Auto) 11.4 x10^3uL (1.8-7.7) Lymphocytes # (Auto) 1.5 x10^3/uL (1.0-4.8) Monocytes # (Auto) 0.5 x10^3/uL (0.0-1.1) Eosinophils # (Auto) 0.0 x10^3/uL (0.0-0.7) Basophils # (Auto) 0.0 x10^3/uL (0.0-0.2) Platelet Estimate Adequate (ADEQUATE) Anisocytosis Mod Ovalocytes Mod Schistocytes Occ Sodium Level 136 mmol/L (136-145) Potassium Level 6.6 mmol/L (3.5-5.1) Chloride Level 100 mmol/L (98-107) Carbon Dioxide Level 20 mmol/L (21-32) Anion Gap 16 (6-14) Blood Urea Nitrogen 110 mg/dL (7-20) Creatinine 1.8 mg/dL (0.6-1.0) Estimated GFR (Cockcroft-Gault) 26.8 Glucose Level 94 mg/dL (70-99) Lactic Acid Level 7.6 mmol/L (0.4-2.0) Calcium Level 10.2 mg/dL (8.5-10.1) Total Bilirubin 0.3 mg/dL (0.2-1.0) Direct Bilirubin 0.2 mg/dL (0.0-0.2) Aspartate Amino Transf (AST/SGOT) 59 U/L (15-37) Alanine Aminotransferase (ALT/SGPT) 65 U/L (14-59) Alkaline Phosphatase 101 U/L (46-116) Creatine Kinase 78 U/L (26-192) Troponin I Quantitative 0.149 ng/mL (0.000-0.055) PK-Icb-G-Type Natriuretic Peptide 8034 pg/mL (0-449) Total Protein 8.2 g/dL (6.4-8.2) Albumin 3.6 g/dL (3.4-5.0) Lipase 918 U/L (73-393) O2 Saturation 99 % (92-99) Arterial Blood pH 7.15 (7.35-7.45) Arterial Blood pCO2 at Patient Temp 45 mmHg (35-46) Arterial Blood pO2 at Patient Temp 240 mmHg (65-108) Arterial Blood HCO3 15 mmol/L (21-28) Arterial Blood Base Excess -13 mmol/L (-3-3) Oxyhemoglobin 98.3 % Methemoglobin 0.4 % (0.0-1.9) Carbon Monoxide, Quantitative 0.3 % (0.0-1.9) FiO2 50% venti Test 02/25/19 13:48 02/25/19 14:35 02/25/19 15:39 02/25/19 17:05 Urine Collection Type U cath Urine Color Yellow Urine Clarity Clear Urine pH 5.0 Urine Specific [place] 1.020 Urine Protein Negative mg/dL (NEG-TRACE) Urine Glucose (UA) 100 mg/dL (NEG) Urine Ketones (Stick) Negative mg/dL (NEG) Urine Blood Negative (NEG) Urine Nitrite Negative (NEG) Urine Bilirubin Negative (NEG) Urine Urobilinogen Dipstick 0.2 mg/dL (0.2 mg/dL) Urine Leukocyte Esterase Negative (NEG) Urine RBC 0 /HPF (0-2) Urine WBC 0 /HPF (0-4) Urine Squamous Epithelial Cells Few /LPF Urine Transitional Epithelial Cells Few /LPF Urine Amorphous Sediment Present /HPF Urine Bacteria 0 /HPF (0-FEW) Urine Hyaline Casts Many /HPF Urine Mucus Mod /LPF Glucose (Fingerstick) 243 mg/dL (70-99) 212 mg/dL (70-99) White Blood Count 10.1 x10^3/uL (4.0-11.0) Red Blood Count 3.23 x10^6/uL (3.50-5.40) Hemoglobin 8.2 g/dL (12.0-15.5) Hematocrit 26.4 % (36.0-47.0) Mean Corpuscular Volume 82 fL (79-100) Mean Corpuscular Hemoglobin 25 pg (25-35) Mean Corpuscular Hemoglobin Concent 31 g/dL (31-37) Red Cell Distribution Width 21.7 % (11.5-14.5) Platelet Count 201 x10^3/uL (140-400) Sodium Level 136 mmol/L (136-145) Potassium Level 4.9 mmol/L (3.5-5.1) Chloride Level 103 mmol/L (98-107) Carbon Dioxide Level 23 mmol/L (21-32) Anion Gap 10 (6-14) Blood Urea Nitrogen 100 mg/dL (7-20) Creatinine 1.4 mg/dL (0.6-1.0) Estimated GFR (Cockcroft-Gault) 35.8 Glucose Level 179 mg/dL (70-99) Lactic Acid Level 2.4 mmol/L (0.4-2.0) Calcium Level 8.8 mg/dL (8.5-10.1) Magnesium Level 1.9 mg/dL (1.8-2.4) Creatine Kinase 149 U/L (26-192) Troponin I Quantitative 0.114 ng/mL (0.000-0.055) Test 02/25/19 22:52 02/25/19 23:03 02/26/19 00:57 02/26/19 01:15 Glucose (Fingerstick) 12 mg/dL (70-99) 202 mg/dL (70-99) 59 mg/dL (70-99) 230 mg/dL (70-99) Test 02/26/19 02:45 02/26/19 03:27 02/26/19 03:45 02/26/19 05:11 Glucose (Fingerstick) 95 mg/dL (70-99) 65 mg/dL (70-99) 217 mg/dL (70-99) 108 mg/dL (70-99) Test 02/26/19 06:14 02/26/19 06:28 02/26/19 07:45 02/26/19 07:46 Glucose (Fingerstick) 69 mg/dL (70-99) 162 mg/dL (70-99) 68 mg/dL (70-99) Sodium Level 144 mmol/L (136-145) Potassium Level 4.2 mmol/L (3.5-5.1) Chloride Level 108 mmol/L (98-107) Carbon Dioxide Level 28 mmol/L (21-32) Anion Gap 8 (6-14) Blood Urea Nitrogen 65 mg/dL (7-20) Creatinine 1.2 mg/dL (0.6-1.0) Estimated GFR (Cockcroft-Gault) 42.8 Glucose Level 79 mg/dL (70-99) Calcium Level 9.3 mg/dL (8.5-10.1) Troponin I Quantitative 0.109 ng/mL (0.000-0.055) Triglycerides Level 59 mg/dL (0-150) Cholesterol Level 103 mg/dL (0-200) LDL Cholesterol, Calculated 49 mg/dL (0-100) VLDL Cholesterol, Calculated 12 mg/dL (0-40) Non-HDL Cholesterol Calculated 61 mg/dL (0-129) HDL Cholesterol 42 mg/dL (40-60) Cholesterol/HDL Ratio 2.5 Test 02/26/19 08:09 02/26/19 09:08 02/26/19 10:01 Glucose (Fingerstick) 107 mg/dL (70-99) 53 mg/dL (70-99) 118 mg/dL (70-99) Laboratory Tests Test 02/25/19 12:34 02/25/19 12:35 02/25/19 12:44 02/25/19 12:45 Glucose (Fingerstick) 31 mg/dL (70-99) 148 mg/dL (70-99) White Blood Count 13.5 x10^3/uL (4.0-11.0) Red Blood Count 4.31 x10^6/uL (3.50-5.40) Hemoglobin 11.0 g/dL (12.0-15.5) Hematocrit 35.7 % (36.0-47.0) Mean Corpuscular Volume 83 fL (79-100) Mean Corpuscular Hemoglobin 25 pg (25-35) Mean Corpuscular Hemoglobin Concent 31 g/dL (31-37) Red Cell Distribution Width 21.8 % (11.5-14.5) Platelet Count 297 x10^3/uL (140-400) Neutrophils (%) (Auto) 84 % (31-73) Lymphocytes (%) (Auto) 12 % (24-48) Monocytes (%) (Auto) 4 % (0-9) Eosinophils (%) (Auto) 0 % (0-3) Basophils (%) (Auto) 0 % (0-3) Neutrophils # (Auto) 11.4 x10^3uL (1.8-7.7) Lymphocytes # (Auto) 1.5 x10^3/uL (1.0-4.8) Monocytes # (Auto) 0.5 x10^3/uL (0.0-1.1) Eosinophils # (Auto) 0.0 x10^3/uL (0.0-0.7) Basophils # (Auto) 0.0 x10^3/uL (0.0-0.2) Platelet Estimate Adequate (ADEQUATE) Anisocytosis Mod Ovalocytes Mod Schistocytes Occ Sodium Level 136 mmol/L (136-145) Potassium Level 6.6 mmol/L (3.5-5.1) Chloride Level 100 mmol/L (98-107) Carbon Dioxide Level 20 mmol/L (21-32) Anion Gap 16 (6-14) Blood Urea Nitrogen 110 mg/dL (7-20) Creatinine 1.8 mg/dL (0.6-1.0) Estimated GFR (Cockcroft-Gault) 26.8 Glucose Level 94 mg/dL (70-99) Lactic Acid Level 7.6 mmol/L (0.4-2.0) Calcium Level 10.2 mg/dL (8.5-10.1) Total Bilirubin 0.3 mg/dL (0.2-1.0) Direct Bilirubin 0.2 mg/dL (0.0-0.2) Aspartate Amino Transf (AST/SGOT) 59 U/L (15-37) Alanine Aminotransferase (ALT/SGPT) 65 U/L (14-59) Alkaline Phosphatase 101 U/L (46-116) Creatine Kinase 78 U/L (26-192) Troponin I Quantitative 0.149 ng/mL (0.000-0.055) JJ-Bkr-I-Type Natriuretic Peptide 8034 pg/mL (0-449) Total Protein 8.2 g/dL (6.4-8.2) Albumin 3.6 g/dL (3.4-5.0) Lipase 918 U/L (73-393) O2 Saturation 99 % (92-99) Arterial Blood pH 7.15 (7.35-7.45) Arterial Blood pCO2 at Patient Temp 45 mmHg (35-46) Arterial Blood pO2 at Patient Temp 240 mmHg (65-108) Arterial Blood HCO3 15 mmol/L (21-28) Arterial Blood Base Excess -13 mmol/L (-3-3) Oxyhemoglobin 98.3 % Methemoglobin 0.4 % (0.0-1.9) Carbon Monoxide, Quantitative 0.3 % (0.0-1.9) FiO2 50% venti Test 02/25/19 13:48 02/25/19 14:35 02/25/19 15:39 02/25/19 17:05 Urine Collection Type U cath Urine Color Yellow Urine Clarity Clear Urine pH 5.0 Urine Specific [place] 1.020 Urine Protein Negative mg/dL (NEG-TRACE) Urine Glucose (UA) 100 mg/dL (NEG) Urine Ketones (Stick) Negative mg/dL (NEG) Urine Blood Negative (NEG) Urine Nitrite Negative (NEG) Urine Bilirubin Negative (NEG) Urine Urobilinogen Dipstick 0.2 mg/dL (0.2 mg/dL) Urine Leukocyte Esterase Negative (NEG) Urine RBC 0 /HPF (0-2) Urine WBC 0 /HPF (0-4) Urine Squamous Epithelial Cells Few /LPF Urine Transitional Epithelial Cells Few /LPF Urine Amorphous Sediment Present /HPF Urine Bacteria 0 /HPF (0-FEW) Urine Hyaline Casts Many /HPF Urine Mucus Mod /LPF Glucose (Fingerstick) 243 mg/dL (70-99) 212 mg/dL (70-99) White Blood Count 10.1 x10^3/uL (4.0-11.0) Red Blood Count 3.23 x10^6/uL (3.50-5.40) Hemoglobin 8.2 g/dL (12.0-15.5) Hematocrit 26.4 % (36.0-47.0) Mean Corpuscular Volume 82 fL (79-100) Mean Corpuscular Hemoglobin 25 pg (25-35) Mean Corpuscular Hemoglobin Concent 31 g/dL (31-37) Red Cell Distribution Width 21.7 % (11.5-14.5) Platelet Count 201 x10^3/uL (140-400) Sodium Level 136 mmol/L (136-145) Potassium Level 4.9 mmol/L (3.5-5.1) Chloride Level 103 mmol/L (98-107) Carbon Dioxide Level 23 mmol/L (21-32) Anion Gap 10 (6-14) Blood Urea Nitrogen 100 mg/dL (7-20) Creatinine 1.4 mg/dL (0.6-1.0) Estimated GFR (Cockcroft-Gault) 35.8 Glucose Level 179 mg/dL (70-99) Lactic Acid Level 2.4 mmol/L (0.4-2.0) Calcium Level 8.8 mg/dL (8.5-10.1) Magnesium Level 1.9 mg/dL (1.8-2.4) Creatine Kinase 149 U/L (26-192) Troponin I Quantitative 0.114 ng/mL (0.000-0.055) Test 02/25/19 22:52 02/25/19 23:03 02/26/19 00:57 02/26/19 01:15 Glucose (Fingerstick) 12 mg/dL (70-99) 202 mg/dL (70-99) 59 mg/dL (70-99) 230 mg/dL (70-99) Test 02/26/19 02:45 02/26/19 03:27 02/26/19 03:45 02/26/19 05:11 Glucose (Fingerstick) 95 mg/dL (70-99) 65 mg/dL (70-99) 217 mg/dL (70-99) 108 mg/dL (70-99) Test 02/26/19 06:14 02/26/19 06:28 02/26/19 07:45 02/26/19 07:46 Glucose (Fingerstick) 69 mg/dL (70-99) 162 mg/dL (70-99) 68 mg/dL (70-99) Sodium Level 144 mmol/L (136-145) Potassium Level 4.2 mmol/L (3.5-5.1) Chloride Level 108 mmol/L (98-107) Carbon Dioxide Level 28 mmol/L (21-32) Anion Gap 8 (6-14) Blood Urea Nitrogen 65 mg/dL (7-20) Creatinine 1.2 mg/dL (0.6-1.0) Estimated GFR (Cockcroft-Gault) 42.8 Glucose Level 79 mg/dL (70-99) Calcium Level 9.3 mg/dL (8.5-10.1) Troponin I Quantitative 0.109 ng/mL (0.000-0.055) Triglycerides Level 59 mg/dL (0-150) Cholesterol Level 103 mg/dL (0-200) LDL Cholesterol, Calculated 49 mg/dL (0-100) VLDL Cholesterol, Calculated 12 mg/dL (0-40) Non-HDL Cholesterol Calculated 61 mg/dL (0-129) HDL Cholesterol 42 mg/dL (40-60) Cholesterol/HDL Ratio 2.5 Test 02/26/19 08:09 02/26/19 09:08 02/26/19 10:01 Glucose (Fingerstick) 107 mg/dL (70-99) 53 mg/dL (70-99) 118 mg/dL (70-99) Review All relevant outside records, renal labs, imaging studies, telemetry/EKG's were reviewed. Images Images Renal sonogram as noted from 12/03/2018 FINDINGS: Right kidney measures 8.5 x 4.7 x 4.3 cm (longitudinal, AP, transverse) without hydronephrosis. Left kidney is suboptimally visualized but grossly measures 8.2 x 5.0 x 5.2 cm without apparent hydronephrosis. Prevoid bladder volume of 52 cc. Bilateral ureteral jets are seen. Post void bladder volume not obtained as patient was unable to void. Impression: Suboptimal exam due to poor is elevation of kidneys. No apparent hydronephrosis. HEATHER MAURICE MD Feb 26, 2019 11:09
--- NOTE | 2019-02-26 11:23 | PDOC ---
PULMONARY PROGRESS NOTES Vitals Vital Signs Date Time Temp Pulse Resp B/P (MAP) Pulse Ox O2 Delivery O2 Flow Rate FiO2 02/26/19 10:00 98.8 101 24 143/52 (82) 99 Room Air 98.8 02/25/19 12:45 15.0 Labs Laboratory Tests Test 02/25/19 12:34 02/25/19 12:35 02/25/19 12:44 02/25/19 12:45 Glucose (Fingerstick) 31 mg/dL (70-99) 148 mg/dL (70-99) White Blood Count 13.5 x10^3/uL (4.0-11.0) Red Blood Count 4.31 x10^6/uL (3.50-5.40) Hemoglobin 11.0 g/dL (12.0-15.5) Hematocrit 35.7 % (36.0-47.0) Mean Corpuscular Volume 83 fL (79-100) Mean Corpuscular Hemoglobin 25 pg (25-35) Mean Corpuscular Hemoglobin Concent 31 g/dL (31-37) Red Cell Distribution Width 21.8 % (11.5-14.5) Platelet Count 297 x10^3/uL (140-400) Neutrophils (%) (Auto) 84 % (31-73) Lymphocytes (%) (Auto) 12 % (24-48) Monocytes (%) (Auto) 4 % (0-9) Eosinophils (%) (Auto) 0 % (0-3) Basophils (%) (Auto) 0 % (0-3) Neutrophils # (Auto) 11.4 x10^3uL (1.8-7.7) Lymphocytes # (Auto) 1.5 x10^3/uL (1.0-4.8) Monocytes # (Auto) 0.5 x10^3/uL (0.0-1.1) Eosinophils # (Auto) 0.0 x10^3/uL (0.0-0.7) Basophils # (Auto) 0.0 x10^3/uL (0.0-0.2) Platelet Estimate Adequate (ADEQUATE) Anisocytosis Mod Ovalocytes Mod Schistocytes Occ Sodium Level 136 mmol/L (136-145) Potassium Level 6.6 mmol/L (3.5-5.1) Chloride Level 100 mmol/L (98-107) Carbon Dioxide Level 20 mmol/L (21-32) Anion Gap 16 (6-14) Blood Urea Nitrogen 110 mg/dL (7-20) Creatinine 1.8 mg/dL (0.6-1.0) Estimated GFR (Cockcroft-Gault) 26.8 Glucose Level 94 mg/dL (70-99) Lactic Acid Level 7.6 mmol/L (0.4-2.0) Calcium Level 10.2 mg/dL (8.5-10.1) Total Bilirubin 0.3 mg/dL (0.2-1.0) Direct Bilirubin 0.2 mg/dL (0.0-0.2) Aspartate Amino Transf (AST/SGOT) 59 U/L (15-37) Alanine Aminotransferase (ALT/SGPT) 65 U/L (14-59) Alkaline Phosphatase 101 U/L (46-116) Creatine Kinase 78 U/L (26-192) Troponin I Quantitative 0.149 ng/mL (0.000-0.055) RR-Tyf-T-Type Natriuretic Peptide 8034 pg/mL (0-449) Total Protein 8.2 g/dL (6.4-8.2) Albumin 3.6 g/dL (3.4-5.0) Lipase 918 U/L (73-393) O2 Saturation 99 % (92-99) Arterial Blood pH 7.15 (7.35-7.45) Arterial Blood pCO2 at Patient Temp 45 mmHg (35-46) Arterial Blood pO2 at Patient Temp 240 mmHg (65-108) Arterial Blood HCO3 15 mmol/L (21-28) Arterial Blood Base Excess -13 mmol/L (-3-3) Oxyhemoglobin 98.3 % Methemoglobin 0.4 % (0.0-1.9) Carbon Monoxide, Quantitative 0.3 % (0.0-1.9) FiO2 50% venti Test 02/25/19 13:48 02/25/19 14:35 02/25/19 15:39 02/25/19 17:05 Urine Collection Type U cath Urine Color Yellow Urine Clarity Clear Urine pH 5.0 Urine Specific Humphreys 1.020 Urine Protein Negative mg/dL (NEG-TRACE) Urine Glucose (UA) 100 mg/dL (NEG) Urine Ketones (Stick) Negative mg/dL (NEG) Urine Blood Negative (NEG) Urine Nitrite Negative (NEG) Urine Bilirubin Negative (NEG) Urine Urobilinogen Dipstick 0.2 mg/dL (0.2 mg/dL) Urine Leukocyte Esterase Negative (NEG) Urine RBC 0 /HPF (0-2) Urine WBC 0 /HPF (0-4) Urine Squamous Epithelial Cells Few /LPF Urine Transitional Epithelial Cells Few /LPF Urine Amorphous Sediment Present /HPF Urine Bacteria 0 /HPF (0-FEW) Urine Hyaline Casts Many /HPF Urine Mucus Mod /LPF Glucose (Fingerstick) 243 mg/dL (70-99) 212 mg/dL (70-99) White Blood Count 10.1 x10^3/uL (4.0-11.0) Red Blood Count 3.23 x10^6/uL (3.50-5.40) Hemoglobin 8.2 g/dL (12.0-15.5) Hematocrit 26.4 % (36.0-47.0) Mean Corpuscular Volume 82 fL (79-100) Mean Corpuscular Hemoglobin 25 pg (25-35) Mean Corpuscular Hemoglobin Concent 31 g/dL (31-37) Red Cell Distribution Width 21.7 % (11.5-14.5) Platelet Count 201 x10^3/uL (140-400) Sodium Level 136 mmol/L (136-145) Potassium Level 4.9 mmol/L (3.5-5.1) Chloride Level 103 mmol/L (98-107) Carbon Dioxide Level 23 mmol/L (21-32) Anion Gap 10 (6-14) Blood Urea Nitrogen 100 mg/dL (7-20) Creatinine 1.4 mg/dL (0.6-1.0) Estimated GFR (Cockcroft-Gault) 35.8 Glucose Level 179 mg/dL (70-99) Lactic Acid Level 2.4 mmol/L (0.4-2.0) Calcium Level 8.8 mg/dL (8.5-10.1) Magnesium Level 1.9 mg/dL (1.8-2.4) Creatine Kinase 149 U/L (26-192) Troponin I Quantitative 0.114 ng/mL (0.000-0.055) Test 02/25/19 22:52 02/25/19 23:03 02/26/19 00:57 02/26/19 01:15 Glucose (Fingerstick) 12 mg/dL (70-99) 202 mg/dL (70-99) 59 mg/dL (70-99) 230 mg/dL (70-99) Test 02/26/19 02:45 02/26/19 03:27 02/26/19 03:45 02/26/19 05:11 Glucose (Fingerstick) 95 mg/dL (70-99) 65 mg/dL (70-99) 217 mg/dL (70-99) 108 mg/dL (70-99) Test 02/26/19 06:14 02/26/19 06:28 02/26/19 07:45 02/26/19 07:46 Glucose (Fingerstick) 69 mg/dL (70-99) 162 mg/dL (70-99) 68 mg/dL (70-99) Sodium Level 144 mmol/L (136-145) Potassium Level 4.2 mmol/L (3.5-5.1) Chloride Level 108 mmol/L (98-107) Carbon Dioxide Level 28 mmol/L (21-32) Anion Gap 8 (6-14) Blood Urea Nitrogen 65 mg/dL (7-20) Creatinine 1.2 mg/dL (0.6-1.0) Estimated GFR (Cockcroft-Gault) 42.8 Glucose Level 79 mg/dL (70-99) Calcium Level 9.3 mg/dL (8.5-10.1) Troponin I Quantitative 0.109 ng/mL (0.000-0.055) Triglycerides Level 59 mg/dL (0-150) Cholesterol Level 103 mg/dL (0-200) LDL Cholesterol, Calculated 49 mg/dL (0-100) VLDL Cholesterol, Calculated 12 mg/dL (0-40) Non-HDL Cholesterol Calculated 61 mg/dL (0-129) HDL Cholesterol 42 mg/dL (40-60) Cholesterol/HDL Ratio 2.5 Test 02/26/19 08:09 02/26/19 09:08 02/26/19 10:01 02/26/19 11:08 Glucose (Fingerstick) 107 mg/dL (70-99) 53 mg/dL (70-99) 118 mg/dL (70-99) 84 mg/dL (70-99) Laboratory Tests Test 02/25/19 12:34 02/25/19 12:35 02/25/19 12:44 02/25/19 12:45 Glucose (Fingerstick) 31 mg/dL (70-99) 148 mg/dL (70-99) White Blood Count 13.5 x10^3/uL (4.0-11.0) Red Blood Count 4.31 x10^6/uL (3.50-5.40) Hemoglobin 11.0 g/dL (12.0-15.5) Hematocrit 35.7 % (36.0-47.0) Mean Corpuscular Volume 83 fL (79-100) Mean Corpuscular Hemoglobin 25 pg (25-35) Mean Corpuscular Hemoglobin Concent 31 g/dL (31-37) Red Cell Distribution Width 21.8 % (11.5-14.5) Platelet Count 297 x10^3/uL (140-400) Neutrophils (%) (Auto) 84 % (31-73) Lymphocytes (%) (Auto) 12 % (24-48) Monocytes (%) (Auto) 4 % (0-9) Eosinophils (%) (Auto) 0 % (0-3) Basophils (%) (Auto) 0 % (0-3) Neutrophils # (Auto) 11.4 x10^3uL (1.8-7.7) Lymphocytes # (Auto) 1.5 x10^3/uL (1.0-4.8) Monocytes # (Auto) 0.5 x10^3/uL (0.0-1.1) Eosinophils # (Auto) 0.0 x10^3/uL (0.0-0.7) Basophils # (Auto) 0.0 x10^3/uL (0.0-0.2) Platelet Estimate Adequate (ADEQUATE) Anisocytosis Mod Ovalocytes Mod Schistocytes Occ Sodium Level 136 mmol/L (136-145) Potassium Level 6.6 mmol/L (3.5-5.1) Chloride Level 100 mmol/L (98-107) Carbon Dioxide Level 20 mmol/L (21-32) Anion Gap 16 (6-14) Blood Urea Nitrogen 110 mg/dL (7-20) Creatinine 1.8 mg/dL (0.6-1.0) Estimated GFR (Cockcroft-Gault) 26.8 Glucose Level 94 mg/dL (70-99) Lactic Acid Level 7.6 mmol/L (0.4-2.0) Calcium Level 10.2 mg/dL (8.5-10.1) Total Bilirubin 0.3 mg/dL (0.2-1.0) Direct Bilirubin 0.2 mg/dL (0.0-0.2) Aspartate Amino Transf (AST/SGOT) 59 U/L (15-37) Alanine Aminotransferase (ALT/SGPT) 65 U/L (14-59) Alkaline Phosphatase 101 U/L (46-116) Creatine Kinase 78 U/L (26-192) Troponin I Quantitative 0.149 ng/mL (0.000-0.055) HP-Xtj-Y-Type Natriuretic Peptide 8034 pg/mL (0-449) Total Protein 8.2 g/dL (6.4-8.2) Albumin 3.6 g/dL (3.4-5.0) Lipase 918 U/L (73-393) O2 Saturation 99 % (92-99) Arterial Blood pH 7.15 (7.35-7.45) Arterial Blood pCO2 at Patient Temp 45 mmHg (35-46) Arterial Blood pO2 at Patient Temp 240 mmHg (65-108) Arterial Blood HCO3 15 mmol/L (21-28) Arterial Blood Base Excess -13 mmol/L (-3-3) Oxyhemoglobin 98.3 % Methemoglobin 0.4 % (0.0-1.9) Carbon Monoxide, Quantitative 0.3 % (0.0-1.9) FiO2 50% venti Test 02/25/19 13:48 02/25/19 14:35 02/25/19 15:39 02/25/19 17:05 Urine Collection Type U cath Urine Color Yellow Urine Clarity Clear Urine pH 5.0 Urine Specific Humphreys 1.020 Urine Protein Negative mg/dL (NEG-TRACE) Urine Glucose (UA) 100 mg/dL (NEG) Urine Ketones (Stick) Negative mg/dL (NEG) Urine Blood Negative (NEG) Urine Nitrite Negative (NEG) Urine Bilirubin Negative (NEG) Urine Urobilinogen Dipstick 0.2 mg/dL (0.2 mg/dL) Urine Leukocyte Esterase Negative (NEG) Urine RBC 0 /HPF (0-2) Urine WBC 0 /HPF (0-4) Urine Squamous Epithelial Cells Few /LPF Urine Transitional Epithelial Cells Few /LPF Urine Amorphous Sediment Present /HPF Urine Bacteria 0 /HPF (0-FEW) Urine Hyaline Casts Many /HPF Urine Mucus Mod /LPF Glucose (Fingerstick) 243 mg/dL (70-99) 212 mg/dL (70-99) White Blood Count 10.1 x10^3/uL (4.0-11.0) Red Blood Count 3.23 x10^6/uL (3.50-5.40) Hemoglobin 8.2 g/dL (12.0-15.5) Hematocrit 26.4 % (36.0-47.0) Mean Corpuscular Volume 82 fL (79-100) Mean Corpuscular Hemoglobin 25 pg (25-35) Mean Corpuscular Hemoglobin Concent 31 g/dL (31-37) Red Cell Distribution Width 21.7 % (11.5-14.5) Platelet Count 201 x10^3/uL (140-400) Sodium Level 136 mmol/L (136-145) Potassium Level 4.9 mmol/L (3.5-5.1) Chloride Level 103 mmol/L (98-107) Carbon Dioxide Level 23 mmol/L (21-32) Anion Gap 10 (6-14) Blood Urea Nitrogen 100 mg/dL (7-20) Creatinine 1.4 mg/dL (0.6-1.0) Estimated GFR (Cockcroft-Gault) 35.8 Glucose Level 179 mg/dL (70-99) Lactic Acid Level 2.4 mmol/L (0.4-2.0) Calcium Level 8.8 mg/dL (8.5-10.1) Magnesium Level 1.9 mg/dL (1.8-2.4) Creatine Kinase 149 U/L (26-192) Troponin I Quantitative 0.114 ng/mL (0.000-0.055) Test 02/25/19 22:52 02/25/19 23:03 02/26/19 00:57 02/26/19 01:15 Glucose (Fingerstick) 12 mg/dL (70-99) 202 mg/dL (70-99) 59 mg/dL (70-99) 230 mg/dL (70-99) Test 02/26/19 02:45 02/26/19 03:27 02/26/19 03:45 02/26/19 05:11 Glucose (Fingerstick) 95 mg/dL (70-99) 65 mg/dL (70-99) 217 mg/dL (70-99) 108 mg/dL (70-99) Test 02/26/19 06:14 02/26/19 06:28 02/26/19 07:45 02/26/19 07:46 Glucose (Fingerstick) 69 mg/dL (70-99) 162 mg/dL (70-99) 68 mg/dL (70-99) Sodium Level 144 mmol/L (136-145) Potassium Level 4.2 mmol/L (3.5-5.1) Chloride Level 108 mmol/L (98-107) Carbon Dioxide Level 28 mmol/L (21-32) Anion Gap 8 (6-14) Blood Urea Nitrogen 65 mg/dL (7-20) Creatinine 1.2 mg/dL (0.6-1.0) Estimated GFR (Cockcroft-Gault) 42.8 Glucose Level 79 mg/dL (70-99) Calcium Level 9.3 mg/dL (8.5-10.1) Troponin I Quantitative 0.109 ng/mL (0.000-0.055) Triglycerides Level 59 mg/dL (0-150) Cholesterol Level 103 mg/dL (0-200) LDL Cholesterol, Calculated 49 mg/dL (0-100) VLDL Cholesterol, Calculated 12 mg/dL (0-40) Non-HDL Cholesterol Calculated 61 mg/dL (0-129) HDL Cholesterol 42 mg/dL (40-60) Cholesterol/HDL Ratio 2.5 Test 02/26/19 08:09 02/26/19 09:08 02/26/19 10:01 02/26/19 11:08 Glucose (Fingerstick) 107 mg/dL (70-99) 53 mg/dL (70-99) 118 mg/dL (70-99) 84 mg/dL (70-99) Medications Active Scripts Medications Dose Route/Sig Max Daily Dose Days Date Category Dose Instructions Tessalon Perle (Benzonatate) 100 Mg Capsule 100 Mg PO TID PRN 01/17/19 Reported Aspirin Ec (Aspirin) 325 Mg Tablet.dr 325 Mg PO DAILYWBKFT 30 01/17/19 Rx Take Aspirin 325mg daily x 30 days then decrease to 81mg daily Lisinopril 5 Mg Tablet 2.5 Mg PO DAILY 30 01/17/19 Rx Humalog (Insulin Lispro) 100 Unit/1 Ml Insuln.pen 4 Units SQ TIDAC 30 01/17/19 Rx Lantus Solostar (Insulin Glargine,Hum.rec.anlog) 100 Unit/1 Ml Insuln.pen 18 Units SQ QHS 30 01/17/19 Rx Hydrocodone-Apap 7.5-325 (Hydrocodone Bit/Acetaminophen) 1 Tab Tablet 1 Tab PO PRN Q6HRS PRN 01/11/19 Reported Folic Acid 1 Mg Tablet 1 Tab PO DAILY 01/11/19 Reported Trazodone Hcl 50 Mg Tablet 0.5 Tab PO QHS 01/11/19 Reported Lasix (Furosemide) 40 Mg Tablet 40 Mg PO BID 12/07/18 Reported Potassium Chloride 20 Meq Tablet.er 20 Meq PO DAILY 12/07/18 Reported Toprol Xl (Metoprolol Succinate) 50 Mg Tab.er.24h 50 Mg PO DAILY 30 12/07/18 Rx Atorvastatin Calcium 10 Mg Tablet 5 Mg PO QHS 30 12/07/18 Rx Clopidogrel (Clopidogrel Bisulfate) 75 Mg Tablet 75 Mg PO DAILYWBKFT 30 12/07/18 Rx Tylenol Extra Strength (Acetaminophen) 500 Mg Tablet 1,000 Mg PO PRN Q8HRS PRN 11/29/18 Reported Vitamin B-12 (Cyanocobalamin (Vitamin B-12)) 1,000 Mcg Tablet 1 Tab PO DAILY 10/15/18 Reported Clonazepam 0.5 Mg Tablet 1 Tab PO HS 10/15/18 Reported Impression . NOTE DICTATED A RESP FAILURE IMPROVED POSSIBLE SEPSIS SEE ORDERS THANKS MORTEZA DAVIS MD Feb 26, 2019 11:23
[2019-02-26] MEDS ORDERED: DAPTOmycin (GENERIC) IVPB 320 MG in IV NORMAL SALINE 50ML 50 ML IV SCH (12:00)
[2019-02-26] MEDS: INSULIN LISPRO 300 UNITS/3 ML INSULN.PEN. SQ SCH ×2 (12:00→16:30)
--- NOTE | 2019-02-26 12:12 | HP ---
ADMIT DATE: 02/25/2019 CHIEF COMPLAINT: Hypoglycemia. HISTORY OF PRESENT ILLNESS: An 83-year-old white female recently undergone a cardiac catheterization with single vessel drug-eluting stent placement and has done well despite her severe cardiomyopathy. About 2 months ago, she had a right mid foot amputation because of severe PAD and infection and has done well with that as well. Blood sugars have been difficult to control at home since she has been on insulin and 3 weeks ago, saw her in the office and she was on 70 units of Lantus and her sugars are still running high. Lantus was increased at 90 units and blood sugars start to come down well and we reduced her to 75 units daily. She was found to be hypoglycemic and nonresponsive on the morning of admission and brought to the ER. She had multiple doses of D50 and now is on D5W. CT scan of the head was unremarkable. She was also very dehydrated and in a degree of renal failure with a BUN of 110 and a normal baseline creatinine, which was about 1.4, was 1.8. Blood cultures x 2 have also grown gram-positive cocci, although the source of this bacteremia is not clear as there is no overt source present. She is not verbally responsive at this time, which is new for her. PAST MEDICAL HISTORY: Well documented in the old records. MEDICATIONS: She takes lisinopril, aspirin, Plavix, metoprolol and hydrocodone for chronic nonmalignant pain. ALLERGIES: SHE HAS ALLERGIES LISTED TO AMOXICILLIN. SOCIAL HISTORY: She lives alone, has a son in the area. She is . She is a nondrinker as well. Nonsmoker. FAMILY HISTORY: Unremarkable. REVIEW OF SYSTEMS: Unremarkable. OBJECTIVE: ENT: Mucosa pink and moist. Pupils round and reactive. EOMs full. Mouth is very dry. No scalp lesions are seen. NECK: Revealed no carotid bruits, nodes or thyroid enlargement. LUNGS: Clear with decreased breath sounds. No tachypnea is noted. CARDIOVASCULAR: Regular rate. Heart tones distant. No S3 is heard. ABDOMEN: Soft, benign and nontender. No specific areas of abnormalities. EXTREMITIES: The right mid foot amputation is well healed. Left leg is normal. There is some ecchymoses in the upper extremities secondary to Plavix. No skin lesions are seen. NEUROLOGIC: She moves all extremities slowly and not necessary on demand. She is nonverbal, does not appear to understand questions well. No tremors seen. Cranial nerve abnormalities appear to be absent. DTRs are diminished. Cerebellar function is unclear. ASSESSMENT: 1. Severe hypoglycemia secondary to recent insulin increase. Blood sugars have stabilized now well with current D5W and boluses of D50. Last insulin dose unclear, probably about 36 hours ago. 2. Severe metabolic acidosis with prerenal azotemia. Etiology also unclear. She does take Lasix at home and lisinopril recently added and maybe intolerant of lisinopril. 3. Positive blood cultures, likely Staphylococcus bacteremia. Etiology of this is unclear. No external sources seen. Urine and chest x-ray are clear. 4. Aphasia, poor responsiveness, likely secondary to hypoglycemic injury, though CT scan of the head was normal. 5. Peripheral arterial disease and severe cardiomyopathy, medically stable. PLAN: We will add Cubicin a single dose for now with renal dosing. Blood cultures are pending. We will continue IV fluids for renal support and hydration, which is much improved and we will resume insulin only on a sliding scale as needed. We will hold Plavix as she is n.p.o. given her recent coronary artery stent. We will discuss with family when I could reach them regarding her code status, but she has requested full code in the past. ALAYNA SOLANO MD DR: YOSVANY/kasie JOB#: [id number] / [id number]
[2019-02-26] MEDS: IV DEXTROSE 10% 1,000 ML IV SCH (12:18)
[2019-02-26] MEDS ORDERED: VANCOMYCIN 500 MG in IV NORMAL SALINE 100ML 100 ML IV SCH (14:30)
[2019-02-26] MEDS: traZODone 50 MG TABLET. PO SCH (21:00)
[2019-02-26] MEDS ORDERED: clonazePAM 0.5 MG TABLET PO SCH (21:00)
[2019-02-26] MEDS: HEPARIN for SUB-Q USE 5,000 UNIT/ML VIAL. SQ SCH (21:08)
[2019-02-27] VITALS (16 sets, daily range): BP systolic 94–135; BP diastolic 46–64
[2019-02-27] MEDS: IV DEXTROSE 10% 1,000 ML IV SCH (05:35)
--- NOTE | 2019-02-27 06:53 | RAD ---
Carotid doppler ultrasound History: possible stroke, found down on February 25, 2019 Multiple grayscale, color, and duplex spectral analysis waveform sonographic images were acquired of the carotid, subclavian, and vertebral arteries. Comparison: None Findings: RIGHT: This side could not be evaluated due to the presence of the catheter. LEFT: PSV cm/sec EDV cm/sec Common carotid artery 77 20 Maximum internal carotid artery 123 24 Subclavian artery 161 External carotid artery 169 Vertebral artery 83 ICA/CCA ratio 1.59 Velocities used to determine stenosis are known to correlate with NASCET angiographic criteria. There is antegrade flow in the left vertebral artery. There is moderate, bulky appearing, eccentric, mostly hyperechoic, calcified plaque of the left internal carotid artery, also plaque of the distal left common carotid artery and carotid bulb. Color images of the left internal carotid artery suggest 50-69% luminal diameter reduction although velocity elevation is not as significant. Impression: 1. There is plaque greatest of the proximal left internal carotid artery. There is no significant velocity elevation suggestive of a hemodynamically significant stenosis although color images suggest 50-69% luminal diameter reduction of the proximal left internal carotid artery. The right side could not be evaluated due to the presence of a catheter. Electronically signed by: Marcus Junior MD (02/27/2019 6:50 AM) [facility]
[2019-02-27] MEDS: INSULIN LISPRO 300 UNITS/3 ML INSULN.PEN. SQ SCH ×3 (08:00→18:34)
[2019-02-27] MEDS ORDERED: ASPIRIN ENTERIC COATED 325 MG TABLET.DR. PO SCH (08:00)
[2019-02-27] MEDS ORDERED: ASPIRIN 325 MG TABLET PO SCH (08:00)
--- NOTE | 2019-02-27 08:13 | RAD ---
KUB History: NG tube placement Comparison: Chest exam 02/25/2019 Findings: AP view of the abdomen is submitted. There is now an enteric catheter coursing below the diaphragm with tip in the region of the proximal stomach. There is scattered gas in the small bowel and colon, bowel not considered slightly dilated. Small bowel fold thickening such as in the right abdomen is not excluded. Impression 1. There is enteric catheter coursing in the region of stomach.
--- NOTE | 2019-02-27 08:25 | CONS ---
DATE OF CONSULTATION: 02/26/2019 ATTENDING PHYSICIAN: Dr. Riki Fernandes. CONSULTING PHYSICIAN: Morteza Davis MD. REASON FOR CONSULTATION: The patient seen in pulmonary consultation at the request of Dr. Fernandes for hypoxemia. HISTORY OF PRESENT ILLNESS: The patient is an 83-year-old female with a history of ischemic cardiomyopathy, coronary artery disease, diabetes, was brought to the Emergency Room by EMS, found at home by her home healthcare. She was hypoglycemic. She was given some glucagon and D5. The patient is seen in consultation for hypoxia. She is unable to provide any significant history. She has been seen in consultation by Infectious Disease Service. Her chest x-ray revealed no infiltrates. She also had blood cultures, which were positive. She is currently receiving vancomycin. PAST MEDICAL HISTORY: Obtained by reviewing the current documentation. 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 She has a prior history of group B streptococcus, type 2 diabetes, chronic kidney disease, inflammatory polyneuropathy, hypertension, hyperlipidemia, chronic pain disorder, ischemic cardiomyopathy, ejection fraction 10-15%, osteoporosis, osteoarthritis, peripheral vascular disease, history of melanoma of the back, prior history of C. diff. PAST SURGICAL HISTORY: She has had right leg bypass surgery, transmetatarsal amputation in 10/2018. FAMILY HISTORY: Unknown. SOCIAL HISTORY: She lives at home. She is a nonsmoker. ALLERGIES: LISTED TO AMOXICILLIN. MEDICATIONS: List was obtained. It was reviewed. REVIEW OF SYSTEMS: Unobtainable secondary to the patient's condition. PHYSICAL EXAMINATION: GENERAL: The patient was unresponsive. She was awake. She was in no respiratory distress. Yesterday, she required 15 liters of oxygen supplementation. She is currently on room air. HEENT: Eyes, the sclerae were nonicteric. NECK: Jugular venous distention was not elevated. No lymphadenopathy. CHEST: Full expansion. LUNGS: Adequate airway flow with no wheezes. CARDIOVASCULAR: Regular rate and rhythm with S1, S2. No S3. ABDOMEN: Soft, nontender. EXTREMITIES: Evidence of previous surgery. LABORATORY DATA: Reviewed. White count was 13,000; hemoglobin and hematocrit were noted. Arterial blood gas yesterday pH of 7.15, PaCO2 of 45, PaO2 of 240. Electrolytes were noted. Yesterday, her sodium was 136, potassium 6.6, BUN was 110, creatinine was 1.8. Lactic acid level was 7.6, repeat lactic acid today was 2.4. Electrolytes: Potassium is ____. BUN is 100, creatinine is 1.4. Troponin was elevated. Chest x-ray: No acute infiltrates. MICROBIOLOGY: Positive blood cultures. IMPRESSION: 1. Acute hypoxemic respiratory failure, multifactorial. 2. Severe metabolic acidosis. 3. Acute chronic kidney failure. 4. Leukocytosis. 5. Metabolic toxic encephalopathy. 6. Hyperkalemia. 7. Elevated troponin level. 8. Hypoglycemia. 9. Positive bacteremia. 10. Ischemic cardiomyopathy. PLAN: 1. We will continue current support with oxygen supplementation, the patient has improved since yesterday. 2. Continue antibiotics per Infectious Disease service. 3. Consult Nephrology, already performed. 4. Consult Cardiology, already performed. 5. DVT and GI prophylaxis. 6. Initiate oral feeding when appropriate. I do appreciate the privilege in sharing in the patient's care. Total cumulative critical care time of 35 minutes. MORTEZA DAVIS MD DR: BINDU/kasie JOB#: [id number] / [id number]
[2019-02-27] MEDS: METOPROLOL SUCC 24HR ER 50 MG TAB.ER.24H. PO SCH (08:40)
[2019-02-27] MEDS: CYANOCOBALAMIN (VITAMIN B-12) 1,000 MCG TABLET. PO SCH (08:46)
[2019-02-27] MEDS: CLOPIDOGREL BISULFATE 75 MG TABLET PO SCH (08:46)
[2019-02-27] MEDS: HEPARIN for SUB-Q USE 5,000 UNIT/ML VIAL. SQ SCH ×2 (08:47→21:52)
--- NOTE | 2019-02-27 09:04 | PDOC ---
Infectious Disease Note Subjective Subjective Noncommunicative No fevers reported ROS ROS unobtainable Vital Sign Vital Signs Vital Signs Date Time Temp Pulse Resp B/P (MAP) Pulse Ox O2 Delivery O2 Flow Rate FiO2 02/27/19 08:40 102 100/50 02/27/19 08:00 99.1 14 100 Room Air 99.1 Physical Exam PHYSICAL EXAM GENERAL: Propped up in bed, unresponsive verbal HEENT: Pupils equally round, reactive. Normal conjunctivae. Oral cavity, pharynx dry. Dentures. NGT LUNGS: Clear to auscultation. HEART: S1 and S2 regular. ABDOMEN: Nondistended, soft, no grimace or guarding to palpation. Bowel sounds present. GENITOURINARY: De La Fuente in place. EXTREMITIES: No gross edema or cyanosis. Right TMA completely healed. No cyanosis. Heal protectors SKIN: Warm without rash. NEUROLOGIC: Tries to open eyes, does not respond to questions or follow commands. RIJ (02/25) without signs of any complications. Labs Lab Laboratory Tests Test 02/26/19 09:08 02/26/19 10:01 02/26/19 11:08 02/26/19 12:04 Glucose (Fingerstick) 53 mg/dL (70-99) 118 mg/dL (70-99) 84 mg/dL (70-99) 62 mg/dL (70-99) Test 02/26/19 12:22 02/26/19 14:37 02/26/19 16:13 02/26/19 18:28 Glucose (Fingerstick) 170 mg/dL (70-99) 93 mg/dL (70-99) 90 mg/dL (70-99) 91 mg/dL (70-99) Test 02/26/19 20:38 02/26/19 22:45 02/27/19 01:09 02/27/19 04:28 Glucose (Fingerstick) 110 mg/dL (70-99) 116 mg/dL (70-99) 134 mg/dL (70-99) 166 mg/dL (70-99) Test 02/27/19 08:26 Glucose (Fingerstick) 146 mg/dL (70-99) Micro BLOOD CULTURE Final GRAM POSITIVE COCCI IN CLUSTERS SEEN IN 2 OF 4 BOTTLES; 2 SETS WERE DRAWN; RESULTS WERE CALLED TO TOM PATTERSON IN ICU AT 0905; 04/27/19 BY MATILDE. THE BLOOD CULTURES HAVE BEEN SENT TO [facility] FOR FURTHER WORKUP. Objective Assessment Sepsis with Gram-positive cocci bacteremia, present on admission. Lactic acidosis, improved. Hypothermia, now normotensive and off Sarina Hugger. Leukocytosis. PENICILLIN/AMOXICILLIN ALLERGY WITH HIVES. Acute hypoxic respiratory failure, better now, off supplemental oxygen. Elevated lipase. Diabetes with hypoglycemia. Acute kidney injury on chronic kidney disease, improved. Metabolic encephalopathy. Ischemic cardiomyopathy. History of MSSA and group B strep infection. Plan Plan of Care Vancomycin switch to Dapto per primary for concern of worsening renal function Monitor for toxicities Awaiting GPC ID/susceptibilities Labs in am Supportive care D/w nursing Attending Co-Sign The patient was seen and interviewed as well as examined at the bedside. The chart was reviewed. The case was discussed. Agree with the plan of care. GARLAND REED APRN Feb 27, 2019 09:04 ANTHONY MAURICE MD Feb 27, 2019 13:06
--- NOTE | 2019-02-27 09:14 | PDOC2 ---
CONSULT Date of Consult Date of Consult DATE: 02/27/19 TIME: 09:14 Reason for Consult Reason for Consult: AMS History of Present Illness Reason for Visit: This patient is 83-year-old woman with past medical history of multiple medical problems with history of coronary artery disease diabetes cardiomyopathy chronic kidney disease patient was brought to the emergency room after she was found down at home by home care nurse. Patient had hypoglycemia patient required glucagon injection patient was hypoxic. Patient was also noted to be hypothermic. Patient had a CT scan done on the brain which did not show any evidence of acute intracranial etiology. No evidence of acute bleed. Frontal meningioma noted Past Medical History Cardiovascular: CAD, CHF, HTN, [place], Hyperlipidemia, Other (PAD) CENTRAL NERVOUS SYSTEM: Periperal neuropathy Heme/Onc: Anemia NOS Musculoskeletal: Osteoarthritis Infectious disease: Other Renal/: Chronic renal insuff Endocrine: Diabetes, Osteoporosis Family History Family History: Other (noncontributory) Social History No ALCOHOL: none Drugs: None Lives: Alone Current Problem List Problem List Problems Medical Problems: (1) Elevated troponin Status: Acute (2) Hypoglycemia Status: Acute (3) Hypokalemia Status: Acute (4) Leukocytosis Status: Acute (5) Metabolic acidosis Status: Acute (6) Severe sepsis Status: Acute Current Medications Current Medications Current Medications Sodium Chloride 500 ml @ 500 mls/hr 1X ONCE IV Last administered on 02/25/19at 13:30; Start 02/25/19 at 12:45; Stop 02/25/19 at 13:44; Status DC Levofloxacin/ Dextrose 150 ml @ 100 mls/hr 1X ONCE IV Last administered on 02/25/19at 13:30; Start 02/25/19 at 12:45; Stop 02/25/19 at 14:14; Status DC Sodium Bicarbonate (Sodium Bicarb Adult 8.4% Syr) 50 meq 1X ONCE IV Last administered on 02/25/19at 13:29; Start 02/25/19 at 13:00; Stop 02/25/19 at 13:01; Status DC Vancomycin HCl (Vanco Per Pharmacy) 1 each PRN DAILY PRN MC SEE COMMENTS Last administered on 02/25/19at 14:38; Start 02/25/19 at 12:45; Stop 02/26/19 at 10:16; Status DC Vancomycin HCl 1.25 gm/Sodium Chloride 250 ml @ 166.667 mls/hr 1X ONCE IV Last administered on 02/25/19at 14:21; Start 02/25/19 at 14:00; Stop 02/25/19 at 15:29; Status DC Ondansetron HCl (Zofran) 4 mg PRN Q8HRS PRN IV NAUSEA/VOMITING; Start 02/25/19 at 13:45; Stop 02/26/19 at 13:44; Status DC Morphine Sulfate (Morphine Sulfate) 2 mg PRN Q2HR PRN IV PAIN; Start 02/25/19 at 13:45; Stop 02/26/19 at 13:44; Status DC Sodium Bicarbonate (Sodium Bicarb Adult 8.4% Syr) 50 meq 1X ONCE IV ; Start 02/25/19 at 13:45; Stop 02/25/19 at 14:03; Status DC Calcium Gluconate (Calcium Gluconate) 1,000 mg 1X ONCE IVP Last administered on 02/25/19at 14:20; Start 02/25/19 at 13:45; Stop 02/25/19 at 14:03; Status DC Albuterol Sulfate (Ventolin Neb Soln) 10 mg 1X ONCE CONT NEB Last administered on 02/25/19at 14:01; Start 02/25/19 at 13:45; Stop 02/25/19 at 14:03; Status DC Aspirin (Children'S Aspirin) 324 mg 1X ONCE PO ; Start 02/25/19 at 14:30; Stop 02/25/19 at 14:31; Status DC Sodium Chloride 500 ml @ 500 mls/hr 1X ONCE IV Last administered on 02/25/19at 14:59; Start 02/25/19 at 14:30; Stop 02/25/19 at 15:29; Status DC Aspirin (Aspirin) 300 mg 1X ONCE AR ; Start 02/25/19 at 14:45; Stop 02/25/19 at 14:46; Status DC Vancomycin HCl 500 mg/Sodium Chloride 100 ml @ 100 mls/hr Q24H IV ; Start 02/26/19 at 14:30; Stop 02/26/19 at 14:30; Status DC Vancomycin HCl (Vancomycin Trough Level) 1 each 1X ONCE MC ; Start 02/27/19 at 14:00; Stop 02/27/19 at 14:00; Status DC Sodium Bicarbonate 75 meq/Sodium Chloride 1,075 ml @ 60 mls/hr [id number] IV Last administered on 02/25/19at 22:56; Start 02/25/19 at 17:30; Stop 02/26/19 at 07: 20; Status DC Aspirin (Aspirin) 300 mg DAILY AR Last administered on 02/26/19at 09:11; Start 02/26/19 at 09:00; Stop 02/26/19 at 10:19; Status DC Norepinephrine Bitartrate 250 ml @ 1.875 mls/ hr CONT PRN IV SEE I/O RECORD; Start 02/25/19 at 17:15 Vitamin A/Vitamin D (Vitamin A & D Ointment) 1 spenser PRN Q1HR PRN TP SKIN PROTECTION; Start 02/25/19 at 19:00 Dextrose (Dextrose 50%-Water Syringe) 25 gm STK-MED ONCE IV ; Start 02/25/19 at 22:52; Stop 02/25/19 at 22:53; Status DC Dextrose (Dextrose 50%-Water Syringe) 12.5 gm PRN Q15MIN PRN IV SEE COMMENTS Last administered on 02/26/19at 12:07; Start 02/25/19 at 23:45; Stop 02/27/19 at 08:30; Status DC Sodium Bicarbonate 75 meq/Dextrose/ Sodium Chloride 1,075 ml @ 60 mls/hr [id number] IV Last administered on 02/26/19at 07:41; Start 02/26/19 at 07:30; Stop 02/26/19 at 12:15; Status DC Aspirin (Ecotrin) 325 mg DAILYWBKFT PO ; Start 02/27/19 at 08:00; Stop 02/27/19 at 08:39; Status DC Clonazepam (KlonoPIN) 0.5 mg HS PO ; Start 02/26/19 at 21:00; Stop 02/26/19 at 21:00; Status DC Clopidogrel Bisulfate (Plavix) 75 mg DAILYWBKFT PO Last administered on 02/27/19at 08:46; Start 02/26/19 at 11:00 Cyanocobalamin (Vitamin B-12) 1,000 mcg DAILY PO Last administered on 02/27/19at 08:46; Start 02/26/19 at 11:00 Acetaminophen/ Hydrocodone Bitart (Lortab 7.5/325) 1 tab PRN Q6HRS PRN PO PAIN; Start 02/26/19 at 10:15 Metoprolol Succinate (Toprol Xl) 50 mg DAILY PO ; Start 02/26/19 at 11:00 Trazodone HCl (Desyrel) 25 mg QHS PO ; Start 02/26/19 at 21:00 Daptomycin 320 mg/ Sodium Chloride 50 ml @ 100 mls/hr QODAY IV Last administered on 02/26/19at 12:18; Start 02/26/19 at 12:00 Insulin Human Lispro (HumaLOG) 0-9 UNITS TIDWMEALS SQ ; Start 02/26/19 at 12:00 Dextrose (Dextrose 50%-Water Syringe) 12.5 gm PRN Q15MIN PRN IV SEE COMMENTS; Start 02/26/19 at 10:30 Heparin Sodium (Porcine) (Heparin Sodium) 5,000 unit Q12HR SQ Last administered on 02/27/19at 08:47; Start 02/26/19 at 21:00 Dextrose 1,000 ml @ 60 mls/hr [id number] IV Last administered on 02/27/19at 05:35; Start 02/26/19 at 12:15 Aspirin (Cristobal Aspirin) 325 mg DAILYWBKFT PO Last administered on 02/27/19at 08:46; Start 02/27/19 at 08:00 Active Scripts Active Aspirin Ec (Aspirin) 325 Mg Tablet.dr 325 Mg PO DAILYWBKFT 30 Days Take Aspirin 325mg daily x 30 days then decrease to 81mg daily Lisinopril 5 Mg Tablet 2.5 Mg PO DAILY 30 Days Humalog (Insulin Lispro) 100 Unit/1 Ml Insuln.pen 4 Units SQ TIDAC 30 Days Lantus Solostar (Insulin Glargine,Hum.rec.anlog) 100 Unit/1 Ml Insuln.pen 18 Units SQ QHS 30 Days Toprol Xl (Metoprolol Succinate) 50 Mg Tab.er.24h 50 Mg PO DAILY 30 Days Atorvastatin Calcium 10 Mg Tablet 5 Mg PO QHS 30 Days Clopidogrel (Clopidogrel Bisulfate) 75 Mg Tablet 75 Mg PO DAILYWBKFT 30 Days Reported Tessalon Perle (Benzonatate) 100 Mg Capsule 100 Mg PO TID PRN Hydrocodone-Apap 7.5-325 (Hydrocodone Bit/Acetaminophen) 1 Tab Tablet 1 Tab PO PRN Q6HRS PRN Folic Acid 1 Mg Tablet 1 Tab PO DAILY Trazodone Hcl 50 Mg Tablet 0.5 Tab PO QHS Lasix (Furosemide) 40 Mg Tablet 40 Mg PO BID Potassium Chloride 20 Meq Tablet.er 20 Meq PO DAILY Tylenol Extra Strength (Acetaminophen) 500 Mg Tablet 1,000 Mg PO PRN Q8HRS PRN Vitamin B-12 (Cyanocobalamin (Vitamin B-12)) 1,000 Mcg Tablet 1 Tab PO DAILY Clonazepam 0.5 Mg Tablet 1 Tab PO HS Allergies Allergies: Coded Allergies: amoxicillin (Verified Allergy, Intermediate, Hives, 10/15/18) Physical Exam Physical Exam General no acute distress. HEENT: Normocephalic and atraumatic. NECK: Supple without bruit No meningeal signs. Respiratory: good air entry Heart: Regular rate and rhythm, S1S2 normal NEUROLOGIC: Mental status alert able to follow Some simple commands Cranial nerve equally reactive pupils, and intact extraocular movements. No facial asymmetry. Palate elevates and tongue protrudes in midline. Reflexes are 1+ with flexor plantar responses. Coordination not able Strength able to move all exts to pain stimuli more upper exts. Sensory exam move all exts to pain stimuli. Gait in bed. Vitals VITALS Vital Signs Date Time Temp Pulse Resp B/P (MAP) Pulse Ox O2 Delivery O2 Flow Rate FiO2 02/27/19 09:00 106 24 97/52 (67) 99 Room Air 02/27/19 08:00 99.1 99.1 Labs Labs Laboratory Tests Test 02/25/19 12:34 02/25/19 12:35 02/25/19 12:44 02/25/19 12:45 Glucose (Fingerstick) 31 mg/dL (70-99) 148 mg/dL (70-99) White Blood Count 13.5 x10^3/uL (4.0-11.0) Red Blood Count 4.31 x10^6/uL (3.50-5.40) Hemoglobin 11.0 g/dL (12.0-15.5) Hematocrit 35.7 % (36.0-47.0) Mean Corpuscular Volume 83 fL (79-100) Mean Corpuscular Hemoglobin 25 pg (25-35) Mean Corpuscular Hemoglobin Concent 31 g/dL (31-37) Red Cell Distribution Width 21.8 % (11.5-14.5) Platelet Count 297 x10^3/uL (140-400) Neutrophils (%) (Auto) 84 % (31-73) Lymphocytes (%) (Auto) 12 % (24-48) Monocytes (%) (Auto) 4 % (0-9) Eosinophils (%) (Auto) 0 % (0-3) Basophils (%) (Auto) 0 % (0-3) Neutrophils # (Auto) 11.4 x10^3uL (1.8-7.7) Lymphocytes # (Auto) 1.5 x10^3/uL (1.0-4.8) Monocytes # (Auto) 0.5 x10^3/uL (0.0-1.1) Eosinophils # (Auto) 0.0 x10^3/uL (0.0-0.7) Basophils # (Auto) 0.0 x10^3/uL (0.0-0.2) Platelet Estimate Adequate (ADEQUATE) Anisocytosis Mod Ovalocytes Mod Schistocytes Occ Sodium Level 136 mmol/L (136-145) Potassium Level 6.6 mmol/L (3.5-5.1) Chloride Level 100 mmol/L (98-107) Carbon Dioxide Level 20 mmol/L (21-32) Anion Gap 16 (6-14) Blood Urea Nitrogen 110 mg/dL (7-20) Creatinine 1.8 mg/dL (0.6-1.0) Estimated GFR (Cockcroft-Gault) 26.8 Glucose Level 94 mg/dL (70-99) Lactic Acid Level 7.6 mmol/L (0.4-2.0) Calcium Level 10.2 mg/dL (8.5-10.1) Total Bilirubin 0.3 mg/dL (0.2-1.0) Direct Bilirubin 0.2 mg/dL (0.0-0.2) Aspartate Amino Transf (AST/SGOT) 59 U/L (15-37) Alanine Aminotransferase (ALT/SGPT) 65 U/L (14-59) Alkaline Phosphatase 101 U/L (46-116) Creatine Kinase 78 U/L (26-192) Troponin I Quantitative 0.149 ng/mL (0.000-0.055) BX-Cso-H-Type Natriuretic Peptide 8034 pg/mL (0-449) Total Protein 8.2 g/dL (6.4-8.2) Albumin 3.6 g/dL (3.4-5.0) Lipase 918 U/L (73-393) O2 Saturation 99 % (92-99) Arterial Blood pH 7.15 (7.35-7.45) Arterial Blood pCO2 at Patient Temp 45 mmHg (35-46) Arterial Blood pO2 at Patient Temp 240 mmHg (65-108) Arterial Blood HCO3 15 mmol/L (21-28) Arterial Blood Base Excess -13 mmol/L (-3-3) Oxyhemoglobin 98.3 % Methemoglobin 0.4 % (0.0-1.9) Carbon Monoxide, Quantitative 0.3 % (0.0-1.9) FiO2 50% venti Test 02/25/19 13:48 02/25/19 14:35 02/25/19 15:39 02/25/19 17:05 Urine Collection Type U cath Urine Color Yellow Urine Clarity Clear Urine pH 5.0 Urine Specific Antelope 1.020 Urine Protein Negative mg/dL (NEG-TRACE) Urine Glucose (UA) 100 mg/dL (NEG) Urine Ketones (Stick) Negative mg/dL (NEG) Urine Blood Negative (NEG) Urine Nitrite Negative (NEG) Urine Bilirubin Negative (NEG) Urine Urobilinogen Dipstick 0.2 mg/dL (0.2 mg/dL) Urine Leukocyte Esterase Negative (NEG) Urine RBC 0 /HPF (0-2) Urine WBC 0 /HPF (0-4) Urine Squamous Epithelial Cells Few /LPF Urine Transitional Epithelial Cells Few /LPF Urine Amorphous Sediment Present /HPF Urine Bacteria 0 /HPF (0-FEW) Urine Hyaline Casts Many /HPF Urine Mucus Mod /LPF Glucose (Fingerstick) 243 mg/dL (70-99) 212 mg/dL (70-99) White Blood Count 10.1 x10^3/uL (4.0-11.0) Red Blood Count 3.23 x10^6/uL (3.50-5.40) Hemoglobin 8.2 g/dL (12.0-15.5) Hematocrit 26.4 % (36.0-47.0) Mean Corpuscular Volume 82 fL (79-100) Mean Corpuscular Hemoglobin 25 pg (25-35) Mean Corpuscular Hemoglobin Concent 31 g/dL (31-37) Red Cell Distribution Width 21.7 % (11.5-14.5) Platelet Count 201 x10^3/uL (140-400) Sodium Level 136 mmol/L (136-145) Potassium Level 4.9 mmol/L (3.5-5.1) Chloride Level 103 mmol/L (98-107) Carbon Dioxide Level 23 mmol/L (21-32) Anion Gap 10 (6-14) Blood Urea Nitrogen 100 mg/dL (7-20) Creatinine 1.4 mg/dL (0.6-1.0) Estimated GFR (Cockcroft-Gault) 35.8 Glucose Level 179 mg/dL (70-99) Lactic Acid Level 2.4 mmol/L (0.4-2.0) Calcium Level 8.8 mg/dL (8.5-10.1) Magnesium Level 1.9 mg/dL (1.8-2.4) Creatine Kinase 149 U/L (26-192) Troponin I Quantitative 0.114 ng/mL (0.000-0.055) Test 02/25/19 22:52 02/25/19 23:03 02/26/19 00:57 02/26/19 01:15 Glucose (Fingerstick) 12 mg/dL (70-99) 202 mg/dL (70-99) 59 mg/dL (70-99) 230 mg/dL (70-99) Test 02/26/19 02:45 02/26/19 03:27 02/26/19 03:45 02/26/19 05:11 Glucose (Fingerstick) 95 mg/dL (70-99) 65 mg/dL (70-99) 217 mg/dL (70-99) 108 mg/dL (70-99) Test 02/26/19 06:14 02/26/19 06:28 02/26/19 07:45 02/26/19 07:46 Glucose (Fingerstick) 69 mg/dL (70-99) 162 mg/dL (70-99) 68 mg/dL (70-99) Sodium Level 144 mmol/L (136-145) Potassium Level 4.2 mmol/L (3.5-5.1) Chloride Level 108 mmol/L (98-107) Carbon Dioxide Level 28 mmol/L (21-32) Anion Gap 8 (6-14) Blood Urea Nitrogen 65 mg/dL (7-20) Creatinine 1.2 mg/dL (0.6-1.0) Estimated GFR (Cockcroft-Gault) 42.8 Glucose Level 79 mg/dL (70-99) Calcium Level 9.3 mg/dL (8.5-10.1) Troponin I Quantitative 0.109 ng/mL (0.000-0.055) Triglycerides Level 59 mg/dL (0-150) Cholesterol Level 103 mg/dL (0-200) LDL Cholesterol, Calculated 49 mg/dL (0-100) VLDL Cholesterol, Calculated 12 mg/dL (0-40) Non-HDL Cholesterol Calculated 61 mg/dL (0-129) HDL Cholesterol 42 mg/dL (40-60) Cholesterol/HDL Ratio 2.5 Test 02/26/19 08:09 02/26/19 09:08 02/26/19 10:01 02/26/19 11:08 Glucose (Fingerstick) 107 mg/dL (70-99) 53 mg/dL (70-99) 118 mg/dL (70-99) 84 mg/dL (70-99) Test 02/26/19 12:04 02/26/19 12:22 02/26/19 14:37 02/26/19 16:13 Glucose (Fingerstick) 62 mg/dL (70-99) 170 mg/dL (70-99) 93 mg/dL (70-99) 90 mg/dL (70-99) Test 02/26/19 18:28 02/26/19 20:38 02/26/19 22:45 02/27/19 01:09 Glucose (Fingerstick) 91 mg/dL (70-99) 110 mg/dL (70-99) 116 mg/dL (70-99) 134 mg/dL (70-99) Test 02/27/19 04:28 02/27/19 08:26 Glucose (Fingerstick) 166 mg/dL (70-99) 146 mg/dL (70-99) Laboratory Tests Test 02/26/19 10:01 02/26/19 11:08 02/26/19 12:04 02/26/19 12:22 Glucose (Fingerstick) 118 mg/dL (70-99) 84 mg/dL (70-99) 62 mg/dL (70-99) 170 mg/dL (70-99) Test 02/26/19 14:37 02/26/19 16:13 02/26/19 18:28 02/26/19 20:38 Glucose (Fingerstick) 93 mg/dL (70-99) 90 mg/dL (70-99) 91 mg/dL (70-99) 110 mg/dL (70-99) Test 02/26/19 22:45 02/27/19 01:09 02/27/19 04:28 02/27/19 08:26 Glucose (Fingerstick) 116 mg/dL (70-99) 134 mg/dL (70-99) 166 mg/dL (70-99) 146 mg/dL (70-99) Assessment/Plan Assessment/Plan This patient is 83-year-old woman with past medical history of multiple medical problems with history of coronary artery disease diabetes cardiomyopathy chronic kidney disease patient was brought to the emergency room after she was found down at home by home care nurse. Patient had hypoglycemia patient required glucagon injection patient was hypoxic. Patient was also noted to be hypothermic. Patient had a CT scan done on the brain which did not show any evidence of acute intracranial etiology. No evidence of acute bleed. Frontal meningioma noted 83-year-old woman with past medical history of multiple medical problems history of coronary artery disease diabetes cardiomyopathy chronic kidney disease patient was brought to the emergency room after she was found down at home by home care nurse with encephalopathy likely due to hypoglycemia, hypoxia, patient is currently being treated for sepsis on antibiotics infectious disease recommendations appreciated. Patient had a CT scan done on the brain which did not show any evidence of acute intracranial etiology. No evidence of acute bleed. Frontal meningioma noted Diabetes with hypoglycemia continue treat and monitor. Acute on chronic kidney disease, cardiomyopathy, will get MRI of brain when medically stable to evaluate for any acute intracranial etiology. Continue medical management PARRIS DAN MD Feb 27, 2019 09:14
[2019-02-27 10:40] LABS: CALCIUM 8.8 mg/dL (8.5-10.1); GFR 52.8; POTASSIUM 4.4 mmol/L (3.5-5.1)
--- NOTE | 2019-02-27 11:01 | PDOC ---
Provider Note Provider Note bp good, no temp, good output- renal fx ok now, bc pending on cubicin- still good glucose off insulin, still nonverbal- moves extrems slowly, no tremor- enteral feed started ALAYNA SOLANO MD Feb 27, 2019 11:01
--- NOTE | 2019-02-27 11:29 | PDOC ---
PROGRESS NOTES Subjective Subjective Nonverbal but comfortable Objective Objective Vital Signs Date Time Temp Pulse Resp B/P (MAP) Pulse Ox O2 Delivery O2 Flow Rate FiO2 02/27/19 10:00 106 19 106/56 (73) 100 Room Air 02/27/19 08:00 99.1 99.1 Intake and Output 02/27/19 06:59 Intake Total 1466.53 ml Output Total 2053 ml Balance -586.47 ml Intake IV Total 1466.53 ml Output Urine Total 2053 ml # Bowel Movements 5 Physical Exam Abdomen: Soft, No tenderness Heart: Regular rate, Other (ESM aortic) Extremities: Other (trace edema) General: No acute distress HEENT: Atraumatic, Other (NGT in place) Lungs: Clear to auscultation Assessment Assessment 1. Metabolic encephalopathy, severe hypoglycemia. CT head without acute findings. Treat per IM 2. Mild troponin elevation; initial 0.149. most probably type II, demand ischemia. 3. CAD s/p PCI/ÁNGEL to RCA. 12/2018 with residual LCx with 70% midsegment stenosis and 60% stenosis involving the diagonal branch. Clinically stable. Continue current medications including Plavix 4. Chronic systolic HF; LVEF 10-15%, compensated. Continue current medical regimen 5. PAD s/p fem-tib bypass, stable 6. PAflutter: Maintaining sinus rhythm. Telemetry did not show any significant arrhythmias. 7. Diabetes, II with hypoglycemia upon arrival: per primary team Plan Plan of Care Problems Medical Problems: (1) Elevated troponin Status: Acute (2) Hypoglycemia Status: Acute (3) Hypokalemia Status: Acute (4) Leukocytosis Status: Acute (5) Metabolic acidosis Status: Acute (6) Severe sepsis Status: Acute Comment Review of Relevant I have reviewed the following items charli (where applicable) has been applied. Labs Laboratory Tests Test 02/26/19 12:04 02/26/19 12:22 02/26/19 14:37 02/26/19 16:13 Glucose (Fingerstick) 62 mg/dL (70-99) 170 mg/dL (70-99) 93 mg/dL (70-99) 90 mg/dL (70-99) Test 02/26/19 18:28 02/26/19 20:38 02/26/19 22:45 02/27/19 01:09 Glucose (Fingerstick) 91 mg/dL (70-99) 110 mg/dL (70-99) 116 mg/dL (70-99) 134 mg/dL (70-99) Test 02/27/19 04:28 02/27/19 08:26 02/27/19 10:10 Glucose (Fingerstick) 166 mg/dL (70-99) 146 mg/dL (70-99) Sodium Level 140 mmol/L (136-145) Potassium Level 4.4 mmol/L (3.5-5.1) Chloride Level 107 mmol/L (98-107) Carbon Dioxide Level 27 mmol/L (21-32) Anion Gap 6 (6-14) Blood Urea Nitrogen 33 mg/dL (7-20) Creatinine 1.0 mg/dL (0.6-1.0) Estimated GFR (Cockcroft-Gault) 52.8 Glucose Level 158 mg/dL (70-99) Calcium Level 8.8 mg/dL (8.5-10.1) Microbiology 02/25/19 Blood Culture - Preliminary, Resulted NO GROWTH AFTER 1 DAY Medications Current Medications Aspirin (Cristobal Aspirin) 325 mg DAILYWBKFT PO Last administered on 02/27/19at 08:46; Start 02/27/19 at 08:00 Aspirin (Ecotrin) 325 mg DAILYWBKFT PO ; Start 02/27/19 at 08:00; Stop 02/27/19 at 08:39; Status DC Clonazepam (KlonoPIN) 0.5 mg HS PO ; Start 02/26/19 at 21:00; Stop 02/26/19 at 21:00; Status DC Daptomycin 320 mg/ Sodium Chloride 50 ml @ 100 mls/hr QODAY IV Last administered on 02/26/19at 12:18; Start 02/26/19 at 12:00 Dextrose 1,000 ml @ 60 mls/hr [id number] IV Last administered on 02/27/19at 05:35; Start 02/26/19 at 12:15; Stop 02/27/19 at 11:02; Status DC Heparin Sodium (Porcine) (Heparin Sodium) 5,000 unit Q12HR SQ Last administered on 02/27/19at 08:47; Start 02/26/19 at 21:00 Insulin Human Lispro (HumaLOG) 0-9 UNITS TIDWMEALS SQ ; Start 02/26/19 at 12:00 Trazodone HCl (Desyrel) 25 mg QHS PO ; Start 02/26/19 at 21:00 Vancomycin HCl (Vancomycin Trough Level) 1 each 1X ONCE MC ; Start 02/27/19 at 14:00; Stop 02/27/19 at 14:00; Status DC Vancomycin HCl 500 mg/Sodium Chloride 100 ml @ 100 mls/hr Q24H IV ; Start 02/26/19 at 14:30; Stop 02/26/19 at 14:30; Status DC Vitals/I & O Vital Sign - Last 24 Hours 02/26/19 02/26/19 02/26/19 02/26/19 12:00 12:00 13:00 14:00 Temp 98.4 98.4 98.4 98.4 Pulse 104 102 109 Resp 18 16 20 B/P (MAP) 100/47 (64) 123/57 (79) 150/64 (92) Pulse Ox 97 100 99 O2 Delivery Room Air Room Air Room Air Room Air 02/26/19 02/26/19 02/26/19 02/26/19 15:00 16:00 16:00 17:00 Temp 98.8 98.8 98.8 98.8 Pulse 107 106 108 Resp 21 B/P (MAP) 119/59 (79) 115/58 (77) 148/75 (99) Pulse Ox 99 100 98 O2 Delivery Room Air Room Air Room Air Room Air 02/26/19 02/26/19 02/26/19 02/26/19 18:00 19:00 19:55 20:00 Temp 98.8 99.0 98.6 98.8 99.0 98.6 Pulse 110 108 110 Resp 24 B/P (MAP) 154/70 (98) 140/68 (92) 153/66 (95) Pulse Ox 100 100 99 O2 Delivery Room Air Room Air Room Air Room Air 02/26/19 02/26/19 02/26/19 02/26/19 21:00 22:00 23:00 23:30 Temp 98.6 98.2 98.2 98.6 98.2 98.2 Pulse 102 110 108 Resp B/P (MAP) 121/78 (92) 160/76 (104) 111/53 (72) Pulse Ox 99 99 100 O2 Delivery Room Air Room Air Room Air Room Air 02/27/19 02/27/19 02/27/19 02/27/19 00:00 01:00 02:00 03:00 Temp 98.6 98.6 98.2 98.2 98.6 98.6 98.2 98.2 Pulse 112 106 112 112 Resp 29 32 35 28 B/P (MAP) 124/58 (80) 118/58 (78) 122/64 (83) 121/47 (71) Pulse Ox 100 100 100 100 O2 Delivery Room Air Room Air Room Air Room Air 02/27/19 02/27/19 02/27/19 02/27/19 03:26 04:23 05:00 05:30 Temp 99.0 99.0 99.0 99.0 99.0 99.0 Pulse 110 103 108 Resp 30 15 25 B/P (MAP) 119/52 (74) 94/46 (62) 116/60 (78) Pulse Ox 100 98 99 O2 Delivery Room Air Room Air Room Air Room Air 02/27/19 02/27/19 02/27/19 02/27/19 06:00 07:00 08:00 08:00 Temp 98.8 99.1 99.1 98.8 99.1 99.1 Pulse 103 110 102 Resp 24 25 14 B/P (MAP) 122/56 (78) 94/49 (64) 100/50 (67) Pulse Ox 99 99 100 O2 Delivery Room Air Room Air Room Air Room Air 02/27/19 02/27/19 02/27/19 08:40 09:00 10:00 Pulse 102 106 106 Resp 19 B/P (MAP) 100/50 97/52 (67) 106/56 (73) Pulse Ox 99 100 O2 Delivery Room Air Room Air Intake and Output 02/26/19 02/26/19 02/27/19 14:59 22:59 06:59 Intake Total 447.32 ml 287.21 ml 732 ml Output Total 915 ml 770 ml 368 ml Balance -467.68 ml -482.79 ml 364 ml CARLOS CONTI MD Feb 27, 2019 11:29
--- NOTE | 2019-02-27 13:15 | PDOC ---
PULMONARY PROGRESS NOTES Subjective PT ABOUT THE SAME NON RESPONSIVE Vitals Vital Signs Date Time Temp Pulse Resp B/P (MAP) Pulse Ox O2 Delivery O2 Flow Rate FiO2 02/27/19 10:00 106 19 106/56 (73) 100 Room Air 02/27/19 08:00 99.1 99.1 ROS: No Chest Pain Lungs: Clear Cardiovascular: S1, S2 Abdomen: Soft Neuro Exam: Alert Extremities: No Edema Labs Laboratory Tests Test 02/25/19 13:48 02/25/19 14:35 02/25/19 15:39 02/25/19 17:05 Urine Collection Type U cath Urine Color Yellow Urine Clarity Clear Urine pH 5.0 Urine Specific [place] 1.020 Urine Protein Negative mg/dL (NEG-TRACE) Urine Glucose (UA) 100 mg/dL (NEG) Urine Ketones (Stick) Negative mg/dL (NEG) Urine Blood Negative (NEG) Urine Nitrite Negative (NEG) Urine Bilirubin Negative (NEG) Urine Urobilinogen Dipstick 0.2 mg/dL (0.2 mg/dL) Urine Leukocyte Esterase Negative (NEG) Urine RBC 0 /HPF (0-2) Urine WBC 0 /HPF (0-4) Urine Squamous Epithelial Cells Few /LPF Urine Transitional Epithelial Cells Few /LPF Urine Amorphous Sediment Present /HPF Urine Bacteria 0 /HPF (0-FEW) Urine Hyaline Casts Many /HPF Urine Mucus Mod /LPF Glucose (Fingerstick) 243 mg/dL (70-99) 212 mg/dL (70-99) White Blood Count 10.1 x10^3/uL (4.0-11.0) Red Blood Count 3.23 x10^6/uL (3.50-5.40) Hemoglobin 8.2 g/dL (12.0-15.5) Hematocrit 26.4 % (36.0-47.0) Mean Corpuscular Volume 82 fL (79-100) Mean Corpuscular Hemoglobin 25 pg (25-35) Mean Corpuscular Hemoglobin Concent 31 g/dL (31-37) Red Cell Distribution Width 21.7 % (11.5-14.5) Platelet Count 201 x10^3/uL (140-400) Sodium Level 136 mmol/L (136-145) Potassium Level 4.9 mmol/L (3.5-5.1) Chloride Level 103 mmol/L (98-107) Carbon Dioxide Level 23 mmol/L (21-32) Anion Gap 10 (6-14) Blood Urea Nitrogen 100 mg/dL (7-20) Creatinine 1.4 mg/dL (0.6-1.0) Estimated GFR (Cockcroft-Gault) 35.8 Glucose Level 179 mg/dL (70-99) Lactic Acid Level 2.4 mmol/L (0.4-2.0) Calcium Level 8.8 mg/dL (8.5-10.1) Magnesium Level 1.9 mg/dL (1.8-2.4) Creatine Kinase 149 U/L (26-192) Troponin I Quantitative 0.114 ng/mL (0.000-0.055) Test 02/25/19 22:52 02/25/19 23:03 02/26/19 00:57 02/26/19 01:15 Glucose (Fingerstick) 12 mg/dL (70-99) 202 mg/dL (70-99) 59 mg/dL (70-99) 230 mg/dL (70-99) Test 02/26/19 02:45 02/26/19 03:27 02/26/19 03:45 02/26/19 05:11 Glucose (Fingerstick) 95 mg/dL (70-99) 65 mg/dL (70-99) 217 mg/dL (70-99) 108 mg/dL (70-99) Test 02/26/19 06:14 02/26/19 06:28 02/26/19 07:45 02/26/19 07:46 Glucose (Fingerstick) 69 mg/dL (70-99) 162 mg/dL (70-99) 68 mg/dL (70-99) Sodium Level 144 mmol/L (136-145) Potassium Level 4.2 mmol/L (3.5-5.1) Chloride Level 108 mmol/L (98-107) Carbon Dioxide Level 28 mmol/L (21-32) Anion Gap 8 (6-14) Blood Urea Nitrogen 65 mg/dL (7-20) Creatinine 1.2 mg/dL (0.6-1.0) Estimated GFR (Cockcroft-Gault) 42.8 Glucose Level 79 mg/dL (70-99) Calcium Level 9.3 mg/dL (8.5-10.1) Troponin I Quantitative 0.109 ng/mL (0.000-0.055) Triglycerides Level 59 mg/dL (0-150) Cholesterol Level 103 mg/dL (0-200) LDL Cholesterol, Calculated 49 mg/dL (0-100) VLDL Cholesterol, Calculated 12 mg/dL (0-40) Non-HDL Cholesterol Calculated 61 mg/dL (0-129) HDL Cholesterol 42 mg/dL (40-60) Cholesterol/HDL Ratio 2.5 Test 02/26/19 08:09 02/26/19 09:08 02/26/19 10:01 02/26/19 11:08 Glucose (Fingerstick) 107 mg/dL (70-99) 53 mg/dL (70-99) 118 mg/dL (70-99) 84 mg/dL (70-99) Test 02/26/19 12:04 02/26/19 12:22 02/26/19 14:37 02/26/19 16:13 Glucose (Fingerstick) 62 mg/dL (70-99) 170 mg/dL (70-99) 93 mg/dL (70-99) 90 mg/dL (70-99) Test 02/26/19 18:28 02/26/19 20:38 02/26/19 22:45 02/27/19 01:09 Glucose (Fingerstick) 91 mg/dL (70-99) 110 mg/dL (70-99) 116 mg/dL (70-99) 134 mg/dL (70-99) Test 02/27/19 04:28 02/27/19 08:26 02/27/19 10:10 02/27/19 13:01 Glucose (Fingerstick) 166 mg/dL (70-99) 146 mg/dL (70-99) 166 mg/dL (70-99) Sodium Level 140 mmol/L (136-145) Potassium Level 4.4 mmol/L (3.5-5.1) Chloride Level 107 mmol/L (98-107) Carbon Dioxide Level 27 mmol/L (21-32) Anion Gap 6 (6-14) Blood Urea Nitrogen 33 mg/dL (7-20) Creatinine 1.0 mg/dL (0.6-1.0) Estimated GFR (Cockcroft-Gault) 52.8 Glucose Level 158 mg/dL (70-99) Calcium Level 8.8 mg/dL (8.5-10.1) Laboratory Tests Test 02/26/19 14:37 02/26/19 16:13 02/26/19 18:28 02/26/19 20:38 Glucose (Fingerstick) 93 mg/dL (70-99) 90 mg/dL (70-99) 91 mg/dL (70-99) 110 mg/dL (70-99) Test 02/26/19 22:45 02/27/19 01:09 02/27/19 04:28 02/27/19 08:26 Glucose (Fingerstick) 116 mg/dL (70-99) 134 mg/dL (70-99) 166 mg/dL (70-99) 146 mg/dL (70-99) Test 02/27/19 10:10 02/27/19 13:01 Sodium Level 140 mmol/L (136-145) Potassium Level 4.4 mmol/L (3.5-5.1) Chloride Level 107 mmol/L (98-107) Carbon Dioxide Level 27 mmol/L (21-32) Anion Gap 6 (6-14) Blood Urea Nitrogen 33 mg/dL (7-20) Creatinine 1.0 mg/dL (0.6-1.0) Estimated GFR (Cockcroft-Gault) 52.8 Glucose Level 158 mg/dL (70-99) Calcium Level 8.8 mg/dL (8.5-10.1) Glucose (Fingerstick) 166 mg/dL (70-99) Medications Active Scripts Medications Dose Route/Sig Max Daily Dose Days Date Category Dose Instructions Tessalon Perle (Benzonatate) 100 Mg Capsule 100 Mg PO TID PRN 01/17/19 Reported Aspirin Ec (Aspirin) 325 Mg Tablet. 325 Mg PO DAILYWBKFT 30 01/17/19 Rx Take Aspirin 325mg daily x 30 days then decrease to 81mg daily Lisinopril 5 Mg Tablet 2.5 Mg PO DAILY 30 01/17/19 Rx Humalog (Insulin Lispro) 100 Unit/1 Ml Insuln.pen 4 Units SQ TIDAC 30 01/17/19 Rx Lantus Solostar (Insulin Glargine,Hum.rec.anlog) 100 Unit/1 Ml Insuln.pen 18 Units SQ QHS 30 01/17/19 Rx Hydrocodone-Apap 7.5-325 (Hydrocodone Bit/Acetaminophen) 1 Tab Tablet 1 Tab PO PRN Q6HRS PRN 01/11/19 Reported Folic Acid 1 Mg Tablet 1 Tab PO DAILY 01/11/19 Reported Trazodone Hcl 50 Mg Tablet 0.5 Tab PO QHS 01/11/19 Reported Lasix (Furosemide) 40 Mg Tablet 40 Mg PO BID 12/07/18 Reported Potassium Chloride 20 Meq Tablet.er 20 Meq PO DAILY 12/07/18 Reported Toprol Xl (Metoprolol Succinate) 50 Mg Tab.er.24h 50 Mg PO DAILY 30 12/07/18 Rx Atorvastatin Calcium 10 Mg Tablet 5 Mg PO QHS 30 12/07/18 Rx Clopidogrel (Clopidogrel Bisulfate) 75 Mg Tablet 75 Mg PO DAILYWBKFT 30 12/07/18 Rx Tylenol Extra Strength (Acetaminophen) 500 Mg Tablet 1,000 Mg PO PRN Q8HRS PRN 11/29/18 Reported Vitamin B-12 (Cyanocobalamin (Vitamin B-12)) 1,000 Mcg Tablet 1 Tab PO DAILY 10/15/18 Reported Clonazepam 0.5 Mg Tablet 1 Tab PO HS 10/15/18 Reported Impression . IMPRESSION: 1. Acute hypoxemic respiratory failure, multifactorial. 2. Severe metabolic acidosis. 3. Acute chronic kidney failure. 4. Leukocytosis. 5. Metabolic toxic encephalopathy. 6. Hyperkalemia. 7. Elevated troponin level. 8. Hypoglycemia. 9. Positive bacteremia. 10. Ischemic cardiomyopathy. Plan . SEE ORDRS WILL CONTINUE SUPPORT 1. We will continue current support with oxygen supplementation 2. Continue antibiotics per Infectious Disease service. 3. Consult Nephrology, already performed. 4. Consult Cardiology, already performed. 5. DVT and GI prophylaxis. 6. Initiate oral feeding when appropriate. MORTEZA DAVIS MD Feb 27, 2019 13:15
[2019-02-27] MEDS ORDERED: VANCOMYCIN 1.25 GM in IV NORMAL SALINE 250ML 250 ML IV ONE (15:30)
[2019-02-27] MEDS: VANCOMYCIN PER PHARMACY MC PRN ×2 (16:49→16:52)
--- NOTE | 2019-02-27 16:53 | NUR ---
Pharmacy Vancomycin Dosing Note S:Consulted to monitor and dose vancomycin started 02/25/19. O:ALEXSANDER RYDER is a 83 year old F with Sepsis . Height: 5 feet, 4 inches Weight: 54.178102 kg Levels Body Weight: 54.70 Adjusted Body Weight: 55.14 Dosing Weight: Actual Other Antibiotics: LABS: Last BUN: 110 Last Creatinine: 1.0 Creatinine Clearance: 30 mL/min Last WBC: 13.5 Last Procalcitonin: Tmax (past 24 hours): 86.8 (L) Microbiology: G+COCCI CLUSTER I/O: 1465/2052 Drug Levels: Last level: on at Last dose given 02/27/19 at 1530 Vancomycin Dosing: Loading Dose: 1250 mg x1 Dosing Weight: Actual Target Trough: 15-20 A: Based on: RENAL FUNCTION AND WEIGHT, VANCOMYCIN IV BOLUS 1.25GM IV BOLUS . P: 1. Begin Vancomycin 750 mg IV q24h TOMORROW 2. Follow up Trough level on 03/01/19 at 1700 3. Pharmacy will continue to monitor, follow and adjust therapy as needed. FARIDA BERNARDO [facility], 02/27/19 [id number]
[2019-02-27] MEDS: traZODone 50 MG TABLET. PO SCH (21:00)
[2019-02-28] VITALS (10 sets, daily range): BP systolic 91–135; BP diastolic 44–58
[2019-02-28] MEDS: INSULIN LISPRO 300 UNITS/3 ML INSULN.PEN. SQ SCH ×5 (06:00→23:34)
[2019-02-28 06:22] LABS: BASO # 0.1 x10^3/uL (0.0-0.2); BASO % 1 % (0-3); EOS # 0.1 x10^3/uL (0.0-0.7); EOS % 1 % (0-3); HEMATOCRIT 21.4 % (36.0-47.0); LYMPH # 2.8 x10^3/uL (1.0-4.8); LYMPH % 32 % (24-48); MEAN CORPUSCULAR HEMOGLOBIN 26 pg (25-35); MEAN CORPUSCULAR HGB CONC 31 g/dL (31-37); MEAN CORPUSCULAR VOLUME 82 fL (79-100); MONO # 0.6 x10^3/uL (0.0-1.1); MONO % 7 % (0-9); NEUT # 5.2 x10^3uL (1.8-7.7); NEUT % 59 % (31-73); PLATELET COUNT 184 x10^3/uL (140-400); RED BLOOD COUNT 2.61 x10^6/uL (3.50-5.40); RED CELL DISTRIBUTION WIDTH 22.2 % (11.5-14.5); WHITE BLOOD COUNT 8.8 x10^3/uL (4.0-11.0)
[2019-02-28 06:28] LABS: HEMOGLOBIN 6.7 g/dL (12.0-15.5)
[2019-02-28] MEDS ORDERED: PANTOPRAZOLE IV PUSH 40 MG VIAL. IVP SCH (07:30)
--- NOTE | 2019-02-28 07:59 | EKG ---
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
--- NOTE | 2019-02-28 08:33 | PDOC ---
Provider Note Provider Note neuro status same, vss, now has melena and hb 6.9- will dc heparin/asa and transfudse 1 u- added iv protonix, bid hemogram- is full code per her AD- d/w son mike, he will review her ad and consider dnr ALAYNA SOLANO MD Feb 28, 2019 08:33
--- NOTE | 2019-02-28 08:45 | PDOC ---
Infectious Disease Note Subjective Subjective Noncommunicative No fevers reported ROS ROS no n/v/d/sob Vital Sign Vital Signs Vital Signs Date Time Temp Pulse Resp B/P (MAP) Pulse Ox O2 Delivery O2 Flow Rate FiO2 02/28/19 07:00 97.3 101 18 120/56 (77) 99 Room Air 97.3 Physical Exam PHYSICAL EXAM GENERAL: Propped up in bed, unresponsive verbal HEENT: Pupils equally round, reactive. Normal conjunctivae. Oral cavity, pharynx dry. Dentures. NGT LUNGS: Clear to auscultation. HEART: S1 and S2 regular. ABDOMEN: Nondistended, soft, no grimace or guarding to palpation. Bowel sounds present. GENITOURINARY: [place] Fuente in place. EXTREMITIES: No gross edema or cyanosis. Right TMA completely healed. No cya nosis. Heal protectors SKIN: Warm without rash. NEUROLOGIC: Tries to open eyes, does not respond to questions or follow comma nds. RIJ (02/25) without signs of any complications. Labs Lab Laboratory Tests Test 02/27/19 10:10 02/27/19 13:01 02/27/19 18:17 02/28/19 00:17 Sodium Level 140 mmol/L (136-145) Potassium Level 4.4 mmol/L (3.5-5.1) Chloride Level 107 mmol/L (98-107) Carbon Dioxide Level 27 mmol/L (21-32) Anion Gap 6 (6-14) Blood Urea Nitrogen 33 mg/dL (7-20) Creatinine 1.0 mg/dL (0.6-1.0) Estimated GFR (Cockcroft-Gault) 52.8 Glucose Level 158 mg/dL (70-99) Calcium Level 8.8 mg/dL (8.5-10.1) Glucose (Fingerstick) 166 mg/dL (70-99) 193 mg/dL (70-99) 133 mg/dL (70-99) Test 02/28/19 05:00 02/28/19 06:17 White Blood Count 8.8 x10^3/uL (4.0-11.0) Red Blood Count 2.61 x10^6/uL (3.50-5.40) Hemoglobin 6.7 g/dL (12.0-15.5) Hematocrit 21.4 % (36.0-47.0) Mean Corpuscular Volume 82 fL (79-100) Mean Corpuscular Hemoglobin 26 pg (25-35) Mean Corpuscular Hemoglobin Concent 31 g/dL (31-37) Red Cell Distribution Width 22.2 % (11.5-14.5) Platelet Count 184 x10^3/uL (140-400) Neutrophils (%) (Auto) 59 % (31-73) Lymphocytes (%) (Auto) 32 % (24-48) Monocytes (%) (Auto) 7 % (0-9) Eosinophils (%) (Auto) 1 % (0-3) Basophils (%) (Auto) 1 % (0-3) Neutrophils # (Auto) 5.2 x10^3uL (1.8-7.7) Lymphocytes # (Auto) 2.8 x10^3/uL (1.0-4.8) Monocytes # (Auto) 0.6 x10^3/uL (0.0-1.1) Eosinophils # (Auto) 0.1 x10^3/uL (0.0-0.7) Basophils # (Auto) 0.1 x10^3/uL (0.0-0.2) Glucose (Fingerstick) 177 mg/dL (70-99) Micro BC + 2/4 G + cocci Objective Assessment Sepsis with Gram-positive cocci bacteremia, present on admission. Lactic acidosis, improved. Hypothermia, now normotensive and off Sarina Hugger. Leukocytosis. PENICILLIN/AMOXICILLIN ALLERGY WITH HIVES. Acute hypoxic respiratory failure, better now, off supplemental oxygen. Elevated lipase. Diabetes with hypoglycemia. Acute kidney injury on chronic kidney disease, improved. Metabolic encephalopathy. Ischemic cardiomyopathy. History of MSSA and group B strep infection. Plan Plan of Care Dapto per primary for concern of worsening renal function Monitor for toxicities Awaiting GPC ID/susceptibilities Labs in am Supportive care D/w nursing ANTHONY MAURICE MD Feb 28, 2019 08:44
--- NOTE | 2019-02-28 09:30 | PDOC ---
PULMONARY PROGRESS NOTES Subjective NAD APPEARS MORE AWAKE Vitals Vital Signs Date Time Temp Pulse Resp B/P (MAP) Pulse Ox O2 Delivery O2 Flow Rate FiO2 02/28/19 07:00 97.3 101 18 120/56 (77) 99 Room Air 97.3 ROS: No Chest Pain Lungs: Clear Cardiovascular: S1, S2 Abdomen: Soft Neuro Exam: Alert Extremities: No Edema Labs Laboratory Tests Test 02/26/19 10:01 02/26/19 11:08 02/26/19 12:04 02/26/19 12:22 Glucose (Fingerstick) 118 mg/dL (70-99) 84 mg/dL (70-99) 62 mg/dL (70-99) 170 mg/dL (70-99) Test 02/26/19 14:37 02/26/19 16:13 02/26/19 18:28 02/26/19 20:38 Glucose (Fingerstick) 93 mg/dL (70-99) 90 mg/dL (70-99) 91 mg/dL (70-99) 110 mg/dL (70-99) Test 02/26/19 22:45 02/27/19 01:09 02/27/19 04:28 02/27/19 08:26 Glucose (Fingerstick) 116 mg/dL (70-99) 134 mg/dL (70-99) 166 mg/dL (70-99) 146 mg/dL (70-99) Test 02/27/19 10:10 02/27/19 13:01 02/27/19 18:17 02/28/19 00:17 Sodium Level 140 mmol/L (136-145) Potassium Level 4.4 mmol/L (3.5-5.1) Chloride Level 107 mmol/L (98-107) Carbon Dioxide Level 27 mmol/L (21-32) Anion Gap 6 (6-14) Blood Urea Nitrogen 33 mg/dL (7-20) Creatinine 1.0 mg/dL (0.6-1.0) Estimated GFR (Cockcroft-Gault) 52.8 Glucose Level 158 mg/dL (70-99) Calcium Level 8.8 mg/dL (8.5-10.1) Glucose (Fingerstick) 166 mg/dL (70-99) 193 mg/dL (70-99) 133 mg/dL (70-99) Test 02/28/19 05:00 02/28/19 06:17 White Blood Count 8.8 x10^3/uL (4.0-11.0) Red Blood Count 2.61 x10^6/uL (3.50-5.40) Hemoglobin 6.7 g/dL (12.0-15.5) Hematocrit 21.4 % (36.0-47.0) Mean Corpuscular Volume 82 fL (79-100) Mean Corpuscular Hemoglobin 26 pg (25-35) Mean Corpuscular Hemoglobin Concent 31 g/dL (31-37) Red Cell Distribution Width 22.2 % (11.5-14.5) Platelet Count 184 x10^3/uL (140-400) Neutrophils (%) (Auto) 59 % (31-73) Lymphocytes (%) (Auto) 32 % (24-48) Monocytes (%) (Auto) 7 % (0-9) Eosinophils (%) (Auto) 1 % (0-3) Basophils (%) (Auto) 1 % (0-3) Neutrophils # (Auto) 5.2 x10^3uL (1.8-7.7) Lymphocytes # (Auto) 2.8 x10^3/uL (1.0-4.8) Monocytes # (Auto) 0.6 x10^3/uL (0.0-1.1) Eosinophils # (Auto) 0.1 x10^3/uL (0.0-0.7) Basophils # (Auto) 0.1 x10^3/uL (0.0-0.2) Glucose (Fingerstick) 177 mg/dL (70-99) Laboratory Tests Test 02/27/19 10:10 02/27/19 13:01 02/27/19 18:17 02/28/19 00:17 Sodium Level 140 mmol/L (136-145) Potassium Level 4.4 mmol/L (3.5-5.1) Chloride Level 107 mmol/L (98-107) Carbon Dioxide Level 27 mmol/L (21-32) Anion Gap 6 (6-14) Blood Urea Nitrogen 33 mg/dL (7-20) Creatinine 1.0 mg/dL (0.6-1.0) Estimated GFR (Cockcroft-Gault) 52.8 Glucose Level 158 mg/dL (70-99) Calcium Level 8.8 mg/dL (8.5-10.1) Glucose (Fingerstick) 166 mg/dL (70-99) 193 mg/dL (70-99) 133 mg/dL (70-99) Test 02/28/19 05:00 02/28/19 06:17 White Blood Count 8.8 x10^3/uL (4.0-11.0) Red Blood Count 2.61 x10^6/uL (3.50-5.40) Hemoglobin 6.7 g/dL (12.0-15.5) Hematocrit 21.4 % (36.0-47.0) Mean Corpuscular Volume 82 fL (79-100) Mean Corpuscular Hemoglobin 26 pg (25-35) Mean Corpuscular Hemoglobin Concent 31 g/dL (31-37) Red Cell Distribution Width 22.2 % (11.5-14.5) Platelet Count 184 x10^3/uL (140-400) Neutrophils (%) (Auto) 59 % (31-73) Lymphocytes (%) (Auto) 32 % (24-48) Monocytes (%) (Auto) 7 % (0-9) Eosinophils (%) (Auto) 1 % (0-3) Basophils (%) (Auto) 1 % (0-3) Neutrophils # (Auto) 5.2 x10^3uL (1.8-7.7) Lymphocytes # (Auto) 2.8 x10^3/uL (1.0-4.8) Monocytes # (Auto) 0.6 x10^3/uL (0.0-1.1) Eosinophils # (Auto) 0.1 x10^3/uL (0.0-0.7) Basophils # (Auto) 0.1 x10^3/uL (0.0-0.2) Glucose (Fingerstick) 177 mg/dL (70-99) Medications Active Scripts Medications Dose Route/Sig Max Daily Dose Days Date Category Dose Instructions Tessalon Perle (Benzonatate) 100 Mg Capsule 100 Mg PO TID PRN 01/17/19 Reported Aspirin Ec (Aspirin) 325 Mg Tablet.dr 325 Mg PO DAILYWBKFT 30 01/17/19 Rx Take Aspirin 325mg daily x 30 days then decrease to 81mg daily Lisinopril 5 Mg Tablet 2.5 Mg PO DAILY 30 01/17/19 Rx Humalog (Insulin Lispro) 100 Unit/1 Ml Insuln.pen 4 Units SQ TIDAC 30 01/17/19 Rx Lantus Solostar (Insulin Glargine,Hum.rec.anlog) 100 Unit/1 Ml Insuln.pen 18 Units SQ QHS 30 01/17/19 Rx Hydrocodone-Apap 7.5-325 (Hydrocodone Bit/Acetaminophen) 1 Tab Tablet 1 Tab PO PRN Q6HRS PRN 01/11/19 Reported Folic Acid 1 Mg Tablet 1 Tab PO DAILY 01/11/19 Reported Trazodone Hcl 50 Mg Tablet 0.5 Tab PO QHS 01/11/19 Reported Lasix (Furosemide) 40 Mg Tablet 40 Mg PO BID 12/07/18 Reported Potassium Chloride 20 Meq Tablet.er 20 Meq PO DAILY 12/07/18 Reported Toprol Xl (Metoprolol Succinate) 50 Mg Tab.er.24h 50 Mg PO DAILY 30 12/07/18 Rx Atorvastatin Calcium 10 Mg Tablet 5 Mg PO QHS 30 12/07/18 Rx Clopidogrel (Clopidogrel Bisulfate) 75 Mg Tablet 75 Mg PO DAILYWBKFT 30 12/07/18 Rx Tylenol Extra Strength (Acetaminophen) 500 Mg Tablet 1,000 Mg PO PRN Q8HRS PRN 11/29/18 Reported Vitamin B-12 (Cyanocobalamin (Vitamin B-12)) 1,000 Mcg Tablet 1 Tab PO DAILY 10/15/18 Reported Clonazepam 0.5 Mg Tablet 1 Tab PO HS 10/15/18 Reported Impression . IMPRESSION: 1. Acute hypoxemic respiratory failure, multifactorial. 2. Severe metabolic acidosis. 3. Acute chronic kidney failure. 4. Leukocytosis. 5. Metabolic toxic encephalopathy. 6. Hyperkalemia. 7. Elevated troponin level. 8. Hypoglycemia. 9. Positive bacteremia. 10. Ischemic cardiomyopathy. Plan . D/W RN WILL CONTINUE SUPPORT ANTIBX FOLLOW CULTURES NG FOR NUTRITION MORTEZA DAVIS MD Feb 28, 2019 09:30
--- NOTE | 2019-02-28 10:41 | NUR ---
SW reviewed pt's medical chart and evaluated for potential dc needs. Pt is from home and lives alone. Pt was admitted for low blood sugar. Pt is current with [facility] and can resume upon dc. PT/OT is currently pending. Pt has not been able to participate due to awaiting a transfusion. SW will await PT/OT recommendations and proceed accordingly.
--- NOTE | 2019-02-28 10:48 | PDOC ---
PROGRESS NOTES Assessment Problems Medical Problems: (1) Elevated troponin Status: Acute (2) Hypoglycemia Status: Acute (3) Hypokalemia Status: Acute (4) Leukocytosis Status: Acute (5) Metabolic acidosis Status: Acute (6) Severe sepsis Status: Acute Metabolic encephalopathy related to hypoglycemia, severe anemia, also medical problems of coronary artery disease, diabetes, cardiomyopathy, chronic kidney disease. 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 Fernandes, who would like to see how the patient response to treating the medical diseases. I agree with this approach. Subjective None Objective Vital Signs Date Time Temp Pulse Resp B/P (MAP) Pulse Ox O2 Delivery O2 Flow Rate FiO2 02/28/19 07:00 97.3 101 18 120/56 (77) 99 Room Air 97.3 Intake and Output 02/28/19 06:59 Intake Total 1250 ml Output Total 873 ml Balance 377 ml Intake Oral 0 ml Tube Feeding 800 ml Other 450 ml Output Urine Total 873 ml Gastric Drainage Total 0 ml # Bowel Movements 7 PHYSICAL EXAM Alert.Does not follow commands, does not speak PERRL. EOMI. CN: no focal findings. Muscle tone: normal. Muscle strength: moves all 4 extremities spontaneously but not to command DTR: 1+ Plantar reflex: silent Gait: not examined in bed. Sensory exam: no abnormal findings. No cerebellar signs elicited. Review of Relevant I have reviewed the following items charli (where applicable) has been applied. Labs Laboratory Tests Test 02/26/19 11:08 02/26/19 12:04 02/26/19 12:22 02/26/19 14:37 Glucose (Fingerstick) 84 mg/dL (70-99) 62 mg/dL (70-99) 170 mg/dL (70-99) 93 mg/dL (70-99) Test 02/26/19 16:13 02/26/19 18:28 02/26/19 20:38 02/26/19 22:45 Glucose (Fingerstick) 90 mg/dL (70-99) 91 mg/dL (70-99) 110 mg/dL (70-99) 116 mg/dL (70-99) Test 02/27/19 01:09 02/27/19 04:28 02/27/19 08:26 02/27/19 10:10 Glucose (Fingerstick) 134 mg/dL (70-99) 166 mg/dL (70-99) 146 mg/dL (70-99) Sodium Level 140 mmol/L (136-145) Potassium Level 4.4 mmol/L (3.5-5.1) Chloride Level 107 mmol/L (98-107) Carbon Dioxide Level 27 mmol/L (21-32) Anion Gap 6 (6-14) Blood Urea Nitrogen 33 mg/dL (7-20) Creatinine 1.0 mg/dL (0.6-1.0) Estimated GFR (Cockcroft-Gault) 52.8 Glucose Level 158 mg/dL (70-99) Calcium Level 8.8 mg/dL (8.5-10.1) Test 02/27/19 13:01 02/27/19 18:17 02/28/19 00:17 02/28/19 05:00 Glucose (Fingerstick) 166 mg/dL (70-99) 193 mg/dL (70-99) 133 mg/dL (70-99) White Blood Count 8.8 x10^3/uL (4.0-11.0) Red Blood Count 2.61 x10^6/uL (3.50-5.40) Hemoglobin 6.7 g/dL (12.0-15.5) Hematocrit 21.4 % (36.0-47.0) Mean Corpuscular Volume 82 fL (79-100) Mean Corpuscular Hemoglobin 26 pg (25-35) Mean Corpuscular Hemoglobin Concent 31 g/dL (31-37) Red Cell Distribution Width 22.2 % (11.5-14.5) Platelet Count 184 x10^3/uL (140-400) Neutrophils (%) (Auto) 59 % (31-73) Lymphocytes (%) (Auto) 32 % (24-48) Monocytes (%) (Auto) 7 % (0-9) Eosinophils (%) (Auto) 1 % (0-3) Basophils (%) (Auto) 1 % (0-3) Neutrophils # (Auto) 5.2 x10^3uL (1.8-7.7) Lymphocytes # (Auto) 2.8 x10^3/uL (1.0-4.8) Monocytes # (Auto) 0.6 x10^3/uL (0.0-1.1) Eosinophils # (Auto) 0.1 x10^3/uL (0.0-0.7) Basophils # (Auto) 0.1 x10^3/uL (0.0-0.2) Test 02/28/19 06:17 Glucose (Fingerstick) 177 mg/dL (70-99) Laboratory Tests Test 02/27/19 13:01 02/27/19 18:17 02/28/19 00:17 02/28/19 05:00 Glucose (Fingerstick) 166 mg/dL (70-99) 193 mg/dL (70-99) 133 mg/dL (70-99) White Blood Count 8.8 x10^3/uL (4.0-11.0) Red Blood Count 2.61 x10^6/uL (3.50-5.40) Hemoglobin 6.7 g/dL (12.0-15.5) Hematocrit 21.4 % (36.0-47.0) Mean Corpuscular Volume 82 fL (79-100) Mean Corpuscular Hemoglobin 26 pg (25-35) Mean Corpuscular Hemoglobin Concent 31 g/dL (31-37) Red Cell Distribution Width 22.2 % (11.5-14.5) Platelet Count 184 x10^3/uL (140-400) Neutrophils (%) (Auto) 59 % (31-73) Lymphocytes (%) (Auto) 32 % (24-48) Monocytes (%) (Auto) 7 % (0-9) Eosinophils (%) (Auto) 1 % (0-3) Basophils (%) (Auto) 1 % (0-3) Neutrophils # (Auto) 5.2 x10^3uL (1.8-7.7) Lymphocytes # (Auto) 2.8 x10^3/uL (1.0-4.8) Monocytes # (Auto) 0.6 x10^3/uL (0.0-1.1) Eosinophils # (Auto) 0.1 x10^3/uL (0.0-0.7) Basophils # (Auto) 0.1 x10^3/uL (0.0-0.2) Test 02/28/19 06:17 Glucose (Fingerstick) 177 mg/dL (70-99) Microbiology 02/25/19 Blood Culture - Preliminary, Resulted NO GROWTH AFTER 2 DAYS Medications Current Medications Sodium Chloride 500 ml @ 500 mls/hr 1X ONCE IV Last administered on 02/25/19at 13:30; Start 02/25/19 at 12:45; Stop 02/25/19 at 13:44; Status DC Levofloxacin/ Dextrose 150 ml @ 100 mls/hr 1X ONCE IV Last administered on 02/25/19at 13:30; Start 02/25/19 at 12:45; Stop 02/25/19 at 14:14; Status DC Sodium Bicarbonate (Sodium Bicarb Adult 8.4% Syr) 50 meq 1X ONCE IV Last administered on 02/25/19at 13:29; Start 02/25/19 at 13:00; Stop 02/25/19 at 1 3:01; Status DC Vancomycin HCl (Vanco Per Pharmacy) 1 each PRN DAILY PRN MC SEE COMMENTS Last administered on 02/25/19at 14:38; Start 02/25/19 at 12:45; Stop 02/26/19 at 10:16; Status DC Vancomycin HCl 1.25 gm/Sodium Chloride 250 ml @ 166.667 mls/hr 1X ONCE IV Last administered on 02/25/19at 14:21; Start 02/25/19 at 14:00; Stop 02/25/19 at 15:29; Status DC Ondansetron HCl (Zofran) 4 mg PRN Q8HRS PRN IV NAUSEA/VOMITING; Start 02/25/19 at 13:45; Stop 02/26/19 at 13:44; Status DC Morphine Sulfate (Morphine Sulfate) 2 mg PRN Q2HR PRN IV PAIN; Start 02/25/19 at 13:45; Stop 02/26/19 at 13:44; Status DC Sodium Bicarbonate (Sodium Bicarb Adult 8.4% Syr) 50 meq 1X ONCE IV ; Start 02/25/19 at 13:45; Stop 02/25/19 at 14:03; Status DC Calcium Gluconate (Calcium Gluconate) 1,000 mg 1X ONCE IVP Last administered on 02/25/19at 14:20; Start 02/25/19 at 13:45; Stop 02/25/19 at 14:03; Status DC Albuterol Sulfate (Ventolin Neb Soln) 10 mg 1X ONCE CONT NEB Last administered on 02/25/19at 14:01; Start 02/25/19 at 13:45; Stop 02/25/19 at 14:03; Status DC Aspirin (Children'S Aspirin) 324 mg 1X ONCE PO ; Start 02/25/19 at 14:30; Stop 02/25/19 at 14:31; Status DC Sodium Chloride 500 ml @ 500 mls/hr 1X ONCE IV Last administered on 02/25/19at 14:59; Start 02/25/19 at 14:30; Stop 02/25/19 at 15:29; Status DC Aspirin (Aspirin) 300 mg 1X ONCE [place] ; Start 02/25/19 at 14:45; Stop 02/25/19 at 14:46; Status DC Vancomycin HCl 500 mg/Sodium Chloride 100 ml @ 100 mls/hr Q24H IV ; Start 02/26/19 at 14:30; Stop 02/26/19 at 14:30; Status DC Vancomycin HCl (Vancomycin Trough Level) 1 each 1X ONCE MC ; Start 02/27/19 at 14:00; Stop 02/27/19 at 14:00; Status DC Sodium Bicarbonate 75 meq/Sodium Chloride 1,075 ml @ 60 mls/hr [id number] IV Last administered on 02/25/19at 22:56; Start 02/25/19 at 17:30; Stop 02/26/19 at 07:20; Status DC Aspirin (Aspirin) 300 mg DAILY [place] Last administered on 02/26/19at 09:11; Start 02/26/19 at 09:00; Stop 02/26/19 at 10:19; Status DC Norepinephrine Bitartrate 250 ml @ 1.875 mls/ hr CONT PRN IV SEE I/O RECORD; Start 02/25/19 at 17:15; Stop 02/27/19 at 15:56; Status DC Vitamin A/Vitamin D (Vitamin A & D Ointment) 1 spenser PRN Q1HR PRN TP SKIN PROTECTION; Start 02/25/19 at 19:00 Dextrose (Dextrose 50%-Water Syringe) 25 gm STK-MED ONCE IV ; Start 02/25/19 at 22:52; Stop 02/25/19 at 22:53; Status DC Dextrose (Dextrose 50%-Water Syringe) 12.5 gm PRN Q15MIN PRN IV SEE COMMENTS Last administered on 02/26/19at 12:07; Start 02/25/19 at 23:45; Stop 02/27/19 at 08:30; Status DC Sodium Bicarbonate 75 meq/Dextrose/ Sodium Chloride 1,075 ml @ 60 mls/hr [id number] IV Last administered on 02/26/19at 07:41; Start 02/26/19 at 07:30; Stop 02/26/19 at 12:15; Status DC Aspirin (Ecotrin) 325 mg DAILYWBKFT PO ; Start 02/27/19 at 08:00; Stop 02/27/19 at 08:39; Status DC Clonazepam (KlonoPIN) 0.5 mg HS PO ; Start 02/26/19 at 21:00; Stop 02/26/19 at 21:00; Status DC Clopidogrel Bisulfate (Plavix) 75 mg DAILYWBKFT PO Last administered on 02/27/19at 08:46; Start 02/26/19 at 11:00; Stop 02/28/19 at 08:23; Status DC Cyanocobalamin (Vitamin B-12) 1,000 mcg DAILY PO Last administered on 02/27/19at 08:46; Start 02/26/19 at 11:00 Acetaminophen/ Hydrocodone Bitart (Lortab 7.5/325) 1 tab PRN Q6HRS PRN PO PAIN; Start 02/26/19 at 10:15 Metoprolol Succinate (Toprol Xl) 50 mg DAILY PO ; Start 02/26/19 at 11:00; Stop 02/28/19 at 10:36; Status DC Trazodone HCl (Desyrel) 25 mg QHS PO ; Start 02/26/19 at 21:00 Daptomycin 320 mg/ Sodium Chloride 50 ml @ 100 mls/hr QODAY IV Last administered on 02/26/19at 12:18; Start 02/26/19 at 12:00; Stop 02/27/19 at 15:16; Status DC Insulin Human Lispro (HumaLOG) 0-9 UNITS TIDWMEALS SQ ; Start 02/26/19 at 12:00; Stop 02/27/19 at 13:12; Status DC Dextrose (Dextrose 50%-Water Syringe) 12.5 gm PRN Q15MIN PRN IV SEE COMMENTS; Start 02/26/19 at 10:30 Heparin Sodium (Porcine) (Heparin Sodium) 5,000 unit Q12HR SQ Last administered on 02/27/19at 21:52; Start 02/26/19 at 21:00; Stop 02/28/19 at 06:36; Status DC Dextrose 1,000 ml @ 60 mls/hr [id number] IV Last administered on 02/27/19at 05:35; Start 02/26/19 at 12:15; Stop 02/27/19 at 11:02; Status DC Aspirin (Cristobal Aspirin) 325 mg DAILYWBKFT PO Last administered on 02/27/19at 08:46; Start 02/27/19 at 08:00; Stop 02/28/19 at 08:23; Status DC Insulin Human Lispro (HumaLOG) 0-9 UNITS Q6HRS SQ Last administered on at 18:34; Start 02/27/19 at 18:00 Vancomycin HCl (Vanco Per Pharmacy) 1 each PRN DAILY PRN MC SEE COMMENTS Last administered on 02/27/19at 16:52; Start 02/27/19 at 15:15 Vancomycin HCl 1.25 gm/Sodium Chloride 250 ml @ 166.667 mls/hr 1X ONCE IV Last administered on 02/27/19at 18:16; Start 02/27/19 at 15:30; Stop 02/27/19 at 16:59; Status DC Vancomycin HCl 750 mg/Sodium Chloride 250 ml @ 250 mls/hr Q24H IV ; Start 02/28/19 at 17:30 Vancomycin HCl (Vancomycin Trough Level) 1 each 1X ONCE MC ; Start 03/01/19 at 17:00; Stop 03/01/19 at 17:01 Pantoprazole Sodium (PROTONIX VIAL for IV PUSH) 40 mg DAILYAC IVP Last administered on 02/28/19at 08:08; Start 02/28/19 at 07:30 Metoprolol Tartrate (Lopressor) 25 mg BID PO ; Start 02/28/19 at 21:00; Stop 02/28/19 at 21:00; Status DC Metoprolol Tartrate (Lopressor) 25 mg BID PO ; Start 02/28/19 at 10:45 Active Scripts Active Aspirin Ec (Aspirin) 325 Mg Tablet.dr 325 Mg PO DAILYWBKFT 30 Days Take Aspirin 325mg daily x 30 days then decrease to 81mg daily Lisinopril 5 Mg Tablet 2.5 Mg PO DAILY 30 Days Humalog (Insulin Lispro) 100 Unit/1 Ml Insuln.pen 4 Units SQ TIDAC 30 Days Lantus Solostar (Insulin Glargine,Hum.rec.anlog) 100 Unit/1 Ml Insuln.pen 18 Units SQ QHS 30 Days Toprol Xl (Metoprolol Succinate) 50 Mg Tab.er.24h 50 Mg PO DAILY 30 Days Atorvastatin Calcium 10 Mg Tablet 5 Mg PO QHS 30 Days Clopidogrel (Clopidogrel Bisulfate) 75 Mg Tablet 75 Mg PO DAILYWBKFT 30 Days Reported Tessalon Perle (Benzonatate) 100 Mg Capsule 100 Mg PO TID PRN Hydrocodone-Apap 7.5-325 (Hydrocodone Bit/Acetaminophen) 1 Tab Tablet 1 Tab PO PRN Q6HRS PRN Folic Acid 1 Mg Tablet 1 Tab PO DAILY Trazodone Hcl 50 Mg Tablet 0.5 Tab PO QHS Lasix (Furosemide) 40 Mg Tablet 40 Mg PO BID Potassium Chloride 20 Meq Tablet.er 20 Meq PO DAILY Tylenol Extra Strength (Acetaminophen) 500 Mg Tablet 1,000 Mg PO PRN Q8HRS PRN Vitamin B-12 (Cyanocobalamin (Vitamin B-12)) 1,000 Mcg Tablet 1 Tab PO DAILY Clonazepam 0.5 Mg Tablet 1 Tab PO HS Vitals/I & O Vital Sign - Last 24 Hours 02/27/19 02/27/19 02/27/19 02/27/19 12:00 15:47 16:10 19:35 Temp 98.4 97.7 97.5 98.4 97.7 97.5 Pulse 113 107 102 Resp 14 20 18 B/P (MAP) 128/57 (80) 135/60 (85) 118/57 (77) Pulse Ox 100 95 96 O2 Delivery Room Air Room Air Room Air Room Air 02/27/19 02/27/19 02/28/19 02/28/19 20:00 23:25 03:20 07:00 Temp 97.6 97.9 97.3 97.6 97.9 97.3 Pulse 99 103 101 Resp 18 18 18 B/P (MAP) 119/56 (77) 135/51 (79) 120/56 (77) Pulse Ox 97 95 99 O2 Delivery Room Air Room Air Room Air Room Air Intake and Output 02/27/19 02/27/1902/28/19 14:59 22:59 06:59 Intake Total 150 ml 150 ml 950 ml Output Total 223 ml 0 ml 650 ml Balance -73 ml 150 ml 300 ml BARBRA GLASER MD Feb 28, 2019 10:48
[2019-02-28] MEDS: CYANOCOBALAMIN (VITAMIN B-12) 1,000 MCG TABLET. PO SCH (10:52)
[2019-02-28] MEDS: METOPROLOL TART IMMED RELEASE 25 MG TABLET. PO SCH ×2 (10:53→21:10)
[2019-02-28] MEDS: VANCOMYCIN PER PHARMACY MC PRN (12:56)
[2019-02-28 14:57] LABS: HEMOGLOBIN 8.1 g/dL (12.0-15.5)
--- NOTE | 2019-02-28 15:05 | NUR ---
Wound care: Patient seen per wound care consult. Tube feeding paused. There are no open wounds at this time. Maceration has now resolved to right thigh and left heel is not open. Patient coccyx is reddened but remains blanchable. Patient had bowel movement, patient cleaned and matias changed. Patient repositioned to left side using wedge. Patient has bilateral heel medix on. Call light in reach. Tube feeding turned back on, bed above 30 degrees. Family at bedside.
--- NOTE | 2019-02-28 16:51 | PDOC2 ---
PALLIATIVE CARE Palliative Care Note Palliative Care Consult requested by Dr. Fernandes/Sintia FAIR to discuss goals of care and review AD with son/DPOA Quinn. Medical Assessment per medical record; Sepsis with Gram-positive cocci bacteremia, present on admission. Lactic acidosis, improved. Hypothermia, now normotensive and off Sarina Hugger. Leukocytosis. PENICILLIN/AMOXICILLIN ALLERGY WITH HIVES. Acute hypoxic respiratory failure, better now, off supplemental oxygen. Elevated lipase. Diabetes with hypoglycemia. Acute kidney injury on chronic kidney disease, improved. Metabolic encephalopathy. Ischemic cardiomyopathy. History of MSSA and group B strep infection. Patient alert. Does not respond verbally or to commands. Was asked by Sintia FAIR to review AD with patient's son Quinn. Quinn is able to accurately verbalize medical condition and events leading up to hospitalization. Reviewed AD. Copy on chart. Quinn is considering DNR/DNI but would like to talk with his Rosy/TUSHAR before making the decision. He is concerned that making his mother DNR-DNI will/will not impact other parts of the AD. He would like to give her a chance to see if she will improve at all. He is concerned about stopping tube feedings---"starv ing her" Understands she has weak heart --EF10-15% and multiple other comorbidities. Quinn will talk with his and call the staff sunita to inform them of the decision. 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 Would consider placing patient at [facility] but not permanently. KRYSTIAN POTTER Feb 28, 2019 16:51
[2019-02-28] MEDS ORDERED: VANCOMYCIN 750 MG in IV NORMAL SALINE 250ML 250 ML IV SCH (17:30)
[2019-02-28] MEDS ORDERED: METOPROLOL TART IMMED RELEASE 25 MG TABLET. PO SCH (21:00)
[2019-02-28] MEDS: traZODone 50 MG TABLET. PO SCH (21:10)
--- NOTE | 2019-02-28 21:24 | PDOC ---
PROGRESS NOTES Subjective Subjective Non verbal Objective Objective Vital Signs Date Time Temp Pulse Resp B/P (MAP) Pulse Ox O2 Delivery O2 Flow Rate FiO2 02/28/19 21:10 87 112/57 02/28/19 19:30 98.3 20 97 Room Air 98.3 Intake and Output 02/28/19 07:00 Intake Total 1250 ml Output Total 873 ml Balance 377 ml Intake Oral 0 ml Tube Feeding 800 ml Other 450 ml Output Urine Total 873 ml Gastric Drainage Total 0 ml # Bowel Movements 7 Physical Exam Abdomen: Soft, No tenderness Heart: Regular rate, Other (ESM aortic) Extremities: Other (trace edema) General: No acute distress HEENT: Atraumatic, Other (NGT in place) Lungs: Clear to auscultation Assessment Assessment 1. Metabolic encephalopathy, severe hypoglycemia. CT head without acute findings. Treat per IM 2. Mild troponin elevation; initial 0.149. most probably type II, demand ischemia. 3. CAD s/p PCI/ÁNGEL to RCA. 12/2018 with residual LCx with 70% midsegment stenosis and 60% stenosis involving the diagonal branch. Clinically stable. Continue current medications including Plavix 4. Chronic systolic HF; LVEF 10-15%, compensated. Continue current medical regimen 5. PAD s/p fem-tib bypass, stable 6. PAflutter: Maintaining sinus rhythm. Telemetry did not show any significant arrhythmias. 7. Diabetes, II with hypoglycemia upon arrival: per primary team 8. Anemia, melena: per IM Guarded prognosis. We will follow as needed Plan Plan of Care Problems Medical Problems: (1) Elevated troponin Status: Acute (2) Hypoglycemia Status: Acute (3) Hypokalemia Status: Acute (4) Leukocytosis Status: Acute (5) Metabolic acidosis Status: Acute (6) Severe sepsis Status: Acute Comment Review of Relevant I have reviewed the following items charli (where applicable) has been applied. Labs Laboratory Tests Test 02/28/19 00:17 02/28/19 05:00 02/28/19 06:17 02/28/19 12:15 Glucose (Fingerstick) 133 mg/dL (70-99) 177 mg/dL (70-99) 194 mg/dL (70-99) White Blood Count 8.8 x10^3/uL (4.0-11.0) Red Blood Count 2.61 x10^6/uL (3.50-5.40) Hemoglobin 6.7 g/dL (12.0-15.5) Hematocrit 21.4 % (36.0-47.0) Mean Corpuscular Volume 82 fL (79-100) Mean Corpuscular Hemoglobin 26 pg (25-35) Mean Corpuscular Hemoglobin Concent 31 g/dL (31-37) Red Cell Distribution Width 22.2 % (11.5-14.5) Platelet Count 184 x10^3/uL (140-400) Neutrophils (%) (Auto) 59 % (31-73) Lymphocytes (%) (Auto) 32 % (24-48) Monocytes (%) (Auto) 7 % (0-9) Eosinophils (%) (Auto) 1 % (0-3) Basophils (%) (Auto) 1 % (0-3) Neutrophils # (Auto) 5.2 x10^3uL (1.8-7.7) Lymphocytes # (Auto) 2.8 x10^3/uL (1.0-4.8) Monocytes # (Auto) 0.6 x10^3/uL (0.0-1.1) Eosinophils # (Auto) 0.1 x10^3/uL (0.0-0.7) Basophils # (Auto) 0.1 x10^3/uL (0.0-0.2) Test 02/28/19 14:50 02/28/19 18:04 Hemoglobin 8.1 g/dL (12.0-15.5) Hematocrit 25.0 % (36.0-47.0) Mean Corpuscular Hemoglobin Concent 33 g/dL (31-37) Glucose (Fingerstick) 178 mg/dL (70-99) Microbiology 02/25/19 Blood Culture - Preliminary, Resulted NO GROWTH AFTER 3 DAYS Medications Current Medications Metoprolol Tartrate (Lopressor) 25 mg BID PO Last administered on 02/28/19at 21:10; Start 02/28/19 at 10:45 Metoprolol Tartrate (Lopressor) 25 mg BID PO ; Start 02/28/19 at 21:00; Stop 02/28/19 at 21:00; Status DC Pantoprazole Sodium (PROTONIX VIAL for IV PUSH) 40 mg DAILYAC IVP Last administered on 02/28/19at 08:08; Start 02/28/19 at 07:30 Vancomycin HCl (Vancomycin Trough Level) 1 each 1X ONCE MC ; Start 03/01/19 at 17:00; Stop 03/01/19 at 17:01 Vancomycin HCl 750 mg/Sodium Chloride 250 ml @ 250 mls/hr Q24H IV Last administered on 02/28/19at 18:42; Start 02/28/19 at 17:30 Vitals/I & O Vital Sign - Last 24 Hours 02/27/19 02/28/19 02/28/19 02/28/19 23:25 03:20 07:00 08:10 Temp 97.6 97.9 97.3 97.6 97.9 97.3 Pulse 99 103 101 Resp 18 18 18 B/P (MAP) 119/56 (77) 135/51 (79) 120/56 (77) Pulse Ox 97 95 99 O2 Delivery Room Air Room Air Room Air Room Air 02/28/19 02/28/19 02/28/19 02/28/19 10:15 10:45 10:53 11:00 Temp 98.1 98.4 98.1 98.1 98.4 98.1 Pulse 97 94 97 76 Resp 18 18 18 B/P (MAP) 118/57 (77) 119/54 119/54 118/57 Pulse Ox 97 O2 Delivery Room Air 02/28/19 02/28/19 02/28/19 02/28/19 11:00 12:00 13:40 15:00 Temp 98.1 98.3 98.1 98.0 98.1 98.3 98.1 98.0 Pulse 97 72 97 73 Resp 18 18 18 16 B/P (MAP) 119/54 (75) 91/44 124/56 (78) 95/45 (62) Pulse Ox 97 97 93 O2 Delivery Room Air Room Air Room Air 02/28/19 02/28/19 19:30 21:10 Temp 98.3 98.3 Pulse 87 87 Resp 20 B/P (MAP) 112/57 (75) 112/57 Pulse Ox 97 O2 Delivery Room Air Intake and Output 02/27/19 02/27/19 02/28/19 15:00 23:00 07:00 Intake Total 150 ml 150 ml 950 ml Output Total 223 ml 0 ml 650 ml Balance -73 ml 150 ml 300 ml CARLOS CONTI MD Feb 28, 2019 21:24
--- NOTE | 2019-02-28 21:48 | RAD ---
KUB History: INPATIENT. NG TUBE PLACEMENT. PRIOR XRAY.. Comparison with prior day. Endogastric tube is identified, greatest in is looped over the gastric air bubble. Right IJ line identified, tip overlies the distal SVC. The visualized lungs demonstrate no consolidation, large effusion or pneumothorax. IMPRESSION: The endogastric tube appears to be looped within the stomach Electronically signed by: Néstor French MD (02/28/2019 9:45 PM) [facility]
[2019-03-01 03:30] VITALS: BP 105/53
[2019-03-01] MEDS: INSULIN LISPRO 300 UNITS/3 ML INSULN.PEN. SQ SCH ×3 (06:00→18:31)
[2019-03-01 06:09] LABS: HEMATOCRIT 25.2 % (36.0-47.0); HEMOGLOBIN 8.1 g/dL (12.0-15.5); RED BLOOD COUNT 3.01 x10^6/uL (3.50-5.40); RED CELL DISTRIBUTION WIDTH 20.6 % (11.5-14.5); WHITE BLOOD COUNT 9.7 x10^3/uL (4.0-11.0)
[2019-03-01 06:19] LABS: CREATININE 1.1 mg/dL (0.6-1.0); GFR 47.3
[2019-03-01 07:00] VITALS: BP 143/65
--- NOTE | 2019-03-01 08:36 | PDOC ---
Infectious Disease Note Subjective Subjective pt is awake, mumbles few words ROS ROS no n/v/d/sob Vital Sign Vital Signs Vital Signs Date Time Temp Pulse Resp B/P (MAP) Pulse Ox O2 Delivery O2 Flow Rate FiO2 03/01/19 07:40 Room Air 03/01/19 03:30 98.0 82 18 105/53 (70) 97 98.0 Physical Exam PHYSICAL EXAM GENERAL: Propped up in bed, unresponsive verbal HEENT: Pupils equally round, reactive. Normal conjunctivae. Oral cavity, pharynx dry. Dentures. NGT LUNGS: Clear to auscultation. HEART: S1 and S2 regular. ABDOMEN: Nondistended, soft, no grimace or guarding to palpation. Bowel sounds present. GENITOURINARY: De La Fuente in place. EXTREMITIES: No gross edema or cyanosis. Right TMA completely healed. No cyanosis. Heal protectors SKIN: Warm without rash. NEUROLOGIC: Tries to open eyes, does not respond to questions or follow commands. RIJ (02/25) without signs of any complications. Labs Lab Laboratory Tests Test 02/28/19 12:15 02/28/19 14:50 02/28/19 18:04 02/28/19 23:25 Glucose (Fingerstick) 194 mg/dL (70-99) 178 mg/dL (70-99) 151 mg/dL (70-99) Hemoglobin 8.1 g/dL (12.0-15.5) Hematocrit 25.0 % (36.0-47.0) Mean Corpuscular Hemoglobin Concent 33 g/dL (31-37) Test 03/01/19 05:50 03/01/19 05:52 White Blood Count 9.7 x10^3/uL (4.0-11.0) Red Blood Count 3.01 x10^6/uL (3.50-5.40) Hemoglobin 8.1 g/dL (12.0-15.5) Hematocrit 25.2 % (36.0-47.0) Mean Corpuscular Volume 84 fL (79-100) Mean Corpuscular Hemoglobin 27 pg (25-35) Mean Corpuscular Hemoglobin Concent 32 g/dL (31-37) Red Cell Distribution Width 20.6 % (11.5-14.5) Platelet Count 170 x10^3/uL (140-400) Creatinine 1.1 mg/dL (0.6-1.0) Estimated GFR (Cockcroft-Gault) 47.3 Glucose (Fingerstick) 166 mg/dL (70-99) Micro BC + 2/4 G + cocci Objective Assessment Sepsis with Gram-positive cocci bacteremia, present on admission. Lactic acidosis, improved. Hypothermia, now normotensive and off Sarina Hugger. Leukocytosis. PENICILLIN/AMOXICILLIN ALLERGY WITH HIVES. Acute hypoxic respiratory failure, better now, off supplemental oxygen. Elevated lipase. Diabetes with hypoglycemia. Acute kidney injury on chronic kidney disease, improved. Metabolic encephalopathy. Ischemic cardiomyopathy. History of MSSA and group B strep infection. Plan Plan of Care Dapto per primary for concern of worsening renal function Monitor for toxicities Awaiting GPC ID/susceptibilities Labs in Supportive care D/w nursing ANTHONY MAURICE MD Mar 01, 2019 08:36
[2019-03-01] MEDS: CYANOCOBALAMIN (VITAMIN B-12) 1,000 MCG TABLET. PO SCH (08:52)
[2019-03-01] MEDS: METOPROLOL TART IMMED RELEASE 25 MG TABLET. PO SCH ×2 (08:54→22:20)
--- NOTE | 2019-03-01 08:59 | PDOC ---
Provider Note Provider Note vss, exam same- hb 8 off heparin, will use pepcid per ng- son considering dnr, rest same for now ALAYNA SOLANO MD Mar 01, 2019 08:59
[2019-03-01] MEDS: FAMOTIDINE 20 MG TABLET. NG SCH (09:00)
--- NOTE | 2019-03-01 09:24 | PDOC ---
PULMONARY PROGRESS NOTES Subjective SITTING UP IN CHAIR CONFUSED BUT MORE AWAKE PULLING ON WIRES AND TUBES Vitals Vital Signs Date Time Temp Pulse Resp B/P (MAP) Pulse Ox O2 Delivery O2 Flow Rate FiO2 03/01/19 08:54 88 143/65 03/01/19 07:40 Room Air 03/01/19 03:30 98.0 18 97 98.0 ROS: No Nausea Lungs: Clear Cardiovascular: S1, S2 Abdomen: Soft Neuro Exam: Alert Extremities: No Edema Labs Laboratory Tests Test 02/27/19 10:10 02/27/19 13:01 02/27/19 18:17 02/28/19 00:17 Sodium Level 140 mmol/L (136-145) Potassium Level 4.4 mmol/L (3.5-5.1) Chloride Level 107 mmol/L (98-107) Carbon Dioxide Level 27 mmol/L (21-32) Anion Gap 6 (6-14) Blood Urea Nitrogen 33 mg/dL (7-20) Creatinine 1.0 mg/dL (0.6-1.0) Estimated GFR (Cockcroft-Gault) 52.8 Glucose Level 158 mg/dL (70-99) Calcium Level 8.8 mg/dL (8.5-10.1) Glucose (Fingerstick) 166 mg/dL (70-99) 193 mg/dL (70-99) 133 mg/dL (70-99) Test 02/28/19 05:00 02/28/19 06:17 02/28/19 12:15 02/28/19 14:50 White Blood Count 8.8 x10^3/uL (4.0-11.0) Red Blood Count 2.61 x10^6/uL (3.50-5.40) Hemoglobin 6.7 g/dL (12.0-15.5) 8.1 g/dL (12.0-15.5) Hematocrit 21.4 % (36.0-47.0) 25.0 % (36.0-47.0) Mean Corpuscular Volume 82 fL (79-100) Mean Corpuscular Hemoglobin 26 pg (25-35) Mean Corpuscular Hemoglobin Concent 31 g/dL (31-37) 33 g/dL (31-37) Red Cell Distribution Width 22.2 % (11.5-14.5) Platelet Count 184 x10^3/uL (140-400) Neutrophils (%) (Auto) 59 % (31-73) Lymphocytes (%) (Auto) 32 % (24-48) Monocytes (%) (Auto) 7 % (0-9) Eosinophils (%) (Auto) 1 % (0-3) Basophils (%) (Auto) 1 % (0-3) Neutrophils # (Auto) 5.2 x10^3uL (1.8-7.7) Lymphocytes # (Auto) 2.8 x10^3/uL (1.0-4.8) Monocytes # (Auto) 0.6 x10^3/uL (0.0-1.1) Eosinophils # (Auto) 0.1 x10^3/uL (0.0-0.7) Basophils # (Auto) 0.1 x10^3/uL (0.0-0.2) Glucose (Fingerstick) 177 mg/dL (70-99) 194 mg/dL (70-99) Test 02/28/19 18:04 02/28/19 23:25 03/01/19 05:50 03/01/19 05:52 Glucose (Fingerstick) 178 mg/dL (70-99) 151 mg/dL (70-99) 166 mg/dL (70-99) White Blood Count 9.7 x10^3/uL (4.0-11.0) Red Blood Count 3.01 x10^6/uL (3.50-5.40) Hemoglobin 8.1 g/dL (12.0-15.5) Hematocrit 25.2 % (36.0-47.0) Mean Corpuscular Volume 84 fL (79-100) Mean Corpuscular Hemoglobin 27 pg (25-35) Mean Corpuscular Hemoglobin Concent 32 g/dL (31-37) Red Cell Distribution Width 20.6 % (11.5-14.5) Platelet Count 170 x10^3/uL (140-400) Creatinine 1.1 mg/dL (0.6-1.0) Estimated GFR (Cockcroft-Gault) 47.3 Laboratory Tests Test 02/28/19 12:15 02/28/19 14:50 02/28/19 18:04 02/28/19 23:25 Glucose (Fingerstick) 194 mg/dL (70-99) 178 mg/dL (70-99) 151 mg/dL (70-99) Hemoglobin 8.1 g/dL (12.0-15.5) Hematocrit 25.0 % (36.0-47.0) Mean Corpuscular Hemoglobin Concent 33 g/dL (31-37) Test 03/01/19 05:50 03/01/19 05:52 White Blood Count 9.7 x10^3/uL (4.0-11.0) Red Blood Count 3.01 x10^6/uL (3.50-5.40) Hemoglobin 8.1 g/dL (12.0-15.5) Hematocrit 25.2 % (36.0-47.0) Mean Corpuscular Volume 84 fL (79-100) Mean Corpuscular Hemoglobin 27 pg (25-35) Mean Corpuscular Hemoglobin Concent 32 g/dL (31-37) Red Cell Distribution Width 20.6 % (11.5-14.5) Platelet Count 170 x10^3/uL (140-400) Creatinine 1.1 mg/dL (0.6-1.0) Estimated GFR (Cockcroft-Gault) 47.3 Glucose (Fingerstick) 166 mg/dL (70-99) Medications Active Scripts Medications Dose Route/Sig Max Daily Dose Days Date Category Dose Instructions Tessalon Perle (Benzonatate) 100 Mg Capsule 100 Mg PO TID PRN 01/17/19 Reported Aspirin Ec (Aspirin) 325 Mg Tablet.dr 325 Mg PO DAILYWBKFT 01/17/19 Rx Take Aspirin 325mg daily x 30 days then decrease to 81mg daily Lisinopril 5 Mg Tablet 2.5 Mg PO DAILY 30 01/17/19 Rx Humalog (Insulin Lispro) 100 Unit/1 Ml Insuln.pen 4 Units SQ TIDAC 30 01/17/19 Rx Lantus Solostar (Insulin Glargine,Hum.rec.anlog) 100 Unit/1 Ml Insuln.pen 18 Units SQ QHS 30 01/17/19 Rx Hydrocodone-Apap 7.5-325 (Hydrocodone Bit/Acetaminophen) 1 Tab Tablet 1 Tab PO PRN Q6HRS PRN 01/11/19 Reported Folic Acid 1 Mg Tablet 1 Tab PO DAILY 01/11/19 Reported Trazodone Hcl 50 Mg Tablet 0.5 Tab PO QHS 01/11/19 Reported Lasix (Furosemide) 40 Mg Tablet 40 Mg PO BID 12/07/18 Reported Potassium Chloride 20 Meq Tablet.er 20 Meq PO DAILY 12/07/18 Reported Toprol Xl (Metoprolol Succinate) 50 Mg Tab.er.24h 50 Mg PO DAILY 30 12/07/18 Rx Atorvastatin Calcium 10 Mg Tablet 5 Mg PO QHS 30 12/07/18 Rx Clopidogrel (Clopidogrel Bisulfate) 75 Mg Tablet 75 Mg PO DAILYWBKFT 30 12/07/18 Rx Tylenol Extra Strength (Acetaminophen) 500 Mg Tablet 1,000 Mg PO PRN Q8HRS PRN 11/29/18 Reported Vitamin B-12 (Cyanocobalamin (Vitamin B-12)) 1,000 Mcg Tablet 1 Tab PO DAILY 10/15/18 Reported Clonazepam 0.5 Mg Tablet 1 Tab PO HS 10/15/18 Reported Impression . IMPRESSION: 1. Acute hypoxemic respiratory failure, multifactorial. 2. Severe metabolic acidosis. 3. Acute chronic kidney failure. 4. Leukocytosis. 5. Metabolic toxic encephalopathy. 6. Hyperkalemia. 7. Elevated troponin level. 8. Hypoglycemia. 9. Positive bacteremia. 10. Ischemic cardiomyopathy. Plan . D/W FAMILY RESP STATUS COMPENSATED WILL CONTINUE SUPPORT ANTIBX FOLLOW CULTURES FOR NUTRITION MORTEZA DAVIS MD Mar 01, 2019 09:23
--- NOTE | 2019-03-01 10:23 | PDOC ---
PROGRESS NOTES Assessment Problems Medical Problems: (1) Elevated troponin Status: Acute (2) Hypoglycemia Status: Acute (3) Hypokalemia Status: Acute (4) Leukocytosis Status: Acute (5) Metabolic acidosis Status: Acute (6) Severe sepsis Status: Acute Metabolic encephalopathy related to hypoglycemia, severe anemia, also medical problems of coronary artery disease, diabetes, cardiomyopathy, chronic kidney disease. 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 Subjective Does not answer questions Objective Vital Signs Date Time Temp Pulse Resp B/P (MAP) Pulse Ox O2 Delivery O2 Flow Rate FiO2 03/01/19 08:54 88 143/65 03/01/19 07:40 Room Air 03/01/19 07:00 98.6 18 98 98.6 Intake and Output 03/01/19 07:00 Intake Total 3168 ml Output Total 950 ml Balance 2218 ml Intake Oral 0 ml IV Total 250 ml Tube Feeding 1423 ml Blood Product IV Normal Saline Flush 1045 ml Other 450 ml Output Urine Total 950 ml Gastric Drainage Total 0 ml # Bowel Movements 7 PHYSICAL EXAM Alert. Follows a few follow commands, does not speak PERRL. EOMI. CN: no focal findings. Muscle tone: normal. Muscle strength: moves all 4 extremities spontaneously DTR: 1+ Plantar reflex: silent Gait: not examined in bed. Sensory exam: no abnormal findings. No cerebellar signs elicited. Review of Relevant I have reviewed the following items charli (where applicable) has been applied. Labs Laboratory Tests Test 02/27/19 13:01 02/27/19 18:17 02/28/19 00:17 02/28/19 05:00 Glucose (Fingerstick) 166 mg/dL (70-99) 193 mg/dL (70-99) 133 mg/dL (70-99) White Blood Count 8.8 x10^3/uL (4.0-11.0) Red Blood Count 2.61 x10^6/uL (3.50-5.40) Hemoglobin 6.7 g/dL (12.0-15.5) Hematocrit 21.4 % (36.0-47.0) Mean Corpuscular Volume 82 fL (79-100) Mean Corpuscular Hemoglobin 26 pg (25-35) Mean Corpuscular Hemoglobin Concent 31 g/dL (31-37) Red Cell Distribution Width 22.2 % (11.5-14.5) Platelet Count 184 x10^3/uL (140-400) Neutrophils (%) (Auto) 59 % (31-73) Lymphocytes (%) (Auto) 32 % (24-48) Monocytes (%) (Auto) 7 % (0-9) Eosinophils (%) (Auto) 1 % (0-3) Basophils (%) (Auto) 1 % (0-3) Neutrophils # (Auto) 5.2 x10^3uL (1.8-7.7) Lymphocytes # (Auto) 2.8 x10^3/uL (1.0-4.8) Monocytes # (Auto) 0.6 x10^3/uL (0.0-1.1) Eosinophils # (Auto) 0.1 x10^3/uL (0.0-0.7) Basophils # (Auto) 0.1 x10^3/uL (0.0-0.2) Test 02/28/19 06:17 02/28/19 12:15 02/28/19 14:50 02/28/19 18:04 Glucose (Fingerstick) 177 mg/dL (70-99) 194 mg/dL (70-99) 178 mg/dL (70-99) Hemoglobin 8.1 g/dL (12.0-15.5) Hematocrit 25.0 % (36.0-47.0) Mean Corpuscular Hemoglobin Concent 33 g/dL (31-37) Test 02/28/19 23:25 03/01/19 05:50 03/01/19 05:52 Glucose (Fingerstick) 151 mg/dL (70-99) 166 mg/dL (70-99) White Blood Count 9.7 x10^3/uL (4.0-11.0) Red Blood Count 3.01 x10^6/uL (3.50-5.40) Hemoglobin 8.1 g/dL (12.0-15.5) Hematocrit 25.2 % (36.0-47.0) Mean Corpuscular Volume 84 fL (79-100) Mean Corpuscular Hemoglobin 27 pg (25-35) Mean Corpuscular Hemoglobin Concent 32 g/dL (31-37) Red Cell Distribution Width 20.6 % (11.5-14.5) Platelet Count 170 x10^3/uL (140-400) Creatinine 1.1 mg/dL (0.6-1.0) Estimated GFR (Cockcroft-Gault) 47.3 Laboratory Tests Test 02/28/19 12:15 02/28/19 14:50 02/28/19 18:04 02/28/19 23:25 Glucose (Fingerstick) 194 mg/dL (70-99) 178 mg/dL (70-99) 151 mg/dL (70-99) Hemoglobin 8.1 g/dL (12.0-15.5) Hematocrit 25.0 % (36.0-47.0) Mean Corpuscular Hemoglobin Concent 33 g/dL (31-37) Test 03/01/19 05:50 03/01/19 05:52 White Blood Count 9.7 x10^3/uL (4.0-11.0) Red Blood Count 3.01 x10^6/uL (3.50-5.40) Hemoglobin 8.1 g/dL (12.0-15.5) Hematocrit 25.2 % (36.0-47.0) Mean Corpuscular Volume 84 fL (79-100) Mean Corpuscular Hemoglobin 27 pg (25-35) Mean Corpuscular Hemoglobin Concent 32 g/dL (31-37) Red Cell Distribution Width 20.6 % (11.5-14.5) Platelet Count 170 x10^3/uL (140-400) Creatinine 1.1 mg/dL (0.6-1.0) Estimated GFR (Cockcroft-Gault) 47.3 Glucose (Fingerstick) 166 mg/dL (70-99) Microbiology 02/25/19 Blood Culture - Preliminary, Resulted NO GROWTH AFTER 3 DAYS Medications Current Medications Sodium Chloride 500 ml @ 500 mls/hr 1X ONCE IV Last administered on 02/25/19at 13:30; Start 02/25/19 at 12:45; Stop 02/25/19 at 13:44; Status DC Levofloxacin/ Dextrose 150 ml @ 100 mls/hr 1X ONCE IV Last administered on 02/25/19at 13:30; Start 02/25/19 at 12:45; Stop 02/25/19 at 14:14; Status DC Sodium Bicarbonate (Sodium Bicarb Adult 8.4% Syr) 50 meq 1X ONCE IV Last administered on 02/25/19at 13:29; Start 02/25/19 at 13:00; Stop 02/25/19 at 13:01; Status DC Vancomycin HCl (Vanco Per Pharmacy) 1 each PRN DAILY PRN MC SEE COMMENTS Last administered on 02/25/19at 14:38; Start 02/25/19 at 12:45; Stop 02/26/19 at 10:16; Status DC Vancomycin HCl 1.25 gm/Sodium Chloride 250 ml @ 166.667 mls/hr 1X ONCE IV Last administered on 02/25/19at 14:21; Start 02/25/19 at 14:00; Stop 02/25/19 at 15:29; Status DC Ondansetron HCl (Zofran) 4 mg PRN Q8HRS PRN IV NAUSEA/VOMITING; Start 02/25/19 at 13:45; Stop 02/26/19 at 13:44; Status DC Morphine Sulfate (Morphine Sulfate) 2 mg PRN Q2HR PRN IV PAIN; Start 02/25/19 at 13:45; Stop 02/26/19 at 13:44; Status DC Sodium Bicarbonate (Sodium Bicarb Adult 8.4% Syr) 50 meq 1X ONCE IV ; Start 02/25/19 at 13:45; Stop 02/25/19 at 14:03; Status DC Calcium Gluconate (Calcium Gluconate) 1,000 mg 1X ONCE IVP Last administered on 02/25/19at 14:20; Start 02/25/19 at 13:45; Stop 02/25/19 at 14:03; Status DC Albuterol Sulfate (Ventolin Neb Soln) 10 mg 1X ONCE CONT NEB Last administered on 02/25/19at 14:01; Start 02/25/19 at 13:45; Stop 02/25/19 at 14:03; Status DC Aspirin (Children'S Aspirin) 324 mg 1X ONCE PO ; Start 02/25/19 at 14:30; Stop 02/25/19 at 14:31; Status DC Sodium Chloride 500 ml @ 500 mls/hr 1X ONCE IV Last administered on 02/25/19at 14:59; Start 02/25/19 at 14:30; Stop 02/25/19 at 15:29; Status DC Aspirin (Aspirin) 300 mg 1X ONCE AK ; Start 02/25/19 at 14:45; Stop 02/25/19 at 14:46; Status DC Vancomycin HCl 500 mg/Sodium Chloride 100 ml @ 100 mls/hr Q24H IV ; Start 02/26/19 at 14:30; Stop 02/26/19 at 14:30; Status DC Vancomycin HCl (Vancomycin Trough Level) 1 each 1X ONCE MC ; Start 02/27/19 at 14:00; Stop 02/27/19 at 14:00; Status DC Sodium Bicarbonate 75 meq/Sodium Chloride 1,075 ml @ 60 mls/hr [id number] IV Last administered on 02/25/19at 22:56; Start 02/25/19 at 17:30; Stop 02/26/19 at 07:20; Status DC Aspirin (Aspirin) 300 mg DAILY AK Last administered on 02/26/19at 09:11; Start 02/26/19 at 09:00; Stop 02/26/19 at 10:19; Status DC Norepinephrine Bitartrate 250 ml @ 1.875 mls/ hr CONT PRN IV SEE I/O RECORD; Start 02/25/19 at 17:15; Stop 02/27/19 at 15:56; Status DC Vitamin A/Vitamin D (Vitamin A & D Ointment) 1 spenser PRN Q1HR PRN TP SKIN PROTECTION; Start 02/25/19 at 19:00 Dextrose (Dextrose 50%-Water Syringe) 25 gm STK-MED ONCE IV ; Start 02/25/19 at 22:52; Stop 02/25/19 at 22:53; Status DC Dextrose (Dextrose 50%-Water Syringe) 12.5 gm PRN Q15MIN PRN IV SEE COMMENTS Last administered on 02/26/19at 12:07; Start 02/25/19 at 23:45; Stop 02/27/19 at 08:30; Status DC Sodium Bicarbonate 75 meq/Dextrose/ Sodium Chloride 1,075 ml @ 60 mls/hr [id number] IV Last administered on 02/26/19at 07:41; Start 02/26/19 at 07:30; Stop 02/26/19 at 12:15; Status DC Aspirin (Ecotrin) 325 mg DAILYWBKFT PO ; Start 02/27/19 at 08:00; Stop 02/27/19 at 08:39; Status DC Clonazepam (KlonoPIN) 0.5 mg HS PO ; Start 02/26/19 at 21:00; Stop 02/26/19 at 21:00; Status DC Clopidogrel Bisulfate (Plavix) 75 mg DAILYWBKFT PO Last administered on 02/27/19at 08:46; Start 02/26/19 at 11:00; Stop 02/28/19 at 08:23; Status DC Cyanocobalamin (Vitamin B-12) 1,000 mcg DAILY PO Last administered on 03/01/19at 08:52; Start 02/26/19 at 11:00 Acetaminophen/ Hydrocodone Bitart (Lortab 7.5/325) 1 tab PRN Q6HRS PRN PO PAIN; Start 02/26/19 at 10:15 Metoprolol Succinate (Toprol Xl) 50 mg DAILY PO ; Start 02/26/19 at 11:00; Stop 02/28/19 at 10:36; Status DC Trazodone HCl (Desyrel) 25 mg QHS PO Last administered on 02/28/19at 21:10; Start 02/26/19 at 21:00 Daptomycin 320 mg/ Sodium Chloride 50 ml @ 100 mls/hr QODAY IV Last admini stered on 02/26/19at 12:18; Start 02/26/19 at 12:00; Stop 02/27/19 at 15:16; Status DC Insulin Human Lispro (HumaLOG) 0-9 UNITS TIDWMEALS SQ ; Start 02/26/19 at 12:00; Stop 02/27/19 at 13:12; Status DC Dextrose (Dextrose 50%-Water Syringe) 12.5 gm PRN Q15MIN PRN IV SEE COMMENTS; Start 02/26/19 at 10:30 Heparin Sodium (Porcine) (Heparin Sodium) 5,000 unit Q12HR SQ Last administered on 02/27/19at 21:52; Start 02/26/19 at 21:00; Stop 02/28/19 at 06:36; Status DC Dextrose 1,000 ml @ 60 mls/hr [id number] IV Last administered on 02/27/19at 05:35; Start 02/26/19 at 12:15; Stop 02/27/19 at 11:02; Status DC Aspirin (Cristobal Aspirin) 325 mg DAILYWBKFT PO Last administered on 02/27/19at 08:46; Start 02/27/19 at 08:00; Stop 02/28/19 at 08:23; Status DC Insulin Human Lispro (HumaLOG) 0-9 UNITS Q6HRS SQ Last administered on 02/28/19at 13:25; Start 02/27/19 at 18:00 Vancomycin HCl (Vanco Per Pharmacy) 1 each PRN DAILY PRN MC SEE COMMENTS Last administered on 02/28/19at 12:56; Start 02/27/19 at 15:15 Vancomycin HCl 1.25 gm/Sodium Chloride 250 ml @ 166.667 mls/hr 1X ONCE IV Last administered on 02/27/19at 18:16; Start 02/27/19 at 15:30; Stop 02/27/19 at 16:59; Status DC Vancomycin HCl 750 mg/Sodium Chloride 250 ml @ 250 mls/hr Q24H IV Last administered on 02/28/19at 18:42; Start 02/28/19 at 17:30 Vancomycin HCl (Vancomycin Trough Level) 1 each 1X ONCE MC ; Start 03/01/19 at 17:00; Stop 03/01/19 at 17:01 Pantoprazole Sodium (PROTONIX VIAL for IV PUSH) 40 mg DAILYAC IVP Last administered on 02/28/19at 08:08; Start 02/28/19 at 07:30; Stop 03/01/19 at 09:01; Status DC Metoprolol Tartrate (Lopressor) 25 mg BID PO ; Start 02/28/19 at 21:00; Stop 02/28/19 at 21:00; Status DC Metoprolol Tartrate (Lopressor) 25 mg BID PO Last administered on 03/01/19at 08:54; Start 02/28/19 at 10:45 Famotidine (Pepcid) 20 mg DAILY NG ; Start 03/01/19 at 09:00 Active Scripts Active Aspirin Ec (Aspirin) 325 Mg Tablet.dr 325 Mg PO DAILYWBKFT 30 Days Take Aspirin 325mg daily x 30 days then decrease to 81mg daily Lisinopril 5 Mg Tablet 2.5 Mg PO DAILY 30 Days Humalog (Insulin Lispro) 100 Unit/1 Ml Insuln.pen 4 Units SQ TIDAC 30 Days Lantus Solostar (Insulin Glargine,Hum.rec.anlog) 100 Unit/1 Ml Insuln.pen 18 Units SQ QHS 30 Days Toprol Xl (Metoprolol Succinate) 50 Mg Tab.er.24h 50 Mg PO DAILY 30 Days Atorvastatin Calcium 10 Mg Tablet 5 Mg PO QHS 30 Days Clopidogrel (Clopidogrel Bisulfate) 75 Mg Tablet 75 Mg PO DAILYWBKFT 30 Days Reported Tessalon Perle (Benzonatate) 100 Mg Capsule 100 Mg PO TID PRN Hydrocodone-Apap 7.5-325 (Hydrocodone Bit/Acetaminophen) 1 Tab Tablet 1 Tab PO PRN Q6HRS PRN Folic Acid 1 Mg Tablet 1 Tab PO DAILY Trazodone Hcl 50 Mg Tablet 0.5 Tab PO QHS Lasix (Furosemide) 40 Mg Tablet 40 Mg PO BID Potassium Chloride 20 Meq Tablet.er 20 Meq PO DAILY Tylenol Extra Strength (Acetaminophen) 500 Mg Tablet 1,000 Mg PO PRN Q8HRS PRN Vitamin B-12 (Cyanocobalamin (Vitamin B-12)) 1,000 Mcg Tablet 1 Tab PO DAILY Clonazepam 0.5 Mg Tablet 1 Tab PO HS Vitals/I & O Vital Sign - Last 24 Hours 02/28/19 02/28/19 02/28/19 02/28/19 10:45 10:53 11:00 11:00 Temp 98.4 98.1 98.1 98.4 98.1 98.1 Pulse 94 97 76 97 Resp 18 18 18 B/P (MAP) 119/54 119/54 118/57 119/54 (75) Pulse Ox 97 O2 Delivery Room Air 02/28/19 02/28/19 02/28/19 02/28/19 12:00 13:40 15:00 19:30 Temp 98.3 98.1 98.0 98.3 98.3 98.1 98.0 98.3 Pulse 72 97 73 87 Resp 18 18 16 20 B/P (MAP) 91/44 124/56 (78) 95/45 (62) 112/57 (75) Pulse Ox 97 93 97 O2 Delivery Room Air Room Air Room Air 02/28/19 02/28/19 02/28/19 03/01/19 20:00 21:10 23:15 03:30 Temp 98.1 98.0 98.1 98.0 Pulse 87 78 82 Resp 18 18 B/P (MAP) 112/57 122/58 (79) 105/53 (70) Pulse Ox 96 97 O2 Delivery Room Air Room Air Room Air 03/01/19 03/01/19 03/01/19 07:00 07:40 08:54 Temp 98.6 98.6 Pulse 87 88 Resp 18 B/P (MAP) 143/65 (91) 143/65 Pulse Ox 98 O2 Delivery Room Air Room Air Intake and Output 02/28/19 02/28/19 03/01/19 15:00 23:00 07:00 Intake Total 1495 ml 550 ml 1123 ml Output Total 0 ml 450 ml 500 ml Balance 1495 ml 100 ml 623 ml BARBRA GLASER MD Mar 01, 2019 10:23
[2019-03-01 11:00] VITALS: BP 118/59
--- NOTE | 2019-03-01 12:51 | NUR ---
Bedside Swallow evaluation completed. Please refer to full report for additional information. Impressions: Moderate oropharyngeal dysphagia w/ oropharyngeal delay in transit and initiation of swallow w/ some variation trial to trial. Decreased hyolaryngeal excursion via palp w/ s/s aspiration w/ minimal trials. No safe consistency identified/pt currently at high risk of aspiration for all PO. Recommendations: Continue NPO. NG for nutrition/hydration and meds. ST f/u to determine readiness and safety for PO intake. D/w pt and family at bedside, and RN.
[2019-03-01] MEDS: VANCOMYCIN PER PHARMACY MC PRN ×2 (12:55→19:32)
--- NOTE | 2019-03-01 14:38 | PDOC2 ---
PALLIATIVE CARE Palliative Care Note Palliative Care Patient more alert today. sitting up in chair. trying to get mitts off. swallow evaluation noted. Spoke with son Benjamin. wishes to continue current treatment plan. Full Code. Will follow as needed. KRYSTIAN POTTER Mar 01, 2019 14:38
[2019-03-01 15:00] VITALS: BP 144/65
[2019-03-01 18:49] LABS: VANC TR 11.2 mcg/mL (10.0-20.0)
--- NOTE | 2019-03-01 19:33 | NUR ---
Pharmacy Vancomycin Dosing Note S:Consulted to monitor and dose vancomycin started 02/25/19. O:ALEXSANDER RYDER is a 83 year old F with Bacteremia Sepsis . Height: 5 feet, 4 inches Weight: 54.451670 kg [place] Body Weight: 54.70 Adjusted Body Weight: 55.14 Dosing Weight: Actual Other Antibiotics: DAPTO 02/26 LABS: Last BUN: 33 Last Creatinine: 1.1 Creatinine Clearance: 32 mL/min Last WBC: 9.7 Last Procalcitonin: - Tmax (past 24 hours): 97.5 L Microbiology: 02/26 G+COCCI CLUSTER I/O: Drug Levels: Last Trough level: 11.2 on 03/01/19 at 1825 Last dose given 02/28/19 at 1842 Vancomycin Dosing: Loading Dose: 1250 mg x1 Dosing Weight: Actual Target Trough: 15-20 A: Based on: Subtherapeutic trough P: 1. Adjust to Vancomycin 750 mg IV q18h 2. Follow up Trough level as needed 3. Pharmacy will continue to monitor, follow and adjust therapy as needed. OBDULIO TAVAREZ RPH, 03/01/19 [id number]
[2019-03-01 19:40] VITALS: BP 145/70
[2019-03-01 19:58] LABS: HEMATOCRIT 26.7 % (36.0-47.0); HEMOGLOBIN 8.5 g/dL (12.0-15.5); RED BLOOD COUNT 3.19 x10^6/uL (3.50-5.40); RED CELL DISTRIBUTION WIDTH 20.8 % (11.5-14.5); WHITE BLOOD COUNT 12.4 x10^3/uL (4.0-11.0)
[2019-03-01] MEDS: VANCOMYCIN 750 MG in IV NORMAL SALINE 250ML 250 ML IV SCH (21:59)
[2019-03-01] MEDS: traZODone 50 MG TABLET. PO SCH (22:19)
[2019-03-01 22:45] VITALS: BP 130/63
[2019-03-02 03:30] VITALS: BP 93/55
[2019-03-02 05:56] LABS: HEMATOCRIT 26.5 % (36.0-47.0); HEMOGLOBIN 8.6 g/dL (12.0-15.5); RED BLOOD COUNT 3.15 x10^6/uL (3.50-5.40); RED CELL DISTRIBUTION WIDTH 20.7 % (11.5-14.5)
[2019-03-02 06:02] LABS: CREATININE 0.9 mg/dL (0.6-1.0); GFR 59.7
[2019-03-02] MEDS: INSULIN LISPRO 300 UNITS/3 ML INSULN.PEN. SQ SCH ×4 (06:17→18:18)
[2019-03-02 07:00] VITALS: BP 134/65
--- NOTE | 2019-03-02 08:53 | PDOC ---
Provider Note Provider Note vss, glucose up only a little- hb same, blood cult noted re sabina perez sens- neuro better,will add low dose lantus, rest same- still nonverbal ALAYNA SOLANO MD March 02, 2019 08:53
[2019-03-02] MEDS: METOPROLOL TART IMMED RELEASE 25 MG TABLET. PO SCH ×2 (09:13→21:55)
[2019-03-02] MEDS: CYANOCOBALAMIN (VITAMIN B-12) 1,000 MCG TABLET. PO SCH (09:13)
[2019-03-02] MEDS: FAMOTIDINE 20 MG TABLET. NG SCH (09:13)
--- NOTE | 2019-03-02 10:13 | PDOC ---
Infectious Disease Note Subjective Subjective pt is awake, mumbles few words ROS ROS no n/v/d/sob Vital Sign Vital Signs Vital Signs Date Time Temp Pulse Resp B/P (MAP) Pulse Ox O2 Delivery O2 Flow Rate FiO2 03/02/19 09:13 100 134/65 03/02/19 08:29 Room Air 03/02/19 07:00 97.5 18 98 97.5 Physical Exam PHYSICAL EXAM GENERAL: Propped up in bed, nodes a little HEENT: Pupils equally round, reactive. Normal conjunctivae. Oral cavity, ph arynx dry. Dentures. NGT LUNGS: Clear to auscultation. HEART: S1 and S2 regular. ABDOMEN: Nondistended, soft, no grimace or guarding to palpation. Bowel sounds present. GENITOURINARY: [place] in place. EXTREMITIES: No gross edema or cyanosis. Right TMA completely healed. No cyanosis. Heal protectors SKIN: Warm without rash. NEUROLOGIC: awake, nodes off and on RIJ (02/25) without signs of any complications. Labs Lab Laboratory Tests Test 03/01/19 11:30 03/01/19 18:13 03/01/19 18:25 03/02/19 00:10 Glucose (Fingerstick) 187 mg/dL (70-99) 184 mg/dL (70-99) 146 mg/dL (70-99) White Blood Count 12.4 x10^3/uL (4.0-11.0) Red Blood Count 3.19 x10^6/uL (3.50-5.40) Hemoglobin 8.5 g/dL (12.0-15.5) Hematocrit 26.7 % (36.0-47.0) Mean Corpuscular Volume 84 fL (79-100) Mean Corpuscular Hemoglobin 27 pg (25-35) Mean Corpuscular Hemoglobin Concent 32 g/dL (31-37) Red Cell Distribution Width 20.8 % (11.5-14.5) Platelet Count 185 x10^3/uL (140-400) Vancomycin Level Trough 11.2 mcg/mL (10.0-20.0) Vancomycin Last Dose Date 02/28/19 Vancomycin Last Dose Time 1730 Test 03/02/19 05:38 03/02/19 05:40 Glucose (Fingerstick) 205 mg/dL (70-99) White Blood Count 14.0 x10^3/uL (4.0-11.0) Red Blood Count 3.15 x10^6/uL (3.50-5.40) Hemoglobin 8.6 g/dL (12.0-15.5) Hematocrit 26.5 % (36.0-47.0) Mean Corpuscular Volume 84 fL (79-100) Mean Corpuscular Hemoglobin 27 pg (25-35) Mean Corpuscular Hemoglobin Concent 33 g/dL (31-37) Red Cell Distribution Width 20.7 % (11.5-14.5) Platelet Count 181 x10^3/uL (140-400) Creatinine 0.9 mg/dL (0.6-1.0) Estimated GFR (Cockcroft-Gault) 59.7 Micro BLOOD CULTURE LC Final Final report BLD CULT RESULT 1 Final Comment Staphylococcus simulans Based on resistance to oxacillin this isolate would be resistant to all currently available beta-lactam antimicrobial agents, with the exception of the newer cephalosporins with anti-MRSA activity, such as Ceftaroline ANTIMICROBIAL SUSCEPTIBILITY Final Comment S = Susceptible; I = Intermediate; R = Resistant P = Positive; N = Negative MICS are expressed in micrograms per mL Antibiotic RSLT#1 RSLT#2 RSLT#3 RSLT#4 Ciprofloxacin R>=8 Clindamycin R =R Erythromycin R>=8 Gentamicin S<=0.5 Levofloxacin R>=8 Oxacillin R>=4 Penicillin R>=0.5 Rifampin S<=0.5 Tetracycline S<=1 Trimethoprim/Sulfa S<=10 Vancomycin S<=0.5 Performed at: - [facility] [address] [facility] [address], [place], [place] [id number] [employer] Sourcer: MILTON Ott MD, Phone: [phone] Objective Assessment Sepsis with Gram-positive cocci bacteremia, present on admission. Lactic acidosis, improved. Hypothermia, now normotensive and off Sarina Hugger. Leukocytosis. PENICILLIN/AMOXICILLIN ALLERGY WITH HIVES. Acute hypoxic respiratory failure, better now, off supplemental oxygen. Elevated lipase. Diabetes with hypoglycemia. Acute kidney injury on chronic kidney disease, improved. Metabolic encephalopathy. Ischemic cardiomyopathy. History of MSSA and group B strep infection. Plan Plan of Care vanc Labs in am Supportive care D/w nursing ANTHONY MAURICE MD March 02, 2019 10:13
[2019-03-02] MEDS: INSULIN GLARGINE 300 UNITS/3 ML INSULN.PEN. SQ SCH (10:24)
--- NOTE | 2019-03-02 10:59 | PDOC ---
PROGRESS NOTES Assessment Problems Medical Problems: (1) Elevated troponin Status: Acute (2) Hypoglycemia Status: Acute (3) Hypokalemia Status: Acute (4) Leukocytosis Status: Acute (5) Metabolic acidosis Status: Acute (6) Severe sepsis Status: Acute Metabolic encephalopathy related to hypoglycemia, severe anemia, also medical problems of coronary artery disease, diabetes, cardiomyopathy, chronic kidney disease. 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 Follows a few follow commands, does not speak PERRL. EOMI. CN: no focal findings. Muscle tone: normal. Muscle strength: moves all 4 extremities spontaneously DTR: 1+ Plantar reflex: silent Gait: not examined in bed. Sensory exam: no abnormal findings. No cerebellar signs elicited. Review of Relevant I have reviewed the following items charli (where applicable) has been applied. Labs Laboratory Tests Test 02/28/19 12:15 02/28/19 14:50 02/28/19 18:04 02/28/19 23:25 Glucose (Fingerstick) 194 mg/dL (70-99) 178 mg/dL (70-99) 151 mg/dL (70-99) Hemoglobin 8.1 g/dL (12.0-15.5) Hematocrit 25.0 % (36.0-47.0) Mean Corpuscular Hemoglobin Concent 33 g/dL (31-37) Test 03/01/19 05:50 03/01/19 05:52 03/01/19 11:30 03/01/19 18:13 White Blood Count 9.7 x10^3/uL (4.0-11.0) Red Blood Count 3.01 x10^6/uL (3.50-5.40) Hemoglobin 8.1 g/dL (12.0-15.5) Hematocrit 25.2 % (36.0-47.0) Mean Corpuscular Volume 84 fL (79-100) Mean Corpuscular Hemoglobin 27 pg (25-35) Mean Corpuscular Hemoglobin Concent 32 g/dL (31-37) Red Cell Distribution Width 20.6 % (11.5-14.5) Platelet Count 170 x10^3/uL (140-400) Creatinine 1.1 mg/dL (0.6-1.0) Estimated GFR (Cockcroft-Gault) 47.3 Glucose (Fingerstick) 166 mg/dL (70-99) 187 mg/dL (70-99) 184 mg/dL (70-99) Test 03/01/19 18:25 03/02/19 00:10 03/02/19 05:38 03/02/19 05:40 White Blood Count 12.4 x10^3/uL (4.0-11.0) 14.0 x10^3/uL (4.0-11.0) Red Blood Count 3.19 x10^6/uL (3.50-5.40) 3.15 x10^6/uL (3.50-5.40) Hemoglobin 8.5 g/dL (12.0-15.5) 8.6 g/dL (12.0-15.5) Hematocrit 26.7 % (36.0-47.0) 26.5 % (36.0-47.0) Mean Corpuscular Volume 84 fL (79-100) 84 fL (79-100) Mean Corpuscular Hemoglobin 27 pg (25-35) 27 pg (25-35) Mean Corpuscular Hemoglobin Concent 32 g/dL (31-37) 33 g/dL (31-37) Red Cell Distribution Width 20.8 % (11.5-14.5) 20.7 % (11.5-14.5) Platelet Count 185 x10^3/uL (140-400) 181 x10^3/uL (140-400) Vancomycin Level Trough 11.2 mcg/mL (10.0-20.0) Vancomycin Last Dose Date 02/28/19 Vancomycin Last Dose Time 1730 Glucose (Fingerstick) 146 mg/dL (70-99) 205 mg/dL (70-99) Creatinine 0.9 mg/dL (0.6-1.0) Estimated GFR (Cockcroft-Gault) 59.7 Laboratory Tests Test 03/01/19 11:30 03/01/19 18:13 03/01/19 18:25 03/02/19 00:10 Glucose (Fingerstick) 187 mg/dL (70-99) 184 mg/dL (70-99) 146 mg/dL (70-99) White Blood Count 12.4 x10^3/uL (4.0-11.0) Red Blood Count 3.19 x10^6/uL (3.50-5.40) Hemoglobin 8.5 g/dL (12.0-15.5) Hematocrit 26.7 % (36.0-47.0) Mean Corpuscular Volume 84 fL (79-100) Mean Corpuscular Hemoglobin 27 pg (25-35) Mean Corpuscular Hemoglobin Concent 32 g/dL (31-37) Red Cell Distribution Width 20.8 % (11.5-14.5) Platelet Count 185 x10^3/uL (140-400) Vancomycin Level Trough 11.2 mcg/mL (10.0-20.0) Vancomycin Last Dose Date 02/28/19 Vancomycin Last Dose Time 1730 Test 03/02/19 05:38 03/02/19 05:40 Glucose (Fingerstick) 205 mg/dL (70-99) White Blood Count 14.0 x10^3/uL (4.0-11.0) Red Blood Count 3.15 x10^6/uL (3.50-5.40) Hemoglobin 8.6 g/dL (12.0-15.5) Hematocrit 26.5 % (36.0-47.0) Mean Corpuscular Volume 84 fL (79-100) Mean Corpuscular Hemoglobin 27 pg (25-35) Mean Corpuscular Hemoglobin Concent 33 g/dL (31-37) Red Cell Distribution Width 20.7 % (11.5-14.5) Platelet Count 181 x10^3/uL (140-400) Creatinine 0.9 mg/dL (0.6-1.0) Estimated GFR (Cockcroft-Gault) 59.7 Microbiology 02/25/19 Blood Culture - Preliminary, Resulted NO GROWTH AFTER 4 DAYS Medications Current Medications Sodium Chloride 500 ml @ 500 mls/hr 1X ONCE IV Last administered on 02/25/19at 13:30; Start 02/25/19 at 12:45; Stop 02/25/19 at 13:44; Status DC Levofloxacin/ Dextrose 150 ml @ 100 mls/hr 1X ONCE IV Last administered on 02/25/19at 13:30; Start 02/25/19 at 12:45; Stop 02/25/19 at 14:14; Status DC Sodium Bicarbonate (Sodium Bicarb Adult 8.4% Syr) 50 meq 1X ONCE IV Last administered on 02/25/19at 13:29; Start 02/25/19 at 13:00; Stop 02/25/19 at 13:01; Status DC Vancomycin HCl (Vanco Per Pharmacy) 1 each PRN DAILY PRN MC SEE COMMENTS Last administered on 02/25/19at 14:38; Start 02/25/19 at 12:45; Stop 02/26/19 at 10:16; Status DC Vancomycin HCl 1.25 gm/Sodium Chloride 250 ml @ 166.667 mls/hr 1X ONCE IV Last administered on 02/25/19at 14:21; Start 02/25/19 at 14:00; Stop 02/25/19 at 15:29; Status DC Ondansetron HCl (Zofran) 4 mg PRN Q8HRS PRN IV NAUSEA/VOMITING; Start 02/25/19 at 13:45; Stop 02/26/19 at 13:44; Status DC Morphine Sulfate (Morphine Sulfate) 2 mg PRN Q2HR PRN IV PAIN; Start 02/25/19 at 13:45; Stop 02/26/19 at 13:44; Status DC Sodium Bicarbonate (Sodium Bicarb Adult 8.4% Syr) 50 meq 1X ONCE IV ; Start 02/25/19 at 13:45; Stop 02/25/19 at 14:03; Status DC Calcium Gluconate (Calcium Gluconate) 1,000 mg 1X ONCE IVP Last administered on 02/25/19at 14:20; Start 02/25/19 at 13:45; Stop 02/25/19 at 14:03; Status DC Albuterol Sulfate (Ventolin Neb Soln) 10 mg 1X ONCE CONT NEB Last administered on 02/25/19at 14:01; Start 02/25/19 at 13:45; Stop 02/25/19 at 14:03; Status DC Aspirin (Children'S Aspirin) 324 mg 1X ONCE PO ; Start 02/25/19 at 14:30; Stop 02/25/19 at 14:31; Status DC Sodium Chloride 500 ml @ 500 mls/hr 1X ONCE IV Last administered on 02/25/19at 14:59; Start 02/25/19 at 14:30; Stop 02/25/19 at 15:29; Status DC Aspirin (Aspirin) 300 mg 1X ONCE AK ; Start 02/25/19 at 14:45; Stop 02/25/19 at 14:46; Status DC Vancomycin HCl 500 mg/Sodium Chloride 100 ml @ 100 mls/hr Q24H IV ; Start 02/26/19 at 14:30; Stop 02/26/19 at 14:30; Status DC Vancomycin HCl (Vancomycin Trough Level) 1 each 1X ONCE MC ; Start 02/27/19 at 14:00; Stop 02/27/19 at 14:00; Status DC Sodium Bicarbonate 75 meq/Sodium Chloride 1,075 ml @ 60 mls/hr [id number] IV Last administered on 02/25/19at 22:56; Start 02/25/19 at 17:30; Stop 02/26/19 at 07:20; Status DC Aspirin (Aspirin) 300 mg DAILY AK Last administered on 02/26/19at 09:11; Start 02/26/19 at 09:00; Stop 02/26/19 at 10:19; Status DC Norepinephrine Bitartrate 250 ml @ 1.875 mls/ hr CONT PRN IV SEE I/O RECORD; Start 02/25/19 at 17:15; Stop 02/27/19 at 15:56; Status DC Vitamin A/Vitamin D (Vitamin A & D Ointment) 1 spenser PRN Q1HR PRN TP SKIN PROTECTION; Start 02/25/19 at 19:00 Dextrose (Dextrose 50%-Water Syringe) 25 gm STK-MED ONCE IV ; Start 02/25/19 at 22:52; Stop 02/25/19 at 22:53; Status DC Dextrose (Dextrose 50%-Water Syringe) 12.5 gm PRN Q15MIN PRN IV SEE COMMENTS Last administered on 02/26/19at 12:07; Start 02/25/19 at 23:45; Stop 02/27/19 at 08:30; Status DC Sodium Bicarbonate 75 meq/Dextrose/ Sodium Chloride 1,075 ml @ 60 mls/hr [id number] IV Last administered on 02/26/19at 07:41; Start 02/26/19 at 07:30; Stop 02/26/19 at 12:15; Status DC Aspirin (Ecotrin) 325 mg DAILYWBKFT PO ; Start 02/27/19 at 08:00; Stop 02/27/19 at 08:39; Status DC Clonazepam (KlonoPIN) 0.5 mg HS PO ; Start 02/26/19 at 21:00; Stop 02/26/19 at 21:00; Status DC Clopidogrel Bisulfate (Plavix) 75 mg DAILYWBKFT PO Last administered on 02/27/19at 08:46; Start 02/26/19 at 11:00; Stop 02/28/19 at 08:23; Status DC Cyanocobalamin (Vitamin B-12) 1,000 mcg DAILY PO Last administered on 03/02/19at 09:13; Start 02/26/19 at 11:00 Acetaminophen/ Hydrocodone Bitart (Lortab 7.5/325) 1 tab PRN Q6HRS PRN PO PAIN; Start 02/26/19 at 10:15 Metoprolol Succinate (Toprol Xl) 50 mg DAILY PO ; Start 02/26/19 at 11:00; Stop 02/28/19 at 10:36; Status DC Trazodone HCl (Desyrel) 25 mg QHS PO Last administered on 03/01/19at 22:19; Start 02/26/19 at 21:00 Daptomycin 320 mg/ Sodium Chloride 50 ml @ 100 mls/hr QODAY IV Last administered on 02/26/19at 12:18; Start 02/26/19 at 12:00; Stop 02/27/19 at 15:16; Status DC Insulin Human Lispro (HumaLOG) 0-9 UNITS TIDWMEALS SQ ; Start 02/26/19 at 12:00; Stop 02/27/19 at 13:12; Status DC Dextrose (Dextrose 50%-Water Syringe) 12.5 gm PRN Q15MIN PRN IV SEE COMMENTS; Start 02/26/19 at 10:30 Heparin Sodium (Porcine) (Heparin Sodium) 5,000 unit Q12HR SQ Last administered on 02/27/19at 21:52; Start 02/26/19 at 21:00; Stop 02/28/19 at 06:36; Status DC Dextrose 1,000 ml @ 60 mls/hr [id number] IV Last administered on 02/27/19at 05:35; Start 02/26/19 at 12:15; Stop 02/27/19 at 11:02; Status DC Aspirin (Cristobal Aspirin) 325 mg DAILYWBKFT PO Last administered on 02/27/19at 08:46; Start 02/27/19 at 08:00; Stop 02/28/19 at 08:23; Status DC Insulin Human Lispro (HumaLOG) 0-9 UNITS Q6HRS SQ Last administered on 03/02/19at 06:17; Start 02/27/19 at 18:00 Vancomycin HCl (Vanco Per Pharmacy) 1 each PRN DAILY PRN MC SEE COMMENTS Last administered on 03/01/19at 19:32; Start 02/27/19 at 15:15 Vancomycin HCl 1.25 gm/Sodium Chloride 250 ml @ 166.667 mls/hr 1X ONCE IV Last administered on 02/27/19at 18:16; Start 02/27/19 at 15:30; Stop 02/27/19 at 16:59; Status DC Vancomycin HCl 750 mg/Sodium Chloride 250 ml @ 250 mls/hr Q24H IV Last administered on 02/28/19at 18:42; Start 02/28/19 at 17:30; Stop 03/01/19 at 19:24; Status DC Vancomycin HCl (Vancomycin Trough Level) 1 each 1X ONCE MC Last administered on 03/01/19at 17:00; Start 03/01/19 at 17:00; Stop 03/01/19 at 17:01; Status DC Pantoprazole Sodium (PROTONIX VIAL for IV PUSH) 40 mg DAILYAC IVP Last administered on 02/28/19at 08:08; Start 02/28/19 at 07:30; Stop 03/01/19 at 09:01; Status DC Metoprolol Tartrate (Lopressor) 25 mg BID PO ; Start 02/28/19 at 21:00; Stop 02/28/19 at 21:00; Status DC Metoprolol Tartrate (Lopressor) 25 mg BID PO Last administered on 03/02/19at 09:13; Start 02/28/19 at 10:45 Famotidine (Pepcid) 20 mg DAILY NG Last administered on 03/02/19at 09:13; Start 03/01/19 at 09:00 Vancomycin HCl 750 mg/Sodium Chloride 250 ml @ 250 mls/hr Q18H IV Last administered on 03/01/19at 21:59; Start 03/01/19 at 20:00 Insulin Glargine (Lantus) 15 units DAILY10 SQ Last administered on 03/02/19at 10:24; Start 03/02/19 at 10:00 Active Scripts Active Aspirin Ec (Aspirin) 325 Mg Tablet.dr 325 Mg PO DAILYWBKFT 30 Days Take Aspirin 325mg daily x 30 days then decrease to 81mg daily Lisinopril 5 Mg Tablet 2.5 Mg PO DAILY 30 Days Humalog (Insulin Lispro) 100 Unit/1 Ml Insuln.pen 4 Units SQ TIDAC 30 Days Lantus Solostar (Insulin Glargine,Hum.rec.anlog) 100 Unit/1 Ml Insuln.pen 18 Units SQ QHS 30 Days Toprol Xl (Metoprolol Succinate) 50 Mg Tab.er.24h 50 Mg PO DAILY 30 Days Atorvastatin Calcium 10 Mg Tablet 5 Mg PO QHS 30 Days Clopidogrel (Clopidogrel Bisulfate) 75 Mg Tablet 75 Mg PO DAILYWBKFT 30 Days Reported Tessalon Perle (Benzonatate) 100 Mg Capsule 100 Mg PO TID PRN Hydrocodone-Apap 7.5-325 (Hydrocodone Bit/Acetaminophen) 1 Tab Tablet 1 Tab PO PRN Q6HRS PRN Folic Acid 1 Mg Tablet 1 Tab PO DAILY Trazodone Hcl 50 Mg Tablet 0.5 Tab PO QHS Lasix (Furosemide) 40 Mg Tablet 40 Mg PO BID Potassium Chloride 20 Meq Tablet.er 20 Meq PO DAILY Tylenol Extra Strength (Acetaminophen) 500 Mg Tablet 1,000 Mg PO PRN Q8HRS PRN Vitamin B-12 (Cyanocobalamin (Vitamin B-12)) 1,000 Mcg Tablet 1 Tab PO DAILY Clonazepam 0.5 Mg Tablet 1 Tab PO HS Vitals/I & O Vital Sign - Last 24 Hours 03/01/19 03/01/19 03/01/19/30/19 11:00 15:00 19:40 20:53 Temp 97.5 97.1 97.1 97.5 97.1 97.1 Pulse 83 92 101 Resp 16 18 20 B/P (MAP) 118/59 (78) 144/65 (91) 145/70 (95) Pulse Ox 97 100 97 O2 Delivery Room Air Room Air Room Air Room Air 03/01/19 03/01/19 03/02/19 03/02/19 22:20 22:45 03:30 07:00 Temp 98.2 97.1 97.5 98.2 97.1 97.5 Pulse 92 85 107 100 Resp 20 18 18 B/P (MAP) 145/70 130/63 (85) 93/55 (68) 134/65 (88) Pulse Ox 98 97 98 O2 Delivery Room Air Room Air Room Air 03/02/19 03/02/19 08:29 09:13 Pulse 100 B/P (MAP) 134/65 O2 Delivery Room Air Intake and Output 03/01/19 03/01/19 03/02/19 14:59 22:59 06:59 Intake Total 600 ml 803 ml 1260 ml Output Total 450 ml 900 ml Balance 600 ml 353 ml 360 ml BARBRA GLASER MD March 02, 2019 10:59
[2019-03-02 11:00] VITALS: BP 135/73
--- NOTE | 2019-03-02 12:55 | RAD ---
MRI Brain without contrast History: Altered mental status Technique: Multiplanar, multisequential noncontrast MR imaging was performed of the brain. Comparison: None Findings: There is no evidence of recent infarct, intra-axial mass effect, midline shift or extra-axial fluid collection. There is moderate generalized supratentorial atrophy, ventricular size proportionate to the sulcal spaces. There is no significant focal signal abnormality including hemosiderin deposition of the brain parenchyma. There is preservation of the major arterial flow voids at the skull base. There has been lens surgery bilaterally. There is patchy mild bilateral ethmoid air cell mucosal thickening. There is mild patchy fluid and thickening of the mastoid air cells bilaterally greater on the left. Cerebellar tonsils are normal in location. There is preservation of marrow signal of the clivus. There is no significant abnormality of the pineal gland or pituitary gland. Impression: 1. There is no evidence of recent infarct or intracranial mass effect. There is generalized supratentorial atrophy. Electronically signed by: Marcus Junior MD (03/02/2019 12:52 PM) [email or web address]
--- NOTE | 2019-03-02 13:59 | NUR ---
SS following up with discharge planning. SS spoke with pt's son regarding discharge planning for pt. Pt's son reported that he would like his mother to go to [facility] unit at [facility], ; fax [phone]. Pt's son reported that his mother has always gone to [facility] and knows all the staff there. SS contacted [facility] and discussed as pt has NG tube. [facility] reported that they are accepting NG tubes now and requested clinical information be faxed. SS phoned and faxed clinical information to [facility] for review. SS awaiting PT/OT evaluations at this time and will fax once received. SS will await acceptance decision and insurance determination from [facility] and will proceed accordingly. Pt's RN notified.
[2019-03-02] MEDS: VANCOMYCIN 750 MG in IV NORMAL SALINE 250ML 250 ML IV SCH (15:01)
[2019-03-02 15:15] VITALS: BP 126/58
[2019-03-02] MEDS: VANCOMYCIN PER PHARMACY MC PRN (15:37)
--- NOTE | 2019-03-02 16:50 | PDOC ---
PULMONARY PROGRESS NOTES Subjective CONFUSED Vitals Vital Signs Date Time Temp Pulse Resp B/P (MAP) Pulse Ox O2 Delivery O2 Flow Rate FiO2 03/02/19 15:15 97.0 88 18 126/58 (80) 99 Room Air 97.0 General: Confused Lungs: Clear Cardiovascular: S1, S2 Abdomen: Soft Neuro Exam: Alert Extremities: No Edema Labs Laboratory Tests Test 02/28/19 18:04 02/28/19 23:25 03/01/19 05:50 03/01/19 05:52 Glucose (Fingerstick) 178 mg/dL (70-99) 151 mg/dL (70-99) 166 mg/dL (70-99) White Blood Count 9.7 x10^3/uL (4.0-11.0) Red Blood Count 3.01 x10^6/uL (3.50-5.40) Hemoglobin 8.1 g/dL (12.0-15.5) Hematocrit 25.2 % (36.0-47.0) Mean Corpuscular Volume 84 fL (79-100) Mean Corpuscular Hemoglobin 27 pg (25-35) Mean Corpuscular Hemoglobin Concent 32 g/dL (31-37) Red Cell Distribution Width 20.6 % (11.5-14.5) Platelet Count 170 x10^3/uL (140-400) Creatinine 1.1 mg/dL (0.6-1.0) Estimated GFR (Cockcroft-Gault) 47.3 Test 03/01/19 11:30 03/01/19 18:13 03/01/19 18:25 03/02/19 00:10 Glucose (Fingerstick) 187 mg/dL (70-99) 184 mg/dL (70-99) 146 mg/dL (70-99) White Blood Count 12.4 x10^3/uL (4.0-11.0) Red Blood Count 3.19 x10^6/uL (3.50-5.40) Hemoglobin 8.5 g/dL (12.0-15.5) Hematocrit 26.7 % (36.0-47.0) Mean Corpuscular Volume 84 fL (79-100) Mean Corpuscular Hemoglobin 27 pg (25-35) Mean Corpuscular Hemoglobin Concent 32 g/dL (31-37) Red Cell Distribution Width 20.8 % (11.5-14.5) Platelet Count 185 x10^3/uL (140-400) Vancomycin Level Trough 11.2 mcg/mL (10.0-20.0) Vancomycin Last Dose Date 02/28/19 Vancomycin Last Dose Time 1730 Test 03/02/19 05:38 03/02/19 05:40 03/02/19 12:58 Glucose (Fingerstick) 205 mg/dL (70-99) 165 mg/dL (70-99) White Blood Count 14.0 x10^3/uL (4.0-11.0) Red Blood Count 3.15 x10^6/uL (3.50-5.40) Hemoglobin 8.6 g/dL (12.0-15.5) Hematocrit 26.5 % (36.0-47.0) Mean Corpuscular Volume 84 fL (79-100) Mean Corpuscular Hemoglobin 27 pg (25-35) Mean Corpuscular Hemoglobin Concent 33 g/dL (31-37) Red Cell Distribution Width 20.7 % (11.5-14.5) Platelet Count 181 x10^3/uL (140-400) Creatinine 0.9 mg/dL (0.6-1.0) Estimated GFR (Cockcroft-Gault) 59.7 Laboratory Tests Test 03/01/19 18:13 03/01/19 18:25 03/02/19 00:10 03/02/19 05:38 Glucose (Fingerstick) 184 mg/dL (70-99) 146 mg/dL (70-99) 205 mg/dL (70-99) White Blood Count 12.4 x10^3/uL (4.0-11.0) Red Blood Count 3.19 x10^6/uL (3.50-5.40) Hemoglobin 8.5 g/dL (12.0-15.5) Hematocrit 26.7 % (36.0-47.0) Mean Corpuscular Volume 84 fL (79-100) Mean Corpuscular Hemoglobin 27 pg (25-35) Mean Corpuscular Hemoglobin Concent 32 g/dL (31-37) Red Cell Distribution Width 20.8 % (11.5-14.5) Platelet Count 185 x10^3/uL (140-400) Vancomycin Level Trough 11.2 mcg/mL (10.0-20.0) Vancomycin Last Dose Date 02/28/19 Vancomycin Last Dose Time 1730 Test 03/02/19 05:40 03/02/19 12:58 White Blood Count 14.0 x10^3/uL (4.0-11.0) Red Blood Count 3.15 x10^6/uL (3.50-5.40) Hemoglobin 8.6 g/dL (12.0-15.5) Hematocrit 26.5 % (36.0-47.0) Mean Corpuscular Volume 84 fL (79-100) Mean Corpuscular Hemoglobin 27 pg (25-35) Mean Corpuscular Hemoglobin Concent 33 g/dL (31-37) Red Cell Distribution Width 20.7 % (11.5-14.5) Platelet Count 181 x10^3/uL (140-400) Creatinine 0.9 mg/dL (0.6-1.0) Estimated GFR (Cockcroft-Gault) 59.7 Glucose (Fingerstick) 165 mg/dL (70-99) Medications Active Scripts Medications Dose Route/Sig Max Daily Dose Days Date Category Dose Instructions Tessalon Perle (Benzonatate) 100 Mg Capsule 100 Mg PO TID PRN 01/17/19 Reported Aspirin Ec (Aspirin) 325 Mg Tablet. 325 Mg PO DAILYWBKFT 01/17/19 Rx Take Aspirin 325mg daily x 30 days then decrease to 81mg daily Lisinopril 5 Mg Tablet 2.5 Mg PO DAILY 30 01/17/19 Rx Humalog (Insulin Lispro) 100 Unit/1 Ml Insuln.pen 4 Units SQ TIDAC 30 01/17/19 Rx Lantus Solostar (Insulin Glargine,Hum.rec.anlog) 100 Unit/1 Ml Insuln.pen 18 Units SQ QHS 30 01/17/19 Rx Hydrocodone-Apap 7.5-325 (Hydrocodone Bit/Acetaminophen) 1 Tab Tablet 1 Tab PO PRN Q6HRS PRN 01/11/19 Reported Folic Acid 1 Mg Tablet 1 Tab PO DAILY 01/11/19 Reported Trazodone Hcl 50 Mg Tablet 0.5 Tab PO QHS 01/11/19 Reported Lasix (Furosemide) 40 Mg Tablet 40 Mg PO BID 12/07/18 Reported Potassium Chloride 20 Meq Tablet.er 20 Meq PO DAILY 12/07/18 Reported Toprol Xl (Metoprolol Succinate) 50 Mg Tab.er.24h 50 Mg PO DAILY 30 12/07/18 Rx Atorvastatin Calcium 10 Mg Tablet 5 Mg PO QHS 30 12/07/18 Rx Clopidogrel (Clopidogrel Bisulfate) 75 Mg Tablet 75 Mg PO DAILYWBKFT 30 12/07/18 Rx Tylenol Extra Strength (Acetaminophen) 500 Mg Tablet 1,000 Mg PO PRN Q8HRS PRN 11/29/18 Reported Vitamin B-12 (Cyanocobalamin (Vitamin B-12)) 1,000 Mcg Tablet 1 Tab PO DAILY 10/15/18 Reported Clonazepam 0.5 Mg Tablet 1 Tab PO HS 10/15/18 Reported Impression . IMPRESSION: 1. Acute hypoxemic respiratory failure, multifactorial. 2. Severe metabolic acidosis. 3. Acute chronic kidney failure. 4. Leukocytosis. 5. Metabolic toxic encephalopathy. 6. Hyperkalemia. 7. Elevated troponin level. 8. Hypoglycemia. 9. STAPH Bacteremia. SEE RESULTS 10. Ischemic cardiomyopathy. Plan . RESP STATUS COMPENSATED WILL CONTINUE SUPPORT ANTIBX PER ID NG FOR NUTRITION MORTEZA DAVIS MD March 02, 2019 16:50
[2019-03-02 18:58] LABS: HEMATOCRIT 26.4 % (36.0-47.0); HEMOGLOBIN 8.4 g/dL (12.0-15.5); RED BLOOD COUNT 3.13 x10^6/uL (3.50-5.40); RED CELL DISTRIBUTION WIDTH 20.7 % (11.5-14.5); WHITE BLOOD COUNT 13.6 x10^3/uL (4.0-11.0)
[2019-03-02 19:15] VITALS: BP 101/51
[2019-03-02] MEDS: traZODone 50 MG TABLET. PO SCH (21:51)
[2019-03-02 23:25] VITALS: BP 137/60
[2019-03-03 03:29] VITALS: BP 119/59
[2019-03-03] MEDS: INSULIN LISPRO 300 UNITS/3 ML INSULN.PEN. SQ SCH ×2 (05:41)
[2019-03-03 05:48] LABS: CREATININE 0.9 mg/dL (0.6-1.0); GFR 59.7
[2019-03-03 06:20] LABS: HEMATOCRIT 26.5 % (36.0-47.0); HEMOGLOBIN 8.4 g/dL (12.0-15.5); RED BLOOD COUNT 3.13 x10^6/uL (3.50-5.40); RED CELL DISTRIBUTION WIDTH 20.7 % (11.5-14.5); WHITE BLOOD COUNT 13.3 x10^3/uL (4.0-11.0)
[2019-03-03 06:37] LABS: VANC TR 14.1 mcg/mL (10.0-20.0)
[2019-03-03 07:00] VITALS: BP 140/63
--- NOTE | 2019-03-03 07:58 | PDOC ---
Infectious Disease Note Subjective Subjective pt is awake, mumbles few words ROS ROS no n/v/d/ Vital Sign Vital Signs Vital Signs Date Time Temp Pulse Resp B/P (MAP) Pulse Ox O2 Delivery O2 Flow Rate FiO2 03/03/19 07:00 98.1 104 18 140/63 (88) 97 Room Air 98.1 Physical Exam PHYSICAL EXAM GENERAL: Propped up in bed, nodes a little HEENT: Pupils equally round, reactive. Normal conjunctivae. Oral cavity, pharynx dry. Dentures. NGT LUNGS: Clear to auscultation. HEART: S1 and S2 regular. ABDOMEN: Nondistended, soft, no grimace or guarding to palpation. Bowel sounds present. GENITOURINARY: [place] Fuente in place. EXTREMITIES: No gross edema or cyanosis. Right TMA completely healed. No cyanosis. Heal protectors SKIN: Warm without rash. NEUROLOGIC: awake, nodes off and on RIJ (02/25) without signs of any complications. Labs Lab Laboratory Tests Test 03/02/19 12:58 03/02/19 17:45 03/02/19 18:50 03/03/19 00:39 Glucose (Fingerstick) 165 mg/dL (70-99) 170 mg/dL (70-99) 131 mg/dL (70-99) White Blood Count 13.6 x10^3/uL (4.0-11.0) Red Blood Count 3.13 x10^6/uL (3.50-5.40) Hemoglobin 8.4 g/dL (12.0-15.5) Hematocrit 26.4 % (36.0-47.0) Mean Corpuscular Volume 85 fL (79-100) Mean Corpuscular Hemoglobin 27 pg (25-35) Mean Corpuscular Hemoglobin Concent 32 g/dL (31-37) Red Cell Distribution Width 20.7 % (11.5-14.5) Platelet Count 200 x10^3/uL (140-400) Test 03/03/19 05:25 03/03/19 05:38 White Blood Count 13.3 x10^3/uL (4.0-11.0) Red Blood Count 3.13 x10^6/uL (3.50-5.40) Hemoglobin 8.4 g/dL (12.0-15.5) Hematocrit 26.5 % (36.0-47.0) Mean Corpuscular Volume 85 fL (79-100) Mean Corpuscular Hemoglobin 27 pg (25-35) Mean Corpuscular Hemoglobin Concent 32 g/dL (31-37) Red Cell Distribution Width 20.7 % (11.5-14.5) Platelet Count 221 x10^3/uL (140-400) Creatinine 0.9 mg/dL (0.6-1.0) Estimated GFR (Cockcroft-Gault) 59.7 Vancomycin Level Trough 14.1 mcg/mL (10.0-20.0) Vancomycin Last Dose Date 03/02/19 Vancomycin Last Dose Time 1400 Glucose (Fingerstick) 165 mg/dL (70-99) Micro BLOOD CULTURE LC Final Final report BLD CULT RESULT 1 Final Comment Staphylococcus simulans Based on resistance to oxacillin this isolate would be resistant to all currently available beta-lactam antimicrobial agents, with the exception of the newer cephalosporins with anti-MRSA activity, such as Ceftaroline ANTIMICROBIAL SUSCEPTIBILITY Final Comment S = Susceptible; I = Intermediate; R = Resistant P = Positive; N = Negative MICS are expressed in micrograms per mL Antibiotic RSLT#1 RSLT#2 RSLT#3 RSLT#4 Ciprofloxacin R>=8 Clindamycin R =R Erythromycin R>=8 Gentamicin S<=0.5 Levofloxacin R>=8 Oxacillin R>=4 Penicillin R>=0.5 Rifampin S<=0.5 Tetracycline S<=1 Trimethoprim/Sulfa S<=10 Vancomycin S<=0.5 Performed at: [facility] - [facility] [address], [place], [place] [id number] [employer]: MILTON Ott MD, Phone: [phone] Objective Assessment Sepsis with Gram-positive cocci bacteremia, present on admission. Lactic acidosis, improved. Hypothermia, now normotensive and off Sarina Hugger. Leukocytosis. PENICILLIN/AMOXICILLIN ALLERGY WITH HIVES. Acute hypoxic respiratory failure, better now, off supplemental oxygen. Elevated lipase. Diabetes with hypoglycemia. Acute kidney injury on chronic kidney disease, improved. Metabolic encephalopathy. Ischemic cardiomyopathy. History of MSSA and group B strep infection. Plan Plan of Care d/c vanc,, d/c cv line Labs in am Supportive care D/w nursing ok to d/c to [place] ANTHONY MAURICE MD March 03, 2019 07:58
[2019-03-03] MEDS: CYANOCOBALAMIN (VITAMIN B-12) 1,000 MCG TABLET. PO SCH (08:28)
[2019-03-03] MEDS: FAMOTIDINE 20 MG TABLET. NG SCH (08:28)
[2019-03-03] MEDS: METOPROLOL TART IMMED RELEASE 25 MG TABLET. PO SCH ×2 (08:29→20:42)
--- NOTE | 2019-03-03 09:03 | PDOC ---
Provider Note Provider Note vss, a few words- hb same, few meds- glucose ok on low dose lantus- mri head ok- cont same ALAYNA SOLANO MD March 03, 2019 09:03
--- NOTE | 2019-03-03 10:35 | NUR ---
Dysphagia Follow Up. Pt seen at bedside, upright in bed, awake/alert, delayed responses, occasional delayed verbalization of single words (typically yes, good, etc). Did not follow directions. Impressions: Moderate oropharyngeal dysphagia ongoing. At times pt w/ agnosia to bolus presentation, at times limited mouth opening. Continues w/ delayed swallow initiation, decreased hyolaryngeal excursion and s/s aspiration w/ minimal PO trials. Decreased mental status in addition to ongoing dysphagia place pt at high risk of aspiration for any PO at this time. Limited progress w/ swallow function and safety over the past 3 days. Pt will likely require alternative nutrition/hydration for some time. Currently videoswallow evaluation not indicated d/t pt's decreased mental status, decreased ability to participate and accept boluses. Recommendations: Continue NPO, oral care, ST f/u for dysphagia. D/w RN.
[2019-03-03] MEDS: INSULIN GLARGINE 300 UNITS/3 ML INSULN.PEN. SQ SCH (10:45)
[2019-03-03 11:00] VITALS: BP 121/60
--- NOTE | 2019-03-03 11:49 | NUR ---
SS following up with discharge planning. Pt is accepted at [facility] pending insurance authorization from [facility]. SS awaiting insurance authorization with [facility] and will proceed accordingly with discharge planning.
--- NOTE | 2019-03-03 14:09 | PDOC ---
PROGRESS NOTES Assessment Problems Medical Problems: (1) Elevated troponin Status: Acute (2) Hypoglycemia Status: Acute (3) Hypokalemia Status: Acute (4) Leukocytosis Status: Acute (5) Metabolic acidosis Status: Acute (6) Severe sepsis Status: Acute Metabolic encephalopathy related to hypoglycemia, severe anemia, also medical problems of coronary artery disease, diabetes, cardiomyopathy, chronic kidney disease. No other obvious metabolic cause, MRI of the brain is negative for stroke, I do not believe that she is having seizures. 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 Follow-up with neurology as needed. Subjective None Objective Vital Signs Date Time Temp Pulse Resp B/P (MAP) Pulse Ox O2 Delivery O2 Flow Rate FiO2 03/03/19 11:00 97.5 103 16 121/60 (80) 97 Room Air 97.5 Intake and Output 03/03/19 07:00 Intake Total 2597 ml Output Total 1800 ml Balance 797 ml Intake Oral 339 ml Tube Feeding 1808 ml Other 450 ml Output Urine Total 1800 ml # Bowel Movements 1 PHYSICAL EXAM Alert. Follows a few follow commands, does not speak, but did some of the Rosary for one of her scientology friends PERRL. EOMI. CN: no focal findings. Muscle tone: normal. Muscle strength: moves all 4 extremities spontaneously DTR: 1+ Plantar reflex: silent Gait: not examined in bed. Sensory exam: no abnormal findings. No cerebellar signs elicited. Review of Relevant I have reviewed the following items chalri (where applicable) has been applied. Labs Laboratory Tests Test 03/01/19 18:13 03/01/19 18:25 03/02/19 00:10 03/02/19 05:38 Glucose (Fingerstick) 184 mg/dL (70-99) 146 mg/dL (70-99) 205 mg/dL (70-99) White Blood Count 12.4 x10^3/uL (4.0-11.0) Red Blood Count 3.19 x10^6/uL (3.50-5.40) Hemoglobin 8.5 g/dL (12.0-15.5) Hematocrit 26.7 % (36.0-47.0) Mean Corpuscular Volume 84 fL (79-100) Mean Corpuscular Hemoglobin 27 pg (25-35) Mean Corpuscular Hemoglobin Concent 32 g/dL (31-37) Red Cell Distribution Width 20.8 % (11.5-14.5) Platelet Count 185 x10^3/uL (140-400) Vancomycin Level Trough 11.2 mcg/mL (10.0-20.0) Vancomycin Last Dose Date 02/28/19 Vancomycin Last Dose Time 1730 Test 03/02/19 05:40 03/02/19 12:58 03/02/19 17:45 03/02/19 18:50 White Blood Count 14.0 x10^3/uL (4.0-11.0) 13.6 x10^3/uL (4.0-11.0) Red Blood Count 3.15 x10^6/uL (3.50-5.40) 3.13 x10^6/uL (3.50-5.40) Hemoglobin 8.6 g/dL (12.0-15.5) 8.4 g/dL (12.0-15.5) Hematocrit 26.5 % (36.0-47.0) 26.4 % (36.0-47.0) Mean Corpuscular Volume 84 fL (79-100) 85 fL (79-100) Mean Corpuscular Hemoglobin 27 pg (25-35) 27 pg (25-35) Mean Corpuscular Hemoglobin Concent 33 g/dL (31-37) 32 g/dL (31-37) Red Cell Distribution Width 20.7 % (11.5-14.5) 20.7 % (11.5-14.5) Platelet Count 181 x10^3/uL (140-400) 200 x10^3/uL (140-400) Creatinine 0.9 mg/dL (0.6-1.0) Estimated GFR (Cockcroft-Gault) 59.7 Glucose (Fingerstick) 165 mg/dL (70-99) 170 mg/dL (70-99) Test 03/03/19 00:39 03/03/19 05:25 03/03/19 05:38 03/03/19 11:27 Glucose (Fingerstick) 131 mg/dL (70-99) 165 mg/dL (70-99) 149 mg/dL (70-99) White Blood Count 13.3 x10^3/uL (4.0-11.0) Red Blood Count 3.13 x10^6/uL (3.50-5.40) Hemoglobin 8.4 g/dL (12.0-15.5) Hematocrit 26.5 % (36.0-47.0) Mean Corpuscular Volume 85 fL (79-100) Mean Corpuscular Hemoglobin 27 pg (25-35) Mean Corpuscular Hemoglobin Concent 32 g/dL (31-37) Red Cell Distribution Width 20.7 % (11.5-14.5) Platelet Count 221 x10^3/uL (140-400) Creatinine 0.9 mg/dL (0.6-1.0) Estimated GFR (Cockcroft-Gault) 59.7 Vancomycin Level Trough 14.1 mcg/mL (10.0-20.0) Vancomycin Last Dose Date 03/02/19 Vancomycin Last Dose Time 1400 Laboratory Tests Test 03/02/19 17:45 03/02/19 18:50 03/03/19 00:39 03/03/19 05:25 Glucose (Fingerstick) 170 mg/dL (70-99) 131 mg/dL (70-99) White Blood Count 13.6 x10^3/uL (4.0-11.0) 13.3 x10^3/uL (4.0-11.0) Red Blood Count 3.13 x10^6/uL (3.50-5.40) 3.13 x10^6/uL (3.50-5.40) Hemoglobin 8.4 g/dL (12.0-15.5) 8.4 g/dL (12.0-15.5) Hematocrit 26.4 % (36.0-47.0) 26.5 % (36.0-47.0) Mean Corpuscular Volume 85 fL (79-100) 85 fL (79-100) Mean Corpuscular Hemoglobin 27 pg (25-35) 27 pg (25-35) Mean Corpuscular Hemoglobin Concent 32 g/dL (31-37) 32 g/dL (31-37) Red Cell Distribution Width 20.7 % (11.5-14.5) 20.7 % (11.5-14.5) Platelet Count 200 x10^3/uL (140-400) 221 x10^3/uL (140-400) Creatinine 0.9 mg/dL (0.6-1.0) Estimated GFR (Cockcroft-Gault) 59.7 Vancomycin Level Trough 14.1 mcg/mL (10.0-20.0) Vancomycin Last Dose Date 03/02/19 Vancomycin Last Dose Time 1400 Test 03/03/19 05:38 03/03/19 11:27 Glucose (Fingerstick) 165 mg/dL (70-99) 149 mg/dL (70-99) Microbiology 02/25/19 Blood Culture - Final, Complete NO GROWTH AFTER 5 DAYS Medications Current Medications Sodium Chloride 500 ml @ 500 mls/hr 1X ONCE IV Last administered on 02/25/19at 13:30; Start 02/25/19 at 12:45; Stop 02/25/19 at 13:44; Status DC Levofloxacin/ Dextrose 150 ml @ 100 mls/hr 1X ONCE IV Last administered on 02/25/19at 13:30; Start 02/25/19 at 12:45; Stop 02/25/19 at 14:14; Status DC Sodium Bicarbonate (Sodium Bicarb Adult 8.4% Syr) 50 meq 1X ONCE IV Last administered on 02/25/19at 13:29; Start 02/25/19 at 13:00; Stop 02/25/19 at 13:01; Status DC Vancomycin HCl (Vanco Per Pharmacy) 1 each PRN DAILY PRN MC SEE COMMENTS Last administered on 02/25/19at 14:38; Start 02/25/19 at 12:45; Stop 02/26/19 at 10:16; Status DC Vancomycin HCl 1.25 gm/Sodium Chloride 250 ml @ 166.667 mls/hr 1X ONCE IV Last administered on 02/25/19at 14:21; Start 02/25/19 at 14:00; Stop 02/25/19 at 15:29; Status DC Ondansetron HCl (Zofran) 4 mg PRN Q8HRS PRN IV NAUSEA/VOMITING; Start 02/25/19 at 13:45; Stop 02/26/19 at 13:44; Status DC Morphine Sulfate (Morphine Sulfate) 2 mg PRN Q2HR PRN IV PAIN; Start 02/25/19 at 13:45; Stop 02/26/19 at 13:44; Status DC Sodium Bicarbonate (Sodium Bicarb Adult 8.4% Syr) 50 meq 1X ONCE IV ; Start 02/25/19 at 13:45; Stop 02/25/19 at 14:03; Status DC Calcium Gluconate (Calcium Gluconate) 1,000 mg 1X ONCE IVP Last administered on 02/25/19at 14:20; Start 02/25/19 at 13:45; Stop 02/25/19 at 14:03; Status DC Albuterol Sulfate (Ventolin Neb Soln) 10 mg 1X ONCE CONT NEB Last administered on 02/25/19at 14:01; Start 02/25/19 at 13:45; Stop 02/25/19 at 14:03; Status DC Aspirin (Children'S Aspirin) 324 mg 1X ONCE PO ; Start 02/25/19 at 14:30; Stop 02/25/19 at 14:31; Status DC Sodium Chloride 500 ml @ 500 mls/hr 1X ONCE IV Last administered on 02/25/19at 14:59; Start 02/25/19 at 14:30; Stop 02/25/19 at 15:29; Status DC Aspirin (Aspirin) 300 mg 1X ONCE AK ; Start 02/25/19 at 14:45; Stop 02/25/19 at 14:46; Status DC Vancomycin HCl 500 mg/Sodium Chloride 100 ml @ 100 mls/hr Q24H IV ; Start 02/26/19 at 14:30; Stop 02/26/19 at 14:30; Status DC Vancomycin HCl (Vancomycin Trough Level) 1 each 1X ONCE MC ; Start 02/27/19 at 14:00; Stop 02/27/19 at 14:00; Status DC Sodium Bicarbonate 75 meq/Sodium Chloride 1,075 ml @ 60 mls/hr [id number] IV Last administered on 02/25/19at 22:56; Start 02/25/19 at 17:30; Stop 02/26/19 at 07:20; Status DC Aspirin (Aspirin) 300 mg DAILY AK Last administered on 02/26/19at 09:11; Start 02/26/19 at 09:00; Stop 02/26/19 at 10:19; Status DC Norepinephrine Bitartrate 250 ml @ 1.875 mls/ hr CONT PRN IV SEE I/O RECORD; Start 02/25/19 at 17:15; Stop 02/27/19 at 15:56; Status DC Vitamin A/Vitamin D (Vitamin A & D Ointment) 1 spenser PRN Q1HR PRN TP SKIN PROTECTION; Start 02/25/19 at 19:00 Dextrose (Dextrose 50%-Water Syringe) 25 gm STK-MED ONCE IV ; Start 02/25/19 at 22:52; Stop 02/25/19 at 22:53; Status DC Dextrose (Dextrose 50%-Water Syringe) 12.5 gm PRN Q15MIN PRN IV SEE COMMENTS Last administered on 02/26/19at 12:07; Start 02/25/19 at 23:45; Stop 02/27/19 at 08:30; Status DC Sodium Bicarbonate 75 meq/Dextrose/ Sodium Chloride 1,075 ml @ 60 mls/hr [id number] IV Last administered on 02/26/19at 07:41; Start 02/26/19 at 07:30; Stop 02/26/19 at 12:15; Status DC Aspirin (Ecotrin) 325 mg DAILYWBKFT PO ; Start 02/27/19 at 08:00; Stop 02/27/19 at 08:39; Status DC Clonazepam (KlonoPIN) 0.5 mg HS PO ; Start 02/26/19 at 21:00; Stop 02/26/19 at 21:00; Status DC Clopidogrel Bisulfate (Plavix) 75 mg DAILYWBKFT PO Last administered on 02/27/19at 08:46; Start 02/26/19 at 11:00; Stop 02/28/19 at 08:23; Status DC Cyanocobalamin (Vitamin B-12) 1,000 mcg DAILY PO Last administered on 03/03/19at 08:28; Start 02/26/19 at 11:00 Acetaminophen/ Hydrocodone Bitart (Lortab 7.5/325) 1 tab PRN Q6HRS PRN PO PAIN; Start 02/26/19 at 10:15 Metoprolol Succinate (Toprol Xl) 50 mg DAILY PO ; Start 02/26/19 at 11:00; Stop 02/28/19 at 10:36; Status DC Trazodone HCl (Desyrel) 25 mg QHS PO Last administered on 03/02/19at 21:51; Start 02/26/19 at 21:00 Daptomycin 320 mg/ Sodium Chloride 50 ml @ 100 mls/hr QODAY IV Last administered on 02/26/19at 12:18; Start 02/26/19 at 12:00; Stop 02/27/19 at 15:16; Status DC Insulin Human Lispro (HumaLOG) 0-9 UNITS TIDWMEALS SQ ; Start 02/26/19 at 12:00; Stop 02/27/19 at 13:12; Status DC Dextrose (Dextrose 50%-Water Syringe) 12.5 gm PRN Q15MIN PRN IV SEE COMMENTS; Start 02/26/19 at 10:30 Heparin Sodium (Porcine) (Heparin Sodium) 5,000 unit Q12HR SQ Last administered on 02/27/19at 21:52; Start 02/26/19 at 21:00; Stop 02/28/19 at 06:36; Status DC Dextrose 1,000 ml @ 60 mls/hr [id number] IV Last administered on 02/27/19at 05:35; Start 02/26/19 at 12:15; Stop 02/27/19 at 11:02; Status DC Aspirin (PhatNoise Aspirin) 325 mg DAILYWBKFT PO Last administered on 02/27/19at 08:46; Start 02/27/19 at 08:00; Stop 02/28/19 at 08:23; Status DC Insulin Human Lispro (HumaLOG) 0-9 UNITS Q6HRS SQ Last administered on 03/03/19at 05:41; Start 02/27/19 at 18:00; Stop 03/03/19 at 08:56; Status DC Vancomycin HCl (Vanco Per Pharmacy) 1 each PRN DAILY PRN MC SEE COMMENTS Last administered on 03/02/19at 15:37; Start 02/27/19 at 15:15; Stop 03/03/19 at 08:00; Status DC Vancomycin HCl 1.25 gm/Sodium Chloride 250 ml @ 166.667 mls/hr 1X ONCE IV Last administered on 02/27/19at 18:16; Start 02/27/19 at 15:30; Stop 02/27/19 at 16:59; Status DC Vancomycin HCl 750 mg/Sodium Chloride 250 ml @ 250 mls/hr Q24H IV Last administered on 02/28/19at 18:42; Start 02/28/19 at 17:30; Stop 03/01/19 at 1 9:24; Status DC Vancomycin HCl (Vancomycin Trough Level) 1 each 1X ONCE MC Last administered on 03/01/19at 17:00; Start 03/01/19 at 17:00; Stop 03/01/19 at 17:01; Status DC Pantoprazole Sodium (PROTONIX VIAL for IV PUSH) 40 mg DAILYAC IVP Last administ ered on 02/28/19at 08:08; Start 02/28/19 at 07:30; Stop 03/01/19 at 09:01; Status DC Metoprolol Tartrate (Lopressor) 25 mg BID PO ; Start 02/28/19 at 21:00; Stop 02/28/19 at 21:00; Status DC Metoprolol Tartrate (Lopressor) 25 mg BID PO Last administered on 03/03/19at 08:29; Start 02/28/19 at 10:45 Famotidine (Pepcid) 20 mg DAILY NG Last administered on 03/03/19at 08:28; Start 03/01/19 at 09:00 Vancomycin HCl 750 mg/Sodium Chloride 250 ml @ 250 mls/hr Q18H IV Last administered on 03/02/19at 15:01; Start 03/01/19 at 20:00; Stop 03/03/19 at 07:59; Status DC Insulin Glargine (Lantus) 15 units DAILY10 SQ Last administered on 03/03/19at 10: 45; Start 03/02/19 at 10:00 Vancomycin HCl (Vancomycin Trough Level) 1 each 1X ONCE MC ; Start 03/03/19 at 07:30; Stop 03/03/19 at 07:59; Status DC Active Scripts Active Aspirin Ec (Aspirin) 325 Mg Tablet.dr 325 Mg PO DAILYWBKFT 30 Days Take Aspirin 325mg daily x 30 days then decrease to 81mg daily Lisinopril 5 Mg Tablet 2.5 Mg PO DAILY 30 Days Humalog (Insulin Lispro) 100 Unit/1 Ml Insuln.pen 4 Units SQ TIDAC 30 Days Lantus Solostar (Insulin Glargine,Hum.rec.anlog) 100 Unit/1 Ml Insuln.pen 18 Units SQ QHS 30 Days Toprol Xl (Metoprolol Succinate) 50 Mg Tab.er.24h 50 Mg PO DAILY 30 Days Atorvastatin Calcium 10 Mg Tablet 5 Mg PO QHS 30 Days Clopidogrel (Clopidogrel Bisulfate) 75 Mg Tablet 75 Mg PO DAILYWBKFT 30 Days Reported Shivanisalon Perle (Benzonatate) 100 Mg Capsule 100 Mg PO TID PRN Hydrocodone-Apap 7.5-325 (Hydrocodone Bit/Acetaminophen) 1 Tab Tablet 1 Tab PO PRN Q6HRS PRN Folic Acid 1 Mg Tablet 1 Tab PO DAILY Trazodone Hcl 50 Mg Tablet 0.5 Tab PO QHS Lasix (Furosemide) 40 Mg Tablet 40 Mg PO BID Potassium Chloride 20 Meq Tablet.er 20 Meq PO DAILY Tylenol Extra Strength (Acetaminophen) 500 Mg Tablet 1,000 Mg PO PRN Q8HRS PRN Vitamin B-12 (Cyanocobalamin (Vitamin B-12)) 1,000 Mcg Tablet 1 Tab PO DAILY Clonazepam 0.5 Mg Tablet 1 Tab PO HS Vitals/I & O Vital Sign - Last 24 Hours 03/02/19 03/02/19 03/02/19 03/02/19 15:15 19:15 19:15 21:55 Temp 97.0 98.6 97.0 98.6 Pulse 88 92 96 Resp 18 19 B/P (MAP) 126/58 (80) 101/51 (68) 113/57 Pulse Ox 99 96 O2 Delivery Room Air Room Air Room Air 03/02/19 03/03/19 03/03/19 03/03/19 23:25 03:29 07:00 08:00 Temp 98.0 98.1 98.0 98.1 Pulse 102 96 104 Resp 18 18 B/P (MAP) 137/60 (85) 119/59 (79) 140/63 (88) Pulse Ox 95 97 O2 Delivery Room Air Room Air Room Air Room Air 03/03/19 03/03/19 08:29 11:00 Temp 97.5 97.5 Pulse 104 103 Resp 16 B/P (MAP) 140/63 121/60 (80) Pulse Ox 97 O2 Delivery Room Air Intake and Output 03/02/19 03/02/19 03/03/19 15:00 23:00 07:00 Intake Total 764 ml 799 ml 1034 ml Output Total 700 ml 1100 ml Balance 764 ml 99 ml -66 ml Images MRI Brain without contrast There is no evidence of recent infarct, intra-axial mass effect, midline shift or extra-axial fluid collection. There is moderate generalized supratentorial atrophy, ventricular size proportionate to the sulcal spaces. There is no significant focal signal abnormality including hemosiderin deposition of the brain parenchyma. There is preservation of the major arterial flow voids at the skull base. There has been lens surgery bilaterally. There is patchy mild bilateral ethmoid air cell mucosal thickening. There is mild patchy fluid and thickening of the mastoid air cells bilaterally greater on the left. Cerebellar tonsils are normal in location. There is preservation of marrow signal of the clivus. There is no significant abnormality of the pineal gland or pituitary gland. Impression: 1. There is no evidence of recent infarct or intracranial mass effect. There is generalized supratentorial atrophy. BARBRA GLASER MD March 03, 2019 14:09
--- NOTE | 2019-03-03 14:43 | PDOC ---
PULMONARY PROGRESS NOTES Subjective CONFUSED Vitals Vital Signs Date Time Temp Pulse Resp B/P (MAP) Pulse Ox O2 Delivery O2 Flow Rate FiO2 03/03/19 11:00 97.5 103 16 121/60 (80) 97 Room Air 97.5 General: Confused Lungs: Clear Cardiovascular: S1, S2 Abdomen: Soft Neuro Exam: Alert Extremities: No Edema Labs Laboratory Tests Test 03/01/19 18:13 03/01/19 18:25 03/02/19 00:10 03/02/19 05:38 Glucose (Fingerstick) 184 mg/dL (70-99) 146 mg/dL (70-99) 205 mg/dL (70-99) White Blood Count 12.4 x10^3/uL (4.0-11.0) Red Blood Count 3.19 x10^6/uL (3.50-5.40) Hemoglobin 8.5 g/dL (12.0-15.5) Hematocrit 26.7 % (36.0-47.0) Mean Corpuscular Volume 84 fL (79-100) Mean Corpuscular Hemoglobin 27 pg (25-35) Mean Corpuscular Hemoglobin Concent 32 g/dL (31-37) Red Cell Distribution Width 20.8 % (11.5-14.5) Platelet Count 185 x10^3/uL (140-400) Vancomycin Level Trough 11.2 mcg/mL (10.0-20.0) Vancomycin Last Dose Date 02/28/19 Vancomycin Last Dose Time 1730 Test 03/02/19 05:40 03/02/19 12:58 03/02/19 17:45 03/02/19 18:50 White Blood Count 14.0 x10^3/uL (4.0-11.0) 13.6 x10^3/uL (4.0-11.0) Red Blood Count 3.15 x10^6/uL (3.50-5.40) 3.13 x10^6/uL (3.50-5.40) Hemoglobin 8.6 g/dL (12.0-15.5) 8.4 g/dL (12.0-15.5) Hematocrit 26.5 % (36.0-47.0) 26.4 % (36.0-47.0) Mean Corpuscular Volume 84 fL (79-100) 85 fL (79-100) Mean Corpuscular Hemoglobin 27 pg (25-35) 27 pg (25-35) Mean Corpuscular Hemoglobin Concent 33 g/dL (31-37) 32 g/dL (31-37) Red Cell Distribution Width 20.7 % (11.5-14.5) 20.7 % (11.5-14.5) Platelet Count 181 x10^3/uL (140-400) 200 x10^3/uL (140-400) Creatinine 0.9 mg/dL (0.6-1.0) Estimated GFR (Cockcroft-Gault) 59.7 Glucose (Fingerstick) 165 mg/dL (70-99) 170 mg/dL (70-99) Test 03/03/19 00:39 03/03/19 05:25 03/03/19 05:38 03/03/19 11:27 Glucose (Fingerstick) 131 mg/dL (70-99) 165 mg/dL (70-99) 149 mg/dL (70-99) White Blood Count 13.3 x10^3/uL (4.0-11.0) Red Blood Count 3.13 x10^6/uL (3.50-5.40) Hemoglobin 8.4 g/dL (12.0-15.5) Hematocrit 26.5 % (36.0-47.0) Mean Corpuscular Volume 85 fL (79-100) Mean Corpuscular Hemoglobin 27 pg (25-35) Mean Corpuscular Hemoglobin Concent 32 g/dL (31-37) Red Cell Distribution Width 20.7 % (11.5-14.5) Platelet Count 221 x10^3/uL (140-400) Creatinine 0.9 mg/dL (0.6-1.0) Estimated GFR (Cockcroft-Gault) 59.7 Vancomycin Level Trough 14.1 mcg/mL (10.0-20.0) Vancomycin Last Dose Date 03/02/19 Vancomycin Last Dose Time 1400 Laboratory Tests Test 03/02/19 17:45 03/02/19 18:50 03/03/19 00:39 03/03/19 05:25 Glucose (Fingerstick) 170 mg/dL (70-99) 131 mg/dL (70-99) White Blood Count 13.6 x10^3/uL (4.0-11.0) 13.3 x10^3/uL (4.0-11.0) Red Blood Count 3.13 x10^6/uL (3.50-5.40) 3.13 x10^6/uL (3.50-5.40) Hemoglobin 8.4 g/dL (12.0-15.5) 8.4 g/dL (12.0-15.5) Hematocrit 26.4 % (36.0-47.0) 26.5 % (36.0-47.0) Mean Corpuscular Volume 85 fL (79-100) 85 fL (79-100) Mean Corpuscular Hemoglobin 27 pg (25-35) 27 pg (25-35) Mean Corpuscular Hemoglobin Concent 32 g/dL (31-37) 32 g/dL (31-37) Red Cell Distribution Width 20.7 % (11.5-14.5) 20.7 % (11.5-14.5) Platelet Count 200 x10^3/uL (140-400) 221 x10^3/uL (140-400) Creatinine 0.9 mg/dL (0.6-1.0) Estimated GFR (Cockcroft-Gault) 59.7 Vancomycin Level Trough 14.1 mcg/mL (10.0-20.0) Vancomycin Last Dose Date 03/02/19 Vancomycin Last Dose Time 1400 Test 03/03/19 05:38 03/03/19 11:27 Glucose (Fingerstick) 165 mg/dL (70-99) 149 mg/dL (70-99) Medications Active Scripts Medications Dose Route/Sig Max Daily Dose Days Date Category Dose Instructions Tessalon Perle (Benzonatate) 100 Mg Capsule 100 Mg PO TID PRN 01/17/19 Reported Aspirin Ec (Aspirin) 325 Mg Tablet. 325 Mg PO DAILYWBKFT 01/17/19 Rx Take Aspirin 325mg daily x 30 days then decrease to 81mg daily Lisinopril 5 Mg Tablet 2.5 Mg PO DAILY 01/17/19 Rx Humalog (Insulin Lispro) 100 Unit/1 Ml Insuln.pen 4 Units SQ TIDAC 01/17/19 Rx Lantus Solostar (Insulin Glargine,Hum.rec.anlog) 100 Unit/1 Ml Insuln.pen 18 Units SQ QHS 30 01/17/19 Rx Hydrocodone-Apap 7.5-325 (Hydrocodone Bit/Acetaminophen) 1 Tab Tablet 1 Tab PO PRN Q6HRS PRN 01/11/19 Reported Folic Acid 1 Mg Tablet 1 Tab PO DAILY 01/11/19 Reported Trazodone Hcl 50 Mg Tablet 0.5 Tab PO QHS 01/11/19 Reported Lasix (Furosemide) 40 Mg Tablet 40 Mg PO BID 12/07/18 Reported Potassium Chloride 20 Meq Tablet.er 20 Meq PO DAILY 12/07/18 Reported Toprol Xl (Metoprolol Succinate) 50 Mg Tab.er.24h 50 Mg PO DAILY 30 12/07/18 Rx Atorvastatin Calcium 10 Mg Tablet 5 Mg PO QHS 30 12/07/18 Rx Clopidogrel (Clopidogrel Bisulfate) 75 Mg Tablet 75 Mg PO DAILYWBKFT 30 12/07/18 Rx Tylenol Extra Strength (Acetaminophen) 500 Mg Tablet 1,000 Mg PO PRN Q8HRS PRN 11/29/18 Reported Vitamin B-12 (Cyanocobalamin (Vitamin B-12)) 1,000 Mcg Tablet 1 Tab PO DAILY 10/15/18 Reported Clonazepam 0.5 Mg Tablet 1 Tab PO HS 10/15/18 Reported Impression . IMPRESSION: 1. Acute hypoxemic respiratory failure, multifactorial. 2. Severe metabolic acidosis.resolved 3. Acute chronic kidney failure. 4. Leukocytosis. 5. Metabolic toxic encephalopathy. 6. Hyperkalemia. 7. Elevated troponin level. 8. Hypoglycemia. 9. STAPH Bacteremia. SEE RESULTS 10. Ischemic cardiomyopathy. Plan . RESP STATUS COMPENSATED WILL CONTINUE SUPPORT ANTIBX PER ID cxr 02/25/ no def consolidation NG FOR NUTRITION NEURO REC REG ENCEPHALOPATHY PARRIS BRICE MD March 03, 2019 14:43
[2019-03-03 15:00] VITALS: BP 118/64
--- NOTE | 2019-03-03 16:05 | NUR ---
Upon entering the patient room for rounds her NG was laying across her lap. Attempted to replace twice pt was resistant and unable to follow commands. Paged Dr. Fernandes to see how he would like to proceed.
[2019-03-03 19:54] VITALS: BP 116/55
--- NOTE | 2019-03-03 20:02 | RAD ---
Single view portable abdomen HISTORY: NG tube placement. Findings/ impression: NG tube is identified, appears to be just within the stomach. Proximal side port is in the expected region of the gastroesophageal junction. Catheter could be advanced. Nonspecific upper abdominal bowel gas pattern. Electronically signed by: Néstor French MD (03/03/2019 7:59 PM) [facility]
--- NOTE | 2019-03-03 20:40 | NUR ---
At 2039 obtained kub report, NG already in stomach may advance, NG advanced, placement verified, tubefeeding glucerna 1.2 resumed as per previous order. call light in reach, will cont to monitor for changes. pmrn
[2019-03-03] MEDS: traZODone 50 MG TABLET. PO SCH (20:41)
[2019-03-03 23:46] VITALS: BP 99/52
[2019-03-04 03:25] VITALS: BP 113/56
[2019-03-04 07:00] VITALS: BP 125/59
--- NOTE | 2019-03-04 08:28 | PDOC ---
Provider Note Provider Note sleeping, vss, ng/ enteral feed back- will need peg if fails to improve swallow, as family wants full code- see what speech eval shows- meds same, glucose fine on small lantus ALAYNA SOLANO MD March 04, 2019 08:28
[2019-03-04] MEDS: CYANOCOBALAMIN (VITAMIN B-12) 1,000 MCG TABLET. PO SCH (08:47)
[2019-03-04] MEDS: FAMOTIDINE 20 MG TABLET. NG SCH (08:47)
[2019-03-04] MEDS: METOPROLOL TART IMMED RELEASE 25 MG TABLET. PO SCH (08:49)
--- NOTE | 2019-03-04 09:35 | NUR ---
SS following up with discharge planning. Authorization received for admission to [facility], ; fax [phone]. SS will await discharge orders and will proceed accordingly. Pt's RN notified.
--- NOTE | 2019-03-04 10:13 | PDOC ---
PROGRESS NOTES Assessment Problems Medical Problems: (1) Elevated troponin Status: Acute (2) Hypoglycemia Status: Acute (3) Hypokalemia Status: Acute (4) Leukocytosis Status: Acute (5) Metabolic acidosis Status: Acute (6) Severe sepsis Status: Acute Metabolic encephalopathy related to hypoglycemia, severe anemia, sepsis, also medical problems of coronary artery disease, diabetes, cardiomyopathy, chronic kidney disease. No other obvious metabolic cause, MRI of the brain is negative for stroke, I do not believe that she is having seizures. 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 Poor oral intake, may need PEG Follow-up with neurology as needed. Objective Vital Signs Date Time Temp Pulse Resp B/P (MAP) Pulse Ox O2 Delivery O2 Flow Rate FiO2 03/04/19 08:49 94 132/62 03/04/19 07:20 Room Air 03/04/19 07:00 97.9 18 99 97.9 Intake and Output 03/04/19 07:00 Intake Total 1410 ml Output Total 1150 ml Balance 260 ml Intake Oral 0 ml Tube Feeding 1110 ml Other 300 ml Output Urine Total 1150 ml PHYSICAL EXAM Alert. Follows a few follow commands, does not speak, averts gaze PERRL. EOMI. CN: no focal findings. Muscle tone: normal. Muscle strength: moves all 4 extremities spontaneously DTR: 1+ Plantar reflex: silent Gait: not examined in bed. Sensory exam: no abnormal findings. No cerebellar signs elicited. Review of Relevant I have reviewed the following items charli (where applicable) has been applied. Labs Laboratory Tests Test 03/02/19 12:58 03/02/19 17:45 03/02/19 18:50 03/03/19 00:39 Glucose (Fingerstick) 165 mg/dL (70-99) 170 mg/dL (70-99) 131 mg/dL (70-99) White Blood Count 13.6 x10^3/uL (4.0-11.0) Red Blood Count 3.13 x10^6/uL (3.50-5.40) Hemoglobin 8.4 g/dL (12.0-15.5) Hematocrit 26.4 % (36.0-47.0) Mean Corpuscular Volume 85 fL (79-100) Mean Corpuscular Hemoglobin 27 pg (25-35) Mean Corpuscular Hemoglobin Concent 32 g/dL (31-37) Red Cell Distribution Width 20.7 % (11.5-14.5) Platelet Count 200 x10^3/uL (140-400) Test 03/03/19 05:25 03/03/19 05:38 03/03/19 11:27 03/03/19 18:56 White Blood Count 13.3 x10^3/uL (4.0-11.0) Red Blood Count 3.13 x10^6/uL (3.50-5.40) Hemoglobin 8.4 g/dL (12.0-15.5) Hematocrit 26.5 % (36.0-47.0) Mean Corpuscular Volume 85 fL (79-100) Mean Corpuscular Hemoglobin 27 pg (25-35) Mean Corpuscular Hemoglobin Concent 32 g/dL (31-37) Red Cell Distribution Width 20.7 % (11.5-14.5) Platelet Count 221 x10^3/uL (140-400) Creatinine 0.9 mg/dL (0.6-1.0) Estimated GFR (Cockcroft-Gault) 59.7 Vancomycin Level Trough 14.1 mcg/mL (10.0-20.0) Vancomycin Last Dose Date 03/02/19 Vancomycin Last Dose Time 1400 Glucose (Fingerstick) 165 mg/dL (70-99) 149 mg/dL (70-99) 164 mg/dL (70-99) Test 03/04/19 05:58 Glucose (Fingerstick) 146 mg/dL (70-99) Laboratory Tests Test 03/03/19 11:27 03/03/19 18:56 03/04/19 05:58 Glucose (Fingerstick) 149 mg/dL (70-99) 164 mg/dL (70-99) 146 mg/dL (70-99) Microbiology 02/25/19 Blood Culture - Final, Complete NO GROWTH AFTER 5 DAYS Medications Current Medications Sodium Chloride 500 ml @ 500 mls/hr 1X ONCE IV Last administered on 02/25/19at 13:30; Start 02/25/19 at 12:45; Stop 02/25/19 at 13:44; Status DC Levofloxacin/ Dextrose 150 ml @ 100 mls/hr 1X ONCE IV Last administered on 02/25/19at 13:30; Start 02/25/19 at 12:45; Stop 02/25/19 at 14:14; Status DC Sodium Bicarbonate (Sodium Bicarb Adult 8.4% Syr) 50 meq 1X ONCE IV Last administered on 02/25/19at 13:29; Start 02/25/19 at 13:00; Stop 02/25/19 at 13:01; Status DC Vancomycin HCl (Vanco Per Pharmacy) 1 each PRN DAILY PRN MC SEE COMMENTS Last administered on 02/25/19at 14:38; Start 02/25/19 at 12:45; Stop 02/26/19 at 10:16; Status DC Vancomycin HCl 1.25 gm/Sodium Chloride 250 ml @ 166.667 mls/hr 1X ONCE IV Last administered on 02/25/19at 14:21; Start 02/25/19 at 14:00; Stop 02/25/19 at 15:29; Status DC Ondansetron HCl (Zofran) 4 mg PRN Q8HRS PRN IV NAUSEA/VOMITING; Start 02/25/19 at 13:45; Stop 02/26/19 at 13:44; Status DC Morphine Sulfate (Morphine Sulfate) 2 mg PRN Q2HR PRN IV PAIN; Start 02/25/19 at 13:45; Stop 02/26/19 at 13:44; Status DC Sodium Bicarbonate (Sodium Bicarb Adult 8.4% Syr) 50 meq 1X ONCE IV ; Start 02/25/19 at 13:45; Stop 02/25/19 at 14:03; Status DC Calcium Gluconate (Calcium Gluconate) 1,000 mg 1X ONCE IVP Last administered on 02/25/19at 14:20; Start 02/25/19 at 13:45; Stop 02/25/19 at 14:03; Status DC Albuterol Sulfate (Ventolin Neb Soln) 10 mg 1X ONCE CONT NEB Last administered on 02/25/19at 14:01; Start 02/25/19 at 13:45; Stop 02/25/19 at 14:03; Status DC Aspirin (Children'S Aspirin) 324 mg 1X ONCE PO ; Start 02/25/19 at 14:30; Stop 02/25/19 at 14:31; Status DC Sodium Chloride 500 ml @ 500 mls/hr 1X ONCE IV Last administered on 02/25/19at 14:59; Start 02/25/19 at 14:30; Stop 02/25/19 at 15:29; Status DC Aspirin (Aspirin) 300 mg 1X ONCE [place] ; Start 02/25/19 at 14:45; Stop 02/25/19 at 14:46; Status DC Vancomycin HCl 500 mg/Sodium Chloride 100 ml @ 100 mls/hr Q24H IV ; Start 02/26/19 at 14:30; Stop 02/26/19 at 14:30; Status DC Vancomycin HCl (Vancomycin Trough Level) 1 each 1X ONCE MC ; Start 02/27/19 at 14:00; Stop 02/27/19 at 14:00; Status DC Sodium Bicarbonate 75 meq/Sodium Chloride 1,075 ml @ 60 mls/hr [id number] IV Last administered on 02/25/19at 22:56; Start 02/25/19 at 17:30; Stop 02/26/19 at 07:20; Status DC Aspirin (Aspirin) 300 mg DAILY [place] Last administered on 02/26/19at 09:11; Start 02/26/19 at 09:00; Stop 02/26/19 at 10:19; Status DC Norepinephrine Bitartrate 250 ml @ 1.875 mls/ hr CONT PRN IV SEE I/O RECORD; Start 02/25/19 at 17:15; Stop 02/27/19 at 15:56; Status DC Vitamin A/Vitamin D (Vitamin A & D Ointment) 1 spenser PRN Q1HR PRN TP SKIN PROTECTION; Start 02/25/19 at 19:00 Dextrose (Dextrose 50%-Water Syringe) 25 gm STK-MED ONCE IV ; Start 02/25/19 at 22:52; Stop 02/25/19 at 22:53; Status DC Dextrose (Dextrose 50%-Water Syringe) 12.5 gm PRN Q15MIN PRN IV SEE COMMENTS Last administered on 02/26/19at 12:07; Start 02/25/19 at 23:45; Stop 02/27/19 at 08:30; Status DC Sodium Bicarbonate 75 meq/Dextrose/ Sodium Chloride 1,075 ml @ 60 mls/hr [id number] IV Last administered on 02/26/19at 07:41; Start 02/26/19 at 07:30; Stop 02/26/19 at 12:15; Status DC Aspirin (Ecotrin) 325 mg DAILYWBKFT PO ; Start 02/27/19 at 08:00; Stop 02/27/19 at 08:39; Status DC Clonazepam (KlonoPIN) 0.5 mg HS PO ; Start 02/26/19 at 21:00; Stop 02/26/19 at 21:00; Status DC Clopidogrel Bisulfate (Plavix) 75 mg DAILYWBKFT PO Last administered on 02/27/19at 08:46; Start 02/26/19 at 11:00; Stop 02/28/19 at 08:23; Status DC Cyanocobalamin (Vitamin B-12) 1,000 mcg DAILY PO Last administered on 03/04/19at 08:47; Start 02/26/19 at 11:00 Acetaminophen/ Hydrocodone Bitart (Lortab 7.5/325) 1 tab PRN Q6HRS PRN PO PAIN; Start 02/26/19 at 10:15 Metoprolol Succinate (Toprol Xl) 50 mg DAILY PO ; Start 02/26/19 at 11:00; Stop 02/28/19 at 10:36; Status DC Trazodone HCl (Desyrel) 25 mg QHS PO Last administered on 03/03/19at 20:41; Start 02/26/19 at 21:00 Daptomycin 320 mg/ Sodium Chloride 50 ml @ 100 mls/hr QODAY IV Last administe red on 02/26/19at 12:18; Start 02/26/19 at 12:00; Stop 02/27/19 at 15:16; Status DC Insulin Human Lispro (HumaLOG) 0-9 UNITS TIDWMEALS SQ ; Start 02/26/19 at 12:00; Stop 02/27/19 at 13:12; Status DC Dextrose (Dextrose 50%-Water Syringe) 12.5 gm PRN Q15MIN PRN IV SEE COMMENTS; Start 02/26/19 at 10:30 Heparin Sodium (Porcine) (Heparin Sodium) 5,000 unit Q12HR SQ Last administered on 02/27/19at 21:52; Start 02/26/19 at 21:00; Stop 02/28/19 at 06:36; Status DC Dextrose 1,000 ml @ 60 mls/hr [id number] IV Last administered on 02/27/19at 05:35; Start 02/26/19 at 12:15; Stop 02/27/19 at 11:02; Status DC Aspirin (Cristobal Aspirin) 325 mg DAILYWBKFT PO Last administered on 02/27/19at 08:46; Start 02/27/19 at 08:00; Stop 02/28/19 at 08:23; Status DC Insulin Human Lispro (HumaLOG) 0-9 UNITS Q6HRS SQ Last administered on 03/03/19at 05:41; Start 02/27/19 at 18:00; Stop 03/03/19 at 08:56; Status DC Vancomycin HCl (Vanco Per Pharmacy) 1 each PRN DAILY PRN MC SEE COMMENTS Last administered on 03/02/19at 15:37; Start 02/27/19 at 15:15; Stop 03/03/19 at 08:00; Status DC Vancomycin HCl 1.25 gm/Sodium Chloride 250 ml @ 166.667 mls/hr 1X ONCE IV Last administered on 02/27/19at 18:16; Start 02/27/19 at 15:30; Stop 02/27/19 at 16:59; Status DC Vancomycin HCl 750 mg/Sodium Chloride 250 ml @ 250 mls/hr Q24H IV Last administered on 02/28/19at 18:42; Start 02/28/19 at 17:30; Stop 03/01/19 at 19:24; Status DC Vancomycin HCl (Vancomycin Trough Level) 1 each 1X ONCE MC Last administered on 03/01/19at 17:00; Start 03/01/19 at 17:00; Stop 03/01/19 at 17:01; Status DC Pantoprazole Sodium (PROTONIX VIAL for IV PUSH) 40 mg DAILYAC IVP Last administered on 02/28/19at 08:08; Start 02/28/19 at 07:30; Stop 03/01/19 at 09:01; Status DC Metoprolol Tartrate (Lopressor) 25 mg BID PO ; Start 02/28/19 at 21:00; Stop 02/28/19 at 21:00; Status DC Metoprolol Tartrate (Lopressor) 25 mg BID PO Last administered on 03/04/19at 08:49; Start 02/28/19 at 10:45 Famotidine (Pepcid) 20 mg DAILY NG Last administered on 03/04/19at 08:47; Start 03/01/19 at 09:00 Vancomycin HCl 750 mg/Sodium Chloride 250 ml @ 250 mls/hr Q18H IV Last administered on 03/02/19at 15:01; Start 03/01/19 at 20:00; Stop 03/03/19 at 07:59; Status DC Insulin Glargine (Lantus) 15 units DAILY10 SQ Last administered on 03/03/19at 10:45; Start 03/02/19 at 10:00 Vancomycin HCl (Vancomycin Trough Level) 1 each 1X ONCE MC ; Start 03/03/19 at 07:30; Stop 03/03/19 at 07:59; Status DC Active Scripts Active Aspirin Ec (Aspirin) 325 Mg Tablet.dr 325 Mg PO DAILYWBKFT 30 Days Take Aspirin 325mg daily x 30 days then decrease to 81mg daily Lisinopril 5 Mg Tablet 2.5 Mg PO DAILY 30 Days Humalog (Insulin Lispro) 100 Unit/1 Ml Insuln.pen 4 Units SQ TIDAC 30 Days Lantus Solostar (Insulin Glargine,Hum.rec.anlog) 100 Unit/1 Ml Insuln.pen 18 Units SQ QHS 30 Days Toprol Xl (Metoprolol Succinate) 50 Mg Tab.er.24h 50 Mg PO DAILY 30 Days Atorvastatin Calcium 10 Mg Tablet 5 Mg PO QHS 30 Days Clopidogrel (Clopidogrel Bisulfate) 75 Mg Tablet 75 Mg PO DAILYWBKFT 30 Days Reported Tessalon Perle (Benzonatate) 100 Mg Capsule 100 Mg PO TID PRN Hydrocodone-Apap 7.5-325 (Hydrocodone Bit/Acetaminophen) 1 Tab Tablet 1 Tab PO PRN Q6HRS PRN Folic Acid 1 Mg Tablet 1 Tab PO DAILY Trazodone Hcl 50 Mg Tablet 0.5 Tab PO QHS Lasix (Furosemide) 40 Mg Tablet 40 Mg PO BID Potassium Chloride 20 Meq Tablet.er 20 Meq PO DAILY Tylenol Extra Strength (Acetaminophen) 500 Mg Tablet 1,000 Mg PO PRN Q8HRS PRN Vitamin B-12 (Cyanocobalamin (Vitamin B-12)) 1,000 Mcg Tablet 1 Tab PO DAILY Clonazepam 0.5 Mg Tablet 1 Tab PO HS Vitals/I & O Vital Sign - Last 24 Hours 03/03/19 03/03/19 03/03/19 03/03/19 11:00 15:00 19:26 19:54 Temp 97.5 96.9 97.4 97.5 96.9 97.4 Pulse 103 110 102 Resp 19 B/P (MAP) 121/60 (80) 118/64 (82) 116/55 (75) Pulse Ox 97 96 96 O2 Delivery Room Air Room Air Room Air Room Air 03/03/19 03/03/19 03/04/19 03/04/19 20:42 23:46 03:25 07:00 Temp 98.4 97.9 97.9 98.4 97.9 97.9 Pulse 106 90 95 92 Resp 18 B/P (MAP) 116/55 99/52 (68) 113/56 (75) 125/59 (81) Pulse Ox 96 97 99 O2 Delivery Room Air Room Air Room Air 03/04/19 03/04/19 07:20 08:49 Pulse 94 B/P (MAP) 132/62 O2 Delivery Room Air Intake and Output 03/03/19 03/03/19 03/04/19 15:00 23:00 07:00 Intake Total 300 ml 300 ml 810 ml Output Total 700 ml 450 ml Balance 300 ml -400 ml 360 ml BARBRA GLASER MD March 04, 2019 10:13
[2019-03-04] MEDS: INSULIN GLARGINE 300 UNITS/3 ML INSULN.PEN. SQ SCH (10:23)
--- NOTE | 2019-03-04 10:25 | PDOC ---
PULMONARY PROGRESS NOTES Subjective NO SOA Vitals Vital Signs Date Time Temp Pulse Resp B/P (MAP) Pulse Ox O2 Delivery O2 Flow Rate FiO2 03/04/19 08:49 94 132/62 03/04/19 07:20 Room Air 03/04/19 07:00 97.9 18 99 97.9 General: Confused Lungs: Clear Cardiovascular: S1, S2 Abdomen: Soft Neuro Exam: Alert Extremities: No Edema Labs Laboratory Tests Test 03/02/19 12:58 03/02/19 17:45 03/02/19 18:50 03/03/19 00:39 Glucose (Fingerstick) 165 mg/dL (70-99) 170 mg/dL (70-99) 131 mg/dL (70-99) White Blood Count 13.6 x10^3/uL (4.0-11.0) Red Blood Count 3.13 x10^6/uL (3.50-5.40) Hemoglobin 8.4 g/dL (12.0-15.5) Hematocrit 26.4 % (36.0-47.0) Mean Corpuscular Volume 85 fL (79-100) Mean Corpuscular Hemoglobin 27 pg (25-35) Mean Corpuscular Hemoglobin Concent 32 g/dL (31-37) Red Cell Distribution Width 20.7 % (11.5-14.5) Platelet Count 200 x10^3/uL (140-400) Test 03/03/19 05:25 03/03/19 05:38 03/03/19 11:27 03/03/19 18:56 White Blood Count 13.3 x10^3/uL (4.0-11.0) Red Blood Count 3.13 x10^6/uL (3.50-5.40) Hemoglobin 8.4 g/dL (12.0-15.5) Hematocrit 26.5 % (36.0-47.0) Mean Corpuscular Volume 85 fL (79-100) Mean Corpuscular Hemoglobin 27 pg (25-35) Mean Corpuscular Hemoglobin Concent 32 g/dL (31-37) Red Cell Distribution Width 20.7 % (11.5-14.5) Platelet Count 221 x10^3/uL (140-400) Creatinine 0.9 mg/dL (0.6-1.0) Estimated GFR (Cockcroft-Gault) 59.7 Vancomycin Level Trough 14.1 mcg/mL (10.0-20.0) Vancomycin Last Dose Date 03/02/19 Vancomycin Last Dose Time 1400 Glucose (Fingerstick) 165 mg/dL (70-99) 149 mg/dL (70-99) 164 mg/dL (70-99) Test 03/04/19 05:58 Glucose (Fingerstick) 146 mg/dL (70-99) Laboratory Tests Test 03/03/19 11:27 03/03/19 18:56 03/04/19 05:58 Glucose (Fingerstick) 149 mg/dL (70-99) 164 mg/dL (70-99) 146 mg/dL (70-99) Medications Active Scripts Medications Dose Route/Sig Max Daily Dose Days Date Category Dose Instructions Tessalon Perle (Benzonatate) 100 Mg Capsule 100 Mg PO TID PRN 01/17/19 Reported Aspirin Ec (Aspirin) 325 Mg Tablet.dr 325 Mg PO DAILYWBKFT 30 01/17/19 Rx Take Aspirin 325mg daily x 30 days then decrease to 81mg daily Lisinopril 5 Mg Tablet 2.5 Mg PO DAILY 30 01/17/19 Rx Humalog (Insulin Lispro) 100 Unit/1 Ml Insuln.pen 4 Units SQ TIDAC 30 01/17/19 Rx Lantus Solostar (Insulin Glargine,Hum.rec.anlog) 100 Unit/1 Ml Insuln.pen 18 Units SQ QHS 30 01/17/19 Rx Hydrocodone-Apap 7.5-325 (Hydrocodone Bit/Acetaminophen) 1 Tab Tablet 1 Tab PO PRN Q6HRS PRN 01/11/19 Reported Folic Acid 1 Mg Tablet 1 Tab PO DAILY 01/11/19 Reported Trazodone Hcl 50 Mg Tablet 0.5 Tab PO QHS 01/11/19 Reported Lasix (Furosemide) 40 Mg Tablet 40 Mg PO BID 12/07/18 Reported Potassium Chloride 20 Meq Tablet.er 20 Meq PO DAILY 12/07/18 Reported Toprol Xl (Metoprolol Succinate) 50 Mg Tab.er.24h 50 Mg PO DAILY 30 12/07/18 Rx Atorvastatin Calcium 10 Mg Tablet 5 Mg PO QHS 30 12/07/18 Rx Clopidogrel (Clopidogrel Bisulfate) 75 Mg Tablet 75 Mg PO DAILYWBKFT 30 12/07/18 Rx Tylenol Extra Strength (Acetaminophen) 500 Mg Tablet 1,000 Mg PO PRN Q8HRS PRN 11/29/18 Reported Vitamin B-12 (Cyanocobalamin (Vitamin B-12)) 1,000 Mcg Tablet 1 Tab PO DAILY 10/15/18 Reported Clonazepam 0.5 Mg Tablet 1 Tab PO HS 10/15/18 Reported Impression . IMPRESSION: 1. Acute hypoxemic respiratory failure, multifactorial. 2. Severe metabolic acidosis.resolved 3. Acute chronic kidney failure. 4. Leukocytosis. 5. Metabolic toxic encephalopathy. 6. Hyperkalemia. 7. Elevated troponin level. 8. Hypoglycemia. 9. STAPH Bacteremia. SEE RESULTS 10. Ischemic cardiomyopathy. Plan . RESP STATUS COMPENSATED WILL CONTINUE SUPPORT ANTIBX PER ID cxr 02/25/ no def consolidation NG FEEDING FOR NUTRITION NEURO REC REG ENCEPHALOPATHY PARRIS BRICE MD March 04, 2019 10:25
[2019-03-04 11:00] VITALS: BP 121/60
--- NOTE | 2019-03-04 11:51 | PDOC2 ---
CONSULT Date of Consult Date of Consult DATE: 03/04/19 TIME: 11:49 Reason for Consult Reason for Consult: Oropharyngeal dysphagia Past Medical History Cardiovascular: CAD, CHF, HTN, NM, Hyperlipidemia, Other (PAD) CENTRAL NERVOUS SYSTEM: Periperal neuropathy Heme/Onc: Anemia NOS Musculoskeletal: Osteoarthritis Infectious disease: Other Renal/: Chronic renal insuff Endocrine: Diabetes, Osteoporosis Family History Family History: Other (noncontributory) Social History No ALCOHOL: none Drugs: None Lives: Alone Current Problem List Problem List Problems Medical Problems: (1) Elevated troponin Status: Acute (2) Hypoglycemia Status: Acute (3) Hypokalemia Status: Acute (4) Leukocytosis Status: Acute (5) Metabolic acidosis Status: Acute (6) Severe sepsis Status: Acute Current Medications Current Medications Current Medications Sodium Chloride 500 ml @ 500 mls/hr 1X ONCE IV Last administered on 02/25/19 13:30; Start 02/25/19 at 12:45; Stop 02/25/19 at 13:44; Status DC Levofloxacin/ Dextrose 150 ml @ 100 mls/hr 1X ONCE IV Last administered on 02/25/19at 13:30; Start 02/25/19 at 12:45; Stop 02/25/19 at 14:14; Status DC Sodium Bicarbonate (Sodium Bicarb Adult 8.4% Syr) 50 meq 1X ONCE IV Last administered on 02/25/19at 13:29; Start 02/25/19 at 13:00; Stop 02/25/19 at 13:01; Status DC Vancomycin HCl (Vanco Per Pharmacy) 1 each PRN DAILY PRN MC SEE COMMENTS Last administered on 02/25/19at 14:38; Start 02/25/19 at 12:45; Stop 02/26/19 at 10:16; Status DC Vancomycin HCl 1.25 gm/Sodium Chloride 250 ml @ 166.667 mls/hr 1X ONCE IV Las t administered on 02/25/19at 14:21; Start 02/25/19 at 14:00; Stop 02/25/19 at 15:29; Status DC Ondansetron HCl (Zofran) 4 mg PRN Q8HRS PRN IV NAUSEA/VOMITING; Start 02/25/19 at 13:45; Stop 02/26/19 at 13:44; Status DC Morphine Sulfate (Morphine Sulfate) 2 mg PRN Q2HR PRN IV PAIN; Start 02/25/19 at 13:45; Stop 02/26/19 at 13:44; Status DC Sodium Bicarbonate (Sodium Bicarb Adult 8.4% Syr) 50 meq 1X ONCE IV ; Start 02/25/19 at 13:45; Stop 02/25/19 at 14:03; Status DC Calcium Gluconate (Calcium Gluconate) 1,000 mg 1X ONCE IVP Last administered on 02/25/19at 14:20; Start 02/25/19 at 13:45; Stop 02/25/19 at 14:03; Status DC Albuterol Sulfate (Ventolin Neb Soln) 10 mg 1X ONCE CONT NEB Last administered on 02/25/19at 14:01; Start 02/25/19 at 13:45; Stop 02/25/19 at 14:03; Status DC Aspirin (Children'S Aspirin) 324 mg 1X ONCE PO ; Start 02/25/19 at 14:30; Stop 02/25/19 at 14:31; Status DC Sodium Chloride 500 ml @ 500 mls/hr 1X ONCE IV Last administered on 02/25/19at 14:59; Start 02/25/19 at 14:30; Stop 02/25/19 at 15:29; Status DC Aspirin (Aspirin) 300 mg 1X ONCE IN ; Start 02/25/19 at 14:45; Stop 02/25/19 at 14:46; Status DC Vancomycin HCl 500 mg/Sodium Chloride 100 ml @ 100 mls/hr Q24H IV ; Start 02/26/19 at 14:30; Stop 02/26/19 at 14:30; Status DC Vancomycin HCl (Vancomycin Trough Level) 1 each 1X ONCE MC ; Start 02/27/19 at 14:00; Stop 02/27/19 at 14:00; Status DC Sodium Bicarbonate 75 meq/Sodium Chloride 1,075 ml @ 60 mls/hr [id number] IV Last administered on 02/25/19at 22:56; Start 02/25/19 at 17:30; Stop 02/26/19 at 07:20; Status DC Aspirin (Aspirin) 300 mg DAILY IN Last administered on 02/26/19at 09:11; Start 02/26/19 at 09:00; Stop 02/26/19 at 10:19; Status DC Norepinephrine Bitartrate 250 ml @ 1.875 mls/ hr CONT PRN IV SEE I/O RECORD; Start 02/25/19 at 17:15; Stop 02/27/19 at 15:56; Status DC Vitamin A/Vitamin D (Vitamin A & D Ointment) 1 spenser PRN Q1HR PRN TP SKIN PROTECTION; Start 02/25/19 at 19:00 Dextrose (Dextrose 50%-Water Syringe) 25 gm STK-MED ONCE IV ; Start 02/25/19 at 22:52; Stop 02/25/19 at 22:53; Status DC Dextrose (Dextrose 50%-Water Syringe) 12.5 gm PRN Q15MIN PRN IV SEE COMMENTS Last administered on 02/26/19at 12:07; Start 02/25/19 at 23:45; Stop 02/27/19 at 08:30; Status DC Sodium Bicarbonate 75 meq/Dextrose/ Sodium Chloride 1,075 ml @ 60 mls/hr [id number] IV Last administered on 02/26/19at 07:41; Start 02/26/19 at 07:30; Stop 02/26/19 at 12:15; Status DC Aspirin (Ecotrin) 325 mg DAILYWBKFT PO ; Start 02/27/19 at 08:00; Stop 02/27/19 at 08:39; Status DC Clonazepam (KlonoPIN) 0.5 mg HS PO ; Start 02/26/19 at 21:00; Stop 02/26/19 at 21:00; Status DC Clopidogrel Bisulfate (Plavix) 75 mg DAILYWBKFT PO Last administered on 02/27/19at 08:46; Start 02/26/19 at 11:00; Stop 02/28/19 at 08:23; Status DC Cyanocobalamin (Vitamin B-12) 1,000 mcg DAILY PO Last administered on 03/04/19at 08:47; Start 02/26/19 at 11:00 Acetaminophen/ Hydrocodone Bitart (Lortab 7.5/325) 1 tab PRN Q6HRS PRN PO PAIN; Start 02/26/19 at 10:15 Metoprolol Succinate (Toprol Xl) 50 mg DAILY PO ; Start 02/26/19 at 11:00; Stop 02/28/19 at 10:36; Status DC Trazodone HCl (Desyrel) 25 mg QHS PO Last administered on 03/03/19at 20:41; Start 02/26/19 at 21:00 Daptomycin 320 mg/ Sodium Chloride 50 ml @ 100 mls/hr QODAY IV Last administered on 02/26/19at 12:18; Start 02/26/19 at 12:00; Stop 02/27/19 at 15:16; Status DC Insulin Human Lispro (HumaLOG) 0-9 UNITS TIDWMEALS SQ ; Start 02/26/19 at 12:00; Stop 02/27/19 at 13:12; Status DC Dextrose (Dextrose 50%-Water Syringe) 12.5 gm PRN Q15MIN PRN IV SEE COMMENTS; Start 02/26/19 at 10:30 Heparin Sodium (Porcine) (Heparin Sodium) 5,000 unit Q12HR SQ Last administered on 02/27/19at 21:52; Start 02/26/19 at 21:00; Stop 02/28/19 at 06:36; Status DC Dextrose 1,000 ml @ 60 mls/hr [id number] IV Last administered on 02/27/19at 05:35; Start 02/26/19 at 12:15; Stop 02/27/19 at 11:02; Status DC Aspirin (Coinapult Aspirin) 325 mg DAILYWBKFT PO Last administered on 02/27/19at 08:46; Start 02/27/19 at 08:00; Stop 02/28/19 at 08:23; Status DC Insulin Human Lispro (HumaLOG) 0-9 UNITS Q6HRS SQ Last administered on 03/03/19at 05:41; Start 02/27/19 at 18:00; Stop 03/03/19 at 08:56; Status DC Vancomycin HCl (Vanco Per Pharmacy) 1 each PRN DAILY PRN MC SEE COMMENTS Last administered on 03/02/19at 15:37; Start 02/27/19 at 15:15; Stop 03/03/19 at 08:00; Status DC Vancomycin HCl 1.25 gm/Sodium Chloride 250 ml @ 166.667 mls/hr 1X ONCE IV Last administered on 02/27/19at 18:16; Start 02/27/19 at 15:30; Stop 02/27/19 at 16:59; Status DC Vancomycin HCl 750 mg/Sodium Chloride 250 ml @ 250 mls/hr Q24H IV Last ad ministered on 02/28/19at 18:42; Start 02/28/19 at 17:30; Stop 03/01/19 at 19:24; Status DC Vancomycin HCl (Vancomycin Trough Level) 1 each 1X ONCE MC Last administered on 03/01/19at 17:00; Start 03/01/19 at 17:00; Stop 03/01/19 at 17:01; Status DC Pantoprazole Sodium (PROTONIX VIAL for IV PUSH) 40 mg DAILYAC IVP Last administered on 02/28/19at 08:08; Start 02/28/19 at 07:30; Stop 03/01/19 at 09:01; Status DC Metoprolol Tartrate (Lopressor) 25 mg BID PO ; Start 02/28/19 at 21:00; Stop 02/28/19 at 21:00; Status DC Metoprolol Tartrate (Lopressor) 25 mg BID PO Last administered on 03/04/19at 08:49; Start 02/28/19 at 10:45 Famotidine (Pepcid) 20 mg DAILY NG Last administered on 03/04/19at 08:47; Start 03/01/19 at 09:00 Vancomycin HCl 750 mg/Sodium Chloride 250 ml @ 250 mls/hr Q18H IV Last administered on 03/02/19at 15:01; Start 03/01/19 at 20:00; Stop 03/03/19 at 07:59; Status DC Insulin Glargine (Lantus) 15 units DAILY10 SQ Last administered on 03/04/19at 10:23; Start 03/02/19 at 10:00 Vancomycin HCl (Vancomycin Trough Level) 1 each 1X ONCE MC ; Start 03/03/19 at 07:30; Stop 03/03/19 at 07:59; Status DC Active Scripts Active Aspirin Ec (Aspirin) 325 Mg Tablet.dr 325 Mg PO DAILYWBKFT 30 Days Take Aspirin 325mg daily x 30 days then decrease to 81mg daily Lisinopril 5 Mg Tablet 2.5 Mg PO DAILY 30 Days Humalog (Insulin Lispro) 100 Unit/1 Ml Insuln.pen 4 Units SQ TIDAC 30 Days Lantus Solostar (Insulin Glargine,Hum.rec.anlog) 100 Unit/1 Ml Insuln.pen 18 Units SQ QHS 30 Days Toprol Xl (Metoprolol Succinate) 50 Mg Tab.er.24h 50 Mg PO DAILY 30 Days Atorvastatin Calcium 10 Mg Tablet 5 Mg PO QHS 30 Days Clopidogrel (Clopidogrel Bisulfate) 75 Mg Tablet 75 Mg PO DAILYWBKFT 30 Days Reported Tessalon Perle (Benzonatate) 100 Mg Capsule 100 Mg PO TID PRN Hydrocodone-Apap 7.5-325 (Hydrocodone Bit/Acetaminophen) 1 Tab Tablet 1 Tab PO PRN Q6HRS PRN Folic Acid 1 Mg Tablet 1 Tab PO DAILY Trazodone Hcl 50 Mg Tablet 0.5 Tab PO QHS Lasix (Furosemide) 40 Mg Tablet 40 Mg PO BID Potassium Chloride 20 Meq Tablet.er 20 Meq PO DAILY Tylenol Extra Strength (Acetaminophen) 500 Mg Tablet 1,000 Mg PO PRN Q8HRS PRN Vitamin B-12 (Cyanocobalamin (Vitamin B-12)) 1,000 Mcg Tablet 1 Tab PO DAILY Clonazepam 0.5 Mg Tablet 1 Tab PO HS Allergies Allergies: Coded Allergies: amoxicillin (Verified Allergy, Intermediate, Hives, 10/15/18) Vitals VITALS Vital Signs Date Time Temp Pulse Resp B/P (MAP) Pulse Ox O2 Delivery O2 Flow Rate FiO2 03/04/19 11:00 98.1 80 16 121/60 (80) 98 Room Air 98.1 Labs Labs Laboratory Tests Test 03/02/19 12:58 03/02/19 17:45 03/02/19 18:50 03/03/19 00:39 Glucose (Fingerstick) 165 mg/dL (70-99) 170 mg/dL (70-99) 131 mg/dL (70-99) White Blood Count 13.6 x10^3/uL (4.0-11.0) Red Blood Count 3.13 x10^6/uL (3.50-5.40) Hemoglobin 8.4 g/dL (12.0-15.5) Hematocrit 26.4 % (36.0-47.0) Mean Corpuscular Volume 85 fL (79-100) Mean Corpuscular Hemoglobin 27 pg (25-35) Mean Corpuscular Hemoglobin Concent 32 g/dL (31-37) Red Cell Distribution Width 20.7 % (11.5-14.5) Platelet Count 200 x10^3/uL (140-400) Test 03/03/19 05:25 03/03/19 05:38 03/03/19 11:27 03/03/19 18:56 White Blood Count 13.3 x10^3/uL (4.0-11.0) Red Blood Count 3.13 x10^6/uL (3.50-5.40) Hemoglobin 8.4 g/dL (12.0-15.5) Hematocrit 26.5 % (36.0-47.0) Mean Corpuscular Volume 85 fL (79-100) Mean Corpuscular Hemoglobin 27 pg (25-35) Mean Corpuscular Hemoglobin Concent 32 g/dL (31-37) Red Cell Distribution Width 20.7 % (11.5-14.5) Platelet Count 221 x10^3/uL (140-400) Creatinine 0.9 mg/dL (0.6-1.0) Estimated GFR (Cockcroft-Gault) 59.7 Vancomycin Level Trough 14.1 mcg/mL (10.0-20.0) Vancomycin Last Dose Date 03/02/19 Vancomycin Last Dose Time 1400 Glucose (Fingerstick) 165 mg/dL (70-99) 149 mg/dL (70-99) 164 mg/dL (70-99) Test 03/04/19 05:58 Glucose (Fingerstick) 146 mg/dL (70-99) Laboratory Tests Test 03/03/19 18:56 03/04/19 05:58 Glucose (Fingerstick) 164 mg/dL (70-99) 146 mg/dL (70-99) Assessment/Plan Assessment/Plan Oropharyngeal dysphagia- with CVA, PEG is recommended to facilitate feeding and care. Risks and benefits to be discussed with patient family prior to proceeding if they concur. Full note dictated ARIANNA SARKAR MD March 04, 2019 11:51
--- NOTE | 2019-03-04 12:15 | PDOC ---
Infectious Disease Note Subjective Subjective pt is awake, walking, not speaking much ROS ROS no n/v/d/sob Vital Sign Vital Signs Vital Signs Date Time Temp Pulse Resp B/P (MAP) Pulse Ox O2 Delivery O2 Flow Rate FiO2 03/04/19 11:00 98.1 80 16 121/60 (80) 98 Room Air 98.1 Physical Exam PHYSICAL EXAM GENERAL: Propped up in bed, nodes a little HEENT: Pupils equally round, reactive. Normal conjunctivae. Oral cavity, pharynx dry. Dentures. NGT LUNGS: Clear to auscultation. HEART: S1 and S2 regular. ABDOMEN: Nondistended, soft, no grimace or guarding to palpation. Bowel sounds present. GENITOURINARY: De La Fuente in place. EXTREMITIES: No gross edema or cyanosis. Right TMA completely healed. No cyanosis. Heal protectors SKIN: Warm without rash. NEUROLOGIC: awake, nodes off and on RIJ (02/25) without signs of any complications. Labs Lab Laboratory Tests Test 03/03/19 18:56 03/04/19 05:58 03/04/19 12:06 Glucose (Fingerstick) 164 mg/dL (70-99) 146 mg/dL (70-99) 180 mg/dL (70-99) Micro BLOOD CULTURE LC Final Final report BLD CULT RESULT 1 Final Comment Staphylococcus simulans Based on resistance to oxacillin this isolate would be resistant to all currently available beta-lactam antimicrobial agents, with the exception of the newer cephalosporins with anti-MRSA activity, such as Ceftaroline ANTIMICROBIAL SUSCEPTIBILITY Final Comment S = Susceptible; I = Intermediate; R = Resistant P = Positive; N = Negative MICS are expressed in micrograms per mL Antibiotic RSLT#1 RSLT#2 RSLT#3 RSLT#4 Ciprofloxacin R>=8 Clindamycin R =R Erythromycin R>=8 Gentamicin S<=0.5 Levofloxacin R>=8 Oxacillin R>=4 Penicillin R>=0.5 Rifampin S<=0.5 Tetracycline S<=1 Trimethoprim/Sulfa S<=10 Vancomycin S<=0.5 Performed at: DA - [facility] [address] [facility] [address], [place], [place] [id number] Chief Procurement Officer: MILTON Ott MD, Phone: [phone] Objective Assessment Sepsis with Gram-positive cocci bacteremia, present on admission. Lactic acidosis, improved. Hypothermia, now normotensive and off Sarina Hugger. Leukocytosis. PENICILLIN/AMOXICILLIN ALLERGY WITH HIVES. Acute hypoxic respiratory failure, better now, off supplemental oxygen. Elevated lipase. Diabetes with hypoglycemia. Acute kidney injury on chronic kidney disease, improved. Metabolic encephalopathy. Ischemic cardiomyopathy. History of MSSA and group B strep infection. Plan Plan of Care d/c cv line Labs in am Supportive care D/w nursing ok to d/c to [place] ANTHONY MAURICE MD March 04, 2019 12:15
--- NOTE | 2019-03-04 14:42 | NUR ---
Discharge wound photos taken & placed in chart
[2019-03-04 15:00] VITALS: BP 134/61
--- NOTE | 2019-03-04 16:03 | NUR ---
SS following up with discharge planning. Discharge orders received. SS phoned and faxed discharge orders to [facility], ; fax [phone]. Pt will discharge today and go to [facility] at 1730. [facility] to provide transportation. Pt, pt's RN, and pt's son notified.
[2019-03-04] MEDS ORDERED: VITS56.7 TP (17:02)
[2019-03-04] MEDS ORDERED: FAMO20TA5 NG (17:07)
[2019-03-04] MEDS ORDERED: INSU100I13 SQ (17:08)
[2019-03-04] MEDS ORDERED: METO25TA4 PO (17:12)
[2019-03-04] MEDS ORDERED: CYAN10005 PO (17:15)
--- NOTE | 2019-03-04 17:56 | NUR ---
Discharge Note: ALEXSANDER RYDER [address] [place] [address] Discharge instructions and discharge home medications reviewed with Other facility and a copy given. All questions have been answered and understanding verbalized. The following instructions and handouts were given: discharge instructions Discontinued lines and drains: Peripheral IV intact, central line, chen catheter. Patient discharged to [facility] with transportation via [facility] at 1756. Notified RN at [place] & patient's son when patient left.
--- NOTE | 2019-03-05 01:29 | CONS ---
DATE OF CONSULTATION: 03/04/2019 REASON FOR CONSULTATION: Oropharyngeal dysphagia. HISTORY OF PRESENT ILLNESS: This is an 83-year-old female whose past medical history is significant for diabetes, chronic renal insufficiency, metabolic encephalopathy, ischemic cardiomyopathy, respiratory failure, seen for possible PEG placement. She has been unable to eat or drink and gives minimal additional history at the present time. Consultation is requested for possible PEG placement. Presently, she is being sustained by NG tube feedings and they are presently on. PAST MEDICAL HISTORY: Metabolic encephalopathy, ischemic cardiomyopathy, sepsis and diabetes. MEDICATIONS: Presently include insulin, famotidine, metoprolol, trazodone, vitamin B12. ALLERGIES: AMOXICILLIN. SOCIAL HISTORY: Does not drink or smoke, is retired. FAMILY HISTORY: Noncontributory. REVIEW OF SYSTEMS: Not obtainable. PHYSICAL EXAMINATION: VITAL SIGNS: Temperature is 98.1, pulse is 80, respirations 16, blood pressure is 121/60. HEENT: Reveals normocephalic and atraumatic head. Pupils and extraocular muscles are not tested. Sclerae anicteric. NECK: Supple. LUNGS: Clear. CARDIOVASCULAR: Reveals S1, S2 without S3, S4 or appreciable murmur. ABDOMEN: Reveals soft abdomen, normal bowel sounds, without appreciable hepatosplenomegaly. EXTREMITIES: Reveals no cyanosis, clubbing or edema. LABORATORY STUDIES: Hemoglobin is 8.4, hematocrit 26.5, white count 13.3, platelet count is 221,000. Sodium is 138, glucose 158, BUN 33, creatinine 1.0. Potassium 4.4, chloride 107, bicarbonate 27. IMPRESSION: 1. Oropharyngeal dysphagia. PEG placement is to be discussed with the patient's family including risk of hemorrhage, perforation and cellulitis prior to potentially proceeding in view of the fact that the patient presently is on tube feedings now. It should be a minimum of 6 hours before studies could be performed, so either PEG tube can be done as an outpatient or it could be done if the patient is held in the hospital. This will be discussed with the jail to determine the appropriate level of action. ARIANNA SARKAR MD DR: NATALIIA/kasie JOB#: [id number] / [id number] ecc Riki Fernandes MD
== END 2019-03-04 17:56 | DRG 871 ==
LOC: ER 12:33 → 1 WEST ICU 14:20 → 2 SOUTH 02-27 15:52
PROVIDERS: ADMIT Family Medicine; ATTEND Family Medicine
PROC: 30233N1 Transfusion of Nonautologous Red Blood Cells into Peripheral Vein, Percutaneous Approach (ICD-10-PCS; principal; 2019-02-25)
PROC: 02HV33Z Insertion of Infusion Device into Superior Vena Cava, Percutaneous Approach (ICD-10-PCS; 2019-02-25)
DX: A41.89 Other specified sepsis (principal); G92 Toxic encephalopathy; J96.01 Acute respiratory failure with hypoxia; N17.9 Acute kidney failure, unspecified; I13.0 Hypertensive heart and chronic kidney disease with heart failure and stage 1 through stage 4 chronic kidney disease, or unspecified chronic kidney disease; I50.22 Chronic systolic (congestive) heart failure; R47.01 Aphasia; E87.2 Acidosis; R65.20 Severe sepsis without septic shock; B95.8 Unspecified staphylococcus as the cause of diseases classified elsewhere; B96.89 Other specified bacterial agents as the cause of diseases classified elsewhere; D32.0 Benign neoplasm of cerebral meninges; D64.9 Anemia, unspecified; E11.22 Type 2 diabetes mellitus with diabetic chronic kidney disease; E11.51 Type 2 diabetes mellitus with diabetic peripheral angiopathy without gangrene; E11.649 Type 2 diabetes mellitus with hypoglycemia without coma; E78.5 Hyperlipidemia, unspecified; E86.0 Dehydration; E87.5 Hyperkalemia; E87.6 Hypokalemia; I07.1 Rheumatic tricuspid insufficiency; I25.10 Atherosclerotic heart disease of native coronary artery without angina pectoris; G89.29 Other chronic pain; I27.20 Pulmonary hypertension, unspecified; I25.5 Ischemic cardiomyopathy; M81.0 Age-related osteoporosis without current pathological fracture; N18.3 Chronic kidney disease, stage 3 (moderate); R13.12 Dysphagia, oropharyngeal phase; Z86.19 Personal history of other infectious and parasitic diseases; Z88.0 Allergy status to penicillin; Z89.421 Acquired absence of other right toe(s); Z98.61 Coronary angioplasty status; Z85.820 Personal history of malignant melanoma of skin
CPT/HCPCS: 36415; 36600; 70450; 70551; 71045; 74018; 80048; 80061; 80076; 80202; 81001; 82550; 82565; 82805; 82962; 83605; 83690; 83735; 83880; 84484; 85014; 85018; 85025; 85027; 86850; 86900; 86901; 86920; 87040; 87077; 87205; 93005; 93880; 94644; 96365; 96366; 96368; 96375; 99291; C9113; J0610; J0878; J1644; J1815; J1956; J3370; J7040; J7042; J7050; J7613; P9016; 92526; 92610; 97110; 97116; 97530; 97535; J7030

== ENCOUNTER 2019-03-05 08:46 | Emergency (ER) | payer MEDICARE ==
[~2019-03-05] VITALS: Ht 172.7 cm; Wt 54.4 kg
[~2019-03-05 08:46] MED LIST changes: +FAMO20TA5 NG; +METO25TA4 PO; +VITS56.7 TP
--- NOTE | 2019-03-05 09:36 | PHYS DOC ---
Past Medical History Past Medical History: Cancer, CHF, Diabetes-Type II, Hypertension, Kidney Infection Additional Past Medical Histor: neuropathy Past Surgical History: Other Additional Past Surgical Histo: right foot toe amputation, fem pop bypass, melanoma removal Alcohol Use: None Drug Use: None Adult General Chief Complaint Chief Complaint: NG tube came out HPI HPI Patient is a 83 year old nonverbal female resident of skilled nursing with NG tube in place waiting for PEG tube placement brought in by EMS because of the NG tube was out. She was found with her NG tube out of place since this morning and sent to ER for reinsertion of NG tube. According to EMR patient was discharged yesterday yesterday with plan to insertion of PEG tube in the future. Patient is not able to give history. Review of Systems Review of Systems Unable to obtain, nonverbal patient Allergies Allergies Allergies Coded Allergies Type Severity Reaction Last Updated Verified amoxicillin Allergy Intermediate Hives 10/15/18 Yes Physical Exam Physical Exam Constitutional: Well nourished, no acute distress, non-toxic appearance, not available. [] HENT: Normocephalic, atraumatic, oropharynx moist. Eyes: PERRLA, EOMI, conjunctiva normal, no discharge. [] Neck: Normal range of motion, no tenderness, supple, no stridor. [] Cardiovascular:Heart rate regular rhythm, no murmur [] Lungs & Thorax: Bilateral breath sounds clear to auscultation [] Abdomen: Bowel sounds normal, soft, no tenderness, no masses, no pulsatile masses. [] Skin: Warm, dry, no erythema, no rash. [] Extremities: No tenderness, no cyanosis, no clubbing, no edema. [] Neurologic: Alert and nonverbal Current Patient Data Vital Signs Vital Signs Date Time Temp Pulse Resp B/P (MAP) Pulse Ox O2 Delivery O2 Flow Rate FiO2 03/05/19 10:57 76 18 150/68 (95) 94 Room Air 03/05/19 08:55 99.0 99.0 Lab Values Laboratory Tests Test 03/05/19 09:04 Glucose (Fingerstick) 88 mg/dL (70-99) EKG EKG [] Radiology/Procedures Radiology/Procedures [] Course & Med Decision Making Course & Med Decision Making Evaluation of patient in ER showed 83-year-old female patient sent from skilled nursing for insertion of NG tube after it came out this morning. 18 [place] NG tube was inserted from right nostril by FRONT OFFICE ASSISTANT without problem with confirming the right placement of NG tube. Patient was transferred to skilled nursing by EMS. Dragon Disclaimer Dragon Disclaimer This electronic medical record was generated, in whole or in part, using a voice recognition dictation system. Departure Departure Impression: Primary Impression: Encounter for nasogastric (NG) tube placement Disposition: HOME, SELF-CARE (to the skilled nursing at [phone]) Condition: STABLE Referrals: ALAYNA SOLANO MD (PCP) Patient Instructions: Nasogastric Tube or Feeding Tube, Pediatric Additional Instructions: Follow-up with your current treatment and scheduled follow-up Return to ER if not getting better CESIA BARTH MD March 05, 2019 09:36
[2019-03-05 10:57] VITALS: BP 150/68
== END 2019-03-05 10:58 | disposition home or self-care (01) ==
LOC: ER 08:46
DX: Z43.1 Encounter for attention to gastrostomy (principal); E11.40 Type 2 diabetes mellitus with diabetic neuropathy, unspecified; I11.0 Hypertensive heart disease with heart failure; I50.9 Heart failure, unspecified; Z88.1 Allergy status to other antibiotic agents
CPT/HCPCS: 82962; 99284

== ENCOUNTER 2019-03-07 16:00 | Inpatient (IN) | payer MEDICARE ==
[~2019-03-07] VITALS: Ht 165.1 cm; Wt 54.4 kg
--- NOTE | 2019-03-07 16:31 | PHYS DOC ---
Past Medical History Past Medical History: Cancer, CHF, Diabetes-Type II, Hypertension, Kidney Infection Additional Past Medical Histor: neuropathy Past Surgical History: Other Additional Past Surgical Histo: right foot toe amputation, fem pop bypass, melanoma removal Alcohol Use: None Drug Use: None Adult General Chief Complaint Chief Complaint: NG tube replacement HPI HPI Patient is a 83 year old non-verbal female nonverbal female brought in by EMS for reinsertion of NG tube. Patient was discharged from hospital 4 days ago with plan to insertion of PEG tube as outpatient. Patient seen in this emergency room 2 days ago after she removed her NG tube and had reinsertion of NG tube without problem. Patient instructed NG tube today again is sent to ER for insertion of NG tube and possible swallow study. Patient is nonverbal and history was taking from patient's son and EMS and EMR. Review of Systems Review of Systems Unable to obtain Allergies Allergies Allergies Coded Allergies Type Severity Reaction Last Updated Verified amoxicillin Allergy Intermediate Hives 10/15/18 Yes Physical Exam Physical Exam Constitutional:mild distress, , nontender, non-toxic appearance. [] HENT: Normocephalic, atraumatic, oropharynx dry. Eyes: PERRLA Neck: Normal range of motion, no tenderness, supple, no stridor. [] Cardiovascular:Heart rate regular rhythm, no murmur [] Lungs & Thorax: Bilateral breath sounds clear to auscultation [] Abdomen: Bowel sounds normal, soft, no tenderness, no masses, no pulsatile masses. [] Skin: Warm, dry, no erythema, no rash. [] Extremities: Moving bilateral upper extremities with some flexion Neurologic: Alert, follows the commands partially. Current Patient Data Vital Signs Vital Signs Date Time Temp Pulse Resp B/P (MAP) Pulse Ox O2 Delivery O2 Flow Rate FiO2 03/07/19 16:13 98.1 94 16 94/60 (71) 94 Room Air 98.1 EKG EKG [] Radiology/Procedures Radiology/Procedures [] Course & Med Decision Making Course & Med Decision Making Pertinent Labs reviewed. (See chart for details) Evaluation of patient in ER showed 83-year-old female patient sent from assisted for the second time in the last 48 hours for the insertion of NG tube. Patient had a scheduled for outpatient PEG tube placement insurance was not covering duct and needs inpatient hospitalization. Plan to admit patient for pl acement of PEG tube. Dr. Propac nurse practitioner was informed at 1625 and evaluated the patient in ER. IV fluid was started in ER. Dragon Disclaimer Dragon Disclaimer This electronic medical record was generated, in whole or in part, using a voice recognition dictation system. Departure Departure Impression: Primary Impression: Need for durable feeding access Additional Impressions: Anemia Hypercalcemia Nonverbal Disposition: ADMITTED INPATIENT Admitting Physician: Riki Fernandes (at 1640) Condition: GUARDED Referrals: RIKI FERNANDES MD (PCP) Problem Qualifiers CESIA BARTH MD March 07, 2019 16:30
[2019-03-07] MEDS ORDERED: IV NORMAL SALINE 1000ML BAG 1,000 ML IV ONE (17:00)
[2019-03-07 17:12] LABS: BASO # 0.2 x10^3/uL (0.0-0.2); BASO % 1 % (0-3); EOS # 0.1 x10^3/uL (0.0-0.7); EOS % 1 % (0-3); HEMATOCRIT 32.9 % (36.0-47.0); HEMOGLOBIN 10.2 g/dL (12.0-15.5); LYMPH # 2.5 x10^3/uL (1.0-4.8); LYMPH % 15 % (24-48); MEAN CORPUSCULAR HEMOGLOBIN 27 pg (25-35); MEAN CORPUSCULAR HGB CONC 31 g/dL (31-37); MEAN CORPUSCULAR VOLUME 86 fL (79-100); MONO # 0.9 x10^3/uL (0.0-1.1); MONO % 5 % (0-9); NEUT # 13.1 x10^3uL (1.8-7.7); NEUT % 78 % (31-73); PLATELET COUNT 404 x10^3/uL (140-400); RED BLOOD COUNT 3.82 x10^6/uL (3.50-5.40); RED CELL DISTRIBUTION WIDTH 21.6 % (11.5-14.5); WHITE BLOOD COUNT 16.8 x10^3/uL (4.0-11.0)
--- NOTE | 2019-03-07 17:21 | PDOC ---
Subjective: Subjective: Back to ER after pulling out NG tube again. Outpt PEG placement is apparently not an option due to insurance. Family wants to proceed w/ PEG. Objective: Objective: No blood thinners on med list. Vital Signs: Vital Signs Date Time Temp Pulse Resp B/P (MAP) Pulse Ox O2 Delivery O2 Flow Rate FiO2 03/07/19 16:13 98.1 94 16 94/60 (71) 94 Room Air 98.1 Labs: Reviewed from last admission. PE: GEN: NAD LUNGS: CTAB HEART: RRR ABD: NABS, S/ND/NT NEURO/PSYCH: awake, non-verbal A/P: Oropharyngeal dysphagia -- Plans for admission and PEG placement tomorrow. Discussed PEG procedure/risks w/ son Benjamin - recommend abd binder at all times. KAE SMALLWOOD March 07, 2019 17:21 ARIANNA SARKAR MD March 07, 2019 17:57
[2019-03-07 17:28] LABS: CALCIUM 10.4 mg/dL (8.5-10.1); GFR 52.8; POTASSIUM 4.3 mmol/L (3.5-5.1)
[2019-03-07 17:33] LABS: ALBUMIN/GLOBULIN RATIO 0.8 (1.0-1.7); MAGNESIUM 2.1 mg/dL (1.8-2.4); TOTAL BILIRUBIN 0.6 mg/dL (0.2-1.0)
[2019-03-07 17:45] VITALS: BP 90/51
--- NOTE | 2019-03-07 17:45 | NUR ---
Rec'd from ED with needing feeding access-nasal gastric pulled out at nursing facility, per son scheduled to bring in today for feeding tube placement. Skin assessed noted multiple areas that are bruised-black, blue and fading on bilateral arms, legs-shown to son,also photos taken of left heel, buttock, sacrum and vaginal areas-photos shown to son who was unaware of areas, stated she just left here Thursday, Calmoseptine applies to areas-buttock, sacrum and vaginal areas. Nasal swab sent to lab for MRSA per protocol. See assessment, side rails up x3, call light within reach, son at bedside
[2019-03-07 17:46] LABS: % BANDS 1 % (0-9); % LYMPHS 14 % (24-48); % MONOS 5 % (0-10); % SEGS 80 % (35-66); ANISOCYTOSIS MOD; PLT ESTIMATE ADEQUATE (ADEQUATE); POLYCHROMASIA SLIGHT
[2019-03-07 18:10] LABS: PROTHROMBIN TIME PATIENT 13.1 SEC (11.7-14.0)
[2019-03-07 19:00] VITALS: BP 102/55
[2019-03-07] MEDS: IV NORMAL SALINE 1000ML BAG 1,000 ML IV SCH (21:02)
[2019-03-07 23:00] VITALS: BP 97/53
[2019-03-08 03:00] VITALS: BP 130/66
[2019-03-08] MEDS: IV NORMAL SALINE 1000ML BAG 1,000 ML IV SCH ×2 (05:57→13:00)
[2019-03-08 07:00] VITALS: BP 107/63
--- NOTE | 2019-03-08 07:55 | PDOC ---
Provider Note Provider Note [id number] ALAYNA SOLANO MD March 08, 2019 07:55
--- NOTE | 2019-03-08 08:24 | HP ---
ADMIT DATE: 03/07/2019 CHIEF COMPLAINT: Feeding tube access. HISTORY OF PRESENT ILLNESS: An 83-year-old white female, had a hypoglycemic cerebral injury about 2 weeks ago and was discharged 4 days ago with a feeding tube in her nose. She has pulled it out twice since then and needs to have a PEG tube inserted to maintain enteral access as the family requests that she is still a full code. She could not have this done as an outpatient as her insurance will not cover this, so she was admitted for this procedure emergently as a lack of enteral access and risk of dehydration and malnutrition increases. PAST HISTORY: Well documented in all the old records. SOCIAL HISTORY: , was living with the family, now in a snf. FAMILY HISTORY: Unremarkable. REVIEW OF SYSTEMS: No other problems. OBJECTIVE: ENT: All within normal limits. NECK: No masses, nodes or bruits. LUNGS: Clear. CARDIOVASCULAR: Regular rate. No murmur. ABDOMEN: Benign, nontender. EXTREMITIES: No active joint or skin lesions. NEUROLOGIC: Moves all extremities, says a few words, and does not respond purposefully. No cerebellar or upper motor neuron lesions are seen. ASSESSMENT: 1. Recent cortical injury from hypoglycemia with secondary need for enteral access due to dysphagia. 2. Severe dilated cardiomyopathy, stable. 3. Type 2 insulin-dependent diabetes. PLAN: Planning PEG tube placement. ALAYNA SOLANO MD DR: YOSVANY/kasie JOB#: [id number] / [id number]
[2019-03-08 11:00] VITALS: BP 117/46
--- NOTE | 2019-03-08 11:02 | NUR ---
NOE following for discharge planning. Discussed with RN, pt is from [facility], having PEG tube placed today. SW awaiting confirmation from [facility] if pt's insurance needs to authorize pt to return to [facility], if so PT/OT need to be ordered. NOE will continue to follow. Addendum: 03/08/19 at 1105 by DIXON LIU UPDATE: Pt can return to [facility], PT/OT needs to be ordered so insurance can authorize pt to return to [facility]. RN notified.
[2019-03-08] MEDS ORDERED: AZITHROMYCIN 500 MG in IV NORMAL SALINE 250ML 250 ML IV ONE (13:00)
[2019-03-08] MEDS ORDERED: AZITHRMYCN 500MG IVPB FOR OMNI 250 ML IV ONE (13:00)
--- NOTE | 2019-03-08 14:10 | NUR ---
Assumed pt care at this time. Report received from MARV Marcial. Pt is sleeping, IVF are infusing, son at bedside. Pt leaving unit for PEG placement.
--- NOTE | 2019-03-08 14:12 | NUR ---
pt leaving at this time for outpatient for peg tube placement
[2019-03-08] MEDS ORDERED: MIDAZOLAM HCL/PF 5 MG/5 ML VIAL. ONE (15:07)
[2019-03-08] MEDS ORDERED: fentaNYL PF VIAL 100 MCG/2 ML VIAL ONE (15:08)
[2019-03-08] MEDS ORDERED: MIDAZOLAM HCL/PF 5 MG/5 ML VIAL. IV ONE ×2 (15:25→15:28)
[2019-03-08] MEDS ORDERED: fentaNYL PF VIAL 100 MCG/2 ML VIAL IV ONE (15:25)
--- NOTE | 2019-03-08 15:54 | PDOC4 ---
Operative Note Operative Note EGD with PEG Meds Versed 1 mg IV Fentanyl 25 mcg IV Pre-op dx oropharyngeal dysphagia post-op dx non-erosive gastritis Plan begin feedings in 6 hours and increase as tolerated ARIANNA SARKAR MD March 08, 2019 15:54
--- NOTE | 2019-03-08 17:30 | NUR ---
Pt returning from outpatient. Report was received from Heather. CRAWFORD. PEG tube in LUQ. 2x2 CDI with abd binder per family request. Will continue to monitor.
--- NOTE | 2019-03-08 17:33 | NUR ---
Wound Care Pt seen for wound care consultation re: multiple wounds, see wound assessments. Pt just returned from PEG placement, son at bedside, stepped out for wound assessment. Pt's left heel reddened and boggy, with some bruising and bruising on L lateral foot, small scab on heel, no drainage or fluctuance noted, foam dressing applied. Pt's L buttock, labial, groin and miguel areas reddened, peeling and macerated, pt's bilateral buttocks/sacral area with Deep Tissue Injury, no open areas noted. Vitamin A&D ointment recommended as a barrier protection from urine and liquid stool. Pt had liquid stool at this time, areas cleaned and barrier cream applied. Pt repositioned onto L side with wedge and pillows, heels floated. No other wounds noted on full skin inspection, will continue to follow for wound care needs. POC discussed with SHORT ORDER COOK re: turn Q2 hours from L to R only, and floating heels.
[2019-03-08 19:00] VITALS: BP 140/69
[2019-03-08] MEDS: IV DEXTROSE 5 %-0.45 % NACL 1,000 ML IV SCH (21:20)
[2019-03-08] MEDS: VITS A & D/LANOLIN TOPICAL OINTMENT 56GM TUBE. TP SCH (21:21)
[2019-03-08 23:00] VITALS: BP 127/47
[2019-03-09 03:00] VITALS: BP 138/56
[2019-03-09 07:00] VITALS: BP 110/59
--- NOTE | 2019-03-09 08:15 | PDOC ---
Provider Note Provider Note sleepy, peg in , will get enteral started- labs ok, cont same. no insulin until needed ALAYNA SOLANO MD March 09, 2019 08:15
[2019-03-09] MEDS: VITS A & D/LANOLIN TOPICAL OINTMENT 56GM TUBE. TP SCH ×2 (09:45→22:17)
[2019-03-09 11:00] VITALS: BP 106/52
--- NOTE | 2019-03-09 11:09 | NUR ---
SW following for discharge planning. Discussed with RN, tube feedings will begin toady, PT/OT to work with pt today. RN anticipates pt will be ready for discharge back to [place] tomorrow (03/10/19). SW to send referral packet, insurance will have to authorize.
--- NOTE | 2019-03-09 14:03 | PDOC ---
Objective: Objective: Reviewed w/ RN - plans to start feeds, PEG functioning. Vital Signs: Vital Signs Date Time Temp Pulse Resp B/P (MAP) Pulse Ox O2 Delivery O2 Flow Rate FiO2 03/09/19 11:00 97.6 91 18 106/52 (70) 95 Room Air 97.6 03/08/19 15:50 2 Labs: Laboratory Tests Test 03/08/19 17:08 03/08/19 20:50 03/09/19 00:30 03/09/19 05:42 Glucose (Fingerstick) 79 mg/dL 72 mg/dL 126 mg/dL 151 mg/dL PE: GEN: NAD, up to chair LUNGS: CTAB HEART: RRR ABD: abd binder in place - removed gauze from under outer bolster and loosened a bit NEURO/PSYCH: awake, non-verbal A/P: Oropharyngeal dysphagia s/p PEG -- PEG functioning, start feedings, abd binder at all times, DC per primary. KAE SMALLWOOD March 09, 2019 14:03 ARIANNA SARKAR MD March 09, 2019 14:25
[2019-03-09] MEDS: IV DEXTROSE 5 %-0.45 % NACL 1,000 ML IV SCH (14:46)
[2019-03-09 15:00] VITALS: BP 127/61
--- NOTE | 2019-03-09 15:35 | NUR ---
NOE following. Met with pt's son, Benjamin to discuss discharge planning. Benjamin wants pt to return to [place] but is wanting pt to have restraints like mitts so pt cannot pull out the feeding tube. Pt has an abdominal binder, Benjamin is wondering if [facility] considers this a restraint. Benjamin had a meeting with [facility] at 1500. Yeni from [facility] contacted NOE to discuss the meeting, pt will not be returning to [place] as Benjamin does not want her to go there due to the fact [place] won't force pt to wear the abdominal binder. NOE received a voicemail from Benjamin regarding the same issue. NOE left voicemail for Benjamin requesting a call back to discuss other facilities he would like his mother to go to. NOE will continue to follow.
[2019-03-09 19:00] VITALS: BP 114/45
[2019-03-09 23:00] VITALS: BP 105/37
[2019-03-10 03:00] VITALS: BP 86/39
[2019-03-10] MEDS: IV DEXTROSE 5 %-0.45 % NACL 1,000 ML IV SCH ×2 (06:20→23:00)
[2019-03-10 07:00] VITALS: BP 105/43
--- NOTE | 2019-03-10 08:04 | PDOC ---
Provider Note Provider Note [id number] ALAYNA SOLANO MD March 10, 2019 08:04
[2019-03-10] MEDS: VITS A & D/LANOLIN TOPICAL OINTMENT 56GM TUBE. TP SCH ×2 (08:15→21:18)
--- NOTE | 2019-03-10 08:41 | DS ---
DATE OF DISCHARGE: 03/10/2019 HOSPITAL SUMMARY: An 83-year-old white female with recent hypoglycemic injury, came in to have a PEG feeding tube placed as she was pulling out the NG tubes at the skilled facility. This was done by Dr. Marinelli, and appropriate tube feeding has been accomplished without problems at this point. Laboratory studies were unremarkable, and meds will be resumed, and [facility] the [facility], and she still remains a full code again at the request of the family. FINAL DIAGNOSES: 1. Feeding tube access. 2. Severe cardiomyopathy. 3. Hypoglycemic cerebral injury. OPERATIONS AND PROCEDURES: PEG tube placement. COMPLICATIONS: None. CONSULTATIONS: Dr. Marinelli. DISPOSITION: Home meds remain the same with low-dose insulin only, no anticoagulation given her risk greater than benefit. Prognosis poor given the lack of progress in her central nervous system recovery and see as needed. ALAYNA SOLANO MD DR: YOSVANY/nts JOB#: [id number] / [id number]
[2019-03-10 11:00] VITALS: BP 109/50
--- NOTE | 2019-03-10 12:44 | PDOC ---
Objective: Objective: Per RN - tube functioning, stooling, abd might be distended. Says son doesn't want her to go back to [facility] because they'd let her take the abd binder off if she wanted. Vital Signs: Vital Signs Date Time Temp Pulse Resp B/P (MAP) Pulse Ox O2 Delivery O2 Flow Rate FiO2 03/10/19 11:00 98.2 93 18 109/50 (69) 95 Room Air 98.2 Labs: Laboratory Tests Test 03/09/19 18:40 03/10/19 00:16 03/10/19 05:45 Glucose (Fingerstick) 225 mg/dL 191 mg/dL 146 mg/dL PE: GEN: NAD - just urinated in bed LUNGS: room air ABD: NABS, ?some distention - seems a bit more firm in left lower abdomen - ?guarding, PEG in place/site clean NEURO/PSYCH: awake, non-verbal A/P: Oropharyngeal dysphagia s/p PEG -- DC issues w/ family as above. PEG functioning. ?abd pain, could consider KUB or interval labs KAE SMALLWOOD March 10, 2019 12:44
--- NOTE | 2019-03-10 13:01 | NUR ---
NOE following for discharge planning. Discussed with RN, pt has discharge order on chart. Yesterday afternoon NOE had provided pt's son, Benjamin with facilities to look into for SNU. NOE contacted Benjamin to discuss discharge order in chart and check regarding facilities, Benjamin advised he had an appointment to look through [facility], and would let SW know how it went. NOE phoned Benjamin again to discus discharge planning. Benjamin reported he went to [facility] and he is planning on looking through another facility tomorrow, NOE advised a decision needs to be made today due to pt having a discharge order in and pt's insurance taking up to 48 hours to approve/deny placement. Benjamin became irritated stating he was told he had 48 hours to find a facility, NOE advised the 48 hours is in reference to insurance taking up to that long to approve his mother to go to a facility after it has been submitted, NOE advised it could take only 24, it is up to the insurance. Benjamin then began to state "well I was told at 9.30 this morning about the discharge so then I have until 9.30am tomorrow to make a decision." NOE questioned where Benjamin was getting the 24 hours from, Benjamin stated "you just told me 24 hours." NOE had to continuously redirect pt's son during this phone conversation and reiterated the insurance can take up to 48 hours to approve or deny placement and pt's son needs to make a decision today so SW can fax the referral and the process can begin. Benjamin stated "technically today ends at midnight." NOE advised NOE at [facility] is here until 1630 and we are unable to send referral at midnight due to facilities and insurance not accepting at midnight. Benjamin advised he will make a decision by 1630 today (03/10/19). NOE notified RN of the plan. NOE will await call from Benjamin regarding placement, and attempt to reach out this afternoon.
[2019-03-10 15:00] VITALS: BP 111/45
--- NOTE | 2019-03-10 15:00 | NUR ---
Wound care: Patient seen per wound care again today as RN stated rash had worsened since yesterday. Upon assessment, rash appears worse and more wide spread, clinical staff agreeable. Recommendations for Nystatin powder mixed with calazime cream to be applied. Patient may possibly have fungal infection? Patient repositioned and turned to left side, bilateral heels floated. Patient on a P-500 bed. Bed lowered and call light in reach. Spoke with RN regarding POC. Will follow patient regarding wound care.
--- NOTE | 2019-03-10 16:06 | NUR ---
NOE following. Received a phone call from pt's son, Benjamin. Benjamin would like referral for SNU sent to [facility]. NOE phoned and faxed referral (ph: [phone] fax: [phone]). Awaiting confirmation of whether [facility] clinically accepts. Insurance needs to give auth for pt to go to SNU. RN notified. NOE will continue to follow.
[2019-03-10] MEDS ORDERED: FLUCONAZOLE 100 MG TABLET. PO SCH (19:00)
[2019-03-10 19:20] VITALS: BP 115/65
[2019-03-10] MEDS: NYSTATIN TOPICAL POWDER 15GM BOTTLE. TP SCH (21:17)
[2019-03-10] MEDS: TRIAMCINOLONE ACETONIDE 0.1% TOPICAL CREAM 15GM TUBE. TP SCH (21:18)
[2019-03-10 23:28] VITALS: BP 136/54
[2019-03-11 03:16] VITALS: BP 109/60
[2019-03-11 07:00] VITALS: BP 156/66
--- NOTE | 2019-03-11 08:42 | PDOC ---
Provider Note Provider Note new placement in works, will add liquid hydrodone as she has taken norco x years re chronic pain- resume low dose lantus w/ enteral feed ALAYNA SOLANO MD March 11, 2019 08:42
[2019-03-11] MEDS ORDERED: VITS A & D/LANOLIN TOPICAL OINTMENT 56GM TUBE. TP PRN (08:45)
[2019-03-11] MEDS ORDERED: METOPROLOL TART IMMED RELEASE 25 MG TABLET. PO SCH (09:00)
[2019-03-11] MEDS ORDERED: CYANOCOBALAMIN (VITAMIN B-12) 1,000 MCG TABLET. PO SCH (09:00)
[2019-03-11] MEDS: NYSTATIN TOPICAL POWDER 15GM BOTTLE. TP SCH (09:19)
[2019-03-11] MEDS: TRIAMCINOLONE ACETONIDE 0.1% TOPICAL CREAM 15GM TUBE. TP SCH (09:19)
[2019-03-11] MEDS: VITS A & D/LANOLIN TOPICAL OINTMENT 56GM TUBE. TP SCH (09:19)
[2019-03-11] MEDS ORDERED: INSULIN GLARGINE 300 UNITS/3 ML INSULN.PEN. SQ SCH (10:00)
--- NOTE | 2019-03-11 10:11 | PDOC ---
Objective: Objective: No GI concerns per RN. PEG functioning. Vital Signs: Vital Signs Date Time Temp Pulse Resp B/P (MAP) Pulse Ox O2 Delivery O2 Flow Rate FiO2 03/11/19 09:20 96 156/66 03/11/19 08:10 Room Air 03/11/19 07:00 97.9 16 96 97.9 Labs: Laboratory Tests Test 03/10/19 21:51 03/11/19 07:58 Glucose (Fingerstick) 259 mg/dL 175 mg/dL PE: GEN: NAD LUNGS: room air ABD: PEG in place, abd binder also - abd is softer than yesterday, NABS NEURO/PSYCH: was sleeping, opened eyes and smiled during exam A/P: Oropharyngeal dysphagia s/p PEG -- DC per primary. KAE SMALLWOOD March 11, 2019 10:11
--- NOTE | 2019-03-11 10:51 | PDOC2 ---
PALLIATIVE CARE Palliative Care Note Palliative Care Consult requested by Dr. Fernandes/Griselda to address code status and discharge plan ASSESSMENT: 1. Recent cortical injury from hypoglycemia with secondary need for enteral access due to dysphagia. 2. Severe dilated cardiomyopathy, stable. 3. Type 2 insulin-dependent diabetes. Patient alert. Eyes open. Does not respond verbally but does smile and acknowledge presence. Introduced self and reason for visit. When code status mentioned and plan of care patient shut her eyes and would not respond or open eyes again. Will obtain copy of AD from MR and place on chart. Spoke with son Quinn/DPOA. Reviewed medical condition. Quinn is waiting for insurance validation for [facility]. [facility] about continuing Full Code and current plan of care PC will sign off. KRYSTIAN POTTER March 11, 2019 10:51
[2019-03-11 11:00] VITALS: BP 124/50
--- NOTE | 2019-03-11 12:35 | NUR ---
SW following for discharge planning. Discussed with RN, [facility] clinically accepted pt, pending insurance approval. Palliative care consult entered due to pt declining. Pat spoke with pt's son, Benjamin, he wants full aggressive care. SW will continue to follow.
[2019-03-11 15:00] VITALS: BP 132/56
--- NOTE | 2019-03-11 16:39 | NUR ---
pt is discharged to [facility] at 1625 via stretcher via ambulance personnel. pt is in stable condition. pt has all belongings with her. called and gave report to Keri at [facility]. pictures taken and in chart. rental bed called for pickler helper. pt was feed before discharge.
[2019-03-11] MEDS ORDERED: HYDROcodon/APAP 7.5/325MG ORAL 15 ML SOLUTION PO PRN (17:00)
== END 2019-03-11 16:25 | DRG 392 ==
LOC: ER 16:00 → 4 NORTH 16:25
PROVIDERS: ADMIT Family Medicine; ATTEND Family Medicine
PROC: 0DH63UZ Insertion of Feeding Device into Stomach, Percutaneous Approach (ICD-10-PCS; principal; 2019-03-08 15:00)
DX: K29.70 Gastritis, unspecified, without bleeding (principal); I42.0 Dilated cardiomyopathy; R13.12 Dysphagia, oropharyngeal phase; D64.9 Anemia, unspecified; E83.52 Hypercalcemia; E11.40 Type 2 diabetes mellitus with diabetic neuropathy, unspecified; E11.649 Type 2 diabetes mellitus with hypoglycemia without coma; I11.0 Hypertensive heart disease with heart failure; I50.9 Heart failure, unspecified; Z79.4 Long term (current) use of insulin; Z85.820 Personal history of malignant melanoma of skin; Z88.1 Allergy status to other antibiotic agents; Z51.5 Encounter for palliative care
CPT/HCPCS: 36415; 43246; 80053; 82962; 83735; 85007; 85025; 85610; 87641; G0500; J0456; J1815; J2250; J3010; J7030; J7050; 97110; 97530; 97535; 99285-25